=== PATIENT | female | born 1950 | race Caucasian/White ===

== ENCOUNTER → 2018-07-14 16:14 | Outpatient (CLI) | payer MEDICARE, MEDICAID, SELFPAY ==
[2018-07-14 18:12] LABS: Alanine Aminotransferase 19 IU/L (9-52); Albumin 4.1 g/dL (3.5-5.0); Albumin Globulin Ratio 1.5 (1.0-2.8); Alkaline Phosphatase 98 U/L (38-126); Aspartate Aminotransferase 21 IU/L (14-36); BUN Creatinine Ratio 21.3 (6-22); Bilirubin Total 0.9 mg/dL (0.2-1.3); Blood Urea Nitrogen 17 mg/dL (7-17); Calcium 10.1 mg/dL (8.4-10.2); Carbon Dioxide 30 mmol/L (22-32); Chloride 103 mmol/L (98-107); Cholesterol 168 mg/dL (140-199); Estimated Glomerular Filt Rate > 60.0 mL/min (>60); Globulin 2.8 g/dL (1.7-4.1); Glucose 102 mg/dL (80-110); HDL Cholesterol 81 mg/dL (40-60); HEMOLYSIS < 15 (0-50); LDL Cholesterol Calculated 67 mg/dL (<100); Potassium 4.7 mmol/L (3.4-5.1); Sodium 144 mmol/L (137-145); Total Protein 6.9 g/dL (6.3-8.2); Triglycerides 100 mg/dL (35-150)
[2018-07-14 18:39] LABS: Creatinine Urine Random 92.3 mg/dL
[2018-07-14 18:42] LABS: Thyroid Stimulating Hormone 1.35 uIU/mL (0.47-4.68)
[2018-07-14 18:43] LABS: Microalbumi Creatinin Ratio Ur 41.1 ug/mg CR (<30); Microalbumin Urine Random 3.8 mg/dL (0-1.6)
== END ==
PROVIDERS: PCP Physician Assistant; Visit Provider Physician Assistant
DX: E03.9 Hypothyroidism, unspecified (principal); E66.01 Morbid (severe) obesity due to excess calories; E78.5 Hyperlipidemia, unspecified; I10 Essential (primary) hypertension; Z68.42 Body mass index [BMI] 45.0-49.9, adult
CPT/HCPCS: 36415; 80053; 80061; 82043; 82570; 84443

== ENCOUNTER → 2018-12-22 10:54 | Outpatient (CLI) | payer MEDICARE, MEDICAID, SELFPAY ==
--- NOTE | 2018-12-22 10:56 | DI.MG.S_ITS ---
BILATERAL DIGITAL SCREENING MAMMOGRAM 3D/2D WITH CAD: 12/22/2018 CLINICAL: Routine screening. Comparison is made to exams dated: 06/13/2017 mammogram, 03/26/2016 mammogram, and 12/30/2014 mammogram - [facility]. The tissue of both breasts is predominantly fatty. Current study was also evaluated with a Computer Aided Detection (CAD) system. No significant masses, calcifications, or other findings are seen in either breast. There has been no significant interval change. IMPRESSION: NEGATIVE There is no mammographic evidence of malignancy. A 1 year screening mammogram is recommended. This exam was interpreted at Station ID: [id number]. NOTE: For mammograms, a report in lay terms will be sent to the patient. Approximately 15% of breast malignancies will not be visualized mammographically. In the management of a palpable breast mass, a negative mammogram must not discourage biopsy of a clinically suspicious lesion. Electronically Signed By: Sabra stern/milind:12/22/2018 14:17:56 copy to: Ba Rankin letter sent: Normal Exam ACR BI-RADS Category 1: Negative [id number]
== END ==
PROVIDERS: PCP Physician Assistant; Visit Provider Physician Assistant
DX: Z12.31 Encounter for screening mammogram for malignant neoplasm of breast (principal)
CPT/HCPCS: 77063; 77067

== ENCOUNTER → 2019-01-06 15:33 | Outpatient (CLI) | payer MEDICARE, MEDICAID, SELFPAY ==
[2019-01-06 18:03] LABS: Creatinine Urine Random 107.6 mg/dL
[2019-01-06 18:07] LABS: Microalbumi Creatinin Ratio Ur 5.5 ug/mg CR (<30); Microalbumin Urine Random < 0.6 mg/dL (0-1.6)
== END ==
PROVIDERS: PCP Physician Assistant; Visit Provider Physician Assistant
DX: I10 Essential (primary) hypertension (principal); R80.9 Proteinuria, unspecified
CPT/HCPCS: 82043; 82570

== ENCOUNTER → 2019-01-06 16:28 | Outpatient (CLI) | payer MEDICARE, MEDICAID, SELFPAY ==
[2019-01-06 17:40] LABS: Add Manual Diff / Slide Review NO; Basophils Absolute Auto 0 /uL (0-100); Basophils Percent Auto 0.3 % (0-2); Eosinophils Absolute Auto 100 /uL (0-450); Hematocrit 42.6 % (36-46); Hemoglobin 13.9 g/dL (12.0-16.0); Lymphocytes Absolute Auto 1400 /uL (1100-4500); Lymphocytes Percent Auto 24.6 % (25-40); Mean Corpuscular HGB Conc 32.6 % (30-36); Mean Corpuscular Hemoglobin 28.3 PG (26-34); Monocytes Absolute Auto 500 /uL (0-900); Monocytes Percent Auto 8.6 % (3-14); Neutrophils Absolute Auto 3800 /uL (1500-7000); Neutrophils Percent Auto 64.5 % (50-75); Platelet Count 206 X10^3/uL (150-400); Red Cell Distribution Width 15.1 % (11.6-14.8); White Blood Cell Count 5.9 X10^3/uL (4.5-11.0)
[2019-01-06 18:00] LABS: Alanine Aminotransferase 32 IU/L (9-52); Albumin 3.9 g/dL (3.5-5.0); Albumin Globulin Ratio 1.4 (1.0-2.8); Alkaline Phosphatase 94 U/L (38-126); Aspartate Aminotransferase 21 IU/L (14-36); BUN Creatinine Ratio 16.3 (6-22); Bilirubin Total 0.7 mg/dL (0.2-1.3); Blood Urea Nitrogen 13 mg/dL (7-17); Calcium 9.3 mg/dL (8.4-10.2); Carbon Dioxide 28 mmol/L (22-32); Chloride 106 mmol/L (98-107); Estimated Glomerular Filt Rate > 60.0 mL/min (>60); Globulin 2.7 g/dL (1.7-4.1); Glucose 82 mg/dL (80-110); HEMOLYSIS < 15 (0-50); Potassium 4.5 mmol/L (3.4-5.1); Sodium 141 mmol/L (137-145); Total Protein 6.6 g/dL (6.3-8.2)
[2019-01-06 18:32] LABS: Thyroid Stimulating Hormone 1.24 uIU/mL (0.47-4.68)
== END ==
PROVIDERS: PCP Physician Assistant; Visit Provider Physician Assistant
DX: E03.9 Hypothyroidism, unspecified (principal); I10 Essential (primary) hypertension; R19.7 Diarrhea, unspecified; R80.9 Proteinuria, unspecified
CPT/HCPCS: 36415; 80053; 82043; 82570; 84443; 85025

== ENCOUNTER → 2019-01-07 13:21 | Outpatient (CLI) | payer MEDICARE, MEDICAID, SELFPAY ==
[2019-01-07 17:06] LABS: Clostridium Difficile Tox PCR Negative for C. diff
== END ==
PROVIDERS: PCP Physician Assistant; Visit Provider Physician Assistant
DX: E03.9 Hypothyroidism, unspecified (principal); I10 Essential (primary) hypertension; R19.7 Diarrhea, unspecified; R80.9 Proteinuria, unspecified
CPT/HCPCS: 87045; 87493; 87899

== ENCOUNTER → 2019-06-21 15:32 | Outpatient (CLI) | payer MEDICARE, MEDICAID, SELFPAY ==
--- NOTE | 2019-06-21 15:34 | DI.RAD.S_ITS ---
PROCEDURE: XR FOOT RT MIN 3V INDICATIONS: Pain distal 5th metatarsal;caught 5th on blanket and fell TECHNIQUE: 3 views of the foot were acquired. COMPARISON: [facility], , FOOT 3V LEFT, 04/23/2016, 15:08. [facility], , FOOT 3V LEFT, 04/15/2007, 11:50. FINDINGS: Bones: No fractures or dislocations. No suspicious bony lesions. Soft tissues: No tibiotalar joint effusion. Achilles tendon appears normal. IMPRESSION: Normal for age, source of current pain after trauma symptoms is not seen. Dictated by: Marcos Varner M.D. on 06/21/2019 at 16:34 Approved by: Marcos Varner M.D. on 06/21/2019 at 16:34
== END ==
PROVIDERS: PCP Physician Assistant; Visit Provider Physician Assistant
DX: M79.671 Pain in right foot (principal); W01.0XXA Fall on same level from slipping, tripping and stumbling without subsequent striking against object, initial encounter
CPT/HCPCS: 73630

== ENCOUNTER → 2019-06-29 13:10 | Outpatient (CLI) | payer MEDICARE, MEDICAID, SELFPAY ==
[2019-06-29 14:43] LABS: Alanine Aminotransferase 13 IU/L (9-52); Albumin 4.1 g/dL (3.5-5.0); Albumin Globulin Ratio 1.3 (1.0-2.8); Alkaline Phosphatase 121 U/L (38-126); Aspartate Aminotransferase 22 IU/L (14-36); BUN Creatinine Ratio 18.6 (6-22); Bilirubin Total 0.6 mg/dL (0.2-1.3); Blood Urea Nitrogen 13 mg/dL (7-17); Calcium 9.2 mg/dL (8.4-10.2); Carbon Dioxide 27 mmol/L (22-32); Chloride 105 mmol/L (98-107); Cholesterol 158 mg/dL (140-199); Estimated Glomerular Filt Rate > 60.0 mL/min (>60); Globulin 3.2 g/dL (1.7-4.1); Glucose 96 mg/dL (80-110); HDL Cholesterol 65 mg/dL (40-60); HEMOLYSIS < 15 (0-50); LDL Cholesterol Calculated 75 mg/dL (<100); Sodium 141 mmol/L (137-145); Total Protein 7.3 g/dL (6.3-8.2); Triglycerides 90 mg/dL (35-150)
[2019-06-29 14:52] LABS: Microalbumi Creatinin Ratio Ur 5.8 ug/mg CR (<30); Microalbumin Urine Random 0.7 mg/dL (0-1.6)
[2019-06-29 15:43] LABS: Thyroid Stimulating Hormone 0.75 uIU/mL (0.47-4.68)
== END ==
PROVIDERS: PCP Physician Assistant; Visit Provider Physician Assistant
DX: E78.5 Hyperlipidemia, unspecified (principal); E03.9 Hypothyroidism, unspecified; I10 Essential (primary) hypertension
CPT/HCPCS: 36415; 80053; 80061; 82043; 82570; 84443

== ENCOUNTER 2019-08-26 10:32 | Emergency (ER) | payer MEDICARE, MEDICAID, SELFPAY ==
[2019-08-26 11:00] VITALS: BP 110/51; PULSE 73; RESP 18; TEMP 36.4; O2SAT 96; BMI 46.0
[2019-08-26 11:16] LABS: Add Manual Diff / Slide Review NO; Basophils Absolute Auto 0 /uL (0-100); Basophils Percent Auto 0.7 % (0-2); Eosinophils Absolute Auto 100 /uL (0-450); Eosinophils Percent Auto 2.5 % (2-4); Lymphocytes Absolute Auto 900 /uL (1100-4500); Lymphocytes Percent Auto 19.8 % (25-40); Mean Corpuscular HGB Conc 33.5 % (30-36); Mean Corpuscular Hemoglobin 29.1 PG (26-34); Mean Corpuscular Volume 86.8 fL (80-100); Monocytes Absolute Auto 500 /uL (0-900); Monocytes Percent Auto 10.5 % (3-14); Neutrophils Absolute Auto 3200 /uL (1500-7000); Neutrophils Percent Auto 66.5 % (50-75); Platelet Count 164 X10^3/uL (150-400); Red Blood Cell Count 4.49 X10^6/uL (4.0-5.2); Red Cell Distribution Width 14.8 % (11.6-14.8); White Blood Cell Count 4.7 X10^3/uL (4.5-11.0)
[2019-08-26 11:22] LABS: Prothrombin Time 11.7 SECONDS (10.1-12.7)
[2019-08-26 11:25] LABS: PTT Partial Thromboplastin Tim 33 SECONDS (26.4-36.2)
[2019-08-26 11:28] LABS: Alanine Aminotransferase 18 IU/L (9-52); Albumin 3.8 g/dL (3.5-5.0); Albumin Globulin Ratio 1.5 (1.0-2.8); Alkaline Phosphatase 99 U/L (38-126); Aspartate Aminotransferase 24 IU/L (14-36); BUN Creatinine Ratio 21.4 (6-22); Bilirubin Total 0.8 mg/dL (0.2-1.3); Blood Urea Nitrogen 15 mg/dL (7-17); Calcium 8.9 mg/dL (8.4-10.2); Carbon Dioxide 27 mmol/L (22-32); Chloride 105 mmol/L (98-107); Estimated Glomerular Filt Rate > 60.0 mL/min (>60); Globulin 2.6 g/dL (1.7-4.1); Glucose 86 mg/dL (80-110); HEMOLYSIS < 15 (0-50); Lipase 34 U/L (23-300); Sodium 141 mmol/L (137-145); Total Protein 6.4 g/dL (6.3-8.2)
[2019-08-26 11:33] VITALS: BP 123/88; PULSE 77; RESP 17; O2SAT 99
--- NOTE | 2019-08-26 11:43 | ED.ABDPAIN ---
HPI - Abdominal Pain <CHLOÉ Wallis - Last Filed: 08/26/19 18:17> General Chief Complaint: Abdominal Pain Stated Complaint: left flank pain bloating discomfort around belly Time Seen by Provider: 08/26/19 11:02 Source: patient Mode of arrival: Family Vehicle Limitations: no limitations History of Present Illness HPI narrative: The patient is a 69-year-old female nonsmoker with history of obesity who presents with a chief complaint of left-sided flank pain. She states that it radiates to her left back. She denies any chest pain or shortness of breath. She denies any fevers, but complains of chills. She complains of nausea, but denies any vomiting or diarrhea. She states that she feels bloated. She does have a history of a failed lap band surgery. She denies any dysuria urgency or frequency. She states that Tylenol dulled the pain. She denies any trauma or impetus to the pain. In addition to her lap band surgery, she states that she has had an appendectomy and her left ovary removed. The pain is worse with movement. Related Data Home Medications Medication Instructions Recorded Confirmed bupropion HCl 300 mg PO QPM 08/26/19 08/26/19 duloxetine 30 mg PO QPM 08/26/19 08/26/19 levothyroxine [Synthroid] 50 mcg PO DAILY 08/26/19 08/26/19 lisinopril 20 mg PO QPM 08/26/19 08/26/19 pantoprazole 40 mg PO QPM 08/26/19 08/26/19 simvastatin 20 mg PO BEDTIME 08/26/19 08/26/19 Previous Rx's Medication Instructions Recorded varicella-zoster [id number] (PF) 50 50 mcg IM ONCE #1 each 10/07/18 mcg/0.5 mL IM susp, kit albuterol sulfate 90 mcg/actuation 2 puff INHALATION Q4-6H PRN #18 06/21/19 aerosol inhaler gram Allergies Allergy/AdvReac Type Severity Reaction Status Date / Time No Known Drug Allergies Allergy Verified 06/21/19 15:03 Review of Systems <CHLOÉ Wallis - Last Filed: 08/26/19 18:17> Review of Systems Narrative: GENERAL: Denies chills, fatigue, malaise, fever, sweats. HEENT: Denies sinus pain, ear pain, sore throat, difficulty swallowing, dizziness. RESPIRATORY: Denies dyspnea, cough, wheezing, hemoptysis, sputum. CARDIOVASCULAR: Denies chest pain, palpitations, orthopnea, edema, GASTROINTESTINAL: See HPI : See HPI MUSCULOSKELETAL: denies weakness, joint pain, or bony pain SKIN: Denies rash, skin lesions, or other NEUROLOGIC: Denies weakness, headache, numbness, change in speech, confusion, seizures, incoordination. PSYCHIATRIC: No concerning psychosocial issues. 12 point review of systems is negative except for those stated above Patient History <CHLOÉ Wallis - Last Filed: 08/26/19 18:17> Surgical History (Updated 08/26/19 @ 11:46 by CHLOÉ Wallis) History of appendectomy (Acute) History of bilateral salpingo-oophorectomy (BSO) Social History Smoking Status: Never smoker second hand exposure: No alcohol intake: current substance use type: does not use alcohol intake frequency: 0-2 drinks per day Substance Use Type: does not use Exam <CHLOÉ Wallis - Last Filed: 08/26/19 18:17> Narrative Exam Narrative: GENERAL: Morbidly obese female in no acute distress HEAD: Atraumatic. Normocephalic. No temporal or scalp tenderness. EYES: Pupils equal round and reactive. Extraocular motions intact. No scleral icterus. No injection or drainage. ENT: Nose without bleeding, purulent drainage or septal hematoma. Throat without erythema, tonsillar hypertrophy or exudate. Uvula midline. Airway patent. NECK: Trachea midline. No JVD or lymphadenopathy. Supple, nontender, no meningeal signs. CARDIOVASCULAR: Regular rate and rhythm RESPIRATORY: Clear to auscultation. Breath sounds equal bilaterally. No wheezes, rales, or rhonchi. No cough. No increased respiratory effort. No accessory muscle use. GASTROINTESTINAL: Abdomen soft, obese. Positive Jones sign. Slight pain to palpation left upper quadrant. No pain to palpation right lower quadrant, left lower quadrant suprapubic area. EXTREMITIES: No clubbing, cyanosis, or edema. No joint tenderness, effusion, or edema noted. BACK: Nontender without deformity or crepitance. Flank tenderness noted on left side. No CVA tenderness right side. NEURO: AOx3. SKIN: No rash or erythema on visible skin. Initial Vital Signs Initial Vital Signs: Vital Signs Temperature 97.5 F L 08/26/19 11:00 Pulse Rate 73 08/26/19 11:00 Respiratory Rate 18 08/26/19 11:00 Blood Pressure 110/51 L 08/26/19 11:00 Pulse Oximetry 96 08/26/19 11:00 <Raymon Rasmussen MD - Last Filed: 08/26/19 18:27> Initial Vital Signs Initial Vital Signs: Vital Signs Temperature 97.5 F L 08/26/19 11:00 Pulse Rate 73 08/26/19 11:00 Respiratory Rate 18 08/26/19 11:00 Blood Pressure 110/51 L 08/26/19 11:00 Pulse Oximetry 96 08/26/19 11:00 Course <ROMAINE Wallis-BC - Last Filed: 08/26/19 18:17> Orders Ordered: ED Orders 08/26/19 10:50 EKG-12 Lead Stat 08/26/19 11:08 Complete Blood Count AUTO DIFF Stat Comprehensive Metabolic Panel Stat Lipase Stat Partial Thromboplastin Time Stat Prothrombin Time INR Stat Troponin & CK Cardiac Panel Stat 08/26/19 12:00 XR acute abdomen series Stat 08/26/19 12:25 US abdomen complete Stat 08/26/19 13:17 CT abdomen pelvis w con Stat Discontinued Medications Sodium Chloride (Normal Saline 0.9%) 1,000 mls @ 150 mls/hr IV CONT SHASHA Last Infusion: 08/26/19 14:59 Dose: 0 mls/hr Documented by: Admin: 08/26/19 11:54 Dose: 150 mls/hr Documented by: HEATH Ketorolac Tromethamine (Toradol) 30 mg IV NOW ONE Stop: 08/26/19 14:09 Last Admin: 08/26/19 14:16 Dose: 30 mg Documented by: DAVID Magnesium Citrate (Magnesium Citrate) 300 ml PO NOW ONE Stop: 08/26/19 14:09 Last Admin: 08/26/19 14:16 Dose: 300 ml Documented by: DAVID Morphine Sulfate (Morphine) 4 mg IV NOW ONE Stop: 08/26/19 11:38 Last Admin: 08/26/19 11:54 Dose: 4 mg Documented by: HEATH Ondansetron HCl (Zofran) 4 mg IV NOW ONE Stop: 08/26/19 11:38 Last Admin: 08/26/19 11:55 Dose: 4 mg Documented by: HEATH Simethicone (Mylicon) 80 mg PO NOW ONE Stop: 08/26/19 14:14 Last Admin: 08/26/19 14:17 Dose: 80 mg Documented by: DAVID Vital Signs Vital signs: Vital Signs - 8 hr 08/26/19 11:00 08/26/19 11:33 08/26/19 12:30 Temperature 97.5 F L Pulse Rate 73 77 76 Respiratory Rate 18 17 19 Blood Pressure 110/51 L Blood Pressure [Right Arm] 123/88 123/63 Pulse Oximetry 96 99 98 08/26/19 13:36 08/26/19 14:30 Temperature Pulse Rate 73 67 Respiratory Rate 15 14 Blood Pressure Blood Pressure [Right Arm] 122/74 102/89 Pulse Oximetry 99 97 <Raymon Rasmussen MD - Last Filed: 08/26/19 18:27> Orders Ordered: ED Orders 08/26/19 10:50 EKG-12 Lead Stat 08/26/19 11:08 Complete Blood Count AUTO DIFF Stat Comprehensive Metabolic Panel Stat Lipase Stat Partial Thromboplastin Time Stat Prothrombin Time INR Stat Troponin & CK Cardiac Panel Stat 08/26/19 12:00 XR acute abdomen series Stat 08/26/19 12:25 US abdomen complete Stat 08/26/19 13:17 CT abdomen pelvis w con Stat Discontinued Medications Sodium Chloride (Normal Saline 0.9%) 1,000 mls @ 150 mls/hr IV CONT SHASHA Last Infusion: 08/26/19 14:59 Dose: 0 mls/hr Documented by: Admin: 08/26/19 11:54 Dose: 150 mls/hr Documented by: HEATH Ketorolac Tromethamine (Toradol) 30 mg IV NOW ONE Stop: 08/26/19 14:09 Last Admin: 08/26/19 14:16 Dose: 30 mg Documented by: DAVID Magnesium Citrate (Magnesium Citrate) 300 ml PO NOW ONE Stop: 08/26/19 14:09 Last Admin: 08/26/19 14:16 Dose: 300 ml Documented by: DAVID Morphine Sulfate (Morphine) 4 mg IV NOW ONE Stop: 08/26/19 11:38 Last Admin: 08/26/19 11:54 Dose: 4 mg Documented by: HEATH Ondansetron HCl (Zofran) 4 mg IV NOW ONE Stop: 08/26/19 11:38 Last Admin: 08/26/19 11:55 Dose: 4 mg Documented by: HEATH Simethicone (Mylicon) 80 mg PO NOW ONE Stop: 08/26/19 14:14 Last Admin: 08/26/19 14:17 Dose: 80 mg Documented by: DAVID Vital Signs Vital signs: Vital Signs - 8 hr 08/26/19 11:00 08/26/19 11:33 08/26/19 12:30 Temperature 97.5 F L Pulse Rate 73 77 76 Respiratory Rate 18 17 19 Blood Pressure 110/51 L Blood Pressure [Right Arm] 123/88 123/63 Pulse Oximetry 96 99 98 08/26/19 13:36 08/26/19 14:30 Temperature Pulse Rate 73 67 Respiratory Rate 15 14 Blood Pressure Blood Pressure [Right Arm] 122/74 102/89 Pulse Oximetry 99 97 MDM - Abdominal Pain <ROMAINE Wallis- - Last Filed: 08/26/19 18:17> Lab Data Result diagrams: 08/26/19 11:08 08/26/19 11:08 Labs: Lab Results 08/26/19 08/26/19 08/26/19 Range/Units 11:08 11:08 11:08 WBC 4.7 (4.5-11.0) X10^3/uL RBC 4.49 (4.0-5.2) X10^6/uL Hgb 13.0 (12.0-16.0) g/dL Hct 39.0 (36-46) % MCV 86.8 (80-100) fL MCH 29.1 (26-34) PG MCHC 33.5 (30-36) % RDW 14.8 (11.6-14.8) % Plt Count 164 (150-400) X10^3/uL Neut % (Auto) 66.5 (50-75) % Lymph % (Auto) 19.8 L (25-40) % [place] % (Auto) 10.5 (3-14) % Eos % (Auto) 2.5 (2-4) % Baso % (Auto) 0.7 (0-2) % Neut # (Auto) 3200 (2620-0615) /uL Lymph # (Auto) 900 L (6876-6196) /uL [place] # (Auto) 500 (0-900) /uL Eos # (Auto) 100 (0-450) /uL Baso # (Auto) 0 (0-100) /uL PT 11.7 (10.1-12.7) SECONDS INR 1.0 (0.9-1.3) APTT 33 (26.4-36.2) SECONDS Sodium 141 (137-145) mmol/L Potassium 4.0 (3.4-5.1) mmol/L Chloride 105 (98-107) mmol/L Carbon Dioxide 27 (22-32) mmol/L BUN 15 (7-17) mg/dL Creatinine 0.70 (0.52-1.04) mg/dL Estimated GFR > 60.0 (>60) mL/min BUN/Creatinine Ratio 21.4 (6-22) Glucose 86 (80-110) mg/dL Calcium 8.9 (8.4-10.2) mg/dL Total Bilirubin 0.8 (0.2-1.3) mg/dL AST 24 (14-36) IU/L ALT 18 (9-52) IU/L Alkaline Phosphatase 99 (38-126) U/L Total Creatine Kinase (30-135) U/L CK-MB (CK-2) (<2.37) ng/mL CK-MB (CK-2) Rel Index (1.5-5.0) % Troponin I (0.01-0.034) ng/mL Total Protein 6.4 (6.3-8.2) g/dL Albumin 3.8 (3.5-5.0) g/dL Globulin 2.6 (1.7-4.1) g/dL Albumin/Globulin Ratio 1.5 (1.0-2.8) Lipase 34 (23-300) U/L 08/26/19 Range/Units 11:08 WBC (4.5-11.0) X10^3/uL RBC (4.0-5.2) X10^6/uL Hgb (12.0-16.0) g/dL Hct (36-46) % MCV (80-100) fL MCH (26-34) PG MCHC (30-36) % RDW (11.6-14.8) % Plt Count (150-400) X10^3/uL Neut % (Auto) (50-75) % Lymph % (Auto) (25-40) % [place] % (Auto) (3-14) % Eos % (Auto) (2-4) % Baso % (Auto) (0-2) % Neut # (Auto) (1974-5067) /uL Lymph # (Auto) (4777-1892) /uL [place] # (Auto) (0-900) /uL Eos # (Auto) (0-450) /uL Baso # (Auto) (0-100) /uL PT (10.1-12.7) SECONDS INR (0.9-1.3) APTT (26.4-36.2) SECONDS Sodium (137-145) mmol/L Potassium (3.4-5.1) mmol/L Chloride (98-107) mmol/L Carbon Dioxide (22-32) mmol/L BUN (7-17) mg/dL Creatinine (0.52-1.04) mg/dL Estimated GFR (>60) mL/min BUN/Creatinine Ratio (6-22) Glucose (80-110) mg/dL Calcium (8.4-10.2) mg/dL Total Bilirubin (0.2-1.3) mg/dL AST (14-36) IU/L ALT (9-52) IU/L Alkaline Phosphatase (38-126) U/L Total Creatine Kinase 150 H (30-135) U/L CK-MB (CK-2) 1.31 (<2.37) ng/mL CK-MB (CK-2) Rel Index 0.9 L (1.5-5.0) % Troponin I < 0.012 (0.01-0.034) ng/mL Total Protein (6.3-8.2) g/dL Albumin (3.5-5.0) g/dL Globulin (1.7-4.1) g/dL Albumin/Globulin Ratio (1.0-2.8) Lipase (23-300) U/L Point of care testing: Urine Dip Bedside Urine Glucose Negative Bedside Urine Bilirubin - Negative Bedside Urine Ketone - Negative Urine Specific [place] 1.015 Bedside Urine Occult Blood - Negative Bedside Urine pH 6.0 Bedside Urine Protein - Negative Bedside Urine Urobilinogen +/- 1mg Bedside Urine Nitrite - Negative Bedside Urine Leukocytes - Negative Esterase Imaging Data abd xray : Radiologist's impression: [address] [address] XRay Report Signed Patient: Terese Trejo [facility]#: [id number] : [id number]:[id number] Age/Sex: 69 / FDate of Service: 08/26/19 Loc: ED Accession Number: [id number] Procedure: XR acute abdomen series Ordering Provider: Mary Peace PROCEDURE: XR ACUTE ABDOMEN SERIES INDICATIONS: bloating TECHNIQUE: One view chest and two views of the abdomen were acquired. COMPARISON: [facility], CR, XR SWALLOWING EVAL WITH SPEECH, 08/09/2019, 8:25. [facility], US, US ABDOMEN COMPLETE, 08/26/2019, 12:36. FINDINGS: Surgical changes and devices: None. Chest: Lungs are clear. Heart size is normal. No pleural effusions. No pneumoperitoneum. Abdomen: There is a moderate to large amount of stool in colon. Mild small bowel dilation. No suspicious calcifications. Visualized solid organ contours appear normal. Bones: No suspicious bony lesions. Mild scoliosis. Moderate to severe degenerative changes in lumbar spine. IMPRESSION: 1. Mild small bowel dilation most likely secondary to ileus but early small bowel obstruction cannot be excluded. 2. Moderate to large amount of stool in colon. Dictated by: Joan Lora M.D. on 08/26/2019 at 13:06 Approved by: Joan Lora M.D. on 08/26/2019 at 13:09 US - abdomen: Radiologist's impression: [address] [address] Ultrasound Report Signed Patient: Terese Trejo [facility]#: [id number] : [id number]:[id number] Age/Sex: 69 / FDate of Service: 08/26/19 Loc: ED Accession Number: [id number] Procedure: US abdomen complete Ordering Provider: [place],Mary NURSE ADMINISTRATOR-BC PROCEDURE: US ABDOMEN COMPLETE INDICATIONS: PAIN TECHNIQUE: Real-time scanning was performed of the abdominal and retroperitoneal organs, with image documentation. COMPARISON: [facility], US, ABDOMEN COMPLETE, 12/14/2014, 14:29. FINDINGS: Liver: Liver is normal in size and homogeneous in echotexture. Gallbladder: Gallbladder wall polyp measuring 2-3 mm. No gallbladder wall thickening pericholecystic fluid or sonographic Jones sign. Biliary ducts: Intrahepatic bile ducts are non-dilated. Extrahepatic bile duct caliber measures 5 mm. Normal is 6-7 mm or less in diameter, or 10 mm or less post-cholecystectomy. Pancreas: Not well sonographically visualized Spleen: Spleen is normal in size and homogeneous in echotexture. Kidneys: Kidneys are normal in size and echotexture. Right kidney measures 9.2 cm long; left kidney measures 9.4 cm long. No hydronephrosis or nephrolithiasis. No solid masses. Aorta: Visualized aorta is normal in caliber at less than 3 cm. Iliacs: Proximal common iliac arteries are normal in caliber at less than 2.5 cm. IVC: Not well visualized sonographically Miscellaneous: No free abdominal fluid. IMPRESSION: Incidentally noted gallbladder polyp. Elsewhere, no acute process. However, pancreas not sonographically visualized. Dictated by: Marvin Wilkinson M.D. on 08/26/2019 at 13:07 Approved by: Marvin Wilkinson M.D. on 08/26/2019 at 13:12 CT scan - abdomen: Radiologist's impression: [place] [address] CT Scan Report Signed Patient: Terese Trejo [facility]#: [id number] : 2Acct:[id number] Age/Sex: 69 / FDate of Service: 08/26/19 Loc: ED Accession Number: [id number] Procedure: CT abdomen pelvis w con Ordering Provider: Mary Peace-BC PROCEDURE: CT ABDOMEN PELVIS W CON INDICATIONS: abd pain, ?sbo TECHNIQUE: After the administration of oral and intravenous contrast, 5 mm thick sections acquired from the diaphragms to the symphysis. 5 mm thick coronal and sagittal reformats were performed. For radiation dose reduction, the following was used: automated exposure control, adjustment of mA and/or kV according to patient size. COMPARISON: [facility], CT, ABDOMEN/PELVIS WITH CONTRAST, 11/28/2012, 13:12. FINDINGS: Image quality: Diagnostic. ABDOMEN: Lung bases: Mild scar versus atelectasis is identified within the bilateral lung bases. Heart size is normal. Solid organs: The liver, spleen, adrenals, and pancreas appear to be within normal limits. The kidneys are normal in size. There is a small 3 mm nonobstructing mid right renal calculus. Parapelvic cysts are present bilaterally. There is no hydronephrosis. Peritoneum and bowel: There is a small moderate-sized hiatal hernia. The stomach is decompressed. Small bowel loops are nondilated. A moderate amount of residual stool is seen within the proximal colon. The appendix is not definitely seen. There is a moderate-sized periumbilical hernia present that contains multiple bowel loops. The proximal and distal bowel loops that extend into this hernia are not distended. An additional small supraumbilical fat containing ventral hernia is also evident. No free fluid or loculated fluid collection is appreciated. Nodes and vessels: No retroperitoneal or mesenteric adenopathy. Aorta and inferior vena cava are normal in caliber. Bones: No acute fracture or suspicious osseous lesion is evident. [id number] degenerative changes of the spine are present. PELVIS: Bladder: Bladder wall thickness is normal. Miscellaneous: There appears to be a very small fat containing left inguinal hernia. The uterus and ovaries are not significantly enlarged, but are not well characterized on CT. No free fluid or loculated fluid collection is evident. No pelvic adenopathy is identified. Bones: No suspicious bony lesions. No acute pelvic fractures are evident. Mild to moderate degenerative changes of the pelvic joints are noted. IMPRESSION: 1. No evidence of a small bowel obstruction. 2. Large periumbilical hernia containing multiple bowel loops. 3. Probable constipation. 4. There is an additional small superior midline ventral hernia and a fat containing left abdominal hernia. 5. Hiatal hernia. 6. Nonobstructing right renal calculus. No hydronephrosis. Dictated by: Raymond Jacobsen M.D. on 08/26/2019 at 12:45 Approved by: Raymond Jacobsen M.D. on 08/26/2019 at 12:52 ECG Data Attestation: I personally reviewed and interpreted this ECG as follows: Interpretation: Sinus rhythm. Ventricular rate 73. No ectopy noted. No ST elevation or depression noted. P.r. interval 140. QRS duration 93. viewed by Dr Rasmussen [facility] Narrative Medical decision making narrative: The patient is a morbidly obese 69-year-old female who presents with multiple complaints including flank pain, abdominal pain, bloating. She does not have an acute abdomen, but complains of diffuse right upper quadrant pain on exam, so I obtained an ultrasound of her right upper quadrant to evaluate for cholecystitis. She she is hemodynamically stable, afebrile, no leukocytosis noted on labs. She does have a history of kidney stone, but she has no hematuria on urinalysis. Ultrasound was concerning for slight hydronephrosis per mechatronics technician. X-ray was concerning for possible small bowel obstruction, so I obtained a CT with contrast. This came back with no small-bowel obstruction, severe constipation and multiple hernias. She has no evidence of UTI on urinalysis. She had a normal x-ray, and negative troponin. She has no evidence of strangulated hernias, no vomiting, no fever. I discussed at length the importance of follow-up with PCP, improving the constipation. She was given Gas-X in the emergency department I did discharge her with magnesium citrate. I discussed at length coming back to the emergency department for any acute concerns such as chest pain, shortness of breath, concern of heart attack or stroke abdominal pain with fever and or inability keep down fluids <Raymon Rasmussen MD - Last Filed: 08/26/19 18:27> Lab Data Labs: Lab Results 08/26/19 08/26/19 08/26/19 Range/Units 11:08 11:08 11:08 WBC 4.7 (4.5-11.0) X10^3/uL RBC 4.49 (4.0-5.2) X10^6/uL Hgb 13.0 (12.0-16.0) g/dL Hct 39.0 (36-46) % MCV 86.8 (80-100) fL MCH 29.1 (26-34) PG MCHC 33.5 (30-36) % RDW 14.8 (11.6-14.8) % Plt Count 164 (150-400) X10^3/uL Neut % (Auto) 66.5 (50-75) % Lymph % (Auto) 19.8 L (25-40) % [place] % (Auto) 10.5 (3-14) % Eos % (Auto) 2.5 (2-4) % Baso % (Auto) 0.7 (0-2) % Neut # (Auto) 3200 (4236-2384) /uL Lymph # (Auto) 900 L (1667-0534) /uL [place] # (Auto) 500 (0-900) /uL Eos # (Auto) 100 (0-450) /uL Baso # (Auto) 0 (0-100) /uL PT 11.7 (10.1-12.7) SECONDS INR 1.0 (0.9-1.3) APTT 33 (26.4-36.2) SECONDS Sodium 141 (137-145) mmol/L Potassium 4.0 (3.4-5.1) mmol/L Chloride 105 (98-107) mmol/L Carbon Dioxide 27 (22-32) mmol/L BUN 15 (7-17) mg/dL Creatinine 0.70 (0.52-1.04) mg/dL Estimated GFR > 60.0 (>60) mL/min BUN/Creatinine Ratio 21.4 (6-22) Glucose 86 (80-110) mg/dL Calcium 8.9 (8.4-10.2) mg/dL Total Bilirubin 0.8 (0.2-1.3) mg/dL AST 24 (14-36) IU/L ALT 18 (9-52) IU/L Alkaline Phosphatase 99 (38-126) U/L Total Creatine Kinase (30-135) U/L CK-MB (CK-2) (<2.37) ng/mL CK-MB (CK-2) Rel Index (1.5-5.0) % Troponin I (0.01-0.034) ng/mL Total Protein 6.4 (6.3-8.2) g/dL Albumin 3.8 (3.5-5.0) g/dL Globulin 2.6 (1.7-4.1) g/dL Albumin/Globulin Ratio 1.5 (1.0-2.8) Lipase 34 (23-300) U/L 08/26/19 Range/Units 11:08 WBC (4.5-11.0) X10^3/uL RBC (4.0-5.2) X10^6/uL Hgb (12.0-16.0) g/dL Hct (36-46) % MCV (80-100) fL MCH (26-34) PG MCHC (30-36) % RDW (11.6-14.8) % Plt Count (150-400) X10^3/uL Neut % (Auto) (50-75) % Lymph % (Auto) (25-40) % [place] % (Auto) (3-14) % Eos % (Auto) (2-4) % Baso % (Auto) (0-2) % Neut # (Auto) (0855-7970) /uL Lymph # (Auto) (9948-1706) /uL [place] # (Auto) (0-900) /uL Eos # (Auto) (0-450) /uL Baso # (Auto) (0-100) /uL PT (10.1-12.7) SECONDS INR (0.9-1.3) APTT (26.4-36.2) SECONDS Sodium (137-145) mmol/L Potassium (3.4-5.1) mmol/L Chloride (98-107) mmol/L Carbon Dioxide (22-32) mmol/L BUN (7-17) mg/dL Creatinine (0.52-1.04) mg/dL Estimated GFR (>60) mL/min BUN/Creatinine Ratio (6-22) Glucose (80-110) mg/dL Calcium (8.4-10.2) mg/dL Total Bilirubin (0.2-1.3) mg/dL AST (14-36) IU/L ALT (9-52) IU/L Alkaline Phosphatase (38-126) U/L Total Creatine Kinase 150 H (30-135) U/L CK-MB (CK-2) 1.31 (<2.37) ng/mL CK-MB (CK-2) Rel Index 0.9 L (1.5-5.0) % Troponin I < 0.012 (0.01-0.034) ng/mL Total Protein (6.3-8.2) g/dL Albumin (3.5-5.0) g/dL Globulin (1.7-4.1) g/dL Albumin/Globulin Ratio (1.0-2.8) Lipase (23-300) U/L Point of care testing: Urine Dip Bedside Urine Glucose Negative Bedside Urine Bilirubin - Negative Bedside Urine Ketone - Negative Urine Specific [place] 1.015 Bedside Urine Occult Blood - Negative Bedside Urine pH 6.0 Bedside Urine Protein - Negative Bedside Urine Urobilinogen +/- 1mg Bedside Urine Nitrite - Negative Bedside Urine Leukocytes - Negative Esterase Discharge Plan Departure Patient Disposition: Home Clinical Impression: Hernia, Acute flank pain Abdominal pain Qualifiers: Abdominal location: generalized Qualified Code(s): R10.84 - Generalized abdominal pain Constipation Qualifiers: Constipation type: unspecified constipation type Qualified Code(s): K59.00 - Constipation, unspecified Discharge Date/Time: 08/26/19 15:00 Instructions: Constipation (Alternative Therapy), DI for Abdominal Pain-Adult, DI for Constipation, DI for Hiatal Hernia, DI for Flank Pain, DI for Ventral Hernia Activity Restrictions/Additional Instructions: Today we did lab work, urinalysis, and imaging to evaluate the causes of your pain. We found that you have multiple hernias and severe constipation. You have no evidence of urinary tract infection, ureteral stone, infected gallbladder or small-bowel obstruction. We have given you a medication to take home that should help move her bowels. Please increase your water intake, consider MiraLax, and other medications to help prevent constipation. Please follow up with primary care provider in the next few days. Please come back to the emergency department for any acute concerns such as chest pain, shortness of breath, concern of heart attack or stroke, inability keep down fluids abdominal pain with fever etc Prescriptions: No Action varicella-zoster [id number] (PF) [Shingrix (PF)] 50 mcg/0.5 mL suspension for reconstitution 50 mcg IM ONCE Qty: 1 RF: 1 albuterol sulfate 90 mcg/actuation HFA aerosol inhaler 2 puff INHALATION Q4-6H PRN (Reason: shortness of breath or wheezing) Qty: 18 RF: 0 lisinopril 20 mg tablet 20 mg PO QPM RF: 0 pantoprazole 40 mg tablet,delayed release (DR/EC) 40 mg PO QPM RF: 0 bupropion HCl 300 mg tablet extended release 24 hr 300 mg PO QPM RF: 0 levothyroxine [Synthroid] 50 mcg tablet 50 mcg PO DAILY RF: 0 simvastatin 20 mg tablet 20 mg PO BEDTIME RF: 0 duloxetine 30 mg capsule,delayed release(DR/EC) 30 mg PO QPM RF: 0 Referrals: Lizeth Cruz PA-C [Primary Care Provider] -
[2019-08-26] MEDS: SODIUM CHLORIDE 0.9% 1,000 ML 150 ML IV (11:54)
[2019-08-26] MEDS: MORPHINE 4 MG/ML INJ IV (11:54)
[2019-08-26] MEDS: ONDANSETRON 4 MG/2 ML INJ IV (11:55)
[2019-08-26 11:56] LABS: Creatine Kinase 150 U/L (30-135)
--- NOTE | 2019-08-26 12:00 | DI.RAD.S_ITS ---
PROCEDURE: XR ACUTE ABDOMEN SERIES INDICATIONS: bloating TECHNIQUE: One view chest and two views of the abdomen were acquired. COMPARISON: [facility], CR, XR SWALLOWING EVAL WITH SPEECH, 08/09/2019, 8:25. [facility], , US ABDOMEN COMPLETE, 08/26/2019, 12:36. FINDINGS: Surgical changes and devices: None. Chest: Lungs are clear. Heart size is normal. No pleural effusions. No pneumoperitoneum. Abdomen: There is a moderate to large amount of stool in colon. Mild small bowel dilation. No suspicious calcifications. Visualized solid organ contours appear normal. Bones: No suspicious bony lesions. Mild scoliosis. Moderate to severe degenerative changes in lumbar spine. IMPRESSION: 1. Mild small bowel dilation most likely secondary to ileus but early small bowel obstruction cannot be excluded. 2. Moderate to large amount of stool in colon. Dictated by: Joan Lora M.D. on 08/26/2019 at 13:06 Approved by: Joan Lora M.D. on 08/26/2019 at 13:09
[2019-08-26 12:08] LABS: Troponin I < 0.012 ng/mL (0.01-0.034)
[2019-08-26 12:11] LABS: CKMB % Relative Index 0.9 % (1.5-5.0); Creatine Kinase MB 1.31 ng/mL (<2.37)
--- NOTE | 2019-08-26 12:25 | DI.US.S_ITS ---
PROCEDURE: US ABDOMEN COMPLETE INDICATIONS: PAIN TECHNIQUE: Real-time scanning was performed of the abdominal and retroperitoneal organs, with image documentation. COMPARISON: [facility], US, ABDOMEN COMPLETE, 12/14/2014, 14:29. FINDINGS: Liver: Liver is normal in size and homogeneous in echotexture. Gallbladder: Gallbladder wall polyp measuring 2-3 mm. No gallbladder wall thickening pericholecystic fluid or sonographic Jones sign. Biliary ducts: Intrahepatic bile ducts are non-dilated. Extrahepatic bile duct caliber measures 5 mm. Normal is 6-7 mm or less in diameter, or 10 mm or less post-cholecystectomy. Pancreas: Not well sonographically visualized Spleen: Spleen is normal in size and homogeneous in echotexture. Kidneys: Kidneys are normal in size and echotexture. Right kidney measures 9.2 cm long; left kidney measures 9.4 cm long. No hydronephrosis or nephrolithiasis. No solid masses. Aorta: Visualized aorta is normal in caliber at less than 3 cm. Iliacs: Proximal common iliac arteries are normal in caliber at less than 2.5 cm. IVC: Not well visualized sonographically Miscellaneous: No free abdominal fluid. IMPRESSION: Incidentally noted gallbladder polyp. Elsewhere, no acute process. However, pancreas not sonographically visualized. Dictated by: Marvin Wilkinson M.D. on 08/26/2019 at 13:07 Approved by: Marvin Wilkinson M.D. on 08/26/2019 at 13:12
[2019-08-26 12:30] VITALS: BP 123/63; PULSE 76; RESP 19; O2SAT 98
--- NOTE | 2019-08-26 13:17 | DI.CT.S_ITS ---
PROCEDURE: CT ABDOMEN PELVIS W CON INDICATIONS: abd pain, ?sbo TECHNIQUE: After the administration of oral and intravenous contrast, 5 mm thick sections acquired from the diaphragms to the symphysis. 5 mm thick coronal and sagittal reformats were performed. For radiation dose reduction, the following was used: automated exposure control, adjustment of mA and/or kV according to patient size. COMPARISON: [facility], CT, ABDOMEN/PELVIS WITH CONTRAST, 11/28/2012, 13:12. FINDINGS: Image quality: Diagnostic. ABDOMEN: Lung bases: Mild scar versus atelectasis is identified within the bilateral lung bases. Heart size is normal. Solid organs: The liver, spleen, adrenals, and pancreas appear to be within normal limits. The kidneys are normal in size. There is a small 3 mm nonobstructing mid right renal calculus. Parapelvic cysts are present bilaterally. There is no hydronephrosis. Peritoneum and bowel: There is a small moderate-sized hiatal hernia. The stomach is decompressed. Small bowel loops are nondilated. A moderate amount of residual stool is seen within the proximal colon. The appendix is not definitely seen. There is a moderate-sized periumbilical hernia present that contains multiple bowel loops. The proximal and distal bowel loops that extend into this hernia are not distended. An additional small supraumbilical fat containing ventral hernia is also evident. No free fluid or loculated fluid collection is appreciated. Nodes and vessels: No retroperitoneal or mesenteric adenopathy. Aorta and inferior vena cava are normal in caliber. Bones: No acute fracture or suspicious osseous lesion is evident. [id number] degenerative changes of the spine are present. PELVIS: Bladder: Bladder wall thickness is normal. Miscellaneous: There appears to be a very small fat containing left inguinal hernia. The uterus and ovaries are not significantly enlarged, but are not well characterized on CT. No free fluid or loculated fluid collection is evident. No pelvic adenopathy is identified. Bones: No suspicious bony lesions. No acute pelvic fractures are evident. Mild to moderate degenerative changes of the pelvic joints are noted. IMPRESSION: 1. No evidence of a small bowel obstruction. 2. Large periumbilical hernia containing multiple bowel loops. 3. Probable constipation. 4. There is an additional small superior midline ventral hernia and a fat containing left abdominal hernia. 5. Hiatal hernia. 6. Nonobstructing right renal calculus. No hydronephrosis. Dictated by: Raymond Jacobsen M.D. on 08/26/2019 at 12:45 Approved by: Raymond Jacobsen M.D. on 08/26/2019 at 12:52
[2019-08-26 13:36] VITALS: BP 122/74; PULSE 73; RESP 15; O2SAT 99
[2019-08-26] MEDS: MAGNESIUM CITRATE 300 ML SOLUTION PO (14:16)
[2019-08-26] MEDS: KETOROLAC 60 MG/2 ML VIAL 30 MG IV (14:16)
[2019-08-26] MEDS: SIMETHICONE 80 MG TABLET PO (14:17)
[2019-08-26 14:30] VITALS: BP 102/89; PULSE 67; RESP 14; O2SAT 97
== END 2019-08-26 15:00 | disposition home or self-care (01) ==
PROVIDERS: Emergency Medicine; Emergency Provider Nurse Practitioner Family; PCP Physician Assistant
DX: K46.9 Unspecified abdominal hernia without obstruction or gangrene (principal); R10.9 Unspecified abdominal pain; R10.84 Generalized abdominal pain; K59.00 Constipation, unspecified; K44.9 Diaphragmatic hernia without obstruction or gangrene; K43.9 Ventral hernia without obstruction or gangrene; E66.01 Morbid (severe) obesity due to excess calories
CPT/HCPCS: 36415; 74022; 74177; 76700; 80053; 81003; 82550; 82553; 83690; 84484; 85025; 85610; 85730; 93005; 96361; 96374; 96375; 99283; 99285; J1885; J2270; J2405; Q9967

== ENCOUNTER 2019-09-13 19:56 | Inpatient (IN) | payer MEDICARE, MEDICAID, SELFPAY ==
[2019-09-13 19:58] VITALS: BP 130/86; PULSE 94; RESP 24; TEMP 36.4; O2SAT 98
--- NOTE | 2019-09-13 20:29 | ED_ITS ---
HPI - Abdominal Pain General Chief Complaint: Abdominal Pain Stated Complaint: STOMACH PAINS Time Seen by Provider: 09/13/19 20:00 Source: patient Mode of arrival: Ambulatory Limitations: no limitations History of Present Illness HPI narrative: 69-year-old female nonsmoker with history of lap band and subsequent reversal presents to the emergency department with a chief complaint of episodes of severe epigastric pain with nausea but no vomiting over the course of the day. She has been passing gas and having bowel movements without difficulty. She was seen here relatively recently and had a thorough evaluation including CT scan and was determined to have severe constipation. She has been doing well until today. She denies fever or chills. She denies any provocation or palliation of her pain MD complaint: abdominal pain Onset (ago): hour(s) Pain Consistency: intermittent Location: epigastric Severity: moderate Quality: cramping Radiation: none Migration to: no migration Relieving factors: nothing Exacerbating factors: nothing Associated symptoms: nausea Related Data Home Medications Medication Instructions Recorded Confirmed bupropion HCl 300 mg PO QPM 08/26/19 08/26/19 duloxetine 30 mg PO QPM 08/26/19 08/26/19 levothyroxine [Synthroid] 50 mcg PO DAILY 08/26/19 08/26/19 lisinopril 20 mg PO QPM 08/26/19 08/26/19 pantoprazole 40 mg PO QPM 08/26/19 08/26/19 simvastatin 20 mg PO BEDTIME 08/26/19 08/26/19 Previous Rx's Medication Instructions Recorded varicella-zoster gE-AS01B (PF) 50 50 mcg IM ONCE #1 each 10/07/18 mcg/0.5 mL IM susp, kit albuterol sulfate 90 mcg/actuation 2 puff INHALATION Q4-6H PRN #18 06/21/19 aerosol inhaler gram Allergies Allergy/AdvReac Type Severity Reaction Status Date / Time No Known Drug Allergies Allergy Verified 06/21/19 15:03 Review of Systems Constitutional Constitutional: Denies chills, Denies fatigue, Denies fever(s), Denies frequent falls, Denies lethargy and Denies weakness Eyes Eyes: Denies change in vision, Denies eye discharge, Denies irritation and Denies loss of vision ENT Ears, Nose, Mouth, and Throat: Denies change in voice, Denies dizziness, Denies neck pain, Denies sore throat and Denies throat swelling Cardiovascular Cardiovascular: Denies chest pain, Denies irregular heart rhythm, Denies lightheadedness, Denies palpitations, Denies dyspnea, Denies dyspnea on exertion and Denies orthopnea Respiratory Respiratory: Denies cough, Denies dyspnea, Denies dyspnea on exertion and Denies wheezing Gastrointestinal Gastrointestinal: Reports abdominal pain, Denies change in bowel habits, Denies diarrhea, Reports nausea and Denies vomiting Genitourinary Genitourinary: Denies hematuria, Denies flank pain, Denies urinary incontinence and Denies urinary urgency Musculoskeletal Musculoskeletal: Denies back pain, Denies muscle weakness, Denies neck pain, Denies numbness and Denies tingling Integumentary/Breasts Skin/Breast: Denies pruritus, Denies erythema, Denies rash and Denies wounds Neurologic Neurologic: Denies behavioral changes, Denies confusion, Denies dizziness, Denies frequent falls, Denies loss of vision, Denies numbness, Denies tingling and Denies weakness Psychiatric Psychiatric: Denies anxiety, Denies behavioral changes, Denies confusion, Denies depression, Denies homicidal ideation and Denies suicidal ideation Endocrine Endocrine: Denies fatigue, Denies flushing and Denies palpitations Hematologic/Lymphatic Hematologic/Lymphatic: Denies easy bruising Allergic/Immunologic Allergic/Immunologic: Denies urticaria, Denies throat swelling and Denies wheezing Patient History Surgical History History of appendectomy (Acute) History of bilateral salpingo-oophorectomy (BSO) Social History Smoking Status: Never smoker second hand exposure: No alcohol intake: current substance use type: does not use alcohol intake frequency: 0-2 drinks per day Substance Use Type: does not use Exam Narrative Exam Narrative: GENERAL: [69] year old patient appears stated age. Well- nourished, well-developed patient, in mild distress. HEAD: Atraumatic. Normocephalic. EYES: Pupils equal round and reactive. Extraocular motions intact. No scleral icterus. No injection or drainage. ENT: Nose without bleeding, purulent drainage. Throat without erythema, tonsillar hypertrophy or exudate. Airway patent. NECK: Trachea midline. Non tender CARDIOVASCULAR: Regular rate and rhythm without murmurs, gallops, or rubs. RESPIRATORY: Clear to auscultation. Breath sounds equal bilaterally. No wheezes, rales, or rhonchi. GASTROINTESTINAL: Abdomen soft, non-tender, nondistended. Increased bowel sounds in the epigastric EXTREMITIES: No edema or joint tenderness. BACK: Nontender without deformity or crepitance. No flank tenderness. NEURO: AOx3. SKIN: No rash or erythema of visible areas Initial Vital Signs Initial Vital Signs: Vital Signs Temperature 97.5 F L 09/13/19 19:58 Pulse Rate 94 H 09/13/19 19:58 Respiratory Rate 24 09/13/19 19:58 Blood Pressure 130/86 09/13/19 19:58 Pulse Oximetry 98 09/13/19 19:58 Course Orders Ordered: ED Orders 09/13/19 20:01 EKG-12 Lead Stat 09/13/19 20:25 Complete Blood Count AUTO DIFF Stat Comprehensive Metabolic Panel Stat Lipase Stat 09/13/19 21:13 US abdomen limited Stat XR acute abdomen series Stat Discontinued Medications Hydromorphone HCl (Dilaudid) 0.5 mg IV NOW ONE Stop: 09/13/19 22:34 Last Admin: 09/13/19 22:39 Dose: 0.5 mg Documented by: CAROLYN Lidocaine HCl (Urojet) 5 ml TOP NOW ONE Stop: 09/14/19 00:43 Consultations Consultation #1: Called to Dr. Rankin whom will see and evaluate the patient at bedside Vital Signs Vital signs: Vital Signs - 8 hr 09/13/19 19:58 09/13/19 23:27 Temperature 97.5 F L Pulse Rate 94 H 89 Respiratory Rate 24 17 Blood Pressure 130/86 Blood Pressure [Right Wrist] 108/76 Pulse Oximetry 98 98 MDM - Abdominal Pain Lab Data Result diagrams: 09/13/19 20:25 09/13/19 20:25 Labs: Lab Results 09/13/19 09/13/19 Range/Units 20:25 20:25 WBC 5.9 (4.5-11.0) X10^3/uL RBC 4.89 (4.0-5.2) X10^6/uL Hgb 14.0 (12.0-16.0) g/dL Hct 42.3 (36-46) % MCV 86.5 (80-100) fL MCH 28.6 (26-34) PG MCHC 33.1 (30-36) % RDW 14.3 (11.6-14.8) % Plt Count 226 (150-400) X10^3/uL Neut % (Auto) 68.4 (50-75) % Lymph % (Auto) 21.8 L (25-40) % Perkins % (Auto) 8.2 (3-14) % Eos % (Auto) 1.4 L (2-4) % Baso % (Auto) 0.2 (0-2) % Neut # (Auto) 4000 (5879-4457) /uL Lymph # (Auto) 1300 (2104-4972) /uL Perkins # (Auto) 500 (0-900) /uL Eos # (Auto) 100 (0-450) /uL Baso # (Auto) 0 (0-100) /uL Sodium 139 (137-145) mmol/L Potassium 4.2 (3.4-5.1) mmol/L Chloride 104 (98-107) mmol/L Carbon Dioxide 27 (22-32) mmol/L BUN 20 H (7-17) mg/dL Creatinine 0.80 (0.52-1.04) mg/dL Estimated GFR > 60.0 (>60) mL/min BUN/Creatinine Ratio 25.0 H (6-22) Glucose 99 (80-110) mg/dL Calcium 9.2 (8.4-10.2) mg/dL Total Bilirubin 0.7 (0.2-1.3) mg/dL AST 23 (14-36) IU/L ALT 15 (<35) IU/L Alkaline Phosphatase 110 (38-126) U/L Total Protein 7.0 (6.3-8.2) g/dL Albumin 4.1 (3.5-5.0) g/dL Globulin 2.9 (1.7-4.1) g/dL Albumin/Globulin Ratio 1.4 (1.0-2.8) Lipase 41 (23-300) U/L Imaging Data Abdominal x-ray: Radiologist's impression: Terese Trejo S 69 F [address] [address] XRay Report Signed Patient: Terese Trejo [facility]#: [id number] : 2Acct:[id number] Age/Sex: 69 / FDate of Service: 09/13/19 Loc: ED Accession Number: [id number] Procedure: XR acute abdomen series Ordering Provider: Yordan Linares D.O. PROCEDURE: XR ACUTE ABDOMEN SERIES INDICATIONS: Abdominal pain, N/V, recent constipation TECHNIQUE: One view chest and two views of the abdomen were acquired. COMPARISON: [facility], , XR ACUTE ABDOMEN SERIES, 08/26/2019, 12:00. FINDINGS: Surgical changes and devices: None. Chest: Lungs are clear. Heart size is normal. No pleural effusions. No pneumoperitoneum. Abdomen: There are multiple distended loops of small bowel measuring up to approximately 8.7 cm. Scattered small bowel air-fluid levels are demonstrated. There is a small amount of gas demonstrated within the colon. No suspicious calcifications. Bones: No suspicious bony lesions. IMPRESSION: 1. Distended small bowel loops with multiple scattered air-fluid levels. Although there is a small amount of gas in the colon, the findings are suggestive of a small bowel obstruction although the differential includes an ileus. Recommend correlation clinically and further evaluation with CT if indicated. Dictated by: Sea Brooks M.D. on 09/13/2019 at 22:20 Approved by: Sea Brooks M.D. on 09/13/2019 at 22:23 Discharge Plan Departure Patient Disposition: Admitted As Inpatient Clinical Impression: Partial obstruction of small intestine Admit Date/Time: 09/14/19 00:31 Admit Provider: Ba Rankin
[2019-09-13 20:33] LABS: Add Manual Diff / Slide Review NO; Basophils Absolute Auto 0 /uL (0-100); Basophils Percent Auto 0.2 % (0-2); Eosinophils Absolute Auto 100 /uL (0-450); Eosinophils Percent Auto 1.4 % (2-4); Hematocrit 42.3 % (36-46); Lymphocytes Absolute Auto 1300 /uL (1100-4500); Lymphocytes Percent Auto 21.8 % (25-40); Mean Corpuscular HGB Conc 33.1 % (30-36); Mean Corpuscular Hemoglobin 28.6 PG (26-34); Mean Corpuscular Volume 86.5 fL (80-100); Monocytes Absolute Auto 500 /uL (0-900); Monocytes Percent Auto 8.2 % (3-14); Neutrophils Absolute Auto 4000 /uL (1500-7000); Neutrophils Percent Auto 68.4 % (50-75); Platelet Count 226 X10^3/uL (150-400); Red Blood Cell Count 4.89 X10^6/uL (4.0-5.2); Red Cell Distribution Width 14.3 % (11.6-14.8); White Blood Cell Count 5.9 X10^3/uL (4.5-11.0)
[2019-09-13 20:44] LABS: Alanine Aminotransferase 15 IU/L (<35); Albumin 4.1 g/dL (3.5-5.0); Albumin Globulin Ratio 1.4 (1.0-2.8); Alkaline Phosphatase 110 U/L (38-126); Aspartate Aminotransferase 23 IU/L (14-36); Bilirubin Total 0.7 mg/dL (0.2-1.3); Blood Urea Nitrogen 20 mg/dL (7-17); Calcium 9.2 mg/dL (8.4-10.2); Carbon Dioxide 27 mmol/L (22-32); Chloride 104 mmol/L (98-107); Estimated Glomerular Filt Rate > 60.0 mL/min (>60); Globulin 2.9 g/dL (1.7-4.1); Glucose 99 mg/dL (80-110); HEMOLYSIS < 15 (0-50); Lipase 41 U/L (23-300); Potassium 4.2 mmol/L (3.4-5.1); Sodium 139 mmol/L (137-145)
--- NOTE | 2019-09-13 21:13 | DI.RAD.S_ITS ---
PROCEDURE: XR ACUTE ABDOMEN SERIES INDICATIONS: Abdominal pain, N/V, recent constipation TECHNIQUE: One view chest and two views of the abdomen were acquired. COMPARISON: [facility], , XR ACUTE ABDOMEN SERIES, 08/26/2019, 12:00. FINDINGS: Surgical changes and devices: None. Chest: Lungs are clear. Heart size is normal. No pleural effusions. No pneumoperitoneum. Abdomen: There are multiple distended loops of small bowel measuring up to approximately 8.7 cm. Scattered small bowel air-fluid levels are demonstrated. There is a small amount of gas demonstrated within the colon. No suspicious calcifications. Bones: No suspicious bony lesions. IMPRESSION: 1. Distended small bowel loops with multiple scattered air-fluid levels. Although there is a small amount of gas in the colon, the findings are suggestive of a small bowel obstruction although the differential includes an ileus. Recommend correlation clinically and further evaluation with CT if indicated. Dictated by: Sea Brooks M.D. on 09/13/2019 at 22:20 Approved by: Sea Brooks M.D. on 09/13/2019 at 22:23
--- NOTE | 2019-09-13 21:13 | DI.US.S_ITS ---
PROCEDURE: US ABDOMEN LIMITED INDICATIONS: POST-PRANDIAL EPIGASTRIC PAIN TECHNIQUE: Real-time focused scanning was performed of the right upper quadrant, with image documentation. COMPARISON: [facility], US, US ABDOMEN COMPLETE, 08/26/2019, 12:36. [facility], CT, CT ABDOMEN PELVIS W CON, 08/26/2019, 13:24. FINDINGS: Evaluation limited by body habitus. No definite focal hepatic lesion identified. No gallstones, gallbladder wall thickening, or pericholecystic fluid. There is a small polyp redemonstrated in the gallbladder measuring approximately 5 mm. The visualized common bile duct appears normal in caliber measuring 5-6 mm. The pancreas is not well-seen. IMPRESSION: 1. No evidence of cholelithiasis or cholecystitis. 2. Small gallbladder polyp measuring approximately 5 mm. Dictated by: Sea Brooks M.D. on 09/13/2019 at 22:23 Approved by: Sea Brooks M.D. on 09/13/2019 at 22:26
[2019-09-13] MEDS: HYDROMORPHONE 0.5 MG INJ IV (22:39)
[2019-09-13 23:27] VITALS: BP 108/76; PULSE 89; RESP 17; O2SAT 98
[2019-09-14] VITALS (10 sets, daily range): BP systolic 103–137; BP diastolic 42–81; PULSE 68–100; RESP 16–18; TEMP 35.7–37.1; O2SAT 95–100; BMI 44.6
--- NOTE | 2019-09-14 00:07 | PC.NURSE ---
Attempt to start NG tube. Pt explains she has difficulty swallowing due to removal of left sided vocal chords. States it is easier with thickened liquids. Notified Dr. Linares and given orders to hold NG until surgeon can talk to pt.
--- NOTE | 2019-09-14 00:09 | PC.NURSE ---
Pt placed in hospital gown and informed of wait for surgeon. lights dimmed for comfort.
[2019-09-14] MEDS: LIDOCAINE 2% (UROJET) 5 ML GEL TOP (00:55)
--- NOTE | 2019-09-14 00:55 | PM.HP.1 ---
History of Present Illness History of Present Illness Date Patient Seen: 09/14/19 Time Patient Seen: 00:55 Chief complaint: STOMACH PAINS Narrative: The patient is a woman who for the last several weeks is not been feeling quite right. She was actually in the emergency room at the end last months with abdominal pain but nothing specific was found. This evening she has developed severe upper abdominal mid abdominal burning pain. It was accompanied by nausea. She felt that if she could just vomit she would feel better. She has had a lap band which was subsequently reversed in the past. Her last flatus was just before leaving home before coming to the hospital. Last bowel movement was earlier today. It was leak would but a large amount. She is normally of has very regular normal bowel movements but the last few weeks she has been having intermittent diarrhea. Prior abdominal operations include a laparoscopic ovary removal, and open appendectomy, and the lap band and reversal. Pain she feels is about a 7/10. Patient History Medical History (Updated 09/14/19 @ 01:12 by Ba Rankin MD) Depression (Chronic) Gastroesophageal reflux disease (Chronic 05/12/14) Hypothyroidism (Chronic 11/27/11) Mass of left side of neck (Acute) Surgical History (Updated 09/14/19 @ 00:58 by Ba Rankin MD) History of appendectomy (Acute) History of bilateral salpingo-oophorectomy (BSO) History of laparoscopic adjustable gastric banding (Acute) Family & Social History Tobacco & Substance use: Smoking Status Never smoker alcohol intake current alcohol intake frequency 0-2 drinks per day Substance Use Type does not use Meds Home Medications and Allergies Home Medications Medication Instructions Recorded Confirmed Type varicella-zoster gE-AS01B (PF) 50 50 mcg IM ONCE #1 each 10/07/18 08/26/19 Rx mcg/0.5 mL IM susp, kit albuterol sulfate 90 mcg/actuation 2 puff INHALATION Q4-6H PRN #18 06/21/19 08/26/19 Rx aerosol inhaler gram bupropion HCl 300 mg PO QPM 08/26/19 08/26/19 History duloxetine 30 mg PO QPM 08/26/19 08/26/19 History levothyroxine [Synthroid] 50 mcg PO DAILY 08/26/19 08/26/19 History lisinopril 20 mg PO QPM 08/26/19 08/26/19 History pantoprazole 40 mg PO QPM 08/26/19 08/26/19 History simvastatin 20 mg PO BEDTIME 08/26/19 08/26/19 History Allergies Allergy/AdvReac Type Severity Reaction Status Date / Time No Known Drug Allergies Allergy Verified 06/21/19 15:03 Review of Systems Review of Systems Narrative: Patient denies visual does rinses. No earache sore throats. She has a dry throat right now. No problems with her teeth. She has difficulty swallowing liquids due to the injury to her vocal cords in the subsequent placement of a bar in that area. Patient denies breathing issues cough cold or asthma. No chest pain or heart problems. She does have hypertension on medication for same. No black or bloody bowel movements. Her last colonoscopy was about a year ago. Normal. She has had kidney stones a few years back. No blood in her urine at this time. No seizures or blackouts. She does suffer from depression. No history of problems with her pancreas that she is aware of. She has hypothyroidism on medication. No unusual bleeding or bruising. No new problems with her skin or itching lesions. Exam Vital Signs (past 8 hours): - 09/13/19 19:58 09/13/19 23:27 Temperature 97.5 F L Pulse Rate 94 H 89 Respiratory Rate 24 17 Blood Pressure 130/86 Blood Pressure [Right Wrist] 108/76 Pulse Oximetry 98 98 Oxygen Delivery Method Room Air Narrative Exam Narrative: Cooperative pleasant woman in no apparent distress. She is laying comfortably on the stretcher. Movement of the stretcher does not seem to increase her symptoms. Her eyes are nonicteric. Pupils are equal round reactive to light. Conjunctivae are pink. Ears without lesion. Nasal septum right side is smaller than the left opening in the naris. Her oral mucosa is dry. Teeth are intact. No splits or lesions of the lips. Her neck is thin and there is scar in the left neck. There are no palpable masses or nodes. No nodes in the neck or supraclavicular areas. Her lungs are clear to auscultation without rales or rhonchi in equal percussion. Heart regular rate and rhythm there is no murmur gallop. No heave lift or thrill. No bruit in the neck. Her abdomen is morbidly protuberant soft. She has a reducible but difficult to feel umbilical hernia. There are no palpable mass this is but frankly would be difficult to feel 1 due to her size. There is no obvious tenderness however. Her extremities without cyanosis clubbing or edema. 2+ pulses at the wrist and dorsalis pedis. Patient is in no distress. Her eyes are nonicteric. Extraocular movements are intact. Tongue is midline. Face is symmetric. Patient speech rate and content are appropriate. Affect is appropriate. Objective Imaging Abdominal x-ray: My impression: Fair amount of gas in the small bowel. Not markedly distended. There is colonic gas seen. Labs Result Diagrams: 09/13/19 20:25 09/13/19 20:25 Labs: Laboratory Results - last 24 hr 09/13/19 09/13/19 20:25 20:25 WBC 5.9 RBC 4.89 Hgb 14.0 Hct 42.3 MCV 86.5 MCH 28.6 MCHC 33.1 RDW 14.3 Plt Count 226 Neut % (Auto) 68.4 Lymph % (Auto) 21.8 L Tucker % (Auto) 8.2 Eos % (Auto) 1.4 L Baso % (Auto) 0.2 Neut # (Auto) 4000 Lymph # (Auto) 1300 Tucker # (Auto) 500 Eos # (Auto) 100 Baso # (Auto) 0 Sodium 139 Potassium 4.2 Chloride 104 Carbon Dioxide 27 BUN 20 H Creatinine 0.80 Estimated GFR > 60.0 BUN/Creatinine Ratio 25.0 H Glucose 99 Calcium 9.2 Total Bilirubin 0.7 AST 23 ALT 15 Alkaline Phosphatase 110 Total Protein 7.0 Albumin 4.1 Globulin 2.9 Albumin/Globulin Ratio 1.4 Lipase 41 Assessment & Plan Assessment and plan (1) Essential hypertension: Problem details: Will continue meds when tolerating p.o.. Current visit: No Status: Chronic (2) Hypothyroidism: Problem details: Will continue meds when tolerating p.o.. Qualifiers: Hypothyroidism type: acquired Qualified Code(s): E03.9 - Hypothyroidism, unspecified Current visit: No Status: Chronic (3) Depression: Problem details: Will continue meds when tolerating p.o.. Qualifiers: Depression Type: major depressive disorder Major depression recurrence: recurrent Active/Remission status: currently active Major depression episode severity: moderate Qualified Code(s): F33.1 - Major depressive disorder, recurrent, moderate Current visit: No Status: Chronic (4) Abdominal pain, acute, epigastric: Problem details: Will limit use the pain medication with narcotics. Current visit: Yes Status: Acute (5) Ventral hernia: Problem details: Reducible. Observe at this time. Her size makes repair of this questionable short of an emergency. Current visit: Yes Status: Acute (6) Bowel obstruction: Problem details: Possible obstruction. Is having diarrhea so will check stool. I wanted to place an NG tube but in attempting to do so I could not get it to pass the on the upper turn in the pharynx. Not sure why. Abandoned trying to do so. Will obtain a small-bowel follow-through in the morning using water-soluble contrast. NPO for now. Current visit: Yes Status: Acute
--- NOTE | 2019-09-14 00:57 | PC.NURSE ---
Standby assist for Surgeon NG insertion. unable to advance tube. verbal order to hold NG insertion until further imaging and evaluation.
[2019-09-14] MEDS: LACTATED RINGERS 1,000 ML 125 ML IV ×2 (02:19→12:14)
[2019-09-14] MEDS: PANTOPRAZOLE 40 MG VIAL IV ×2 (02:20→19:55)
[2019-09-14] MEDS: KETOROLAC 15 MG/ML VIAL IV ×2 (02:20→19:56)
[2019-09-14 07:18] LABS: Add Manual Diff / Slide Review NO; Basophils Absolute Auto 0 /uL (0-100); Basophils Percent Auto 0.5 % (0-2); Eosinophils Absolute Auto 100 /uL (0-450); Eosinophils Percent Auto 1.9 % (2-4); Hematocrit 38.2 % (36-46); Hemoglobin 12.6 g/dL (12.0-16.0); Lymphocytes Absolute Auto 1100 /uL (1100-4500); Lymphocytes Percent Auto 22.8 % (25-40); Mean Corpuscular HGB Conc 33.1 % (30-36); Mean Corpuscular Hemoglobin 28.8 PG (26-34); Mean Corpuscular Volume 87.1 fL (80-100); Monocytes Absolute Auto 400 /uL (0-900); Monocytes Percent Auto 8.5 % (3-14); Neutrophils Absolute Auto 3300 /uL (1500-7000); Neutrophils Percent Auto 66.3 % (50-75); Platelet Count 184 X10^3/uL (150-400); Red Blood Cell Count 4.39 X10^6/uL (4.0-5.2); Red Cell Distribution Width 14.2 % (11.6-14.8)
[2019-09-14 07:22] LABS: Alanine Aminotransferase 12 IU/L (<35); Albumin 3.4 g/dL (3.5-5.0); Albumin Globulin Ratio 1.4 (1.0-2.8); Alkaline Phosphatase 100 U/L (38-126); Aspartate Aminotransferase 21 IU/L (14-36); Bilirubin Total 0.9 mg/dL (0.2-1.3); Blood Urea Nitrogen 20 mg/dL (7-17); Calcium 8.7 mg/dL (8.4-10.2); Carbon Dioxide 26 mmol/L (22-32); Chloride 107 mmol/L (98-107); Estimated Glomerular Filt Rate > 60.0 mL/min (>60); Globulin 2.5 g/dL (1.7-4.1); Glucose 104 mg/dL (80-110); HEMOLYSIS < 15 (0-50); Potassium 4.3 mmol/L (3.4-5.1); Sodium 139 mmol/L (137-145); Total Protein 5.9 g/dL (6.3-8.2)
--- NOTE | 2019-09-14 07:40 | PC.NURSE ---
NG: Completed intervention on worklist for placing NG (see MD/nursing notes re: multiple attempts to place NG last night without success)
--- NOTE | 2019-09-14 08:29 | DI.RAD.S_ITS ---
PROCEDURE: XR ABDOMEN MIN 2V INDICATIONS: Follow-up possible small-bowel obstruction TECHNIQUE: 2 views of the abdomen were acquired. COMPARISON: [facility], CR, XR ACUTE ABDOMEN SERIES, 09/13/2019, 21:30. FINDINGS: Surgical changes and devices: None. Bowel: No pneumoperitoneum. The bowel gas pattern is nonspecific with no evidence of bowel obstruction. Soft tissues: No masses; visualized solid organ contours appear normal in size. No suspicious abdominal calcifications. Bones: No suspicious bony abnormalities. IMPRESSION: Nonspecific bowel gas pattern. No evidence bowel obstruction. Dictated by: Suraj Cosme M.D. on 09/14/2019 at 9:13 Approved by: Suraj Cosme M.D. on 09/14/2019 at 9:14
[2019-09-14] MEDS: ENOXAPARIN 40 MG/0.4 ML SYRINGE SUBCUT (09:48)
--- NOTE | 2019-09-14 12:26 | CM.DANOTE ---
DCP: Case received, EMR reviewed and met with patient. Introduced self and role. Was able to meet with patient in her room to obtain baseline history and activity information. Niece, Jojo, was present in room as well. DCP assessment/template completed with information currently available. Patient is a 69 year old female who admitted early this morning to the care of the hospitalist/surgical team. PCP: TAE Abel. Payer: confirmed: Medicare/Medicaid. Patient came to the hospital via family vehicle secondary to epigastric pain and nausea. Patient holds current diagnosis of small bowel obstruction. She also has history of depression as well. NG tube placement had been attempted, but unable to insert. Patient having testing today. Met with patient in her room. She is alert and oriented, sitting up in bed, attempting lunch, niece in room as well. Patient resides alone here in [place]. She has a niece who is here from [place]. Patient is independent at home. She mentioned that they will see how she tolerates her food. Dr. Mckeon had just been in seeing patient. P: DCP to continue to continue to follow and be available if needed. Patient should be able to return home when she is medically stable. Ashley Burks, KOBI/Oil Extractor
--- NOTE | 2019-09-14 13:02 | PC.NURSE ---
Addendum entered by Mar Wood R.N. 09/14/19 15:05: Received call from lab letting us know that there is an order to collect a stool sample. Her BM earlier was mixed with urine. Will pass on to breann shift staff. Addendum entered by Mar Wood R.N. 09/14/19 14:16: Showered independently. Had 1 loose brown bowel movement which was mixed with urine for a total of 750 ml. Back in bed and re-connected to IV fluids and SCD's. Denies other needs at this time and calls appropriately, call light and belongings within reach. Original Note: Shift summary: Alert and oriented X3. Has been tolerating clear liquid diet without N/V or abd pain. She reports she is now passing some flatus which she wasn't earlier this morning. BT+ X4, a bit hypoactive. Lungs CTA. HRR. IVF per orders, site in L FA WNL. Voiding without issue. Able to make needs known and calls appropriately. Light within reach.
--- NOTE | 2019-09-14 19:29 | PC.NURSE ---
Addendum entered by Tatiana Johnson R.N. 09/14/19 21:35: Patient still denies nausea or abdomen pain, BT hyperactive. Tolerating clears, applejuice given per her request. C.diff is negative, H.pylori still pending. IV now saline locked per new order. Toradol given for c/o headache pain 6/10 which she describes as sinus headache, pointing to eyes and temporal lobes. After med she said pain down to a 5/10 but still there, cold washrag given for her to place across eyes. Denies other needs/concerns tonight. Original Note: Evening note: Terese resting in bed, VS stable. She denies increased abdomen discomfort after drinking clear liquids for dinner. She says her stomach sometimes hurts but nothing like it was before. Abdomen soft, passing lots of gas. Ambulated to BR and had brown liquid stool, sample sent to lab. She told me she was hoping the Doctor would be back tonight--I thought I was supposed to have solid food. Otherwise denies needs or concerns at this time. Visiting with friend at bedside.
[2019-09-14] MEDS: buPROPion XL 150 MG TAB 300 MG PO (19:56)
[2019-09-14] MEDS: DULOXETINE 30 MG CAPSULE PO (19:56)
[2019-09-14] MEDS: SODIUM CHLORIDE 0.9% FLUSH 10 ML IV (20:00)
[2019-09-14 20:28] LABS: Clostridium Difficile Tox PCR Negative for C. diff
[2019-09-14] MEDS: LISINOPRIL 20 MG TABLET PO (21:27)
[2019-09-15] MEDS: LEVOTHYROXINE 50 MCG TABLET PO (05:32)
[2019-09-15] MEDS: KETOROLAC 15 MG/ML VIAL IV (06:27)
[2019-09-15 06:39] VITALS: BP 119/72; PULSE 65; RESP 16; TEMP 36.8; O2SAT 96
--- NOTE | 2019-09-15 08:45 | PM.DS.1 ---
History of Present Illness History of Present Illness Chief complaint: STOMACH PAINS Narrative: The patient is a woman who for the last several weeks is not been feeling quite right. She was actually in the emergency room at the end last months with abdominal pain but nothing specific was found. This evening she has developed severe upper abdominal mid abdominal burning pain. It was accompanied by nausea. She felt that if she could just vomit she would feel better. She has had a lap band which was subsequently reversed in the past. Her last flatus was just before leaving home before coming to the hospital. Last bowel movement was earlier today. It was leak would but a large amount. She is normally of has very regular normal bowel movements but the last few weeks she has been having intermittent diarrhea. Prior abdominal operations include a laparoscopic ovary removal, and open appendectomy, and the lap band and reversal. Pain she feels is about a 7/10. Discharge Providers Provider Date of admission: 09/14/19 00:31 Discharge Date: 09/15/19 Primary care physician: Lizeth Cruz PA-C Consults: 09/14/19 01:15 Consult to Discharge Planning Routine Comment: 09/14/19 01:19 Consult to Respiratory Therapy Evaluate & Treat Comment: on albuterol at home Physician Instructions: Evaluate and treat 09/14/19 02:13 Consult to Pastoral Services Routine Comment: Pt would like a vist before surgery Discharge provider: Ba Rankin MD Summary Hospital Course Discharge Diagnosis: One. Mid upper abdominal pain acute in onset and cause unclear Two. Intestinal ileus acute resolved Three. Depression chronic treated with meds For. Asthma chronic treated with an inhaler chronic Five. Hypothyroidism treated with medication chronic Six. Gastroesophageal reflux disease treated with medication chronic Seven. Elevated cholesterol treated with medication chronic Eight. Ventral hernia reducible chronic Nine. Gallbladder polyp based on ultrasonography Hospital Course: The patient was admitted and made NPO except for meds. The morning of her admission she was feeling better and had x-rays performed that had a nonspecific gas pattern but certainly no evidence of obstruction. Therefore I opted not to perform small-bowel follow-through. She had return of bowel function and her stool was tested for C diff which was negative. Her pain went away and she mostly just had rumbling of intestine in her abdomen. Her diet was advanced which she tolerated and was discharged follow-up in her primary doctor's office. Prior workup with CT scan was not repeated during this hospitalization due to the recent see if her last exam on 08/26/19. An ultrasound was performed that demonstrated a 5 mm gallbladder polyp but no gallstones and no other significant findings. Status at Discharge Cognitive/behavioral status at discharge: oriented Functional status at discharge: independent ambulation Overall status at discharge: patient is back to baseline Time Spent with Patient Time spent: Less than 30 minutes Exam Vital Signs (past 8 hours): - 09/15/19 06:39 Temperature 98.2 F Pulse Rate 65 Respiratory Rate 16 Blood Pressure 119/72 Pulse Oximetry 96 Oxygen Delivery Method Room Air Oxygen Flow Rate 0 Narrative Exam Narrative: Pleasant cooperative woman. No distress. Her lungs are clear no rales or rhonchi. Heart regular rate and rhythm without murmur gallop. Abdomen is protuberant soft nontender without mass. Patient is alert and oriented. Objective Labs Result Diagrams: 09/14/19 06:50 09/14/19 06:50 Labs: Laboratory Results - last 24 hr 09/14/19 19:30 C. difficile Tox (PCR) Negative for c. diff Discharge Plan Discharge Plan Patient Disposition: Home Discharge comment: Resume her normal activities as tolerated Discharge orders & Medications Prescriptions: Continued varicella-zoster [id number] (PF) [Shingrix (PF)] 50 mcg/0.5 mL suspension for reconstitution 50 mcg IM ONCE Qty: 1 RF: 1 albuterol sulfate 90 mcg/actuation HFA aerosol inhaler 2 puff INHALATION Q4-6H PRN (Reason: shortness of breath or wheezing) Qty: 18 RF: 0 lisinopril 20 mg tablet 20 mg PO QPM RF: 0 pantoprazole 40 mg tablet,delayed release (DR/EC) 40 mg PO QPM RF: 0 bupropion HCl 300 mg tablet extended release 24 hr 300 mg PO QPM RF: 0 levothyroxine [Synthroid] 50 mcg tablet 50 mcg PO DAILY RF: 0 simvastatin 20 mg tablet 20 mg PO BEDTIME RF: 0 duloxetine 30 mg capsule,delayed release(DR/EC) 30 mg PO QPM RF: 0 Follow up/Referrals: Lizeth Cruz PA-C [Primary Care Provider] - Diet/Activity/Treatments Diet: Diet as Tolerated Activity: No restrictions Discharge Data Primary Care Provider: Lizeth Cruz Quality VTE Deep Vein Thrombosis/Pulmonary Embolism Present on Admission: No
[2019-09-15] MEDS: PANTOPRAZOLE 40 MG VIAL IV (08:53)
[2019-09-15] MEDS: ENOXAPARIN 40 MG/0.4 ML SYRINGE SUBCUT (08:53)
[2019-09-15] MEDS: SODIUM CHLORIDE 0.9% FLUSH 10 ML IV (08:53)
[2019-09-15 10:00] VITALS: BP 132/77; PULSE 66; RESP 16; TEMP 36.8; O2SAT 95
--- NOTE | 2019-09-15 14:50 | PC.NURSE ---
Patient tolerated a general diet for lunch well, denies pain or other complaint. Eager to get home and see her dog. Patient states she has a follow up scheduled with her PCP on Friday. IV removed intact. Patient escorted out via wheelchair by [employer] NETWORK CONSULTANT to be discharged to home with a friend.
--- NOTE | 2019-09-15 15:46 | CM.DPC ---
DCP Discharge Home Per Surgeon, pt was CDiff negative and tolerating clear liquids and if pt can tolerate advanced diet today she can d/c home later today with no identified barriers to discharge. Per RN, pt tolerated advanced diet and no concerns at this time. Plan: Patient to d/c home via family POV today and no SW needs at this time. ARIADNA Bueno
== END 2019-09-15 14:52 | disposition home or self-care (01) | DRG 392 ==
LOC: ED 20:18 → AC 09-14 00:32
PROVIDERS: Admitting Provider Specialist; Emergency Provider Emergency Medicine; Family Provider Specialist; PCP Physician Assistant; Visit Provider Specialist
DX: R10.13 Epigastric pain (principal); K56.7 Ileus, unspecified; F33.9 Major depressive disorder, recurrent, unspecified; Z68.41 Body mass index [BMI] 40.0-44.9, adult; K42.9 Umbilical hernia without obstruction or gangrene; E66.01 Morbid (severe) obesity due to excess calories; K21.9 Gastro-esophageal reflux disease without esophagitis; E03.9 Hypothyroidism, unspecified; I10 Essential (primary) hypertension; J45.909 Unspecified asthma, uncomplicated; E78.5 Hyperlipidemia, unspecified; Z23 Encounter for immunization
CPT/HCPCS: 36415; 74019; 74022; 76705; 80053; 83690; 85025; 86677; 87493; 94760; 96374; 99222; 99238; 99283; 99284; C9113; J1170; J1650; J1885

== ENCOUNTER → 2019-09-24 12:37 | Outpatient (CLI) | payer MEDICARE, MEDICAID, SELFPAY ==
[2019-09-14 01:46] VITALS: BMI 44.6
--- NOTE | 2019-09-24 12:39 | DI.RAD.S_ITS ---
PROCEDURE: FL UPPER GI SMALL BOWEL INDICATIONS: Upper abdominal pain recurrent - hx of ulcer at GE junction COMPARISON: None. FINDINGS: KUB: Preprocedural captain room service film shows a normal bowel gas pattern. No suspicious abdominal calcifications. Visualized solid organ contours appear normal in size. No suspicious bony abnormalities. Esophagus: Air-contrast views demonstrate a normal mucosal pattern. On single-contrast views, there is normal peristalsis. There appears to be a fusiform fixed strictures at the far distal esophagus without associated extrinsic mass effects, or diverticula. There is a small sliding hiatal hernia but without elicited gastroesophageal reflux. There is abnormal delay of transit of a calibrated 13 mm barium tablet through the esophagus, remaining fixed within the distal esophagus at the area of esophagogastric junction narrowing for well over 5 minutes, seen during the delayed plain films during the early phase of the small bowel follow-through.. Stomach: The gastric lumen is normally distensible, and has normal rugal fold thickness. No mucosal masses or ulcers. The pylorus and duodenal bulb have a normal morphology. Small bowel: Duodenal folds appear normal in thickness. There is normal transit time of barium through the small intestine. Small bowel loops appear normal in caliber throughout. Jejunal and ileal folds are smooth and normal in thickness. No strictures, intraluminal masses, or extrinsic mass effects. The terminal ileum is identified and appears normal. IMPRESSION: Small sliding hiatal hernia but without visualized elicited or spontaneously gastroesophageal reflux. A fusiform fixed stricture appears present without identifiable mucosal irregularity at the far distal esophagus, where the calibrated 13 mm barium tablet impacted for over 5 minutes during the transition from upper GI examination into the small bowel follow-through imaging. Despite lack of visualized mass endoscopy likely is warranted. Dictated by: Marcos Varner M.D. on 09/24/2019 at 14:59 Approved by: Marcos Varner M.D. on 09/24/2019 at 15:03
== END ==
PROVIDERS: Family Provider Specialist; PCP Physician Assistant; Visit Provider Physician Assistant
DX: R10.10 Upper abdominal pain, unspecified (principal); K22.2 Esophageal obstruction; K21.9 Gastro-esophageal reflux disease without esophagitis; K44.9 Diaphragmatic hernia without obstruction or gangrene
CPT/HCPCS: 74245

== ENCOUNTER → 2019-12-23 16:43 | Outpatient (CLI) | payer MEDICARE, MEDICAID, SELFPAY ==
[2019-09-14 01:46] VITALS: BMI 44.6
--- NOTE | 2019-12-23 | DI.MG.S_ITS ---
BILATERAL DIGITAL SCREENING MAMMOGRAM 3D/2D WITH CAD: 12/23/2019 CLINICAL: Routine screening. Comparison is made to exams dated: 12/22/2018 mammogram, 06/13/2017 mammogram, and 03/26/2016 mammogram - [facility]. There are scattered fibroglandular elements in both breasts. Current study was also evaluated with a Computer Aided Detection (CAD) system. No significant masses, calcifications, or other findings are seen in either breast. There has been no significant interval change. IMPRESSION: NEGATIVE There is no mammographic evidence of malignancy. A 1 year screening mammogram is recommended. This exam was interpreted at Station ID: [id number]. NOTE: For mammograms, a report in lay terms will be sent to the patient. Approximately 15% of breast malignancies will not be visualized mammographically. In the management of a palpable breast mass, a negative mammogram must not discourage biopsy of a clinically suspicious lesion. Electronically Signed By: Manpreet onofre/milind:12/24/2019 07:35:54 copy to: Ba Rankin letter sent: Normal Exam ACR BI-RADS Category 1: Negative [id number]
== END ==
PROVIDERS: Family Provider Specialist; PCP Physician Assistant; Referring Provider Physician Assistant; Visit Provider Physician Assistant
DX: Z12.31 Encounter for screening mammogram for malignant neoplasm of breast (principal)
CPT/HCPCS: 77063; 77067

== ENCOUNTER → 2020-05-22 10:22 | Outpatient (CLI) | payer MEDICARE, MEDICAID, SELFPAY ==
[2019-09-14 01:46] VITALS: BMI 44.6
--- NOTE | 2020-05-22 10:26 | DI.RAD.S_ITS ---
PROCEDURE: XR FOOT RT MIN 3V INDICATIONS: Atraumatic bilateral foot pain TECHNIQUE: 3 views of the right foot were acquired. COMPARISON: [facility], CR, XR FOOT RT MIN 3V, 06/21/2019, 15:33. [facility], CR, FOOT 3V LEFT, 04/23/2016, 15:08. FINDINGS: Bones: No fractures or dislocations. No suspicious bony lesions. Soft tissues: No tibiotalar joint effusion. Achilles tendon appears normal. IMPRESSION: Minimal joint space narrowing at the 1st MTP joint indicating presence of mild osteoarthritis, no trauma found. Dictated by: Marcos Varner M.D. on 05/22/2020 at 11:54 Approved by: Marcos Vraner M.D. on 05/22/2020 at 11:56
--- NOTE | 2020-05-22 10:26 | DI.RAD.S_ITS ---
PROCEDURE: XR FOOT LT MIN 3V INDICATIONS: Atraumatic bilateral foot pain TECHNIQUE: 3 views of the foot were acquired. COMPARISON: [facility], CR, XR FOOT RT MIN 3V, 06/21/2019, 15:33. [facility], CR, FOOT 3V LEFT, 04/23/2016, 15:08. FINDINGS: Bones: No fractures or dislocations. No suspicious bony lesions. Note is made of mild narrowing of the interspace at the 1st MTP joint, indicating mild osteoarthritis. Soft tissues: No tibiotalar joint effusion. Achilles tendon appears normal. IMPRESSION: No trauma found. Mild osteoarthritis at the 1st MTP joint. Dictated by: Marcos Varner M.D. on 05/22/2020 at 11:56 Approved by: Marcos Varner M.D. on 05/22/2020 at 11:57
== END ==
PROVIDERS: Family Provider Specialist; PCP Registered Nurse Diabetes Educator; Referring Provider Registered Nurse Diabetes Educator; Visit Provider Registered Nurse Diabetes Educator
DX: M79.671 Pain in right foot (principal); M79.672 Pain in left foot; M19.072 Primary osteoarthritis, left ankle and foot; M19.071 Primary osteoarthritis, right ankle and foot
CPT/HCPCS: 73630

== ENCOUNTER → 2020-06-20 12:08 | Outpatient (CLI) | payer MEDICARE, MEDICAID, SELFPAY ==
[2019-09-14 01:46] VITALS: BMI 44.6
--- NOTE | 2020-06-20 12:11 | DI.RAD.S_ITS ---
PROCEDURE: XR CERVICAL SPINE 2V OR 3V INDICATIONS: neck pain and popping x 3-4 weeks TECHNIQUE: 3 view(s) of the cervical spine were acquired. COMPARISON: None. FINDINGS: Bones: No fractures or dislocations to the C7-T1 level. The lateral masses of C1 appear intact on the odontoid view. No suspicious bony lesions. Moderate degenerative changes including intervertebral disc space narrowing and osteophytosis are present throughout the cervical spine. Soft tissues: No prevertebral soft tissue swelling. IMPRESSION: Moderate degenerative change. Dictated by: Shivani Rios M.D. on 06/20/2020 at 16:04 Approved by: Shivani Rios M.D. on 06/20/2020 at 16:04
== END ==
PROVIDERS: Family Provider Specialist; PCP Registered Nurse Diabetes Educator; Referring Provider Registered Nurse Diabetes Educator; Visit Provider Registered Nurse Diabetes Educator
DX: M54.2 Cervicalgia (principal); M47.812 Spondylosis without myelopathy or radiculopathy, cervical region
CPT/HCPCS: 72040

== ENCOUNTER → 2020-08-03 10:35 | Outpatient (CLI) | payer MEDICARE, MEDICAID, SELFPAY ==
[2019-09-14 01:46] VITALS: BMI 44.6
[2020-08-03 11:41] LABS: Hematocrit 41.6 % (36-46); Hemoglobin 13.5 g/dL (12.0-16.0); Mean Corpuscular HGB Conc 32.5 % (30-36); Mean Corpuscular Hemoglobin 28.2 PG (26-34); Mean Corpuscular Volume 86.8 fL (80-100); Platelet Count 194 X10^3/uL (150-400); Red Blood Cell Count 4.79 X10^6/uL (4.0-5.2); White Blood Cell Count 4.5 X10^3/uL (4.5-11.0)
[2020-08-03 12:07] LABS: Alanine Aminotransferase 15 IU/L (<35); Albumin 3.8 g/dL (3.5-5.0); Albumin Globulin Ratio 1.3 (1.0-2.8); Alkaline Phosphatase 105 U/L (38-126); Aspartate Aminotransferase 24 IU/L (14-36); BUN Creatinine Ratio 22.5 (6-22); Bilirubin Total 0.7 mg/dL (0.2-1.3); Blood Urea Nitrogen 18 mg/dL (7-17); Calcium 8.9 mg/dL (8.4-10.2); Carbon Dioxide 32 mmol/L (22-32); Chloride 103 mmol/L (98-107); Cholesterol 152 mg/dL (140-199); Estimated Glomerular Filt Rate > 60.0 mL/min (>60); Globulin 2.9 g/dL (1.7-4.1); Glucose 82 mg/dL (80-110); HDL Cholesterol 67 mg/dL (40-60); HEMOLYSIS < 15 (0-50); LDL Cholesterol Calculated 70 mg/dL (<100); Potassium 4.5 mmol/L (3.4-5.1); Sodium 141 mmol/L (137-145); Total Protein 6.7 g/dL (6.3-8.2); Triglycerides 76 mg/dL (35-150)
[2020-08-03 12:38] LABS: TSH w/ Reflex to FT4 1.63 uIU/mL (0.47-4.68)
== END ==
PROVIDERS: Family Provider Specialist; PCP Registered Nurse Diabetes Educator; Referring Provider Registered Nurse Diabetes Educator; Visit Provider Registered Nurse Diabetes Educator
DX: E03.9 Hypothyroidism, unspecified (principal); E66.01 Morbid (severe) obesity due to excess calories; E78.5 Hyperlipidemia, unspecified; I10 Essential (primary) hypertension; Z68.42 Body mass index [BMI] 45.0-49.9, adult
CPT/HCPCS: 36415; 80053; 80061; 84443; 85027

== ENCOUNTER → 2020-09-26 14:02 | Outpatient (CLI) | payer MEDICARE, MEDICAID, SELFPAY ==
[2019-09-14 01:46] VITALS: BMI 44.6
--- NOTE | 2020-09-26 14:04 | DI.RAD.S_ITS ---
PROCEDURE: XR LUMBAR SPINE MIN 4V INDICATIONS: R hip pain, BLE sciatica type presentation TECHNIQUE: 5 views of the lumbar spine were acquired. COMPARISON: [facility], CT, CT ABDOMEN PELVIS W CON, 08/26/2019, 13:24. FINDINGS: Bones: There are 5 [id number] lumbar vertebral bodies. There is mild leftward curvature of the lumbar spine. Moderate degenerative changes including intervertebral disc space narrowing, osteophytosis, and facet sclerosis is present throughout the lumbar spine. There is grade 1 L4 on L5 anterolisthesis. Soft tissues: Overlying bowel gas pattern is normal. No suspicious soft tissue calcifications. Oblique images: Please note, the left oblique images are nondiagnostic. However, when compared with the CT of the abdomen and pelvis dated August 26, 2019, no pars interarticularis defects are noted in the lumbar spine. IMPRESSION: 1. Limited study. Degenerative change. 2. Grade 1 L4-5 anterolisthesis. No spondylolysis. Dictated by: Shivani Rios M.D. on 09/26/2020 at 15:33 Approved by: Shivani Rios M.D. on 09/26/2020 at 15:38
--- NOTE | 2020-09-26 14:04 | DI.RAD.S_ITS ---
PROCEDURE: XR HIP W PEL IF DONE RT 2V INDICATIONS: R hip pain, BLE sciatica type presentation TECHNIQUE: AP pelvis with lateral view(s) of the right hip(s). COMPARISON: None. FINDINGS: Bones: No acute fracture or dislocation. There is moderate right and mild left hip joint space narrowing. Soft tissues: The visualized bowel gas pattern is normal. No suspicious soft tissue calcifications. IMPRESSION: Moderate right hip osteoarthritis. Dictated by: Shivani Rios M.D. on 09/26/2020 at 15:38 Approved by: Shivani Rios M.D. on 09/26/2020 at 15:39
== END ==
PROVIDERS: Family Provider Specialist; PCP Registered Nurse Diabetes Educator; Referring Provider Registered Nurse Diabetes Educator; Visit Provider Registered Nurse Diabetes Educator
DX: M25.551 Pain in right hip (principal); M16.11 Unilateral primary osteoarthritis, right hip; M54.31 Sciatica, right side; M54.32 Sciatica, left side; M47.816 Spondylosis without myelopathy or radiculopathy, lumbar region; M43.16 Spondylolisthesis, lumbar region
CPT/HCPCS: 72110; 73502

== ENCOUNTER 2020-10-31 06:35 | Emergency (ER) | payer MEDICARE, MEDICAID, SELFPAY ==
[2020-09-28 14:43] VITALS: BMI 44.6
[2020-10-31 06:44] VITALS: BP 127/68; PULSE 95; RESP 16; TEMP 36.3; O2SAT 97; BMI 44.2
[2020-10-31 07:07] LABS: COVID19 -Nasal RAPID Negative (Negative)
--- NOTE | 2020-10-31 07:07 | ED_ITS ---
HPI - Nausea/Vomiting/Diarrhea General Chief complaint: Nausea/Vomiting/Diarrhea Stated complaint: left side pain Time Seen by Provider: 10/31/20 06:46 Source: patient Mode of arrival: Ambulatory Limitations: no limitations History of Present Illness HPI Narrative: This is a 70-year-old female comes to the emergency department with complaint of left-sided abdominal pain kind of up underneath the ribs rating or and to the flank. Patient states she had sudden onset about 3:00 a.m., she felt chilled and nauseated. She has not been vomiting. She states initially it was constant from about 3-6 a.m. and is now sort of waxing and waning in intensity and presents. Patient has not had any actual emesis. She states she had 3 bowel movements yesterday which were normal without any hematochezia or melena. She states the number of bowel movements is atypical for her. She denies any current diarrhea or constipation. No frequency, dysuria, urgency or hematuria. No vaginal bleeding or discharge. She denies a ny shortness of breath. She denies any chest pain or pressure. She has not been febrile. She has had mild discomfort on that side in the past with constipation but not similar to this. Patient takes medication for hypertension, GERD, hypothyroid. Patient has a history of appendectomy and bilateral salpingo oophorectomy. Related Data Home Medications Medication Instructions Recorded Confirmed lactulose 10 gram/15 mL oral 10 gram PO DAILY PRN ml 05/22/20 10/05/20 solution Previous Rx's Medication Instructions Recorded bupropion HCl 300 mg 24 hr tablet, 300 mg PO QAM #90 tab MDD 08/08/20 extended release Bupropion XL Tab 300mg 24hr duloxetine 30 mg capsule,delayed 30 mg PO QPM #90 cap 08/08/20 release levothyroxine 50 mcg tablet See Rx Instructions .ROUTE 08/08/20 .COMPLEX #90 tab lisinopril 20 mg tablet See Rx Instructions .ROUTE 08/08/20 .COMPLEX #90 tab pantoprazole 40 mg tablet,delayed 40 mg PO QPM #90 tab 08/08/20 release simvastatin 20 mg tablet 20 mg PO BEDTIME #90 tab 08/08/20 sucralfate 1 gram tablet 1 gram PO .COMPLEX #360 tab 08/08/20 celecoxib 100 mg capsule 100 mg PO BID #60 cap 09/26/20 lidocaine 5 % topical patch 1 patch TOPICAL DAILY #15 ea 10/12/20 cephalexin 500 mg PO QID 10 Days #40 cap 10/31/20 tramadol [Ultram] 50 mg PO Q6H PRN #7 tab 10/31/20 Allergies Allergy/AdvReac Type Severity Reaction Status Date / Time No Known Drug Allergies Allergy Verified 10/05/20 09:50 Review of Systems Review of Systems ROS Unobtainable: All systems reviewed & are unremarkable except as noted in HPI and below Patient History Medical History Anterolisthesis Bilateral foot pain Depression Gastroesophageal reflux disease (05/12/14) Hypothyroidism (11/27/11) Low back pain Mass of left side of neck Neck pain Osteoarthritis of right hip Surgical History History of appendectomy History of bilateral salpingo-oophorectomy (BSO) History of laparoscopic adjustable gastric banding Social History household members: none Smoking Status: Never smoker second hand exposure: No alcohol intake: current substance use type: does not use Smoking Status: Never smoker alcohol intake frequency: holidays/special occasions only Substance Use Type: does not use Exam Narrative Exam Narrative: GENERAL: Alert and oriented x three, obese, well-appearing female in mild distress. HEENT: Head normocephalic, atraumatic, EOMI, pupils reactive, face symmetric, moist mucous membranes NECK: Supple, full range of motion CARDIOVASCULAR: Regular rate and rhythm without murmurs, rubs or gallops. RESPIRATORY: Breath sounds equal bilaterally, no wheezes rales or rhonchi. ABDOMEN: Soft, positive for left upper quadrant tenderness. Normoactive bowel sounds all 4 quadrants. No guarding or rebound, rigidity, no mass, no bruit or pulsatile mass. No skin changes noted. : No CVA tenderness EXTREMITIES: Normal range of motion, no clubbing or edema. Neurovascularly intact NEUROLOGICAL: Cranial nerves II through XII grossly intact. Moving all extremities SKIN: Warm, dry, no petechiae, no rashes or lesions. Initial Vital Signs Initial Vital Signs: Vital Signs Temperature 97.3 F L 10/31/20 06:44 Pulse Rate 95 H 01/05/21 06:44 Respiratory Rate 16 10/31/20 06:44 Blood Pressure 127/68 10/31/20 06:44 Pulse Oximetry 97 10/31/20 06:44 Course Orders Ordered: Discontinued Medications Sodium Chloride (Normal Saline 0.9%) 1,000 mls @ 150 mls/hr IV CONT SHASHA Last Admin: 10/31/20 08:21 Dose: 150 mls/hr Documented by: HELADIO Ceftriaxone Sodium/Dextrose (Rocephin) 2 gm in 50 mls @ 100 mls/hr IV NOW ONE Stop: 10/31/20 09:43 Last Infusion: 10/31/20 10:30 Dose: 0 mls/hr Documented by: Admin: 10/31/20 09:55 Dose: 100 mls/hr Documented by: HELADIO Ketorolac Tromethamine (Ketorolac 60 Mg/2 Ml Vial) 15 mg IV NOW ONE Stop: 10/31/20 07:24 Last Admin: 10/31/20 08:21 Dose: 15 mg Documented by: HELADIO Ondansetron HCl (Ondansetron 4 Mg/2 Ml Inj) 4 mg IV NOW ONE Stop: 10/31/20 07:24 Last Admin: 10/31/20 08:21 Dose: 4 mg Documented by: HELADIO Reevaluation(s) Reevaluation #1: Patient much more comfortable after medications. Reviewed with patient findings today, possible pyelonephritis with her findings on CT and she has some bacteria in her urine but no other clear changes. We also discussed that there is a ventral hernia but this is not the location of her pain currently. No other clear source found. My suspicion for cardiac cause is low. Plan DC home on oral antibiotics. An a short course of pain medication. Time: 10:44 Vital Signs Vital signs: Vital Signs - 8 hr 10/31/20 10:30 Pulse Rate 86 Respiratory Rate 16 Blood Pressure 139/71 Pulse Oximetry 100 MDM - Nausea/Vomiting/Diarrhea Lab Data Attestation: I reviewed the patient's lab results. Result diagrams: 10/31/20 08:30 10/31/20 08:30 Labs: Lab Results 10/31/20 10/31/20 10/31/20 Range/Units 06:44 07:45 08:30 WBC 5.6 (4.5-11.0) X10^3/uL RBC 4.48 (4.0-5.2) X10^6/uL Hgb 12.8 (12.0-16.0) g/dL Hct 38.7 (36-46) % MCV 86.5 (80-100) fL MCH 28.6 (26-34) PG MCHC 33.1 (30-36) % RDW 14.7 (11.6-14.8) % Plt Count 196 (150-400) X10^3/uL Neut % (Auto) 70.6 (50-75) % Lymph % (Auto) 19.7 L (25-40) % Reynolds % (Auto) 7.1 (3-14) % Eos % (Auto) 1.6 L (2-4) % Baso % (Auto) 1.0 (0-2) % Neut # (Auto) 4000 (5429-3029) /uL Lymph # (Auto) 1100 (4343-0060) /uL Reynolds # (Auto) 400 (0-900) /uL Eos # (Auto) 100 (0-450) /uL Baso # (Auto) 100 (0-100) /uL Sodium (137-145) mmol/L Potassium (3.4-5.1) mmol/L Chloride (98-107) mmol/L Carbon Dioxide (22-32) mmol/L BUN (7-17) mg/dL Creatinine (0.52-1.04) mg/dL Estimated GFR (>60) mL/min BUN/Creatinine Ratio (6-22) Glucose (80-110) mg/dL Calcium (8.4-10.2) mg/dL Total Bilirubin (0.2-1.3) mg/dL AST (14-36) IU/L ALT (<35) IU/L Alkaline Phosphatase (38-126) U/L Total Creatine Kinase (30-135) U/L CK-MB (CK-2) CK-MB (CK-2) Rel Index Troponin I (0.01-0.034) ng/mL Total Protein (6.3-8.2) g/dL Albumin (3.5-5.0) g/dL Globulin (1.7-4.1) g/dL Albumin/Globulin Ratio (1.0-2.8) Lipase (23-300) U/L Urine RBC None seen (0-5/HPF) Urine WBC 1-5/hpf (0-5/HPF) Urine Bacteria Few (2-10) H (None) Ur Culture Indicated? Specimen cultured SARS-CoV-2 (PCR) Negative (Negative) 10/31/20 Range/Units 08:30 WBC (4.5-11.0) X10^3/uL RBC (4.0-5.2) X10^6/uL Hgb (12.0-16.0) g/dL Hct (36-46) % MCV (80-100) fL MCH (26-34) PG MCHC (30-36) % RDW (11.6-14.8) % Plt Count (150-400) X10^3/uL Neut % (Auto) (50-75) % Lymph % (Auto) (25-40) % Reynolds % (Auto) (3-14) % Eos % (Auto) (2-4) % Baso % (Auto) (0-2) % Neut # (Auto) (3572-9393) /uL Lymph # (Auto) (2231-1330) /uL Reynolds # (Auto) (0-900) /uL Eos # (Auto) (0-450) /uL Baso # (Auto) (0-100) /uL Sodium 139 (137-145) mmol/L Potassium 3.9 (3.4-5.1) mmol/L Chloride 107 (98-107) mmol/L Carbon Dioxide 30 (22-32) mmol/L BUN 20 H (7-17) mg/dL Creatinine 0.79 (0.52-1.04) mg/dL Estimated GFR > 60.0 (>60) mL/min BUN/Creatinine Ratio 25.3 H (6-22) Glucose 116 H (80-110) mg/dL Calcium 9.0 (8.4-10.2) mg/dL Total Bilirubin 0.3 (0.2-1.3) mg/dL AST 23 (14-36) IU/L ALT 15 (<35) IU/L Alkaline Phosphatase 98 (38-126) U/L Total Creatine Kinase 59 (30-135) U/L CK-MB (CK-2) TNP CK-MB (CK-2) Rel Index TNP Troponin I < 0.012 (0.01-0.034) ng/mL Total Protein 6.3 (6.3-8.2) g/dL Albumin 3.5 (3.5-5.0) g/dL Globulin 2.8 (1.7-4.1) g/dL Albumin/Globulin Ratio 1.3 (1.0-2.8) Lipase 38 (23-300) U/L Urine RBC (0-5/HPF) Urine WBC (0-5/HPF) Urine Bacteria (None) Ur Culture Indicated? SARS-CoV-2 (PCR) (Negative) Urine Dip Bedside Urine Glucose Negative Bedside Urine Bilirubin - Negative Bedside Urine Ketone - Negative Urine Specific [place] 1.020 Bedside Urine Occult Blood - Negative Bedside Urine pH 6.0 Bedside Urine Protein - Negative Bedside Urine Urobilinogen - Negative Bedside Urine Nitrite - Negative Bedside Urine Leukocytes - Negative Esterase Imaging Data CT scan - abdomen/pelvis: Radiologist's Impression: [address] [id number] Scan ReportSigned Patient: Terese Trejo SMR#: [id number]: 2Acct:[id number]/Sex: 70 / FDate of Service: 10/31/20Loc: EDAccession Number: [id number] Procedure: CT abdomen pelvis wo con Ordering Provider: Mary Moore D.O. PROCEDURE: CT ABDOMEN PELVIS WO CON INDICATIONS: left abd pain TECHNIQUE: Noncontrast 5 mm thick sections acquired from the diaphragms to the symphysis. 5 mm coronal and sagittal reformats were then performed. For radiation dose reduction, the following was used: automated exposure control, adjustment of mA and/or kV according to patient size. COMPARISON: [facility], CT, ABDOMEN/PELVIS WITH CONTRAST, 11/28/2012, 13:12. [facility], US, ABDOMEN COMPLETE, 12/14/2014, 14:29. [facility], CT, KIDNEY/ URETER/BLADDER, 02/24/2014, 23:08. [facility], CT, CHEST/ABD/PEL WITH CONTRAST, 11/26/2014, 14:34. [facility], US, US ABDOMEN LIMITED, 09/13/2019, 21:39. [facility], CT, CT ABDOMEN PELVIS W CON, 08/26/2019, 13:24. FINDINGS: Image quality: Excellent. ABDOMEN: Lung bases: Right middle lobe and lingula atelectasis. Heart size is normal. Small hiatal hernia. Solid organs: Liver is normal in size. Gallbladder is normal . Pancreas is normal in contours. Spleen is normal in size. No adrenal nodules. There are small nonobstructive renal calculi bilaterally. No ureteral stones. Mild hydronephrosis bilaterally with normal caliber of the ureters suggesting UPJ obstruction. There is mild perinephric stranding in left kidney. Kidneys are normal in size, without hydronephrosis. Peritoneum and bowel: Unenhanced bowel loops demonstrate normal wall thickness and caliber. There are a few colonic diverticula. No CT findings to suggest acute diverticulitis. A large amount of stool in colon. No free fluid or air. Nodes and vessels: No retroperitoneal or mesenteric adenopathy by size criteria. Aorta and inferior vena cava are normal in caliber. Miscellaneous: There is a large periumbilical ventral hernia containing loops of small intestine and mesentery. In addition, there is a small fat containing ventral hernia at midline superior to umbilicus. PELVIS: Genitourinary: Bladder wall thickness is normal. Miscellaneous: No inguinal adenopathy. Small fat containing left inguinal hernia is noted. Bones: No suspicious bony lesions. No vertebral body compression fractures. Severe disc and facet disease in lumbar spine causing severe central canal stenosis at L4-L5 and L5-S1. IMPRESSION: 1. There are small nonobstructive renal calculi bilaterally. There is mild left perinephric stranding. Mild hydronephrosis bilaterally with normal caliber of ureters suggesting bilateral UPJ obstruction. A differential diagnosis is parapelvic cysts.. 2. Mild diverticulosis without diverticulitis. 3. A large periumbilical ventral hernia containing small intestine and mesentery. No findings to suggest small bowel obstruction. A small fat containing ventral hernia is also noted in the superior anterior abdominal wall. 4. A large amount of stool in colon. 5. Small hiatal hernia. 6. Severe degenerative disc and facet disease in lumbar spine causing central canal stenosis at L4-L5 and L5-S1. The preliminary result was discussed with Dr. Moore in ER. Dictated by: Joan Lora M.D. on 10/31/2020 at 8:13 Approved by: Joan Lora M.D. on 10/31/2020 at 8:38 ECG Data Attestation: I personally reviewed and interpreted this ECG as follows: Prior ECG tracings: available for review Interpretation: Normal sinus rhythm rate 89, UT 170, QRS [address] elevation depression appreciated. Left axis deviation. Patient has prior EKG from 08/26/2019 which appears similar. MDM Narrative Medical decision making narrative: This is a 70-year-old female who comes into the emergency department with reproducible sudden onset left lower abdominal and flank pain. Patient has not had fevers, she has had some nausea, no diarrhea but increased frequency of stools. Urine shows possible infection but not absolute, there is some stranding and changes consistent with possible pyelo, potential for kidney stone of although there is none noted on imaging and patient did not have hematuria in her urine. Her labs otherwise do not show major abnormalities with no acute EKG or troponin changes and patient is 6 hours from onset making unlikely to be a cardiac cause. PE is also unlikely with r eproducible symptoms, no tachycardia, no hypoxia or other suspicious red flags. Patient was more comfortable after Toradol, started on oral antibiotics while pending urine culture and plan to have patient return for worsening symptoms Discharge Plan Departure Patient Disposition: Home Clinical Impression: Pyelonephritis, Hernia, ventral Instructions: DI for Kidney Infection Activity Restrictions/Additional Instructions: Follow up with your physician in the next several days for recheck. Your imaging and urine are suspicious for kidney infection. Take antibiotics until completely gone. You may take tylenol up to 1000mg every 8 hours as needed for pain. If this is not adequate you may take 1-2 tablets of Ultram every 6-8 hours as needed. Return for fevers, worsening abdominal or flank pain, persistent vomiting, black or bloody stools, inability or difficulty with urination, lightheadedness or passing out, chest pain or shortness of breath. Prescriptions: New cephalexin 500 mg capsule 500 mg PO QID 10 Days Qty: 40 RF: 0 tramadol [Ultram] 50 mg tablet 50 mg PO Q6H PRN (Reason: pain) Qty: 7 RF: 0 No Action lidocaine 5 % adhesive patch,medicated 1 patch topical DAILY Qty: 15 RF: 3 lactulose 10 gram/15 mL solution 10 gram PO DAILY PRNRF: 0 bupropion HCl 300 mg tablet extended release 24 hr 300 mg PO QAM MDD Bupropion XL Tab 300mg 24hr Qty: 90 RF: 3 duloxetine 30 mg capsule,delayed release(DR/EC) 30 mg PO QPM Qty: 90 RF: 3 levothyroxine 50 mcg tablet See Rx Instructions .ROUTE .COMPLEX Qty: 90 RF: 3 lisinopril 20 mg tablet See Rx Instructions .ROUTE .COMPLEX Qty: 90 RF: 3 pantoprazole 40 mg tablet,delayed release (DR/EC) 40 mg PO QPM Qty: 90 RF: 3 simvastatin 20 mg tablet 20 mg PO BEDTIME Qty: 90 RF: 3 sucralfate 1 gram tablet 1 gram PO .COMPLEX Qty: 360 RF: 3 celecoxib [Celebrex] 100 mg capsule 100 mg PO BID Qty: 60 RF: 1 Referrals: John Lopez ARNP [Primary Care Provider] -
--- NOTE | 2020-10-31 07:22 | DI.CT.S_ITS ---
PROCEDURE: CT ABDOMEN PELVIS WO CON INDICATIONS: left abd pain TECHNIQUE: Noncontrast 5 mm thick sections acquired from the diaphragms to the symphysis. 5 mm coronal and sagittal reformats were then performed. For radiation dose reduction, the following was used: automated exposure control, adjustment of mA and/or kV according to patient size. COMPARISON: [facility], CT, ABDOMEN/PELVIS WITH CONTRAST, 11/28/2012, 13:12. [facility], [place], ABDOMEN COMPLETE, 12/14/2014, 14:29. [facility], CT, KIDNEY/ URETER/BLADDER, 02/24/2014, 23:08. [facility], CT, CHEST/ABD/PEL WITH CONTRAST, 11/26/2014, 14:34. [facility], US, US ABDOMEN LIMITED, 09/13/2019, 21:39. [facility], CT, CT ABDOMEN PELVIS W CON, 08/26/2019, 13:24. FINDINGS: Image quality: Excellent. ABDOMEN: Lung bases: Right middle lobe and lingula atelectasis. Heart size is normal. Small hiatal hernia. Solid organs: Liver is normal in size. Gallbladder is normal . Pancreas is normal in contours. Spleen is normal in size. No adrenal nodules. There are small nonobstructive renal calculi bilaterally. No ureteral stones. Mild hydronephrosis bilaterally with normal caliber of the ureters suggesting UPJ obstruction. There is mild perinephric stranding in left kidney. Kidneys are normal in size, without hydronephrosis. Peritoneum and bowel: Unenhanced bowel loops demonstrate normal wall thickness and caliber. There are a few colonic diverticula. No CT findings to suggest acute diverticulitis. A large amount of stool in colon. No free fluid or air. Nodes and vessels: No retroperitoneal or mesenteric adenopathy by size criteria. Aorta and inferior vena cava are normal in caliber. Miscellaneous: There is a large periumbilical ventral hernia containing loops of small intestine and mesentery. In addition, there is a small fat containing ventral hernia at midline superior to umbilicus. PELVIS: Genitourinary: Bladder wall thickness is normal. Miscellaneous: No inguinal adenopathy. Small fat containing left inguinal hernia is noted. Bones: No suspicious bony lesions. No vertebral body compression fractures. Severe disc and facet disease in lumbar spine causing severe central canal stenosis at L4-L5 and L5-S1. IMPRESSION: 1. There are small nonobstructive renal calculi bilaterally. There is mild left perinephric stranding. Mild hydronephrosis bilaterally with normal caliber of ureters suggesting bilateral UPJ obstruction. A differential diagnosis is parapelvic cysts.. 2. Mild diverticulosis without diverticulitis. 3. A large periumbilical ventral hernia containing small intestine and mesentery. No findings to suggest small bowel obstruction. A small fat containing ventral hernia is also noted in the superior anterior abdominal wall. 4. A large amount of stool in colon. 5. Small hiatal hernia. 6. Severe degenerative disc and facet disease in lumbar spine causing central canal stenosis at L4-L5 and L5-S1. The preliminary result was discussed with Dr. Moore in ER. Dictated by: Joan Lora M.D. on 10/31/2020 at 8:13 Approved by: Joan Lora M.D. on 10/31/2020 at 8:38
[2020-10-31] MEDS: SODIUM CHLORIDE 0.9% 1,000 ML 150 ML IV (08:21)
[2020-10-31] MEDS: ONDANSETRON 4 MG/2 ML INJ IV (08:21)
[2020-10-31] MEDS: KETOROLAC 60 MG/2 ML VIAL 15 MG IV (08:21)
[2020-10-31 08:37] LABS: RBC Urine None Seen (0-5/HPF)
[2020-10-31 08:39] LABS: Add Manual Diff / Slide Review NO; Basophils Absolute Auto 100 /uL (0-100); Eosinophils Absolute Auto 100 /uL (0-450); Eosinophils Percent Auto 1.6 % (2-4); Hematocrit 38.7 % (36-46); Hemoglobin 12.8 g/dL (12.0-16.0); Lymphocytes Absolute Auto 1100 /uL (1100-4500); Lymphocytes Percent Auto 19.7 % (25-40); Mean Corpuscular HGB Conc 33.1 % (30-36); Mean Corpuscular Hemoglobin 28.6 PG (26-34); Mean Corpuscular Volume 86.5 fL (80-100); Monocytes Absolute Auto 400 /uL (0-900); Monocytes Percent Auto 7.1 % (3-14); Neutrophils Absolute Auto 4000 /uL (1500-7000); Neutrophils Percent Auto 70.6 % (50-75); Platelet Count 196 X10^3/uL (150-400); Red Blood Cell Count 4.48 X10^6/uL (4.0-5.2); Red Cell Distribution Width 14.7 % (11.6-14.8); White Blood Cell Count 5.6 X10^3/uL (4.5-11.0)
[2020-10-31 08:46] LABS: Alanine Aminotransferase 15 IU/L (<35); Albumin 3.5 g/dL (3.5-5.0); Albumin Globulin Ratio 1.3 (1.0-2.8); Alkaline Phosphatase 98 U/L (38-126); Aspartate Aminotransferase 23 IU/L (14-36); BUN Creatinine Ratio 25.3 (6-22); Bilirubin Total 0.3 mg/dL (0.2-1.3); Blood Urea Nitrogen 20 mg/dL (7-17); Carbon Dioxide 30 mmol/L (22-32); Chloride 107 mmol/L (98-107); Creatine Kinase 59 U/L (30-135); Estimated Glomerular Filt Rate > 60.0 mL/min (>60); Globulin 2.8 g/dL (1.7-4.1); Glucose 116 mg/dL (80-110); HEMOLYSIS < 15 (0-50); Lipase 38 U/L (23-300); Potassium 3.9 mmol/L (3.4-5.1); Sodium 139 mmol/L (137-145); Total Protein 6.3 g/dL (6.3-8.2)
[2020-10-31 08:48] LABS: Bacteria Urine Few (2-10); Culture Indicated Urine Specimen Cultured; WBC Urine 1-5/HPF (0-5/HPF)
[2020-10-31 08:58] LABS: Troponin I < 0.012 ng/mL (0.01-0.034)
[2020-10-31 09:00] VITALS: BP 126/69; PULSE 85; RESP 16; O2SAT 99
[2020-10-31] MEDS: CEFTRIAXONE 2 GM/50 ML FROZ.PIGGY IV (09:55)
[2020-10-31 10:30] VITALS: BP 139/71; PULSE 86; RESP 16; O2SAT 100
--- NOTE | 2020-11-11 16:35 | PC.NURSE ---
Late entry: IV NS 150 mL/hr discontinued 1045 hours.
== END 2020-10-31 11:03 | disposition home or self-care (01) ==
PROVIDERS: Emergency Medicine; Emergency Provider Emergency Medicine; Family Provider Specialist; PCP Registered Nurse Diabetes Educator
DX: N12 Tubulo-interstitial nephritis, not specified as acute or chronic (principal); K43.9 Ventral hernia without obstruction or gangrene; R11.0 Nausea; E66.9 Obesity, unspecified; Z68.41 Body mass index [BMI] 40.0-44.9, adult; Z20.822 Contact with and (suspected) exposure to COVID-19
CPT/HCPCS: 36415; 74176; 80053; 81003; 81015; 82550; 83690; 84484; 85025; 87086; 87635; 93005; 96361; 96365; 96375; 99283; 99284; C9803; J0696; J1885; J2405

== ENCOUNTER 2020-11-04 14:24 | Emergency (ER) | payer OTHER, MEDICAID, SELFPAY ==
[2020-09-28 14:43] VITALS: BMI 44.6
[2020-11-04] VITALS (10 sets, daily range): BP systolic 92–124; BP diastolic 50–61; PULSE 81–93; RESP 16; TEMP 36.9; O2SAT 95–100; BMI 44.2
--- NOTE | 2020-11-04 15:05 | DI.RAD.S_ITS ---
PROCEDURE: XR CHEST 1V INDICATIONS: suspected sepsis TECHNIQUE: One view of the chest was acquired. COMPARISON: [facility], CT, CHEST/ABD/PEL WITH CONTRAST, 11/26/2014, 14:34. [facility], CR, CHEST 2 VIEW, 11/26/2014, 12:33. FINDINGS: Surgical changes and devices: None. Lungs and pleura: Lungs are clear. No pleural effusions or pneumothorax. Mediastinum: Mediastinal contours appear normal. Heart size is normal. Bones and chest wall: No suspicious bony lesions. Overlying soft tissues appear unremarkable. IMPRESSION: No acute cardiopulmonary abnormality. Dictated by: Tristen Davila M.D. on 11/04/2020 at 14:41 Approved by: Tristen Davila M.D. on 11/04/2020 at 14:42
[2020-11-04] MEDS: SODIUM CHLORIDE 0.9% 1,000 ML 1000 ML IV (15:48)
[2020-11-04 15:58] LABS: Add Manual Diff / Slide Review NO; Basophils Absolute Auto 0 /uL (0-100); Basophils Percent Auto 0.4 % (0-2); Eosinophils Absolute Auto 0 /uL (0-450); Eosinophils Percent Auto 0.2 % (2-4); Hematocrit 41.5 % (36-46); Hemoglobin 13.6 g/dL (12.0-16.0); Lymphocytes Absolute Auto 500 /uL (1100-4500); Mean Corpuscular HGB Conc 32.9 % (30-36); Mean Corpuscular Hemoglobin 28.4 PG (26-34); Mean Corpuscular Volume 86.3 fL (80-100); Monocytes Absolute Auto 500 /uL (0-900); Monocytes Percent Auto 5.8 % (3-14); Neutrophils Absolute Auto 7900 /uL (1500-7000); Neutrophils Percent Auto 87.6 % (50-75); Platelet Count 188 X10^3/uL (150-400); Red Cell Distribution Width 14.5 % (11.6-14.8)
[2020-11-04 16:01] LABS: INR 1.2 (0.9-1.3); Prothrombin Time 13.4 SECONDS (10.1-12.7)
[2020-11-04 16:04] LABS: Lactate (Lactic Acid) 1.9 mmol/L (0.7-2.1); PTT Partial Thromboplastin Tim 31 SECONDS (26.4-36.2)
[2020-11-04 16:05] LABS: Alanine Aminotransferase 16 IU/L (<35); Albumin 3.9 g/dL (3.5-5.0); Albumin Globulin Ratio 1.3 (1.0-2.8); Alkaline Phosphatase 118 U/L (38-126); Aspartate Aminotransferase 23 IU/L (14-36); BUN Creatinine Ratio 18.8 (6-22); Bilirubin Total 0.5 mg/dL (0.2-1.3); Blood Urea Nitrogen 15 mg/dL (7-17); Calcium 8.9 mg/dL (8.4-10.2); Carbon Dioxide 25 mmol/L (22-32); Chloride 106 mmol/L (98-107); Estimated Glomerular Filt Rate > 60.0 mL/min (>60); Globulin 2.9 g/dL (1.7-4.1); Glucose 100 mg/dL (80-110); HEMOLYSIS < 15 (0-50); Lipase 25 U/L (23-300); Potassium 3.3 mmol/L (3.4-5.1); Sodium 137 mmol/L (137-145); Total Protein 6.8 g/dL (6.3-8.2)
--- NOTE | 2020-11-04 16:14 | ED_ITS ---
HPI - Abdominal Pain General Chief Complaint: Urogenital-Female Stated Complaint: kidney infection Time Seen by Provider: 11/04/20 16:06 Source: patient and old records reviewed Mode of arrival: Wheelchair Limitations: no limitations History of Present Illness HPI narrative: This is a 70-year-old female comes to the emergency department with complaint of left-sided abdominal pain. She has had chills but no fevers. No cold cough or congestion. She denies chest pain or shortness of breath. She has had nausea and she developed vomiting after leaving the ER on the . She has had increasing frequency of diarrhea with no black or bloody stools. Frequency, dysuria or sense of urgency. She states she now has all over body aches. Patient had suspected kidney function. She has not felt like she is improving. She has been taking the oral antibiotics as prescribed. Related Data Home Medications Medication Instructions Recorded Confirmed lactulose 10 gram/15 mL oral 10 gram PO DAILY PRN ml 05/22/20 11/03/20 solution Previous Rx's Medication Instructions Recorded bupropion HCl 300 mg 24 hr tablet, 300 mg PO QAM #90 tab MDD 08/08/20 extended release Bupropion XL Tab 300mg 24hr duloxetine 30 mg capsule,delayed 30 mg PO QPM #90 cap 08/08/20 release levothyroxine 50 mcg tablet See Rx Instructions .ROUTE 08/08/20 .COMPLEX #90 tab lisinopril 20 mg tablet See Rx Instructions .ROUTE 08/08/20 .COMPLEX #90 tab pantoprazole 40 mg tablet,delayed 40 mg PO QPM #90 tab 08/08/20 release simvastatin 20 mg tablet 20 mg PO BEDTIME #90 tab 08/08/20 sucralfate 1 gram tablet 1 gram PO .COMPLEX #360 tab 08/08/20 celecoxib 100 mg capsule 100 mg PO BID #60 cap 09/26/20 lidocaine 5 % topical patch 1 patch TOPICAL DAILY #15 ea 10/12/20 cephalexin 500 mg PO QID 10 Days #40 cap 10/31/20 tramadol [Ultram] 50 mg PO Q6H PRN #7 tab 10/31/20 hydrocodone-acetaminophen [[place]] 1 tab PO Q6H PRN #7 tab 11/04/20 Allergies Allergy/AdvReac Type Severity Reaction Status Date / Time No Known Drug Allergies Allergy Verified 11/04/20 14:37 Review of Systems Review of Systems ROS Unobtainable: All systems reviewed & are unremarkable except as noted in HPI and below Patient History Medical History Anterolisthesis Bilateral foot pain Depression Gastroesophageal reflux disease (05/12/14) Hypothyroidism (11/27/11) Low back pain Mass of left side of neck Neck pain Osteoarthritis of right hip Surgical History History of appendectomy History of bilateral salpingo-oophorectomy (BSO) History of laparoscopic adjustable gastric banding Social History household members: none Smoking Status: Never smoker second hand exposure: No alcohol intake: current substance use type: does not use Smoking Status: Never smoker alcohol intake frequency: holidays/special occasions only Substance Use Type: does not use Exam Narrative Exam Narrative: GENERAL: Alert and oriented x three, obese, well-appearing female in mild distress. HEENT: Head normocephalic, atraumatic, EOMI, pupils reactive, face symmetric, moist mucous membranes NECK: Supple, full range of motion CARDIOVASCULAR: Regular rate and rhythm without murmurs, rubs or gallops. RESPIRATORY: Breath sounds equal bilaterally, no wheezes rales or rhonchi. ABDOMEN: Soft, nontender. Normoactive bowel sounds all 4 quadrants. No guarding or rebound, rigidity, no mass : No CVA tenderness BACK: No cervical, thoracic or lumbar vertebral point tenderness. Patient has normal range of motion. EXTREMITIES: Normal range of motion, no clubbing or edema. Neurovascularly intact NEUROLOGICAL: Cranial nerves II through XII grossly intact. Moving all extremities SKIN: Warm, dry, no petechiae, no rashes or lesions. Initial Vital Signs Initial Vital Signs: Vital Signs Temperature 98.4 F 11/04/20 14:37 Pulse Rate 87 11/04/20 14:37 Respiratory Rate 16 11/04/20 14:37 Blood Pressure 124/60 11/04/20 14:37 Pulse Oximetry 97 11/04/20 14:37 Course Orders Ordered: Discontinued Medications Hydrocodone Bitart/Acetaminophen (Hydrocodone/Acet 5/325 Prepack) 1 bottle MISC SEEINSTR ONE Stop: 11/04/20 19:45 Last Admin: 11/04/20 20:13 Dose: 1 bottle Documented by: AIDE Sodium Chloride (Normal Saline 0.9%) 1,000 mls @ 1,000 mls/hr IV BOLUS ONE Stop: 11/04/20 16:04 Last Infusion: 11/04/20 16:57 Dose: 0 mls/hr Documented by: Admin: 11/04/20 15:48 Dose: 1,000 mls/hr Documented by: LUKE Ketorolac Tromethamine (Ketorolac 60 Mg/2 Ml Vial) 15 mg IV NOW ONE Stop: 11/04/20 16:14 Last Admin: 11/04/20 16:43 Dose: 15 mg Documented by: LUKE Potassium Chloride (Potassium Chloride 20 Meq/15 Ml Udc) 40 meq PO NOW ONE Stop: 11/04/20 18:52 Last Admin: 11/04/20 19:09 Dose: 40 meq Documented by: LUKE Consultations Consultation #1: Dr. Stringer, discussed patient imaging and labs from this evening. Patient is only mildly tender at that site and her main area of pain was not over the area of hernia. Time: 19:25 Vital Signs Vital signs: Vital Signs - 8 hr 11/04/20 14:37 11/04/20 15:06 11/04/20 15:08 Temperature 98.4 F Pulse Rate 87 81 Respiratory Rate 16 Blood Pressure 124/60 92/50 L Pulse Oximetry 97 99 95 11/04/20 15:30 11/04/20 15:33 11/04/20 16:00 Temperature Pulse Rate 83 84 93 H Respiratory Rate Blood Pressure 111/56 L Pulse Oximetry 97 96 11/04/20 16:36 11/04/20 17:00 11/04/20 17:30 Temperature Pulse Rate 85 83 81 Respiratory Rate Blood Pressure Pulse Oximetry 97 100 98 MDM - Abdominal Pain Lab Data Attestation: I reviewed the patient's lab results. Result diagrams: 11/04/20 15:33 11/04/20 15:33 Labs: Lab Results 11/04/20 11/04/20 11/04/20 Range/Units 15:33 15:33 15:33 WBC 9.0 (4.5-11.0) X10^3/uL RBC 4.80 (4.0-5.2) X10^6/uL Hgb 13.6 (12.0-16.0) g/dL Hct 41.5 (36-46) % MCV 86.3 (80-100) fL MCH 28.4 (26-34) PG MCHC 32.9 (30-36) % RDW 14.5 (11.6-14.8) % Plt Count 188 (150-400) X10^3/uL Neut % (Auto) 87.6 H (50-75) % Lymph % (Auto) 6.0 L (25-40) % [place] % (Auto) 5.8 (3-14) % Eos % (Auto) 0.2 L (2-4) % Baso % (Auto) 0.4 (0-2) % Neut # (Auto) 7900 H (9869-4947) /uL Lymph # (Auto) 500 L (7292-7505) /uL [place] # (Auto) 500 (0-900) /uL Eos # (Auto) 0 (0-450) /uL Baso # (Auto) 0 (0-100) /uL PT 13.4 H (10.1-12.7) SECONDS INR 1.2 (0.9-1.3) APTT 31 (26.4-36.2) SECONDS Sodium (137-145) mmol/L Potassium (3.4-5.1) mmol/L Chloride (98-107) mmol/L Carbon Dioxide (22-32) mmol/L BUN (7-17) mg/dL Creatinine (0.52-1.04) mg/dL Estimated GFR (>60) mL/min BUN/Creatinine Ratio (6-22) Glucose (80-110) mg/dL Lactate (0.7-2.1) mmol/L Calcium (8.4-10.2) mg/dL Total Bilirubin (0.2-1.3) mg/dL AST (14-36) IU/L ALT (<35) IU/L Alkaline Phosphatase (38-126) U/L Total Protein (6.3-8.2) g/dL Albumin (3.5-5.0) g/dL Globulin (1.7-4.1) g/dL Albumin/Globulin Ratio (1.0-2.8) Lipase (23-300) U/L Procalcitonin 0.10 (<0.5) ng/mL Urine RBC (0-5/HPF) Urine WBC (0-5/HPF) Urine Bacteria (None) Ur Culture Indicated? SARS-CoV-2 (PCR) (Negative) Influenza A (RT-PCR) (NEGATIVE) Influenza B (RT-PCR) (NEGATIVE) 11/04/20 11/04/20 11/04/20 Range/Units 15:33 15:33 16:34 WBC (4.5-11.0) X10^3/uL RBC (4.0-5.2) X10^6/uL Hgb (12.0-16.0) g/dL Hct (36-46) % MCV (80-100) fL MCH (26-34) PG MCHC (30-36) % RDW (11.6-14.8) % Plt Count (150-400) X10^3/uL Neut % (Auto) (50-75) % Lymph % (Auto) (25-40) % [place] % (Auto) (3-14) % Eos % (Auto) (2-4) % Baso % (Auto) (0-2) % Neut # (Auto) (6960-3077) /uL Lymph # (Auto) (1720-3257) /uL [place] # (Auto) (0-900) /uL Eos # (Auto) (0-450) /uL Baso # (Auto) (0-100) /uL PT (10.1-12.7) SECONDS INR (0.9-1.3) APTT (26.4-36.2) SECONDS Sodium 137 (137-145) mmol/L Potassium 3.3 L (3.4-5.1) mmol/L Chloride 106 (98-107) mmol/L Carbon Dioxide 25 (22-32) mmol/L BUN 15 (7-17) mg/dL Creatinine 0.80 (0.52-1.04) mg/dL Estimated GFR > 60.0 (>60) mL/min BUN/Creatinine Ratio 18.8 (6-22) Glucose 100 (80-110) mg/dL Lactate 1.9 (0.7-2.1) mmol/L Calcium 8.9 (8.4-10.2) mg/dL Total Bilirubin 0.5 (0.2-1.3) mg/dL AST 23 (14-36) IU/L ALT 16 (<35) IU/L Alkaline Phosphatase 118 (38-126) U/L Total Protein 6.8 (6.3-8.2) g/dL Albumin 3.9 (3.5-5.0) g/dL Globulin 2.9 (1.7-4.1) g/dL Albumin/Globulin Ratio 1.3 (1.0-2.8) Lipase 25 (23-300) U/L Procalcitonin (<0.5) ng/mL Urine RBC (0-5/HPF) Urine WBC (0-5/HPF) Urine Bacteria (None) Ur Culture Indicated? SARS-CoV-2 (PCR) (Negative) Influenza A (RT-PCR) Flu a negative (NEGATIVE) Influenza B (RT-PCR) Flu b negative (NEGATIVE) 11/04/20 11/04/20 Range/Units 17:54 19:40 WBC (4.5-11.0) X10^3/uL RBC (4.0-5.2) X10^6/uL Hgb (12.0-16.0) g/dL Hct (36-46) % MCV (80-100) fL MCH (26-34) PG MCHC (30-36) % RDW (11.6-14.8) % Plt Count (150-400) X10^3/uL Neut % (Auto) (50-75) % Lymph % (Auto) (25-40) % [place] % (Auto) (3-14) % Eos % (Auto) (2-4) % Baso % (Auto) (0-2) % Neut # (Auto) (3153-6855) /uL Lymph # (Auto) (1070-0237) /uL [place] # (Auto) (0-900) /uL Eos # (Auto) (0-450) /uL Baso # (Auto) (0-100) /uL PT (10.1-12.7) SECONDS INR (0.9-1.3) APTT (26.4-36.2) SECONDS Sodium (137-145) mmol/L Potassium (3.4-5.1) mmol/L Chloride (98-107) mmol/L Carbon Dioxide (22-32) mmol/L BUN (7-17) mg/dL Creatinine (0.52-1.04) mg/dL Estimated GFR (>60) mL/min BUN/Creatinine Ratio (6-22) Glucose (80-110) mg/dL Lactate (0.7-2.1) mmol/L Calcium (8.4-10.2) mg/dL Total Bilirubin (0.2-1.3) mg/dL AST (14-36) IU/L ALT (<35) IU/L Alkaline Phosphatase (38-126) U/L Total Protein (6.3-8.2) g/dL Albumin (3.5-5.0) g/dL Globulin (1.7-4.1) g/dL Albumin/Globulin Ratio (1.0-2.8) Lipase (23-300) U/L Procalcitonin (<0.5) ng/mL Urine RBC 0-1/hpf (0-5/HPF) Urine WBC None seen (0-5/HPF) Urine Bacteria None seen (None) Ur Culture Indicated? Cult not indicated SARS-CoV-2 (PCR) Negative (Negative) Influenza A (RT-PCR) (NEGATIVE) Influenza B (RT-PCR) (NEGATIVE) Point of care testing: Urine Dip Bedside Urine Glucose Negative Bedside Urine Bilirubin - Negative Bedside Urine Ketone - Negative Urine Specific [place] 1.005 Bedside Urine Occult Blood - Negative Bedside Urine pH 6.5 Bedside Urine Protein + 30 Bedside Urine Urobilinogen - Negative Bedside Urine Nitrite - Negative Bedside Urine Leukocytes - Negative Esterase Imaging Data CT scan - abdomen/pelvis: Radiologist's Impression: [address] [address] Scan ReportSigned Patient: Terese Trejo [facility]#: [id number]: 1950cct:[id number]/Sex: 70 / FDate of Service: 11/04/20Loc: EDAccession Number: [id number] Procedure: CT abdomen pelvis w con Ordering Provider: Mary Moore D.O. PROCEDURE: CT ABDOMEN PELVIS W CON INDICATIONS: left sided abdominal pain, chills, no improving on abx. TECHNIQUE: After the administration of intravenous contrast, 5 mm thick sections acquired from the diaphragm to the symphysis. 5 mm coronal and sagittal reformats were acquired. For radiation dose reduction, the following was used: automated exposure control, adjustment of mA and/or kV according to patient size. COMPARISON: [facility], CT, CT ABDOMEN PELVIS WO CON, 10/31/2020, 7:37. [facility], CT, CT ABDOMEN PELVIS W CON, 08/26/2019, 13:24. FINDINGS: Image quality: Excellent. ABDOMEN: Lung bases: Lung bases are clear. Heart size is normal. Small hiatal hernia. Solid organs: Liver is normal in size and enhancement. Clip at the left vicky hepatis. Gallbladder is mildly distended. No calcified gallstones. Biliary system is non dilated. Pancreas enhances normally. Spleen is normal in size and enhancement. No adrenal nodules. Kidneys demonstrate normal size and enhancement. Punctate nonobstructing kidney stones. Suspect bilateral extrarenal pelvis or peripelvic cysts which appear similar to the CT from 2019 rather than hydronephrosis. Peritoneum and bowel: Bowel loops demonstrate normal wall thickness and caliber. Liquid contents in the distal colon. No small bowel obstruction. The appendix is not definitely seen. No free fluid or air. Nodes and vessels: No retroperitoneal or mesenteric adenopathy by size criteria. Aorta and inferior vena cava are normal in size. Superior to the umbilicus right paramedian fat containing ventral abdominal wall hernia. Miscellaneous: Ventral abdominal wall hernia containing bowel, (2/44). Overall not significantly changed. PELVIS: Genitourinary: Bladder wall thickness is normal. Postmenopausal uterus. Suspect small calcified fibroids. Miscellaneous: Suspect tiny left fat containing hernia. No inguinal hernias or adenopathy. Bones: No suspicious bony lesions. Extensive DDD. No vertebral body compression fractures. IMPRESSION: 1. Liquid contents in the distal colon could be due to diarrhea. 2. No bowel obstruction. 3. Large ventral abdominal wall hernia containing bowel. Small hiatal hernia. 4. No free fluid. No pneumoperitoneum. 5. Small nonobstructing kidney stones. Dictated by: Tristen Davila M.D. on 11/04/2020 at 16:09 Approved by: Tristen Davila M.D. on 11/04/2020 at 16:19 MDM Narrative Medical decision making narrative: 70-year-old female comes in with complaint of left-sided flank abdominal pain she was seen here by myself recently. Her urine culture showed mixed Gram-negative holden. She has been taking her antibiotics. She states the pain was significantly worse recently she did have some episodes of vomiting but has not had any here in the department and has not required any additional pain medications and has tolerated oral potassium. But no l eukocytosis, her lactate is normal her procalcitonin is negative. She has a mild hypokalemia and tolerated oral potassium. Renal function electrolytes and abdominal labs are negative. Was swabbed for COVID and influenza which were both negative. She has had 1 L of fluids, she has not given a urine sample it shows only protein but was sent for microscopy. Imagings were reviewed for General surgery as she does have a ventral hernia although she is not particularly tender in that area. They reviewed multiple sets of CTs without any acute findings and feel it is highly unlikely this is secondary hernia. That patient's stranding noted on her CT on her prior visit has improved her urine does not show any bacteria today so she could continue her antibiotics although these are potentially the cause of her diarrhea. Plan for watchful waiting, patient does not have any other skin changes that appear consistent with shingles. I am not able to reproduce her pain on repeat evaluation. Str ict return precautions were given. Discharge Plan Departure Patient Disposition: Home Clinical Impression: Hernia, ventral Instructions: DI for Ventral Hernia Activity Restrictions/Additional Instructions: Follow-up with general surgery regarding your hernia. Take pain medication as prescribed this medication can make you sleepy do not drive, perform hazardous activities or make any major decisions while taking it. Continue your other home medications as prescribed. Return to the ER for persistent vomiting, rapid or worsening abdominal pain, if you are not having bowel movements, black or bloody bowel movements, lightheadedness, passing out, chest pain or shortness of breath. Prescriptions: New hydrocodone-acetaminophen [[place]] 5-325 mg tablet 1 tab PO Q6H PRN (Reason: pain) Qty: 7 RF: 0 No Action lidocaine 5 % adhesive patch,medicated 1 patch topical DAILY Qty: 15 RF: 3 lactulose 10 gram/15 mL solution 10 gram PO DAILY PRNRF: 0 bupropion HCl 300 mg tablet extended release 24 hr 300 mg PO QAM MDD Bupropion XL Tab 300mg 24hr Qty: 90 RF: 3 duloxetine 30 mg capsule,delayed release(DR/EC) 30 mg PO QPM Qty: 90 RF: 3 levothyroxine 50 mcg tablet See Rx Instructions .ROUTE .COMPLEX Qty: 90 RF: 3 lisinopril 20 mg tablet See Rx Instructions .ROUTE .COMPLEX Qty: 90 RF: 3 pantoprazole 40 mg tablet,delayed release (DR/EC) 40 mg PO QPM Qty: 90 RF: 3 simvastatin 20 mg tablet 20 mg PO BEDTIME Qty: 90 RF: 3 sucralfate 1 gram tablet 1 gram PO .COMPLEX Qty: 360 RF: 3 celecoxib [Celebrex] 100 mg capsule 100 mg PO BID Qty: 60 RF: 1 cephalexin 500 mg capsule 500 mg PO QID 10 Days Qty: 40 RF: 0 tramadol [Ultram] 50 mg tablet 50 mg PO Q6H PRN (Reason: pain) Qty: 7 RF: 0 Referrals: John Lopez ARNP [Primary Care Provider] - Gabbie Stringer MD [Physician] -
[2020-11-04] MEDS: KETOROLAC 60 MG/2 ML VIAL 15 MG IV (16:43)
[2020-11-04 17:34] LABS: Influenza A - CEPHEID Flu A NEGATIVE (NEGATIVE); Influenza B - CEPHEID Flu B NEGATIVE (NEGATIVE)
[2020-11-04 18:18] LABS: COVID19 -Nasal RAPID Negative (Negative)
[2020-11-04] MEDS: POTASSIUM CHLORIDE 20 MEQ/15 ML UDC 40 MEQ PO (19:09)
[2020-11-04] MEDS: HYDROCODONE/ACET 5/325 PREPACK 1 BOTTLE MISC (20:13)
[2020-11-04 20:19] LABS: Bacteria Urine None Seen; WBC Urine None Seen (0-5/HPF)
[2020-11-04 20:37] LABS: Culture Indicated Urine Cult Not Indicated; RBC Urine 0-1/HPF (0-5/HPF)
== END 2020-11-04 20:22 | disposition home or self-care (01) ==
PROVIDERS: Emergency Provider Emergency Medicine; Family Provider Specialist; PCP Registered Nurse Diabetes Educator
DX: K43.9 Ventral hernia without obstruction or gangrene (principal); R11.2 Nausea with vomiting, unspecified; R19.7 Diarrhea, unspecified; E87.6 Hypokalemia; E03.9 Hypothyroidism, unspecified; Z20.822 Contact with and (suspected) exposure to COVID-19; E66.9 Obesity, unspecified; Z68.41 Body mass index [BMI] 40.0-44.9, adult
CPT/HCPCS: 36415; 71045; 74177; 80053; 81003; 81015; 83605; 83690; 84145; 85025; 85610; 85730; 87040; 87502; 87635; 96361; 96374; 99281; 99284; C9803; J1885; Q9967

== ENCOUNTER 2020-11-07 18:24 | Emergency (ER) | payer MEDICARE, MEDICAID, SELFPAY ==
[2020-11-07 13:14] VITALS: BMI 44.6
[2020-11-07 18:38] VITALS: BP 131/81; PULSE 80; RESP 18; TEMP 36.3; O2SAT 98; BMI 44.2
--- NOTE | 2020-11-07 19:47 | ED.GENADULT ---
HPI - General Adult General Chief complaint: Urogenital-Female Stated complaint: Pt returning for possible kidney stones Time Seen by Provider: 11/07/20 18:30 Source: patient Mode of arrival: Ambulatory Limitations: no limitations History of Present Illness HPI narrative: Patient is a 70-year-old female who is here for evaluation of left-sided flank pain and left lower quadrant abdominal pain. This is her 3rd visit in the past week for the same symptoms. During her 1st visit she had a workup to include a CT scan and labs which was concerning for potential pyelonephritis. She was started on antibiotics. She returned a couple days later because of continued pain. She had a 2nd CT scan performed was evaluated by general surgery and decision was to discharge the patient home. She was told at that time that she could stop taking the antibiotics because the culture resulted showing less concern for pyelonephritis. She returns today because she states that the symptoms that she has been having have continued. She does admit that it is the same pain that she has been having only worse. She did take 2 tramadol which she reports helped her symptoms. She also states that she has had diarrhea since the onset of her symptoms. After bowel movements her symptoms seemed to improve. She also has had some vomiting. States that after vomiting her symptoms improved. She did state that just today her symptoms worsened after eating. Related Data Home Medications Medication Instructions Recorded Confirmed lactulose 10 gram/15 mL oral 10 gram PO DAILY PRN ml 05/22/20 11/03/20 solution Previous Rx's Medication Instructions Recorded bupropion HCl 300 mg 24 hr tablet, 300 mg PO QAM #90 tab MDD 08/08/20 extended release Bupropion XL Tab 300mg 24hr duloxetine 30 mg capsule,delayed 30 mg PO QPM #90 cap 08/08/20 release levothyroxine 50 mcg tablet See Rx Instructions .ROUTE 08/08/20 .COMPLEX #90 tab lisinopril 20 mg tablet See Rx Instructions .ROUTE 08/08/20 .COMPLEX #90 tab pantoprazole 40 mg tablet,delayed 40 mg PO QPM #90 tab 08/08/20 release simvastatin 20 mg tablet 20 mg PO BEDTIME #90 tab 08/08/20 sucralfate 1 gram tablet 1 gram PO .COMPLEX #360 tab 08/08/20 celecoxib 100 mg capsule 100 mg PO BID #60 cap 09/26/20 lidocaine 5 % topical patch 1 patch TOPICAL DAILY #15 ea 12/17/20 cephalexin 500 mg PO QID 10 Days #40 cap 10/31/20 tramadol [Ultram] 50 mg PO Q6H PRN #7 tab 10/31/20 hydrocodone-acetaminophen [Force] 1 tab PO Q6H PRN #7 tab 11/04/20 tramadol [Ultram] 50 mg PO Q6H PRN #20 tab 11/07/20 Allergies Allergy/AdvReac Type Severity Reaction Status Date / Time No Known Drug Allergies Allergy Verified 11/04/20 14:37 Review of Systems Constitutional Constitutional: Denies fatigue, Denies fever(s) and Denies headache(s) ENT Ears, Nose, Mouth, and Throat: Denies headache(s) and Denies sore throat Cardiovascular Cardiovascular: Denies chest pain and Denies dyspnea Respiratory Respiratory: Denies cough and Denies dyspnea Gastrointestinal Gastrointestinal: Reports abdominal pain, Denies melena, Denies hematochezia, Reports diarrhea and Reports vomiting Genitourinary Genitourinary: Denies dysuria Genitourinary: Denies dysuria and Denies vaginal discharge Musculoskeletal Musculoskeletal: Denies arthralgias and Denies myalgias Comments: Left flank pain Integumentary/Breasts Skin/Breast: Denies rash Neurologic Neurologic: Denies behavioral changes and Denies headache(s) Psychiatric Psychiatric: Denies behavioral changes Endocrine Endocrine: Denies fatigue Hematologic/Lymphatic On Anticoagulants: No Allergic/Immunologic Allergic/Immunologic: Denies urticaria Patient History Medical History Anterolisthesis Bilateral foot pain Depression Gastroesophageal reflux disease (05/12/14) Hypothyroidism (11/27/11) Low back pain Mass of left side of neck Neck pain Osteoarthritis of right hip Surgical History History of appendectomy History of bilateral salpingo-oophorectomy (BSO) History of laparoscopic adjustable gastric banding Social History household members: none Smoking Status: Never smoker second hand exposure: No alcohol intake: current substance use type: does not use Smoking Status: Never smoker alcohol intake frequency: holidays/special occasions only Substance Use Type: does not use Exam Initial Vital Signs Initial Vital Signs: Vital Signs Temperature 97.3 F L 11/07/20 18:38 Pulse Rate 80 11/07/20 18:38 Respiratory Rate 18 11/07/20 18:38 Blood Pressure 131/81 11/07/20 18:38 Pulse Oximetry 98 11/07/20 18:38 Const General: cooperative, comfortable and well developed Limitations: mental status not altered HENMT Head: normal to inspection and normocephalic Resp Effort & Inspection: normal respiratory effort Auscultation: clear to auscultation bilaterally Cardio Rate: regular rate Rhythm: regular rhythm GI Inspection: non-distended Palpation: soft, No firm and tender (Left flank and left lower quadrant) Back/Spine/Pelvis Back: CVA tenderness left Skin Lesions: no lesions Rashes: no rashes Neuro General: patient alert, patient awake and patient oriented x3 Cognition: normal cognition Speech: speech normal Extrem General: normal to inspection and capillary refill normal Psych Appearance: grossly normal and well kempt Course Orders Ordered: ED Orders 11/07/20 19:48 US abdomen complete Stat Discontinued Medications Tramadol HCl (Tramadol 50 Mg Prepack) 1 bottle MISC SEEINSTR ONE Stop: 11/07/20 21:56 Last Admin: 11/07/20 22:13 Dose: 1 bottle Documented by: GUERA Vital Signs Vital signs: Vital Signs - 8 hr 11/07/20 18:38 11/07/20 22:02 Temperature 97.3 F L Pulse Rate 80 80 Respiratory Rate 18 20 Blood Pressure 131/81 135/92 H Pulse Oximetry 98 97 Medical Decision Making Imaging Data Extremity x-ray #1: Radiologist's Impression: [address] [id number] ReportSigned Patient: Terese Trejo SMR#: [id number]: [id number]:[id number]/Sex: 70 / FDate of Service: 11/07/20Loc: EDAccession Number: [id number] Procedure: US abdomen complete Ordering Provider: Renny Guadarrama D.O. PROCEDURE: US ABDOMEN COMPLETE INDICATIONS: LEFT FLANK PAIN; NAUSEA TECHNIQUE: Real-time scanning was performed of the abdominal and retroperitoneal organs, with image documentation. COMPARISON: [facility], CT, CT ABDOMEN PELVIS W CON, 11/04/2020, 16:16. [facility], US, US ABDOMEN LIMITED, 09/13/2019, 21:39. [facility], , US ABDOMEN COMPLETE, 08/26/2019, 12:36. FINDINGS: Liver: Liver is normal in size and homogeneous in echotexture. Gallbladder: Gallbladder appears normal. Biliary ducts: Intrahepatic bile ducts are non-dilated. Extrahepatic bile duct caliber measures 3.0 mm. Normal is 6-7 mm or less in diameter, or 10 mm or less post-cholecystectomy. Pancreas: The pancreas is poorly seen due to bowel gas.. Spleen: Spleen is normal in size and homogeneous in echotexture. Kidneys: Kidneys are normal in size and echotexture. Right kidney measures 9.6 cm long; left kidney measures 9 7 cm long. There is [id number] hydronephrosis bilaterally, but a urinary tract stone is not seen. No solid masses. Aorta: Visualized aorta is normal in caliber at less than 3 cm. Iliacs: Proximal common iliac arteries are not seen due to bowel gas. IVC: Intrahepatic inferior vena cava is not seen due to bowel gas. Miscellaneous: No free abdominal fluid. Brief evaluation of the bladder showed no discrete abnormality. IMPRESSION: Significant portions of the peritoneal space and retroperitoneum are poorly seen due to bowel gas. There is [id number] hydronephrosis but no nephrolithiasis is identified. CT scanning 11/04/20 also showed prominence of the collecting system, but without ureteral dilatation inferiorly. A definite source of new left-sided flank pain is not found. Follow-up assessment by CT IVP without and with contrast may become necessary to most accurately assess for etiology of the prominence of the collecting system. 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 Dictated by: Marcos Varner M.D. on 11/07/2020 at 21:28 Approved by: Marcos Varner M.D. on 11/07/2020 at 21:34 MDM Narrative Medical decision making narrative: She has had a fairly extensive workup over the past week to include 2 CT scans and labs and also evaluation by General surgery. She admits that the pain that brings her in today is the same pain that she has been having over the past couple weeks only worse. She has no skin changes that would making concern for zoster although a ?internal shingles ?diagnosis could potentially be considered. She is having no urinary symptoms. Her last urine culture showed mixed holden. Low suspicion given her symptoms today of pyelonephritis. Also low concern for ureteral stones or renal colic as the cause of her symptoms. Her prior CT scans were negative for gallbladder, pancreas, splenic pathology. Her labs been unremarkable. Ultrasound today shows no acute pathology. I am unsure the exact etiology of the patient's symptoms. She does have a history of reflux disease. She is on pantoprazole and occasionally takes Carafate. Plan will be is to have her start the care feet on a regular basis since her symptoms do seem to be somewhat GI related. I discussed this with her and she expressed understanding. During the past week she has had a CT scan which showed quite a bit of stool in her colon. Since that time she has developed some diarrhea. We did discuss the possibility of an cord paresis. She does state that having bowel movement improved her symptoms somewhat but then she felt like she became ?constipated? afterwards. Will send extended discussion about being on a good bowel regimen to include combination of fiber, stool softeners, laxatives as needed. I feel given her presentation today and the workup that she has had thus far that there is low likelihood for an emergent surgical pathology. I do not feel the patient needs admitted to the hospital. Informed her that she needed to contact her primary doctor to discuss follow-up with potentially GI or Urology. I did refill her Ultram. We had the discussion that potentially these medications can cause her constipation to become worse so she is going to try our best not to take the medications. She was given return precautions. She expressed understanding and agreement. Discharge Plan Departure Patient Disposition: Home Clinical Impression: Abdominal pain, Pyelonephritis Instructions: DI for Abdominal Pain-Adult Activity Restrictions/Additional Instructions: Recommend that you contact your primary doctor tomorrow to discuss further workup and to discuss the indications for specialist referrals to include Gastroenterology. I recommend that you start on a good bowel regimen like we discussed. I also recommend he start taking the Carafate/sucralfate that you have at home like we discussed. Return to the emergency department for any new symptoms. Prescriptions: New tramadol [Ultram] 50 mg tablet 50 mg PO Q6H PRN (Reason: pain) Qty: 20 RF: 0 No Action lidocaine 5 % adhesive patch,medicated 1 patch topical DAILY Qty: 15 RF: 3 lactulose 10 gram/15 mL solution 10 gram PO DAILY PRNRF: 0 bupropion HCl 300 mg tablet extended release 24 hr 300 mg PO QAM MDD Bupropion XL Tab 300mg 24hr Qty: 90 RF: 3 duloxetine 30 mg capsule,delayed release(DR/EC) 30 mg PO QPM Qty: 90 RF: 3 levothyroxine 50 mcg tablet See Rx Instructions .ROUTE .COMPLEX Qty: 90 RF: 3 lisinopril 20 mg tablet See Rx Instructions .ROUTE .COMPLEX Qty: 90 RF: 3 pantoprazole 40 mg tablet,delayed release (DR/EC) 40 mg PO QPM Qty: 90 RF: 3 simvastatin 20 mg tablet 20 mg PO BEDTIME Qty: 90 RF: 3 sucralfate 1 gram tablet 1 gram PO .COMPLEX Qty: 360 RF: 3 celecoxib [Celebrex] 100 mg capsule 100 mg PO BID Qty: 60 RF: 1 cephalexin 500 mg capsule 500 mg PO QID 10 Days Qty: 40 RF: 0 tramadol [Ultram] 50 mg tablet 50 mg PO Q6H PRN (Reason: pain) Qty: 7 RF: 0 hydrocodone-acetaminophen [Force] 5-325 mg tablet 1 tab PO Q6H PRN (Reason: pain) Qty: 7 RF: 0 Referrals: John Lopez ARNP [Primary Care Provider] -
[2020-11-07 22:02] VITALS: BP 135/92; PULSE 80; RESP 20; O2SAT 97
[2020-11-07] MEDS: TRAMADOL 50 MG PREPACK 1 BOTTLE MISC (22:13)
== END 2020-11-07 22:16 | disposition home or self-care (01) ==
PROVIDERS: Emergency Provider Emergency Medicine; Family Provider Specialist; PCP Registered Nurse Diabetes Educator
DX: R10.32 Left lower quadrant pain (principal); N12 Tubulo-interstitial nephritis, not specified as acute or chronic; R11.2 Nausea with vomiting, unspecified
CPT/HCPCS: 76700; 99283

== ENCOUNTER → 2020-12-12 13:46 | Outpatient (CLI) | payer MEDICARE, MEDICAID, SELFPAY ==
[2020-12-12 14:51] LABS: Alanine Aminotransferase 13 IU/L (<35); Albumin Globulin Ratio 1.3 (1.0-2.8); Alkaline Phosphatase 118 U/L (38-126); Aspartate Aminotransferase 22 IU/L (14-36); Bilirubin Total 0.8 mg/dL (0.2-1.3); Blood Urea Nitrogen 15 mg/dL (7-17); Calcium 8.9 mg/dL (8.4-10.2); Carbon Dioxide 29 mmol/L (22-32); Chloride 103 mmol/L (98-107); Cholesterol 193 mg/dL (140-199); Estimated Glomerular Filt Rate > 60.0 mL/min (>60); Glucose 96 mg/dL (80-110); HDL Cholesterol 67 mg/dL (40-60); HEMOLYSIS < 15 (0-50); LDL Cholesterol Calculated 108 mg/dL (<100); Potassium 3.8 mmol/L (3.4-5.1); Sodium 138 mmol/L (137-145); Triglycerides 92 mg/dL (35-150)
[2020-12-12 15:34] LABS: TSH w/ Reflex to FT4 1.32 uIU/mL (0.47-4.68)
== END ==
PROVIDERS: Family Provider Specialist; PCP Registered Nurse Diabetes Educator; Referring Provider Internal Medicine; Visit Provider Internal Medicine
DX: E03.9 Hypothyroidism, unspecified (principal); I10 Essential (primary) hypertension; E78.5 Hyperlipidemia, unspecified
CPT/HCPCS: 36415; 80053; 80061; 84443

== ENCOUNTER → 2020-12-25 11:38 | Outpatient (CLI) | payer MEDICARE, MEDICAID, SELFPAY ==
--- NOTE | 2020-12-25 11:40 | DI.MG.S_ITS ---
BILATERAL DIGITAL SCREENING MAMMOGRAM 3D/2D WITH CAD: 12/25/2020 CLINICAL: Routine screening. Comparison is made to exams dated: 12/23/2019 mammogram, 12/22/2018 mammogram, 06/13/2017 mammogram, 12/18/2012 mammogram, and 12/30/2014 mammogram - [facility]. There are scattered fibroglandular elements in both breasts. Current study was also evaluated with a Computer Aided Detection (CAD) system. No significant masses, calcifications, or other findings are seen in either breast. There has been no significant interval change. IMPRESSION: NEGATIVE There is no mammographic evidence of malignancy. A 1 year screening mammogram is recommended. This exam was interpreted at Station ID: [id number]. NOTE: For mammograms, a report in lay terms will be sent to the patient. Approximately 15% of breast malignancies will not be visualized mammographically. In the management of a palpable breast mass, a negative mammogram must not discourage biopsy of a clinically suspicious lesion. Electronically Signed By: Manpreet lundberg/milind:12/25/2020 17:45:51 letter sent: Normal Exam ACR BI-RADS Category 1: Negative [id number]
== END ==
PROVIDERS: Family Provider Specialist; PCP Internal Medicine; Referring Provider Internal Medicine; Visit Provider Internal Medicine
DX: Z12.31 Encounter for screening mammogram for malignant neoplasm of breast (principal)
CPT/HCPCS: 77063; 77067

== ENCOUNTER → 2021-03-01 17:35 | Outpatient (CLI) | payer MEDICARE, MEDICAID, SELFPAY ==
--- NOTE | 2021-03-01 | DI.MRI.S_ITS ---
PROCEDURE: MR LUMBAR SPINE WO CON INDICATIONS: low back pain TECHNIQUE: Noncontrast sagittal T1 spin echo and T2 fast echo, coronal T2, sagittal STIR, axial T1 and T2 fast spin echo through the lumbar spine. COMPARISON: [facility], CR, XR LUMBAR SPINE MIN 4V, 09/26/2020, 14:09. FINDINGS: Image quality: Excellent. Alignment and Curvature: 5 lumbar type vertebral bodies are present by plain film. There is moderate leftward curvature of the upper lumbar spine. There is mild grade 1 retrolisthesis of L1 on L2. Mild grade 1 anterolisthesis of L4 on L5. Bone Marrow: Marrow is of normal overall signal. No acute vertebral body compression fractures. There is mild reactive signal within the endplates adjacent to the L1-L2, L3-L4, L4-L5, and L5-S1 intervertebral discs. Moderate reactive signal within the endplates adjacent to the L2-L3 intervertebral disc. Spinal Cord: Conus medullaris terminates at the mid L1 level. Visualized cord demonstrates normal signal and size. Paraspinous Soft Tissues: No paravertebral masses. T12-L1: Moderate disc height loss and desiccation. Mild diffuse disc bulge. Mild facet and ligamentum flavum hypertrophy. Mild canal stenosis. No foraminal stenosis. L1-L2: Moderate disc height loss and desiccation. Mild diffuse disc bulge. Mild facet and ligamentum flavum hypertrophy. Mild epidural lipomatosis. Mild canal stenosis. Mild bilateral foraminal stenosis. L2-L3: Moderate disc height loss and desiccation. Mild diffuse disc bulge. Mild facet and ligamentum flavum hypertrophy. Mild epidural lipomatosis. Mild canal stenosis. Moderate right and mild left subarticular foraminal stenosis. L3-L4: Moderate disc height loss and desiccation. Mild diffuse disc bulge. Mild facet and ligamentum flavum hypertrophy. Mild epidural lipomatosis. Mild canal stenosis. Moderate subarticular foraminal stenosis bilaterally. L4-L5: Severe disc height loss and desiccation. Mild diffuse disc bulge. Mild facet and ligamentum flavum hypertrophy. Mild epidural lipomatosis. Severe canal stenosis. Moderate subarticular foraminal stenosis bilaterally. L5-S1: Moderate disc height loss and desiccation. Mild diffuse disc bulge with superimposed left far lateral broad-based protrusion. Mild facet and ligamentum flavum hypertrophy. Moderate epidural lipomatosis. Mild canal stenosis. Moderate left and mild right foraminal stenosis. IMPRESSION: 1. Multilevel degenerative disc and facet disease, as well as ligamentum flavum hypertrophy and epidural lipomatosis. 2. Multilevel canal stenoses, worst at L4-L5, where there is severe canal stenosis. 3. Multilevel foraminal stenoses, worst at L2-L3, L3-L4, L4-L5, and L5-S1, where there are moderate foraminal stenosis present. Dictated by: Harrison Sheffield M.D. on 03/02/2021 at 9:03 Approved by: Harrison Sheffield M.D. on 03/02/2021 at 9:20
== END ==
PROVIDERS: Family Provider Specialist; PCP Internal Medicine; Referring Provider Physical Medicine & Rehabilitation; Visit Provider Physical Medicine & Rehabilitation
DX: M54.5 Low back pain (principal); M51.36 Other intervertebral disc degeneration, lumbar region; M51.37 Other intervertebral disc degeneration, lumbosacral region; M48.061 Spinal stenosis, lumbar region without neurogenic claudication; M48.07 Spinal stenosis, lumbosacral region; E88.2 Lipomatosis, not elsewhere classified
CPT/HCPCS: 72148

== ENCOUNTER 2021-05-12 20:07 | Emergency (ER) | payer MEDICARE, MEDICAID, SELFPAY ==
[2021-05-12 20:17] VITALS: BP 134/89; PULSE 90; RESP 12; TEMP 36.4; O2SAT 100; BMI 46.9
[2021-05-12 20:45] LABS: COVID19 -Nasal RAPID Negative (Negative)
[2021-05-12] MEDS: ONDANSETRON 4 MG ODT SL (23:02)
[2021-05-13] MEDS: MAG HYDROX/ALUMINUM/SIMETH SUS 20 ML, LIDOCAINE VISCOUS 2% 15 ML PO (01:13)
[2021-05-13] MEDS: SODIUM CHLORIDE 0.9% 1,000 ML 1000 ML IV (01:13)
[2021-05-13] MEDS: ONDANSETRON 4 MG/2 ML INJ IV (01:13)
[2021-05-13 01:46] LABS: Add Manual Diff / Slide Review NO; Basophils Absolute Auto 0 /uL (0-100); Basophils Percent Auto 0.7 % (0-2); Eosinophils Absolute Auto 100 /uL (0-450); Hematocrit 42.3 % (36-46); Hemoglobin 13.8 g/dL (12.0-16.0); Lymphocytes Absolute Auto 1100 /uL (1100-4500); Lymphocytes Percent Auto 19.4 % (25-40); Mean Corpuscular HGB Conc 32.5 % (30-36); Mean Corpuscular Hemoglobin 28.4 PG (26-34); Mean Corpuscular Volume 87.3 fL (80-100); Monocytes Absolute Auto 600 /uL (0-900); Monocytes Percent Auto 10.7 % (3-14); Neutrophils Absolute Auto 3800 /uL (1500-7000); Neutrophils Percent Auto 68.2 % (50-75); Platelet Count 202 X10^3/uL (150-400); Red Blood Cell Count 4.84 X10^6/uL (4.0-5.2); Red Cell Distribution Width 14.9 % (11.6-14.8); White Blood Cell Count 5.6 X10^3/uL (4.5-11.0)
[2021-05-13 01:56] LABS: Alanine Aminotransferase 16 IU/L (<35); Albumin Globulin Ratio 1.4 (1.0-2.8); Alkaline Phosphatase 104 U/L (38-126); Aspartate Aminotransferase 25 IU/L (14-36); BUN Creatinine Ratio 20.5 (6-22); Bilirubin Total 0.7 mg/dL (0.2-1.3); Blood Urea Nitrogen 18 mg/dL (7-17); Calcium 9.6 mg/dL (8.4-10.2); Carbon Dioxide 29 mmol/L (22-32); Chloride 107 mmol/L (98-107); Estimated Glomerular Filt Rate > 60.0 mL/min (>60); Globulin 2.8 g/dL (1.7-4.1); Glucose 116 mg/dL (80-110); HEMOLYSIS < 15 (0-50); Potassium 4.3 mmol/L (3.4-5.1); Sodium 142 mmol/L (137-145); Total Protein 6.8 g/dL (6.3-8.2)
[2021-05-13] MEDS: ONDANSETRON 4 MG ODT PREPACK 1 BOTTLE MISC (03:30)
[2021-05-13 03:39] VITALS: BP 113/66; PULSE 88; RESP 16; TEMP 36.8; O2SAT 99
--- NOTE | 2021-05-13 05:44 | ED_ITS ---
HPI - General Adult General Chief complaint: Upper Respiratory Symptoms Stated complaint: constipation, vomiting, fatigue, thinks covid Time Seen by Provider: 05/12/21 23:45 Source: patient Mode of arrival: Wheelchair History of Present Illness HPI narrative: 71-year-old woman with a history of a depression, radicular pain into her right hip, hypothyroidism, reflux with duodenal ulcer, hyperlipidemia, presents with 3 days of feeling unwell, complaining that food is not tasting right, intermittent constipation(which is her baseline). She notes that she has had a decreased appetite and significant nausea yesterday she ate some high-fi jj cereal and a couple of apples and was still having abdominal pain. She notes that she is dizzy when she stands up, unable to keep any food down complains of chills with emesis but no other abdominal pain chest pain palpitations or headache. Related Data Home Medications Medication Instructions Recorded Confirmed lactulose 10 gram/15 mL oral 10 gram PO DAILY PRN ml 05/22/20 11/03/20 solution Previous Rx's Medication Instructions Recorded bupropion HCl 300 mg 24 hr tablet, 300 mg PO QAM #90 tab MDD 08/08/20 extended release Bupropion XL Tab 300mg 24hr duloxetine 30 mg capsule,delayed 30 mg PO QPM #90 cap 08/08/20 release levothyroxine 50 mcg tablet See Rx Instructions .ROUTE 08/08/20 .COMPLEX #90 tab lisinopril 20 mg tablet See Rx Instructions .ROUTE 08/08/20 .COMPLEX #90 tab pantoprazole 40 mg tablet,delayed 40 mg PO QPM #90 tab 08/08/20 release simvastatin 20 mg tablet 20 mg PO BEDTIME #90 tab 08/08/20 sucralfate 1 gram tablet 1 gram PO .COMPLEX #360 tab 08/08/20 celecoxib 100 mg capsule (Celebrex) 100 mg PO BID #60 cap 09/26/20 lidocaine 5 % topical patch 1 patch TOPICAL DAILY #15 ea 10/12/20 tramadol 50 mg tablet (Ultram) 50 mg PO Q6H PRN #7 tab 10/31/20 hydrocodone 5 mg-acetaminophen 325 1 tab PO Q6H PRN #7 tab 11/04/20 mg tablet ([place]) tramadol 50 mg tablet (Ultram) 50 mg PO Q6H PRN #20 tab 11/07/20 Allergies Allergy/AdvReac Type Severity Reaction Status Date / Time No Known Drug Allergies Allergy Verified 05/12/21 20:22 Review of Systems Review of Systems Narrative: Remainder of complete review of systems is otherwise unremarkable except for that included in the HPI. Patient History Medical History Anterolisthesis Bilateral foot pain Depression Gastroesophageal reflux disease (05/12/14) Hypothyroidism (11/27/11) Low back pain Mass of left side of neck Neck pain Osteoarthritis of right hip Surgical History History of appendectomy History of bilateral salpingo-oophorectomy (BSO) History of laparoscopic adjustable gastric banding Social History household members: none Smoking Status: Never smoker second hand exposure: No alcohol intake: current substance use type: does not use Smoking Status: Never smoker alcohol intake frequency: holidays/special occasions only Substance Use Type: does not use Exam Narrative Exam Narrative: General: no acute distress. Able to give a complete and coherent history. Well-nourished well-developed HEENT: Moist mucous membranes, normal sclera with reactive pupils, Neck: No JVD, supple Respiratory: Lungs are clear to auscultation, no wheezing no rales no rhonchi. Full and symmetrical air movement Cardiac: Regular rate and rhythm no murmurs no bruits Abdomen: Soft, mild epigastric tenderness without rebound or guarding,, good bowel tones, no flank pain Skin: Warm and dry, no rashes Neurologic: Grossly neurologically intact with no obvious asymmetries or abnormalities Extremities: No trauma, well perfused, significant pain with trying to lift or move her right leg secondary to radiculopathy into the hip Psych: Cooperative, appropriate insight and affect Initial Vital Signs Initial Vital Signs: Vital Signs Temperature 97.6 F 05/12/21 20:17 Pulse Rate 90 05/12/21 20:17 Respiratory Rate 12 05/12/21 20:17 Blood Pressure 134/89 05/12/21 20:17 Pulse Oximetry 100 05/12/21 20:17 Course Orders Ordered: ED Orders 05/13/21 01:30 Complete Blood Count AUTO DIFF Stat Comprehensive Metabolic Panel Stat Discontinued Medications Al Hydrox/Mg Hydrox/Simethicone 20 ml/ Lidocaine HCl 15 ml 0 ml PO NOW ONE Stop: 05/13/21 01:10 Last Admin: 05/13/21 01:13 Dose: 35 ml Documented by: KELVIN Sodium Chloride (Normal Saline 0.9%) 1,000 mls @ 1,000 mls/hr IV BOLUS ONE Stop: 05/13/21 01:26 Last Infusion: 05/13/21 02:32 Dose: 0 mls/hr Documented by: Admin: 05/13/21 01:13 Dose: 1,000 mls/hr Documented by: MIKE Ondansetron HCl (Ondansetron 4 Mg Odt) 4 mg SL NOW ONE Stop: 05/12/21 22:59 Last Admin: 05/12/21 23:02 Dose: 4 mg Documented by: REZA Ondansetron HCl (Ondansetron 4 Mg/2 Ml Inj) 4 mg IV NOW ONE Stop: 05/13/21 00:28 Last Admin: 05/13/21 01:13 Dose: 4 mg Documented by: MIKE Ondansetron HCl (Ondansetron 4 Mg Odt Prepack) 1 bottle MISC SEEINSTR ONE Stop: 05/13/21 03:25 Last Admin: 05/13/21 03:30 Dose: 1 bottle Documented by: SANIYA Vital Signs Vital signs: Vital Signs - 8 hr 05/13/21 03:39 Temperature 98.2 F Pulse Rate 88 Respiratory Rate 16 Blood Pressure 113/66 Pulse Oximetry 99 Medical Decision Making Lab Data Result diagrams: 05/13/21 01:30 05/13/21 01:30 Labs: Lab Results 05/12/21 05/13/21 05/13/21 Range/Units 20:29 01:30 01:30 WBC 5.6 (4.5-11.0) X10^3/uL RBC 4.84 (4.0-5.2) X10^6/uL Hgb 13.8 (12.0-16.0) g/dL Hct 42.3 (36-46) % MCV 87.3 (80-100) fL MCH 28.4 (26-34) PG MCHC 32.5 (30-36) % RDW 14.9 H (11.6-14.8) % Plt Count 202 (150-400) X10^3/uL Neut % (Auto) 68.2 (50-75) % Lymph % (Auto) 19.4 L (25-40) % [place] % (Auto) 10.7 (3-14) % Eos % (Auto) 1.0 L (2-4) % Baso % (Auto) 0.7 (0-2) % Neut # (Auto) 3800 (0364-9092) /uL Lymph # (Auto) 1100 (7643-8111) /uL [place] # (Auto) 600 (0-900) /uL Eos # (Auto) 100 (0-450) /uL Baso # (Auto) 0 (0-100) /uL Sodium 142 (137-145) mmol/L Potassium 4.3 (3.4-5.1) mmol/L Chloride 107 (98-107) mmol/L Carbon Dioxide 29 (22-32) mmol/L BUN 18 H (7-17) mg/dL Creatinine 0.88 (0.52-1.04) mg/dL Estimated GFR > 60.0 (>60) mL/min BUN/Creatinine Ratio 20.5 (6-22) Glucose 116 H (80-110) mg/dL Calcium 9.6 (8.4-10.2) mg/dL Total Bilirubin 0.7 (0.2-1.3) mg/dL AST 25 (14-36) IU/L ALT 16 (<35) IU/L Alkaline Phosphatase 104 (38-126) U/L Total Protein 6.8 (6.3-8.2) g/dL Albumin 4.0 (3.5-5.0) g/dL Globulin 2.8 (1.7-4.1) g/dL Albumin/Globulin Ratio 1.4 (1.0-2.8) SARS-CoV-2 (PCR) Negative (Negative) MDM Narrative Medical decision making narrative: 71-year-old woman presents with 3 days of upper respiratory type symptoms with concern for COVID. Rapid test is negative in remainder of labs are equally reassuring. She is feeling significantly better after IV Zofran and a L of fluid. She is able to eat and drink prior to discharge. At this point there is no evidence of acute coronary syndrome, significant viral etiology including COVID and no surgical abdomen issues are identified today. She is safe for home discharge Discharge Plan Departure Patient Disposition: Home Clinical Impression: Vomiting Qualifiers: Vomiting type: unspecified Vomiting Intractability: non-intractable Nausea presence: with nausea Qualified Code(s): R11.2 - Nausea with vomiting, unspecified Instructions: DI for Vomiting -- Adult Activity Restrictions/Additional Instructions: Thank you for coming in today Your blood work was reassuring. You seem to improve with a bit of fluid and nausea medicine. Review of worsening symptoms or new findings, please feel free to return to the ER I hope you feel better Prescriptions: No Action lidocaine 5 % adhesive patch,medicated 1 patch topical DAILY Qty: 15 RF: 3 lactulose 10 gram/15 mL solution 10 gram PO DAILY PRNRF: 0 bupropion HCl 300 mg tablet extended release 24 hr 300 mg PO QAM MDD Bupropion XL Tab 300mg 24hr Qty: 90 RF: 3 duloxetine 30 mg capsule,delayed release(DR/EC) 30 mg PO QPM Qty: 90 RF: 3 levothyroxine 50 mcg tablet See Rx Instructions .ROUTE .COMPLEX Qty: 90 RF: 3 lisinopril 20 mg tablet See Rx Instructions .ROUTE .COMPLEX Qty: 90 RF: 3 pantoprazole 40 mg tablet,delayed release (DR/EC) 40 mg PO QPM Qty: 90 RF: 3 simvastatin 20 mg tablet 20 mg PO BEDTIME Qty: 90 RF: 3 sucralfate 1 gram tablet 1 gram PO .COMPLEX Qty: 360 RF: 3 celecoxib [Celebrex] 100 mg capsule 100 mg PO BID Qty: 60 RF: 1 tramadol [Ultram] 50 mg tablet 50 mg PO Q6H PRN (Reason: pain) Qty: 7 RF: 0 hydrocodone-acetaminophen [[place]] 5-325 mg tablet 1 tab PO Q6H PRN (Reason: pain) Qty: 7 RF: 0 tramadol [Ultram] 50 mg tablet 50 mg PO Q6H PRN (Reason: pain) Qty: 20 RF: 0 Referrals: Martha Weston MD [Primary Care Provider] -
== END 2021-05-13 03:40 | disposition home or self-care (01) ==
PROVIDERS: Emergency Provider Emergency Medicine; Family Provider Specialist; PCP Internal Medicine
DX: R11.2 Nausea with vomiting, unspecified (principal); R42 Dizziness and giddiness; Z20.822 Contact with and (suspected) exposure to COVID-19
CPT/HCPCS: 80053; 85025; 87635; 96361; 96374; 99284; C9803; J2405

== ENCOUNTER 2021-05-13 16:02 | Emergency (ER) | payer MEDICARE, MEDICAID, SELFPAY ==
[2021-05-13 15:38] VITALS: BP 132/63; PULSE 72; RESP 17; TEMP 36.7; O2SAT 98
--- NOTE | 2021-05-13 16:30 | ED.NAVMDI ---
HPI - Nausea/Vomiting/Diarrhea General Chief complaint: Nausea/Vomiting/Diarrhea Stated complaint: n/v/d Time Seen by Provider: 05/13/21 16:25 Source: EMS Mode of arrival: EMS History of Present Illness HPI Narrative: Patient is a 71-year-old female who is seen in the emergency department this morning for abdominal discomfort. She received medications was discharged home. She states that after she went home the symptoms returned have continued throughout the day. She states she has had symptoms like this multiple times in the past and has been diagnosed with reflux disease. The symptoms are not new and have not changed the just continued since this morning. Related Data Home Medications Medication Instructions Recorded Confirmed lactulose 10 gram/15 mL oral 10 gram PO DAILY PRN ml 05/22/20 11/03/20 solution Previous Rx's Medication Instructions Recorded bupropion HCl 300 mg 24 hr tablet, 300 mg PO QAM #90 tab MDD 08/08/20 extended release Bupropion XL Tab 300mg 24hr duloxetine 30 mg capsule,delayed 30 mg PO QPM #90 cap 08/08/20 release levothyroxine 50 mcg tablet See Rx Instructions .ROUTE 08/08/20 .COMPLEX #90 tab lisinopril 20 mg tablet See Rx Instructions .ROUTE 08/08/20 .COMPLEX #90 tab pantoprazole 40 mg tablet,delayed 40 mg PO QPM #90 tab 08/08/20 release simvastatin 20 mg tablet 20 mg PO BEDTIME #90 tab 08/08/20 sucralfate 1 gram tablet 1 gram PO .COMPLEX #360 tab 08/08/20 celecoxib 100 mg capsule (Celebrex) 100 mg PO BID #60 cap 09/26/20 lidocaine 5 % topical patch 1 patch TOPICAL DAILY #15 ea 10/12/20 tramadol 50 mg tablet (Ultram) 50 mg PO Q6H PRN #7 tab 10/31/20 hydrocodone 5 mg-acetaminophen 325 1 tab PO Q6H PRN #7 tab 11/04/20 mg tablet ([place]) tramadol 50 mg tablet (Ultram) 50 mg PO Q6H PRN #20 tab 11/07/20 omeprazole 20 mg capsule,delayed 20 mg PO DAILY #30 cap 05/13/21 release Allergies Allergy/AdvReac Type Severity Reaction Status Date / Time No Known Drug Allergies Allergy Verified 05/13/21 15:40 Review of Systems Constitutional Constitutional: Denies fever(s) Cardiovascular Cardiovascular: Denies chest pain and Denies dyspnea Respiratory Respiratory: Denies dyspnea Gastrointestinal Gastrointestinal: Reports abdominal pain, Reports nausea and Reports vomiting Genitourinary Comments: No urinary symptoms Musculoskeletal Comments: No back pain Integumentary/Breasts Comments: No rashes Neurologic Neurologic: Reports system reviewed and no additional complaints, except as documented Psychiatric Psychiatric: Reports system reviewed and no additional complaints, except as documented Hematologic/Lymphatic On Anticoagulants: No Allergic/Immunologic Allergic/Immunologic: Reports system reviewed and no additional complaints, except as documented Patient History Medical History Anterolisthesis Bilateral foot pain Depression Gastroesophageal reflux disease (05/12/14) Hypothyroidism (11/27/11) Low back pain Mass of left side of neck Neck pain Osteoarthritis of right hip Surgical History History of appendectomy History of bilateral salpingo-oophorectomy (BSO) History of laparoscopic adjustable gastric banding Social History household members: none Smoking Status: Never smoker second hand exposure: No alcohol intake: current substance use type: does not use Smoking Status: Never smoker alcohol intake frequency: holidays/special occasions only Substance Use Type: does not use Exam Initial Vital Signs Initial Vital Signs: Vital Signs Temperature 98.1 F 05/13/21 15:38 Pulse Rate 72 05/13/21 15:38 Respiratory Rate 17 05/13/21 15:38 Blood Pressure 132/63 05/13/21 15:38 Pulse Oximetry 98 05/13/21 15:38 Const General: cooperative and comfortable HENMT Head: normal to inspection and normocephalic Resp Effort & Inspection: normal respiratory effort Auscultation: clear to auscultation bilaterally Cardio Rate: regular rate Rhythm: regular rhythm GI Inspection: normal to inspection Skin General: no rashes or lesions noted Neuro General: patient alert, patient awake, patient oriented x3 and moves all extremities Extrem General: normal to inspection and capillary refill normal Psych Appearance: grossly normal and well kempt Course Orders Ordered: ED Orders 05/13/21 16:31 EKG-12 Lead Stat 05/13/21 17:00 Complete Blood Count AUTO DIFF Stat Comprehensive Metabolic Panel Stat Lipase Stat Discontinued Medications Al Hydrox/Mg Hydrox/Simethicone 20 ml/ Lidocaine HCl 15 ml 0 ml PO NOW ONE Stop: 05/13/21 16:35 Last Admin: 05/13/21 16:53 Dose: 35 ml Documented by: KARI Pantoprazole Sodium (Pantoprazole 40 Mg Vial) 40 mg IV NOW ONE Stop: 05/13/21 16:31 Last Admin: 05/13/21 16:53 Dose: 40 mg Documented by: CTRRUTHY Vital Signs Vital signs: Vital Signs - 8 hr 05/13/21 15:38 05/13/21 17:33 Temperature 98.1 F Pulse Rate 72 80 Respiratory Rate 17 18 Blood Pressure 132/63 114/66 Pulse Oximetry 98 100 MDM - Nausea/Vomiting/Diarrhea Lab Data Attestation: I reviewed the patient's lab results. Result diagrams: 05/13/21 17:00 05/13/21 17:00 Labs: Lab Results 05/13/21 05/13/21 Range/Units 17:00 17:00 WBC 5.6 (4.5-11.0) X10^3/uL RBC 4.40 (4.0-5.2) X10^6/uL Hgb 12.7 (12.0-16.0) g/dL Hct 38.2 (36-46) % MCV 86.8 (80-100) fL MCH 28.9 (26-34) PG MCHC 33.3 (30-36) % RDW 15.0 H (11.6-14.8) % Plt Count 193 (150-400) X10^3/uL Neut % (Auto) 77.5 H (50-75) % Lymph % (Auto) 14.2 L (25-40) % [place] % (Auto) 6.8 (3-14) % Eos % (Auto) 0.6 L (2-4) % Baso % (Auto) 0.9 (0-2) % Neut # (Auto) 4300 (9292-8874) /uL Lymph # (Auto) 800 L (9500-4059) /uL [place] # (Auto) 400 (0-900) /uL Eos # (Auto) 0 (0-450) /uL Baso # (Auto) 100 (0-100) /uL Sodium 140 (137-145) mmol/L Potassium 4.1 (3.4-5.1) mmol/L Chloride 107 (98-107) mmol/L Carbon Dioxide 29 (22-32) mmol/L BUN 12 (7-17) mg/dL Creatinine 0.71 (0.52-1.04) mg/dL Estimated GFR > 60.0 (>60) mL/min BUN/Creatinine Ratio 16.9 (6-22) Glucose 111 H (80-110) mg/dL Calcium 9.3 (8.4-10.2) mg/dL Total Bilirubin 0.7 (0.2-1.3) mg/dL AST 22 (14-36) IU/L ALT 15 (<35) IU/L Alkaline Phosphatase 98 (38-126) U/L Total Protein 6.1 L (6.3-8.2) g/dL Albumin 3.5 (3.5-5.0) g/dL Globulin 2.6 (1.7-4.1) g/dL Albumin/Globulin Ratio 1.3 (1.0-2.8) Lipase 32 (23-300) U/L ECG Data Attestation: I personally reviewed and interpreted this ECG as follows: Interpretation: Sinus rhythm Ventricular rate is 77 Normal axis Normal QRS Normal QTC No ST T wave changes MDM Narrative Medical decision making narrative: Patient reports almost complete resolution after the GI medications here in the ER. I do suspect that this is GI related. She states that she is on omeprazole however after reviewing the medications that she brought with her she is actually not on this medication. States this medication has helped her in the past. Will restart her on this. Informed her she should talk with her primary doctor about a referral to see Gastroenterology. Patient expressed understanding and agreement plan. Discharge Plan Departure Patient Disposition: Home Clinical Impression: Abdominal pain, Gastroesophageal reflux disease Instructions: DI for Gastroesophageal Reflux Disease (GERD) Activity Restrictions/Additional Instructions: I do recommend that we start you back on your omeprazole. A prescription was sent to [facility]. Please start taking as directed. Also contact your primary doctor for follow-up as you may need a referral to see Gastroenterology. Return to the emergency department for any new symptoms Prescriptions: New omeprazole 20 mg capsule,delayed release(DR/EC) 20 mg PO DAILY Qty: 30 RF: 0 No Action lidocaine 5 % adhesive patch,medicated 1 patch topical DAILY Qty: 15 RF: 3 lactulose 10 gram/15 mL solution 10 gram PO DAILY PRNRF: 0 bupropion HCl 300 mg tablet extended release 24 hr 300 mg PO QAM MDD Bupropion XL Tab 300mg 24hr Qty: 90 RF: 3 duloxetine 30 mg capsule,delayed release(DR/EC) 30 mg PO QPM Qty: 90 RF: 3 levothyroxine 50 mcg tablet See Rx Instructions .ROUTE .COMPLEX Qty: 90 RF: 3 lisinopril 20 mg tablet See Rx Instructions .ROUTE .COMPLEX Qty: 90 RF: 3 pantoprazole 40 mg tablet,delayed release (DR/EC) 40 mg PO QPM Qty: 90 RF: 3 simvastatin 20 mg tablet 20 mg PO BEDTIME Qty: 90 RF: 3 sucralfate 1 gram tablet 1 gram PO .COMPLEX Qty: 360 RF: 3 celecoxib [Celebrex] 100 mg capsule 100 mg PO BID Qty: 60 RF: 1 tramadol [Ultram] 50 mg tablet 50 mg PO Q6H PRN (Reason: pain) Qty: 7 RF: 0 hydrocodone-acetaminophen [[place]] 5-325 mg tablet 1 tab PO Q6H PRN (Reason: pain) Qty: 7 RF: 0 tramadol [Ultram] 50 mg tablet 50 mg PO Q6H PRN (Reason: pain) Qty: 20 RF: 0 Referrals: Martha Weston MD [Primary Care Provider] -
[2021-05-13] MEDS: PANTOPRAZOLE 40 MG VIAL IV (16:53)
[2021-05-13] MEDS: MAG HYDROX/ALUMINUM/SIMETH SUS 20 ML, LIDOCAINE VISCOUS 2% 15 ML PO (16:53)
[2021-05-13 17:16] LABS: Add Manual Diff / Slide Review NO; Basophils Absolute Auto 100 /uL (0-100); Basophils Percent Auto 0.9 % (0-2); Eosinophils Absolute Auto 0 /uL (0-450); Eosinophils Percent Auto 0.6 % (2-4); Hematocrit 38.2 % (36-46); Hemoglobin 12.7 g/dL (12.0-16.0); Lymphocytes Absolute Auto 800 /uL (1100-4500); Lymphocytes Percent Auto 14.2 % (25-40); Mean Corpuscular HGB Conc 33.3 % (30-36); Mean Corpuscular Hemoglobin 28.9 PG (26-34); Mean Corpuscular Volume 86.8 fL (80-100); Monocytes Absolute Auto 400 /uL (0-900); Monocytes Percent Auto 6.8 % (3-14); Neutrophils Absolute Auto 4300 /uL (1500-7000); Neutrophils Percent Auto 77.5 % (50-75); Platelet Count 193 X10^3/uL (150-400); White Blood Cell Count 5.6 X10^3/uL (4.5-11.0)
[2021-05-13 17:25] LABS: Alanine Aminotransferase 15 IU/L (<35); Albumin 3.5 g/dL (3.5-5.0); Albumin Globulin Ratio 1.3 (1.0-2.8); Alkaline Phosphatase 98 U/L (38-126); Aspartate Aminotransferase 22 IU/L (14-36); BUN Creatinine Ratio 16.9 (6-22); Bilirubin Total 0.7 mg/dL (0.2-1.3); Blood Urea Nitrogen 12 mg/dL (7-17); Calcium 9.3 mg/dL (8.4-10.2); Carbon Dioxide 29 mmol/L (22-32); Chloride 107 mmol/L (98-107); Estimated Glomerular Filt Rate > 60.0 mL/min (>60); Globulin 2.6 g/dL (1.7-4.1); Glucose 111 mg/dL (80-110); HEMOLYSIS < 15 (0-50); Lipase 32 U/L (23-300); Potassium 4.1 mmol/L (3.4-5.1); Sodium 140 mmol/L (137-145); Total Protein 6.1 g/dL (6.3-8.2)
[2021-05-13 17:33] VITALS: BP 114/66; PULSE 80; RESP 18; O2SAT 100
[2021-05-13 18:32] VITALS: BP 123/57; PULSE 79; RESP 18; O2SAT 98
== END 2021-05-13 18:50 | disposition home or self-care (01) ==
PROVIDERS: Emergency Provider Emergency Medicine; Family Provider Specialist; PCP Internal Medicine
DX: R10.9 Unspecified abdominal pain (principal); K21.9 Gastro-esophageal reflux disease without esophagitis
CPT/HCPCS: 36415; 80053; 83690; 85025; 93005; 93010; 96374; 99284; C9113

== ENCOUNTER 2021-05-14 11:39 | Emergency (ER) | payer MEDICARE, MEDICAID, SELFPAY ==
[2021-05-14 11:44] VITALS: BP 172/81; PULSE 87; RESP 16; TEMP 36.9; O2SAT 99
--- NOTE | 2021-05-14 12:02 | DI.RAD.S_ITS ---
PROCEDURE: XR ACUTE ABDOMEN SERIES INDICATIONS: c/o constipation TECHNIQUE: One view chest and two views of the abdomen were acquired. COMPARISON: [facility], CR, XR ACUTE ABDOMEN SERIES, 09/13/2019, 21:30. FINDINGS: Surgical changes and devices: None. Chest: Lungs are clear. Heart size is mildly enlarged. No pleural effusions. No pneumoperitoneum. Abdomen: Mildly air distended bowel loops are noted in abdomen with a few air-fluid levels. Air is seen in the hepatic and splenic flexure of the colon. No gross peritoneal free air. No suspicious calcifications. Visualized solid organ contours appear normal. Bones: No suspicious bony lesions. IMPRESSION: 1. No significant fecal burden is seen. No peritoneal free air. 2. Mildly distended bowel loops with a few air-fluid levels which may represent mild ileus versus low-grade distal small bowel obstruction. 3. No acute cardiopulmonary pathology. Dictated by: Ronan Jarquin M.D. on 05/14/2021 at 13:07 Approved by: Ronan Jarquin M.D. on 05/14/2021 at 13:12
[2021-05-14] MEDS: ONDANSETRON 4 MG/2 ML INJ IV (12:16)
[2021-05-14] MEDS: MAG HYDROX/ALUMINUM/SIMETH SUS 20 ML, LIDOCAINE VISCOUS 2% 15 ML PO (12:16)
[2021-05-14] MEDS: PANTOPRAZOLE 40 MG VIAL IV (12:16)
[2021-05-14 12:22] LABS: Add Manual Diff / Slide Review NO; Basophils Absolute Auto 100 /uL (0-100); Basophils Percent Auto 0.6 % (0-2); Eosinophils Absolute Auto 0 /uL (0-450); Hematocrit 41.4 % (36-46); Hemoglobin 13.7 g/dL (12.0-16.0); Lymphocytes Absolute Auto 700 /uL (1100-4500); Lymphocytes Percent Auto 7.7 % (25-40); Mean Corpuscular HGB Conc 33.2 % (30-36); Mean Corpuscular Hemoglobin 28.7 PG (26-34); Mean Corpuscular Volume 86.4 fL (80-100); Monocytes Absolute Auto 500 /uL (0-900); Monocytes Percent Auto 5.7 % (3-14); Neutrophils Absolute Auto 7500 /uL (1500-7000); Platelet Count 194 X10^3/uL (150-400); Red Blood Cell Count 4.79 X10^6/uL (4.0-5.2); Red Cell Distribution Width 14.7 % (11.6-14.8); White Blood Cell Count 8.8 X10^3/uL (4.5-11.0)
[2021-05-14 12:32] LABS: Bacteria Urine None Seen; RBC Urine None Seen (0-5/HPF)
[2021-05-14 12:33] LABS: Alanine Aminotransferase 20 IU/L (<35); Albumin 3.9 g/dL (3.5-5.0); Albumin Globulin Ratio 1.4 (1.0-2.8); Alkaline Phosphatase 106 U/L (38-126); Aspartate Aminotransferase 31 IU/L (14-36); BUN Creatinine Ratio 15.8 (6-22); Bilirubin Total 0.9 mg/dL (0.2-1.3); Blood Urea Nitrogen 16 mg/dL (7-17); Calcium 9.6 mg/dL (8.4-10.2); Carbon Dioxide 22 mmol/L (22-32); Chloride 106 mmol/L (98-107); Creatine Kinase 153 U/L (30-135); Estimated Glomerular Filt Rate 54.3 mL/min (>60); Globulin 2.8 g/dL (1.7-4.1); Glucose 126 mg/dL (80-110); HEMOLYSIS < 15 (0-50); Lipase 51 U/L (23-300); Magnesium 1.8 mg/dL (1.6-2.3); Potassium 3.7 mmol/L (3.4-5.1); Sodium 137 mmol/L (137-145); Total Protein 6.7 g/dL (6.3-8.2)
[2021-05-14 12:39] LABS: Culture Indicated Urine Cult Not Indicated; Squamous Epithelial Cell Urine 0-1 /HPF (0-5/HPF); WBC Urine 0-1/HPF (0-5/HPF)
[2021-05-14 12:44] LABS: Troponin I < 0.012 ng/mL (0.01-0.034)
[2021-05-14 12:48] LABS: CKMB % Relative Index 1.6 % (1.5-5.0); Creatine Kinase MB 2.39 ng/mL (<2.37)
--- NOTE | 2021-05-14 13:35 | ED_ITS ---
HPI - Abdominal Pain General Chief Complaint: Abdominal Pain Stated Complaint: nausea Time Seen by Provider: 05/14/21 13:05 Source: EMS Mode of arrival: EMS History of Present Illness HPI narrative: The patient is a 71-year-old female who presents with left lower quadrant pain which started today. She was previously seen twice yesterday for nausea and vomiting. No fever or chills. Today she says she feels like she is constipated and is having left lower quadrant pain. She denies any pressure in her rectum. She is no longer nauseated or vomiting. Related Data Home Medications Medication Instructions Recorded Confirmed lactulose 10 gram/15 mL oral 10 gram PO DAILY PRN ml 05/22/20 11/03/20 solution Previous Rx's Medication Instructions Recorded bupropion HCl 300 mg 24 hr tablet, 300 mg PO QAM #90 tab MDD 08/08/20 extended release Bupropion XL Tab 300mg 24hr duloxetine 30 mg capsule,delayed 30 mg PO QPM #90 cap 08/08/20 release levothyroxine 50 mcg tablet See Rx Instructions .ROUTE 08/08/20 .COMPLEX #90 tab lisinopril 20 mg tablet See Rx Instructions .ROUTE 08/08/20 .COMPLEX #90 tab pantoprazole 40 mg tablet,delayed 40 mg PO QPM #90 tab 08/08/20 release simvastatin 20 mg tablet 20 mg PO BEDTIME #90 tab 08/08/20 sucralfate 1 gram tablet 1 gram PO .COMPLEX #360 tab 08/08/20 celecoxib 100 mg capsule (Celebrex) 100 mg PO BID #60 cap 09/26/20 lidocaine 5 % topical patch 1 patch TOPICAL DAILY #15 ea 10/12/20 tramadol 50 mg tablet (Ultram) 50 mg PO Q6H PRN #7 tab 10/31/20 hydrocodone 5 mg-acetaminophen 325 1 tab PO Q6H PRN #7 tab 11/04/20 mg tablet ([place]) tramadol 50 mg tablet (Ultram) 50 mg PO Q6H PRN #20 tab 11/07/20 omeprazole 20 mg capsule,delayed 20 mg PO DAILY #30 cap 05/13/21 release hydrocodone 5 mg-acetaminophen 325 1 tab PO Q6H PRN #10 tab 05/14/21 mg tablet ondansetron 4 mg disintegrating 4 mg PO Q6HR PRN #10 tab 05/14/21 tablet Allergies Allergy/AdvReac Type Severity Reaction Status Date / Time No Known Drug Allergies Allergy Verified 05/13/21 15:40 Review of Systems Review of Systems Narrative: GENERAL: Denies chills, fatigue, malaise, fever, sweats, travel HEENT: Denies sinus pain, ear pain, sore throat, difficulty swallowing, neck pain RESPIRATORY: Denies dyspnea, cough, wheezing, hemoptysis, sputum. CARDIOVASCULAR: Denies chest pain, palpitations, orthopnea, edema GASTROINTESTINAL: See HPI : Denies dysuria, frequency, incontinence, hematuria, urinary retention, flank pain. MUSCULOSKELETAL: Denies weakness, joint pain, or bony pain SKIN: No rash, no erythema, no pruritus NEUROLOGIC: Denies weakness, dizziness, headache, numbness, change in speech, confusion PSYCHIATRIC: No concerning psychosocial issues. 12 point review of systems is negative except for those stated above and HPI Patient History Medical History Anterolisthesis Bilateral foot pain Depression Gastroesophageal reflux disease (05/12/14) Hypothyroidism (11/27/11) Low back pain Mass of left side of neck Neck pain Osteoarthritis of right hip Surgical History History of appendectomy History of bilateral salpingo-oophorectomy (BSO) History of laparoscopic adjustable gastric banding Social History household members: none Smoking Status: Never smoker second hand exposure: No alcohol intake: current substance use type: does not use Smoking Status: Never smoker alcohol intake frequency: holidays/special occasions only Substance Use Type: does not use Exam Initial Vital Signs Initial Vital Signs: Vital Signs Temperature 98.5 F 05/14/21 11:44 Pulse Rate 87 05/14/21 11:44 Respiratory Rate 16 05/14/21 11:44 Blood Pressure 172/81 H 05/14/21 11:44 Pulse Oximetry 99 05/14/21 11:44 GENERAL: Alert 71-year-old female HEENT: Head atraumatic,EOMI, pupils reactive, face symmetric, moist mucous membranes CARDIOVASCULAR: Regular rate and rhythm without murmurs, rubs or gallops. RESPIRATORY: Breath sounds equal bilaterally, no wheezes rales or rhonchi. ABDOMEN: Soft, tender left lower quadrant no guarding or rebound no right upper quadrant pain EXTREMITIES: Normal range of motion, no clubbing or edema. Neurovascularly intact NEUROLOGICAL: Alert and oriented x4.Normal gait and speech. SKIN: Warm, dry, no laceration, no petechiae, no rashes or lesions. Course Orders Ordered: ED Orders 05/14/21 11:42 Consult to [employer] - [employer] Stat 05/14/21 11:57 EKG-12 Lead Stat 05/14/21 12:02 XR acute abdomen series Stat 05/14/21 12:17 Complete Blood Count AUTO DIFF Stat Comprehensive Metabolic Panel Stat Lipase Stat Magnesium Stat Troponin & CK Cardiac Panel Stat 05/14/21 12:22 Urine Microscopic Stat 05/14/21 13:43 CT abdomen pelvis w con Stat Discontinued Medications Al Hydrox/Mg Hydrox/Simethicone 20 ml/ Lidocaine HCl 15 ml 0 ml PO NOW ONE Stop: 05/14/21 11:58 Last Admin: 05/14/21 12:16 Dose: 35 ml Documented by: REZA Ketorolac Tromethamine (Ketorolac 30 Mg/Ml Vial) 15 mg IV NOW ONE Stop: 05/14/21 13:40 Last Admin: 05/14/21 13:51 Dose: 15 mg Documented by: REZA Ondansetron HCl (Ondansetron 4 Mg/2 Ml Inj) 4 mg IV NOW ONE Stop: 05/14/21 11:58 Last Admin: 05/14/21 12:16 Dose: 4 mg Documented by: REZA Pantoprazole Sodium (Pantoprazole 40 Mg Vial) 40 mg IV NOW ONE Stop: 05/14/21 11:58 Last Admin: 05/14/21 12:16 Dose: 40 mg Documented by: REZA Vital Signs Vital signs: Vital Signs - 8 hr 05/14/21 15:26 Pulse Rate 81 Respiratory Rate 16 Blood Pressure 137/76 Pulse Oximetry 98 MDM - Abdominal Pain Lab Data Result diagrams: 05/14/21 12:17 05/14/21 12:17 Labs: Lab Results 05/14/21 05/14/21 05/14/21 Range/Units 12:17 12:17 12:22 WBC 8.8 D (4.5-11.0) X10^3/uL RBC 4.79 (4.0-5.2) X10^6/uL Hgb 13.7 (12.0-16.0) g/dL Hct 41.4 (36-46) % MCV 86.4 (80-100) fL MCH 28.7 (26-34) PG MCHC 33.2 (30-36) % RDW 14.7 (11.6-14.8) % Plt Count 194 (150-400) X10^3/uL Neut % (Auto) 86.0 H (50-75) % Lymph % (Auto) 7.7 L (25-40) % [place] % (Auto) 5.7 (3-14) % Eos % (Auto) 0.0 L (2-4) % Baso % (Auto) 0.6 (0-2) % Neut # (Auto) 7500 H (0320-9385) /uL Lymph # (Auto) 700 L (6181-8849) /uL [place] # (Auto) 500 (0-900) /uL Eos # (Auto) 0 (0-450) /uL Baso # (Auto) 100 (0-100) /uL Sodium 137 (137-145) mmol/L Potassium 3.7 (3.4-5.1) mmol/L Chloride 106 (98-107) mmol/L Carbon Dioxide 22 (22-32) mmol/L BUN 16 (7-17) mg/dL Creatinine 1.01 (0.52-1.04) mg/dL Estimated GFR 54.3 L (>60) mL/min BUN/Creatinine Ratio 15.8 (6-22) Glucose 126 H (80-110) mg/dL Calcium 9.6 (8.4-10.2) mg/dL Magnesium 1.8 (1.6-2.3) mg/dL Total Bilirubin 0.9 (0.2-1.3) mg/dL AST 31 (14-36) IU/L ALT 20 (<35) IU/L Alkaline Phosphatase 106 (38-126) U/L Total Creatine Kinase 153 H (30-135) U/L CK-MB (CK-2) 2.39 H (<2.37) ng/mL CK-MB (CK-2) Rel Index 1.6 (1.5-5.0) % Troponin I < 0.012 (0.01-0.034) ng/mL Total Protein 6.7 (6.3-8.2) g/dL Albumin 3.9 (3.5-5.0) g/dL Globulin 2.8 (1.7-4.1) g/dL Albumin/Globulin Ratio 1.4 (1.0-2.8) Lipase 51 D (23-300) U/L Urine RBC None seen (0-5/HPF) Urine WBC 0-1/hpf (0-5/HPF) Ur Squamous Epith Cells 0-1 /hpf (0-5/HPF) Urine Bacteria None seen (None) Ur Culture Indicated? Cult not indicated Point of care testing: Urine Dip Bedside Urine Glucose Negative Bedside Urine Bilirubin - Negative Bedside Urine Ketone + 15 Urine Specific [place] 1.015 Bedside Urine Occult Blood - Negative Bedside Urine pH 7.0 Bedside Urine Protein - Negative Bedside Urine Urobilinogen - Negative Bedside Urine Nitrite - Negative Bedside Urine Leukocytes - Negative Esterase Imaging Data Abdominal x-ray: Radiologist's Impression: PROCEDURE: XR ACUTE ABDOMEN SERIES INDICATIONS: c/o constipation TECHNIQUE: One view chest and two views of the abdomen were acquired. COMPARISON: [facility], , XR ACUTE ABDOMEN SERIES, 09/13/2019, 21:30. FINDINGS: Surgical changes and devices: None. Chest: Lungs are clear. Heart size is mildly enlarged. No pleural effusions. No pneumoperitoneum. Abdomen: Mildly air distended bowel loops are noted in abdomen with a few air- fluid levels. Air is seen in the hepatic and splenic flexure of the colon. No gross peritoneal free air. No suspicious calcifications. Visualized solid organ contours appear normal. Bones: No suspicious bony lesions. IMPRESSION: 1. No significant fecal burden is seen. No peritoneal free air. 2. Mildly distended bowel loops with a few air-fluid levels which may represent mild ileus versus low-grade distal small bowel obstruction. 3. No acute cardiopulmonary pathology. Dictated by: Ronan Jarquin M.D. on 05/14/2021 at 13:07 Approved by: Ronan Jarquin M.D. on 05/14/2021 at 13:12 CT scan - abdomen/pelvis: Radiologist's Impression: PROCEDURE: CT ABDOMEN PELVIS W CON INDICATIONS: LLQ pain TECHNIQUE: After the administration of intravenous contrast, axial sections acquired from the lung bases to the pubic symphysis. Coronal and sagittal reformats were performed. For radiation dose reduction, the following was used: automated exposure control, adjustment of mA and/or kV according to patient size. COMPARISON: [facility], RF, LUMBAR TRANSFORAMINAL KEENAN, 04/18/2021, 14:35. [facility], MR, MR LUMBAR SPINE WO CON, 03/01/2021, 17:52. [facility], CT, CT ABDOMEN PELVIS WO CON, 10/31/2020, 7:37. [facility], CT, CT ABDOMEN PELVIS W CON, 11/04/2020, 16:16. FINDINGS: Image quality: Excellent. Lung bases: Right middle lobe and lingula scars and atelectasis.. Small hiatal hernia. Heart: No significant findings. ABDOMEN: Liver: Hepatic steatosis. Liver is normal in size. Gallbladder: Unremarkable. Biliary ducts: Unremarkable. Pancreas: Unremarkable. Spleen: Unremarkable. Adrenal Glands: Unremarkable. Kidneys and Ureters: There is a 3 mm stone at the left UVJ. There is moderate left hydronephrosis and mild left hydroureter with perinephric stranding. A 2 mm nonobstructive stone is seen in right kidney, unchanged. There is mild right hydronephrosis or parapelvic cysts. No right hydroureter. Stomach and Bowel: Stomach, small bowel loops, and colon are normal in size. Scattered colonic diverticula without acute diverticulitis. Peritoneum: No abnormal intraperitoneal fluid. No free air. Ventral Wall: There is a large periumbilical ventral hernia containing loop of small intestine. No findings to suggest small bowel obstruction. Abdominal Nodes: No retroperitoneal or mesenteric adenopathy by size criteria. Vessels: Aorta and inferior vena cava are normal in size. PELVIS: Pelvic Organs: Unremarkable. Bladder: Unremarkable. Pelvic Nodes: No enlarged lymph nodes. Miscellaneous: Small fat containing left inguinal hernia is present. Bones: Severe degenerative facet and disc disease in lumbar spine causing severe central canal stenosis at L4-L5. IMPRESSION: 1. A 3 mm obstructive stone at the left UVJ. There is moderate left hydronephrosis and mild left hydroureter with perinephric stranding 2. A 2 mm nonobstructive stone in right kidney. Mild right hydronephrosis versus parapelvic cysts. 3. A large periumbilical ventral hernia containing small bowel loops. No small bowel obstruction. 4. Diverticulosis without diverticulitis. 5. Severe degenerative disc and facet disease The result was discussed with Dr. Grayson. Dictated by: Joan Lora M.D. on 05/14/2021 at 14:22 MDM Narrative Medical decision making narrative: Patient's blood work is overall reassuring. Now complaining of left lower quadrant pain which she did not seem to be complaining of previously. Being that she is constipated but no feeling of pressure in her rectum. X-ray shows ileus versus SBO will get CT. Patient is found to have 3 mm left UVJ. This likely explains the last 2 visits of nausea and vomiting. She has no sign of infection no hematuria. But she is happy with an answer and the diagnosis. She now is overall feeling significantly better. Discussed with her warning signs when to return to the emergency department. Discharge Plan Departure Patient Disposition: Home Clinical Impression: Kidney stone on left side Instructions: DI for Kidney Stones Activity Restrictions/Additional Instructions: * You've been diagnosed with kidney stone 3mm * What to do: Increase fluid intake, Strain urine, try to catch stone * Please follow-up with your primary care provider in the next 2-3 days, you may require urology consultation please discuss this with -If you should have fever, or pain is uncontrolled with medication at home or any other concerning symptoms return to ER for further evaluation MEDICATIONS-->[facility] Take Motrin 600 mg every 8 hours as needed for pain Take [place] every 6 hours if needed for severe pain Take Zofran every 4-6 hours if needed for nausea CONTROLLED SUBSTANCE DISCHARGE (Narcotoic/benzodiazepine) 1. You have been prescribed narcotic medications, it does have acetaminophen/T ylenol/paracetamol in it so do not take extra Tylenol or Tylenol containing products 2. Please understand that we cannot provide further refills of narcotics, benzodiazepines or controlled substances through the ED and her pain management will need to be through your provider. 3. While on these medications you cannot drive or operate heavy machinery. 4. You cannot sign legal documents or perform any duties such as this. 5. As long as you're taking opiate pain medications he should also be taking a stool softener such as Colace, Dulcolax, MiraLAX or prune juice, to help avoid constipation. Prescriptions: New hydrocodone-acetaminophen 5-325 mg tablet 1 tab PO Q6H PRN (Reason: pain) Qty: 10 RF: 0 ondansetron 4 mg tablet,disintegrating 4 mg PO Q6HR PRN (Reason: nausea and vomiting) Qty: 10 RF: 0 No Action lidocaine 5 % adhesive patch,medicated 1 patch topical DAILY Qty: 15 RF: 3 lactulose 10 gram/15 mL solution 10 gram PO DAILY PRNRF: 0 bupropion HCl 300 mg tablet extended release 24 hr 300 mg PO QAM MDD Bupropion XL Tab 300mg 24hr Qty: 90 RF: 3 duloxetine 30 mg capsule,delayed release(DR/EC) 30 mg PO QPM Qty: 90 RF: 3 levothyroxine 50 mcg tablet See Rx Instructions .ROUTE .COMPLEX Qty: 90 RF: 3 lisinopril 20 mg tablet See Rx Instructions .ROUTE .COMPLEX Qty: 90 RF: 3 pantoprazole 40 mg tablet,delayed release (DR/EC) 40 mg PO QPM Qty: 90 RF: 3 simvastatin 20 mg tablet 20 mg PO BEDTIME Qty: 90 RF: 3 sucralfate 1 gram tablet 1 gram PO .COMPLEX Qty: 360 RF: 3 celecoxib [Celebrex] 100 mg capsule 100 mg PO BID Qty: 60 RF: 1 tramadol [Ultram] 50 mg tablet 50 mg PO Q6H PRN (Reason: pain) Qty: 7 RF: 0 hydrocodone-acetaminophen [Hick[place]] 5-325 mg tablet 1 tab PO Q6H PRN (Reason: pain) Qty: 7 RF: 0 omeprazole 20 mg capsule,delayed release(DR/EC) 20 mg PO DAILY Qty: 30 RF: 0 tramadol [Ultram] 50 mg tablet 50 mg PO Q6H PRN (Reason: pain) Qty: 20 RF: 0 Referrals: Martha Weston MD [Primary Care Provider] -
--- NOTE | 2021-05-14 13:43 | DI.CT.S_ITS ---
PROCEDURE: CT ABDOMEN PELVIS W CON INDICATIONS: LLQ pain TECHNIQUE: After the administration of intravenous contrast, axial sections acquired from the lung bases to the pubic symphysis. Coronal and sagittal reformats were performed. For radiation dose reduction, the following was used: automated exposure control, adjustment of mA and/or kV according to patient size. COMPARISON: [facility] [place], RF, LUMBAR TRANSFORAMINAL KEENAN, 04/18/2021, 14:35. [facility], MR, MR LUMBAR SPINE WO CON, 03/01/2021, 17:52. [facility], CT, CT ABDOMEN PELVIS WO CON, 10/31/2020, 7:37. [facility], CT, CT ABDOMEN PELVIS W CON, 11/04/2020, 16:16. FINDINGS: Image quality: Excellent. Lung bases: Right middle lobe and lingula scars and atelectasis.. Small hiatal hernia. Heart: No significant findings. ABDOMEN: Liver: Hepatic steatosis. Liver is normal in size. Gallbladder: Unremarkable. Biliary ducts: Unremarkable. Pancreas: Unremarkable. Spleen: Unremarkable. Adrenal Glands: Unremarkable. Kidneys and Ureters: There is a 3 mm stone at the left UVJ. There is moderate left hydronephrosis and mild left hydroureter with perinephric stranding. A 2 mm nonobstructive stone is seen in right kidney, unchanged. There is mild right hydronephrosis or parapelvic cysts. No right hydroureter. Stomach and Bowel: Stomach, small bowel loops, and colon are normal in size. Scattered colonic diverticula without acute diverticulitis. Peritoneum: No abnormal intraperitoneal fluid. No free air. Ventral Wall: There is a large periumbilical ventral hernia containing loop of small intestine. No findings to suggest small bowel obstruction. Abdominal Nodes: No retroperitoneal or mesenteric adenopathy by size criteria. Vessels: Aorta and inferior vena cava are normal in size. PELVIS: Pelvic Organs: Unremarkable. Bladder: Unremarkable. Pelvic Nodes: No enlarged lymph nodes. Miscellaneous: Small fat containing left inguinal hernia is present. Bones: Severe degenerative facet and disc disease in lumbar spine causing severe central canal stenosis at L4-L5. IMPRESSION: 1. A 3 mm obstructive stone at the left UVJ. There is moderate left hydronephrosis and mild left hydroureter with perinephric stranding 2. A 2 mm nonobstructive stone in right kidney. Mild right hydronephrosis versus parapelvic cysts. 3. A large periumbilical ventral hernia containing small bowel loops. No small bowel obstruction. 4. Diverticulosis without diverticulitis. 5. Severe degenerative disc and facet disease The result was discussed with Dr. Grayson. Dictated by: Joan Lora M.D. on 05/14/2021 at 14:22 Approved by: Joan Lora M.D. on 05/14/2021 at 14:34
[2021-05-14] MEDS: KETOROLAC 30 MG/ML VIAL 15 MG IV (13:51)
[2021-05-14 15:26] VITALS: BP 137/76; PULSE 81; RESP 16; O2SAT 98
== END 2021-05-14 15:27 | disposition home or self-care (01) ==
PROVIDERS: Emergency Provider Emergency Medicine; Family Provider Specialist; PCP Internal Medicine
DX: N20.0 Calculus of kidney (principal); R11.2 Nausea with vomiting, unspecified
CPT/HCPCS: 36415; 74022; 74177; 80053; 81003; 81015; 82550; 82553; 83690; 83735; 84484; 85025; 93005; 93010; 96374; 96375; 99284; 99285; C9113; J1885; J2405; Q9967

== ENCOUNTER → 2021-07-06 12:45 | Outpatient (CLI) | payer MEDICARE, MEDICAID, SELFPAY ==
--- NOTE | 2021-07-06 | DI.RAD.S_ITS ---
PROCEDURE: XR DEXA AXIAL SKELETON INDICATIONS: Asymptomatic menopausal state COMPARISON: [facility], CR, DEXA AXIAL SKELETON, 03/26/2016, 15:23. FINDINGS: This blank DEXA report has been sent in error by the PACS system. The correct and complete report will be forthcoming in 1-2 days. Thank you for your patience and understanding. Dictated by: Harrison Sheffield M.D. on 07/06/2021 at 16:38 Approved by: Harrison Sheffield M.D. on 07/16/2021 at 10:38
== END ==
PROVIDERS: Family Provider Specialist; PCP Internal Medicine; Referring Provider Internal Medicine; Visit Provider Internal Medicine
DX: M85.852 Other specified disorders of bone density and structure, left thigh (principal); Z78.0 Asymptomatic menopausal state
CPT/HCPCS: 77080

== ENCOUNTER → 2021-11-09 09:22 | Outpatient (CLI) | payer MEDICARE, MEDICAID, SELFPAY ==
--- NOTE | 2021-11-09 09:23 | DI.US.S_ITS ---
LIMITED ULTRASOUND OF LEFT BREAST: 11/09/2021 CLINICAL: Palpable left breast lump. Comparison is made to exams dated: 11/09/2021 mammogram, 12/25/2020 mammogram, 12/23/2019 mammogram, and 12/22/2018 mammogram - [facility]. Real-time ultrasound of the left breast 1 o'clock region was performed. Forte scale images of the real-time examination were reviewed. No significant abnormalities were seen sonographically in the left breast in the region of the palpable abnormality. IMPRESSION: NEGATIVE There is no sonographic evidence of malignancy. A 1 year screening mammogram is recommended. Exam findings were conveyed to the patient. Patient is advised to monitor for significant change. Clinical follow-up as needed. This exam was interpreted at Station ID: [id number]. Electronically Signed By: Tristen Davila M.D. slc/:11/09/2021 11:05:01 letter sent: Normal Exam Ultrasound BI-RADS: 1 Negative
--- NOTE | 2021-11-09 09:23 | DI.MG.S_ITS ---
BILATERAL DIGITAL DIAGNOSTIC MAMMOGRAM 3D/2D: 11/09/2021 CLINICAL: Palpable left breast lump. Comparison is made to exams dated: 12/23/2019 mammogram, 12/25/2020 mammogram, 12/22/2018 mammogram, and 06/13/2017 mammogram - [facility]. There are scattered fibroglandular elements in both breasts. No significant masses, calcifications, or other findings are seen in either breast. There is a small partially calcified oil cyst near the left breast palpable abnormality which is stable. IMPRESSION: INCOMPLETE: NEEDS ADDITIONAL IMAGING EVALUATION No mammographic evidence of malignancy. A targeted ultrasound is recommended for palpable abnormality and will immediately follow. This exam was interpreted at Station ID: [id number]. NOTE: For mammograms, a report in lay terms will be sent to the patient. Approximately 15% of breast malignancies will not be visualized mammographically. In the management of a palpable breast mass, a negative mammogram must not discourage biopsy of a clinically suspicious lesion. Electronically Signed By: Tristen Davila M.D. slc/:11/09/2021 09:53:40 ACR BI-RADS Category 0: Incomplete [id number]
== END ==
PROVIDERS: Family Provider Specialist; PCP Internal Medicine; Referring Provider Nurse Practitioner Family; Visit Provider Nurse Practitioner Family
DX: N63.20 Unspecified lump in the left breast, unspecified quadrant (principal); R92.8 Other abnormal and inconclusive findings on diagnostic imaging of breast
CPT/HCPCS: 76642; 77066; G0279

== ENCOUNTER → 2021-12-13 13:37 | Outpatient (CLI) | payer MEDICARE, MEDICAID, SELFPAY ==
[2021-12-13 14:39] LABS: Hematocrit 43.2 % (36-46); Hemoglobin 14.5 g/dL (12.0-16.0); Mean Corpuscular HGB Conc 33.5 % (30-36); Mean Corpuscular Hemoglobin 29.5 PG (26-34); Mean Corpuscular Volume 88.2 fL (80-100); Platelet Count 173 X10^3/uL (150-400); Red Cell Distribution Width 14.3 % (11.6-14.8); White Blood Cell Count 4.8 X10^3/uL (4.5-11.0)
[2021-12-13 15:06] LABS: BUN Creatinine Ratio 21.1 (6-22); Blood Urea Nitrogen 16 mg/dL (7-17); Calcium 9.5 mg/dL (8.4-10.2); Carbon Dioxide 30 mmol/L (22-32); Chloride 105 mmol/L (98-107); Cholesterol 205 mg/dL (140-199); Estimated Glomerular Filt Rate > 60.0 mL/min (>60); Glucose 90 mg/dL (80-110); HDL Cholesterol 78 mg/dL (40-60); HEMOLYSIS < 15 (0-50); LDL Cholesterol Calculated 110 mg/dL (<100); Potassium 4.3 mmol/L (3.4-5.1); Sodium 142 mmol/L (137-145); Triglycerides 83 mg/dL (35-150)
[2021-12-13 15:27] LABS: Vitamin D 25 Hydroxy (D3) 40.9 ng/mL (30.0-100.0)
[2021-12-13 15:41] LABS: TSH w/ Reflex to FT4 1.06 uIU/mL (0.47-4.68)
[2021-12-13 15:55] LABS: Vitamin B12 345 pg/mL (239-931)
== END ==
PROVIDERS: Family Provider Specialist; PCP Student in an Organized Health Care Education/Training Program; Referring Provider Student in an Organized Health Care Education/Training Program; Visit Provider Student in an Organized Health Care Education/Training Program
DX: I10 Essential (primary) hypertension (principal); E55.9 Vitamin D deficiency, unspecified; E03.9 Hypothyroidism, unspecified; F32.9 Major depressive disorder, single episode, unspecified; E78.5 Hyperlipidemia, unspecified
CPT/HCPCS: 36415; 80048; 80061; 82306; 82607; 84443; 85027

== ENCOUNTER 2021-12-20 11:38 | Observation (INO) | payer MEDICARE, MEDICAID, SELFPAY ==
[2021-12-20] VITALS (21 sets, daily range): BP systolic 112–147; BP diastolic 59–79; PULSE 78–94; RESP 13–23; TEMP 36.5–36.6; O2SAT 93–100; BMI 394.9; BMI 40.0
--- NOTE | 2021-12-20 13:33 | DI.CT.S_ITS ---
PROCEDURE: CT ABDOMEN PELVIS WO CON INDICATIONS: Abdominal wall mass/hernia/pain TECHNIQUE: Axial sections were acquired from the lung bases to the pubic symphysis. Coronal and sagittal reformats were performed. For radiation dose reduction, the following was used: automated exposure control, adjustment of mA and/or kV according to patient size. COMPARISON: [facility], CT, CT ABDOMEN PELVIS WO CON, 10/31/2020, 7:37. FINDINGS: Image quality: Excellent. Lung bases: Linear lingular opacities likely related to atelectasis versus scarring. Heart: No significant findings. URINARY: Right Kidney: Punctate non-obstructing calcification is present within the mid renal pole. Parapelvic cysts are present. Right Ureter: No hydroureter. Left Kidney: No stones or hydronephrosis. Parapelvic cysts are present. Left Ureter: No hydroureter. Bladder: Normal wall thickness. No stones. ABDOMEN: Liver: Unremarkable. Gallbladder: No stones or wall thickening. Biliary ducts: Unremarkable. Pancreas: Unremarkable. Spleen: Unremarkable. Adrenal Glands: Unremarkable. Stomach and Bowel: There are dilated fluid-filled loops of small bowel identified within the abdomen and pelvis. The largest AP dimension measures 3.5 cm. It is noted there is a ventral hernia with several loops of small bowel extending into the hernia. Proximal struck randall is present. Peritoneum: No abnormal intraperitoneal fluid. No free air. Abdominal Nodes: No enlarged retroperitoneal or mesenteric lymph nodes. Vessels: Aorta and inferior vena cava are normal in size. PELVIS: Pelvic Organs: Unremarkable. Pelvic Nodes: Unremarkable. Miscellaneous: No inguinal hernias are seen. Bones: Unremarkable. IMPRESSION: Dilated fluid-filled loops of small bowel consistent with partial small bowel obstruction. Source of obstruction is felt to be likely the ventral hernia. Dictated by: Margareth Napoles M.D. on 12/20/2021 at 14:12 Approved by: Margareth Napoles M.D. on 12/20/2021 at 14:16
--- NOTE | 2021-12-20 13:34 | ED_ITS ---
HPI - Abdominal Pain General Chief Complaint: Abdominal Pain Stated Complaint: abd pain Time Seen by Provider: 12/20/21 12:56 Source: patient Mode of arrival: EMS History of Present Illness HPI narrative: Patient here for abdominal wall mass/hernia. Onset yesterday. No prior history of hernia. Patient does have history of constipation problems daily. is on fiber diet. Is not on stool softener. Patient is not a smoker. Related Data Home Medications Medication Instructions Recorded Confirmed meloxicam 15 mg tablet 15 mg PO DAILY 11/15/21 12/20/21 Previous Rx's Medication Instructions Recorded bupropion HCl 300 mg 24 hr tablet, 300 mg PO QAM #90 tab MDD 08/08/20 extended release Bupropion XL Tab 300mg 24hr levothyroxine 50 mcg tablet See Rx Instructions .ROUTE 08/08/20 .COMPLEX #90 tab sucralfate 1 gram tablet 1 gram PO .COMPLEX #360 tab 08/08/20 omeprazole 20 mg capsule,delayed 20 mg PO DAILY #30 cap 05/13/21 release lisinopril 20 mg tablet 20 mg PO DAILY #90 tab 11/15/21 atorvastatin 20 mg tablet 20 mg PO DAILY #90 tab 12/17/21 sertraline 50 mg tablet 50 mg PO DAILY #90 tab 12/17/21 Allergies Allergy/AdvReac Type Severity Reaction Status Date / Time No Known Drug Allergies Allergy Verified 12/20/21 11:47 Review of Systems Review of Systems Narrative: GENERAL: Denies chills, fatigue, malaise, fever, sweats. 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) Surgical History Anesthesia History of appendectomy (~1954) History of bilateral salpingo-oophorectomy (BSO) (~1992) History of conization of cervix (~1973) History of laparoscopic adjustable gastric banding History of surgical removal of lesion (~2015) History of throat surgery (~2015) Family History Father History of heart disease Hyperlipidemia Mental health problem Mother History of heart surgery Brother Alcoholism Grandfather Mental health problem Dementia Grandfather Stroke Social History household members: none Smoking Status: Never smoker second hand exposure: No alcohol intake: current substance use type: does not use Smoking Status: Never smoker alcohol intake frequency: holidays/special occasions only Substance Use Type: does not use Exam Narrative Exam Narrative: GENERAL: in no distress, not toxic not dyspneic HEAD: Normocephalic. EYES: Pupils equal round No scleral icterus. ENT: Mucous membranes moist. NECK: Trachea midline. CARDIOVASCULAR: Regular rate and rhythm without murmurs RESPIRATORY: Clear to auscultation. Breath sounds equal bilaterally. No wheezes, rales, or rhonchi. GASTROINTESTINAL: Abdomen soft, patient has midline reducible large hernia. No discoloration. Nontender. Bowel sounds present. No peritoneal signs. Mass measures 15 cm x 8 cm EXTREMITIES: No gross deformities. BACK: No flank tenderness. NEURO: AOx4. SKIN: Warm and dry PSYCH: Not anxious, is cooperative Initial Vital Signs Initial Vital Signs: Vital Signs Pulse Rate 94 H 12/20/21 11:42 Blood Pressure 134/71 12/20/21 11:42 Pulse Oximetry 96 12/20/21 11:42 Course Course Course Narrative: No new issues during course of stay Decision to Admit Date: 12/20/21 Decision to Admit time: 17:09 Orders Ordered: Acetaminophen (Acetaminophen 325 Mg Tablet) 650 mg PO Q6HR PRN PRN Reason: Fever/Mild Pain (1-3) Hydrocodone Bitart/Acetaminophen (Hydrocodone/Acet 5/325 Tablet) 1 tab PO Q4HR PRN PRN Reason: Pain, Moderate (4-6) Lactated Ringer's (Lactated Ringers) 1,000 mls @ 100 mls/hr IV CONT SHASHA Last Admin: 12/21/21 04:27 Dose: 100 mls/hr Documented by: Infusion: 12/21/21 04:12 Dose: 100 mls/hr Documented by: Admin: 12/20/21 18:12 Dose: 100 mls/hr Documented by: ALEJANDRO Morphine Sulfate (Morphine 2 Mg/Ml Inj) 2 mg IV Q4HR PRN PRN Reason: Pain, Moderate (4-6) Naloxone HCl (Naloxone 0.4 Mg/Ml Vial) 0.2 mg IV Q2MIN PRN PRN Reason: Opiate Reversal Ondansetron HCl (Ondansetron 4 Mg/2 Ml Inj) 4 mg IV Q8HR PRN PRN Reason: Nausea And Vomiting Discontinued Medications Sodium Chloride (Normal Saline 0.9%) 500 mls @ 1,000 mls/hr IV BOLUS ONE Stop: 12/20/21 15:06 Last Infusion: 12/20/21 15:41 Dose: 0 mls/hr Documented by: Admin: 12/20/21 15:04 Dose: 1,000 mls/hr Documented by: ANGY Reevaluation(s) Reevaluation #1: Updated patient results. Understands need for admit. No nausea or vomiting. NPO since yesterday. Time: 14:41 Consultations Consultation #1: Spoke with Dr. Tomas, general surgery, he is in the OR right now. He will see patient once he has completed his case. Time: 15:44 Consultation #2: Patient seen by Dr. Tomas. He will admit patient for observation Time: 17:09 Vital Signs Vital signs: Vital Signs - 8 hr 12/20/21 11:42 12/20/21 11:43 12/20/21 11:47 Temperature 97.7 F Pulse Rate 94 H 90 90 Respiratory Rate 21 17 Blood Pressure 134/71 135/78 134/71 Pulse Oximetry 96 98 96 12/20/21 12:00 12/20/21 12:01 12/20/21 12:19 Temperature Pulse Rate 86 87 85 Respiratory Rate 18 21 Blood Pressure 127/60 143/75 H Pulse Oximetry 97 97 97 12/20/21 12:30 12/20/21 13:00 12/20/21 13:30 Temperature Pulse Rate 84 83 85 Respiratory Rate 21 23 20 Blood Pressure 139/70 127/72 127/72 Pulse Oximetry 93 95 97 12/20/21 13:49 12/20/21 14:00 12/20/21 14:30 Temperature Pulse Rate 82 83 82 Respiratory Rate 18 17 18 Blood Pressure 116/68 122/70 130/74 Pulse Oximetry 97 96 96 12/20/21 15:00 12/20/21 15:01 12/20/21 15:30 Temperature Pulse Rate 80 85 84 Respiratory Rate 14 15 19 Blood Pressure 113/62 118/75 Pulse Oximetry 96 96 98 12/20/21 15:42 12/20/21 16:00 12/20/21 16:30 Temperature Pulse Rate 83 83 84 Respiratory Rate 13 Blood Pressure 112/59 L 121/68 126/71 Pulse Oximetry 97 98 98 MDM - Abdominal Pain Differential Diagnosis Differential diagnosis: Likely other (Abdominal wall hernia) Lab Data Result diagrams: 12/21/21 04:30 12/21/21 04:30 Labs: Lab Results 12/20/21 12/20/21 12/20/21 Range/Units 12:58 12:58 15:00 WBC 8.6 (4.5-11.0) X10^3/uL RBC 5.08 (4.0-5.2) X10^6/uL Hgb 14.9 (12.0-16.0) g/dL Hct 45.2 (36-46) % MCV 89.0 (80-100) fL MCH 29.3 (26-34) PG MCHC 32.9 (30-36) % RDW 14.5 (11.6-14.8) % Plt Count 219 (150-400) X10^3/uL Neut % (Auto) 91.1 H (50-75) % Lymph % (Auto) 4.8 L (25-40) % [place] % (Auto) 3.7 (3-14) % Eos % (Auto) 0.2 L (2-4) % Baso % (Auto) 0.2 (0-2) % Neut # (Auto) 7900 H (2607-9113) /uL Lymph # (Auto) 400 L (9035-3771) /uL [place] # (Auto) 300 (0-900) /uL Eos # (Auto) 0 (0-450) /uL Baso # (Auto) 0 (0-100) /uL Sodium 137 (137-145) mmol/L Potassium 4.3 (3.4-5.1) mmol/L Chloride 102 (98-107) mmol/L Carbon Dioxide 31 (22-32) mmol/L BUN 16 (7-17) mg/dL Creatinine 0.74 (0.52-1.04) mg/dL Estimated GFR > 60.0 (>60) mL/min BUN/Creatinine Ratio 21.6 (6-22) Glucose 122 H (80-110) mg/dL Calcium 9.6 (8.4-10.2) mg/dL Total Bilirubin 1.1 (0.2-1.3) mg/dL AST 39 H (14-36) IU/L ALT 20 (<35) IU/L Alkaline Phosphatase 114 (38-126) U/L Total Protein 7.4 (6.3-8.2) g/dL Albumin 4.3 (3.5-5.0) g/dL Globulin 3.1 (1.7-4.1) g/dL Albumin/Globulin Ratio 1.4 (1.0-2.8) SARS-CoV-2 (PCR) Negative (Negative) Imaging Data CT scan - abdomen/pelvis: Radiologist's Impression: [address] [address] [address] Scan Report Signed Patient: Terese Trejo MR#: [id number] : 1950 Acct:[id number] Age/Sex: 71 / F Date of Service: 12/20/21 Loc: ED Accession Number: [id number] ?? Procedure: CT abdomen pelvis wo con Ordering Provider: Zachary Toscano MD PROCEDURE:? CT ABDOMEN PELVIS WO CON ? INDICATIONS:? Abdominal wall mass/hernia/pain ? TECHNIQUE:? Axial sections were acquired from the lung bases to the pubic symphysis.? Sandi nal and sagittal reformats were performed.? For radiation dose reduction, the following was used: ?automated exposure control, adjustment of mA and/or kV according to patient size.? ? COMPARISON:? [facility], CT, CT ABDOMEN PELVIS WO CON, 10/31/2020, 7:37. ? FINDINGS:? Image quality:? Excellent.? ? Lung bases:? Linear lingular opacities likely related to atelectasis versus scarring. Heart:? No significant findings. ? URINARY: Right Kidney:? Punctate non-obstructing calcification is present within the mid renal pole.? Parapelvic cysts are present. Right Ureter:? No hydroureter.? ? Left Kidney: ? No stones or hydronephrosis.? Parapelvic cysts are present. Left Ureter:? No hydroureter.? ? Bladder:? Normal wall thickness. No stones. ? ? ? ABDOMEN: Liver:? Unremarkable.? ? Gallbladder:? No stones or wall thickening. Biliary ducts:? Unremarkable.? ? Pancreas:? Unremarkable.? ? Spleen:? Unremarkable.? ? Adrenal Glands:? Unremarkable.? ? ? Stomach and Bowel:? There are dilated fluid-filled loops of small bowel identified within the abdomen and pelvis.? The largest AP dimension measures 3.5 cm.? It is noted there is a ventral hernia with several loops of small bowel extending into the hernia.? Proximal struck randall is present.? Peritoneum:? No abnormal intraperitoneal fluid.? No free air.? ? Abdominal Nodes:? No enlarged retroperitoneal or mesenteric lymph nodes.? Vessels:? Aorta and inferior vena cava are normal in size.? ? PELVIS: Pelvic Organs:? Unremarkable.? ? Pelvic Nodes: Unremarkable. Miscellaneous: No inguinal hernias are seen. ? ? ? Bones:? Unremarkable. ? IMPRESSION:? ? Dilated fluid-filled loops of small bowel consistent with partial small bowel obstruction.? Source of obstruction is felt to be likely the ventral hernia. ? ? Dictated by: Margareth Napoles M.D. on 12/20/2021 at 14:12 ? ? Approved by: Margareth Napoles M.D. on 12/20/2021 at 14:16 ? ECG Data Interpretation: Sinus rhythm no ST elevation or depression. MDM Narrative Medical decision making narrative: Appropriate for admission for observation. Patient seen by Dr. Tomas, general surgeon. No NG tube indicated. No vomiting. Discharge Plan Departure Patient Disposition: Admitted as Observation Clinical Impression: Ventral hernia, Partial bowel obstruction Admit Date/Time: 12/20/21 17:10 Admit Provider: Edgar Tomas
[2021-12-20 14:50] LABS: Add Manual Diff / Slide Review NO; Basophils Absolute Auto 0 /uL (0-100); Basophils Percent Auto 0.2 % (0-2); Eosinophils Absolute Auto 0 /uL (0-450); Eosinophils Percent Auto 0.2 % (2-4); Hematocrit 45.2 % (36-46); Hemoglobin 14.9 g/dL (12.0-16.0); Lymphocytes Absolute Auto 400 /uL (1100-4500); Lymphocytes Percent Auto 4.8 % (25-40); Mean Corpuscular HGB Conc 32.9 % (30-36); Mean Corpuscular Hemoglobin 29.3 PG (26-34); Monocytes Absolute Auto 300 /uL (0-900); Monocytes Percent Auto 3.7 % (3-14); Neutrophils Absolute Auto 7900 /uL (1500-7000); Neutrophils Percent Auto 91.1 % (50-75); Platelet Count 219 X10^3/uL (150-400); Red Blood Cell Count 5.08 X10^6/uL (4.0-5.2); Red Cell Distribution Width 14.5 % (11.6-14.8); White Blood Cell Count 8.6 X10^3/uL (4.5-11.0)
[2021-12-20 14:57] LABS: Alanine Aminotransferase 20 IU/L (<35); Albumin 4.3 g/dL (3.5-5.0); Albumin Globulin Ratio 1.4 (1.0-2.8); Alkaline Phosphatase 114 U/L (38-126); Aspartate Aminotransferase 39 IU/L (14-36); BUN Creatinine Ratio 21.6 (6-22); Bilirubin Total 1.1 mg/dL (0.2-1.3); Blood Urea Nitrogen 16 mg/dL (7-17); Calcium 9.6 mg/dL (8.4-10.2); Carbon Dioxide 31 mmol/L (22-32); Chloride 102 mmol/L (98-107); Estimated Glomerular Filt Rate > 60.0 mL/min (>60); Globulin 3.1 g/dL (1.7-4.1); Glucose 122 mg/dL (80-110); HEMOLYSIS 50 (0-50); Potassium 4.3 mmol/L (3.4-5.1); Sodium 137 mmol/L (137-145); Total Protein 7.4 g/dL (6.3-8.2)
[2021-12-20] MEDS: SODIUM CHLORIDE 0.9% 500 ML 1000 ML IV (15:04)
--- NOTE | 2021-12-20 17:31 | PC.NURSE ---
Patient transfer report given to srikanth PEACE at extension [phone]. Patient transferring to room 205.
[2021-12-20 17:37] LABS: COVID19 -Nasal RAPID Negative (Negative)
--- NOTE | 2021-12-20 17:44 | PM.HP.1 ---
History of Present Illness History of Present Illness Date Patient Seen: 12/20/21 Time Patient Seen: 17:44 Chief complaint: abd pain Narrative: Terese Trejo is a 71-year-old woman who presented with 1 day of abdominal pain, nausea and vomiting. She also noticed a new bulge of her upper abdominal wall. She reports having a bowel movement yesterday and this morning. She is unsure how much flatus she has had today. Her pain improved after getting to the ER today. A CT scan was performed and showed a questionable small bowel obstruction along with a ventral hernia containing loops of bowel. She had a laparoscopic band in the past which was removed. She has managed to lose about 30 lb in the past few months which she attributes to starting on a high-fiber diet to the help prevent constipation. 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) Surgical History Anesthesia History of appendectomy (~1954) History of bilateral salpingo-oophorectomy (BSO) (~1992) History of conization of cervix (~1973) History of laparoscopic adjustable gastric banding History of surgical removal of lesion (~2015) History of throat surgery (~2015) Family & Social History Family History Father History of heart disease Hyperlipidemia Mental health problem Mother History of heart surgery Brother Alcoholism Grandfather Mental health problem Dementia Grandfather Stroke Social History: household members none Safety & Behavioral: Feels Safe in Current Yes Environment Been Physically Hurt or No Threatened By a Person Tobacco & Substance use: Smoking Status Never smoker alcohol intake current alcohol intake frequency holiday/special occasion Substance Use Type does not use Meds Home Medications and Allergies Home Medications Medication Instructions Recorded Confirmed Type bupropion HCl 300 mg 24 hr tablet, 300 mg PO QAM #90 tab MDD 08/08/20 12/17/21 Rx extended release Bupropion XL Tab 300mg 24hr levothyroxine 50 mcg tablet See Rx Instructions .ROUTE 08/08/20 12/17/21 Rx .COMPLEX #90 tab sucralfate 1 gram tablet 1 gram PO .COMPLEX #360 tab 08/08/20 12/17/21 Rx omeprazole 20 mg capsule,delayed 20 mg PO DAILY #30 cap 05/13/21 12/17/21 Rx release lisinopril 20 mg tablet 20 mg PO DAILY #90 tab 11/15/21 12/17/21 Rx meloxicam 15 mg tablet 15 mg PO DAILY 11/15/21 12/17/21 History atorvastatin 20 mg tablet 20 mg PO DAILY #90 tab 12/17/21 12/17/21 Rx sertraline 50 mg tablet 50 mg PO DAILY #90 tab 12/17/21 12/17/21 Rx docusate sodium 100 mg capsule 100 mg PO BID #20 cap 12/20/21 Rx (Colace) Allergies Allergy/AdvReac Type Severity Reaction Status Date / Time No Known Drug Allergies Allergy Verified 12/20/21 11:47 Exam Vital Signs (past 8 hours): - 12/20/21 11:42 12/20/21 11:43 12/20/21 11:47 Temperature 97.7 F Pulse Rate 94 H 90 90 Respiratory Rate 21 17 Blood Pressure 134/71 135/78 134/71 Pulse Oximetry 96 98 96 12/20/21 12:00 12/20/21 12:01 12/20/21 12:19 Temperature Pulse Rate 86 87 85 Respiratory Rate 18 21 Blood Pressure 127/60 143/75 H Pulse Oximetry 97 97 97 12/20/21 12:30 12/20/21 13:00 12/20/21 13:30 Temperature Pulse Rate 84 83 85 Respiratory Rate 21 23 20 Blood Pressure 139/70 127/72 127/72 Pulse Oximetry 93 95 97 12/20/21 13:49 12/20/21 14:00 12/20/21 14:30 Temperature Pulse Rate 82 83 82 Respiratory Rate 18 17 18 Blood Pressure 116/68 122/70 130/74 Pulse Oximetry 97 96 96 12/20/21 15:00 12/20/21 15:01 12/20/21 15:30 Temperature Pulse Rate 80 85 84 Respiratory Rate 14 15 19 Blood Pressure 113/62 118/75 Pulse Oximetry 96 96 98 12/20/21 15:42 12/20/21 16:00 12/20/21 16:30 Temperature Pulse Rate 83 83 84 Respiratory Rate 13 Blood Pressure 112/59 L 121/68 126/71 Pulse Oximetry 97 98 98 12/20/21 17:00 Temperature Pulse Rate 83 Respiratory Rate 22 Blood Pressure 128/68 Pulse Oximetry 99 Oxygen Delivery Method Room Air Narrative Exam Narrative: No acute distress Abdomen is soft. There is a reducible ventral hernia just above the umbilicus. There is another smaller non reducible hernia that can be palpated to the right and just superior to the larger hernia Objective Labs Result Diagrams: 12/20/21 12:58 12/20/21 12:58 Labs: Laboratory Results - last 24 hr 12/20/21 12/20/21 12/20/21 12:58 12:58 15:00 WBC 8.6 RBC 5.08 Hgb 14.9 Hct 45.2 MCV 89.0 MCH 29.3 MCHC 32.9 RDW 14.5 Plt Count 219 Neut % (Auto) 91.1 H Lymph % (Auto) 4.8 L [place] % (Auto) 3.7 Eos % (Auto) 0.2 L Baso % (Auto) 0.2 Neut # (Auto) 7900 H Lymph # (Auto) 400 L [place] # (Auto) 300 Eos # (Auto) 0 Baso # (Auto) 0 Sodium 137 Potassium 4.3 Chloride 102 Carbon Dioxide 31 BUN 16 Creatinine 0.74 Estimated GFR > 60.0 BUN/Creatinine Ratio 21.6 Glucose 122 H Calcium 9.6 Total Bilirubin 1.1 AST 39 H ALT 20 Alkaline Phosphatase 114 Total Protein 7.4 Albumin 4.3 Globulin 3.1 Albumin/Globulin Ratio 1.4 SARS-CoV-2 (PCR) Negative Assessment & Plan Assessment and plan (1) Partial bowel obstruction: Status: Acute Plan With her hernia reduced expect her obstructive type symptoms to resolve. We will admit her overnight for observation. Explained that I would rather plan to fix her ventral hernia electively down the road. I explained that further weight loss would improve her chances of a successful repair. Will admit for overnight observation and if she is doing well tomorrow I will advance her diet and plan to discharge tomorrow. Time Spent With Patient Critical Care time: I spent a total of [] minutes of critical care time on this patient's care today; this time is exclusive of procedural time.
[2021-12-20] MEDS: LACTATED RINGERS 1,000 ML 100 ML IV (18:12)
[2021-12-21] VITALS: BP 134/80; PULSE 83; RESP 17; TEMP 37; O2SAT 95
[2021-12-21 04:00] VITALS: BP 118/53; PULSE 72; RESP 17; TEMP 37.2; O2SAT 98
[2021-12-21] MEDS: LACTATED RINGERS 1,000 ML 100 ML IV (04:27)
[2021-12-21 05:16] LABS: Add Manual Diff / Slide Review NO; Basophils Absolute Auto 0 /uL (0-100); Basophils Percent Auto 0.3 % (0-2); Eosinophils Absolute Auto 200 /uL (0-450); Eosinophils Percent Auto 3.5 % (2-4); Hemoglobin 12.7 g/dL (12.0-16.0); Lymphocytes Absolute Auto 1300 /uL (1100-4500); Mean Corpuscular HGB Conc 32.6 % (30-36); Mean Corpuscular Hemoglobin 28.8 PG (26-34); Mean Corpuscular Volume 88.2 fL (80-100); Monocytes Absolute Auto 500 /uL (0-900); Monocytes Percent Auto 9.5 % (3-14); Neutrophils Absolute Auto 3100 /uL (1500-7000); Neutrophils Percent Auto 60.7 % (50-75); Platelet Count 196 X10^3/uL (150-400); Red Blood Cell Count 4.42 X10^6/uL (4.0-5.2); Red Cell Distribution Width 14.3 % (11.6-14.8); White Blood Cell Count 5.1 X10^3/uL (4.5-11.0)
[2021-12-21 05:34] LABS: BUN Creatinine Ratio 20.3 (6-22); Blood Urea Nitrogen 13 mg/dL (7-17); Calcium 8.2 mg/dL (8.4-10.2); Carbon Dioxide 29 mmol/L (22-32); Chloride 108 mmol/L (98-107); Estimated Glomerular Filt Rate > 60.0 mL/min (>60); Glucose 93 mg/dL (80-110); HEMOLYSIS < 15 (0-50); Potassium 3.5 mmol/L (3.4-5.1); Sodium 138 mmol/L (137-145)
[2021-12-21 08:00] VITALS: BP 121/64; PULSE 63; RESP 14; TEMP 36.4; O2SAT 99
[2021-12-21 11:56] VITALS: BP 129/66; PULSE 74; RESP 16; TEMP 36.4; O2SAT 98
[2021-12-21 16:43] VITALS: BP 117/61; PULSE 69; RESP 18; TEMP 36.7; O2SAT 99
--- NOTE | 2021-12-21 17:11 | P.PN_ITS ---
Subjective Subjective Date Patient Seen: 12/21/21 Time Patient Seen: 17:11 Interval history: Feeling somewhat better today and has passed some gas but still does not have much of an appetite. She had a few bites of the sandwich. She would like to try dinner tonight decide if she is comfortable going home then. Exam Vital Signs (past 8 hours): - 12/21/21 11:56 12/21/21 16:43 Temperature 97.6 F 98.1 F Pulse Rate 74 69 Respiratory Rate 16 18 Blood Pressure 129/66 117/61 Pulse Oximetry 98 99 Oxygen Delivery Method Room Air Oxygen Flow Rate 0 Narrative Exam Narrative: Soft, no peritoneal signs Reducible ventral hernia remains unchanged Objective Labs Result Diagrams: 12/21/21 04:30 12/21/21 04:30 Labs: Laboratory Results - last 24 hr 12/20/21 12/21/21 12/21/21 15:00 04:30 04:30 WBC 5.1 RBC 4.42 Hgb 12.7 Hct 39.0 MCV 88.2 MCH 28.8 MCHC 32.6 RDW 14.3 Plt Count 196 Neut % (Auto) 60.7 D Lymph % (Auto) 26.0 D [place] % (Auto) 9.5 Eos % (Auto) 3.5 Baso % (Auto) 0.3 Neut # (Auto) 3100 Lymph # (Auto) 1300 [place] # (Auto) 500 Eos # (Auto) 200 Baso # (Auto) 0 Sodium 138 Potassium 3.5 Chloride 108 H Carbon Dioxide 29 BUN 13 Creatinine 0.64 Estimated GFR > 60.0 BUN/Creatinine Ratio 20.3 Glucose 93 Calcium 8.2 L SARS-CoV-2 (PCR) Negative [facility] Medical History Anterolisthesis Cervical cancer (~1974) Depression 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) Gastroesophageal reflux disease (05/12/14) Gastroparesis (12/28/15) Hypothyroidism (11/27/11) Kidney stones (~2011) Mass of left side of neck Osteoarthritis of right hip Tinnitus (~2018) 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) Surgical History Anesthesia History of appendectomy (~195) History of bilateral salpingo-oophorectomy (BSO) (~1992) History of conization of cervix (~1973) History of laparoscopic adjustable gastric banding History of surgical removal of lesion (~2015) History of throat surgery (~2015) Family History Father History of heart disease Hyperlipidemia Mental health problem Mother History of heart surgery Brother Alcoholism Grandfather Mental health problem Dementia Grandfather Stroke Social History household members: none Smoking Status: Never smoker second hand exposure: No alcohol intake: current substance use type: does not use Assessment & Plan Assessment and plan (1) Ventral hernia: Problem details: Reducible. Observe at this time. Her size makes repair of this questionable short of an emergency. Status: Acute Plan Home tonight if she tolerates dinner If he is not able to take in much she states tonight and reassess tomorrow Plan will remain to pursue elective hernia repair as an outpatient after additional weight loss Time Spent With Patient Critical Care time: I spent a total of [] minutes of critical care time on this patient's care today; this time is exclusive of procedural time. Quality VTE Deep Vein Thrombosis/Pulmonary Embolism Present on Admission: No
--- NOTE | 2021-12-21 18:23 | PM.OP.1 ---
Operative Date/Time/Diagnoses Date of procedure: 12/21/21 Time of procedure: 18:23 Pre-op diagnosis: Left arm lipoma Post-op diagnosis: same Procedure & Clinicians Procedure: Excisional biopsy of left forearm lipoma Same procedure as scheduled: Yes Surgeon: Edgar Tomas Anesthesia Type: General Operative Notes Procedure in detail: The patient was brought to the operating room and placed on the table in the supine position. No antibiotics were indicated. General anesthesia was induced with LMA. The left arm was placed on an arm board and prepped and draped in the usual fashion. A 7 cm incision was made over the mass in a longitudinal direction. We divided down through a thin layer of subcutaneous adipose tissue to expose the mass. There were 2 thin peripheral nerves running along the lipoma which were carefully dissected free and left intact. There were 2 veins that were rather invested in the lipoma which were tied off and divided. There was a well defined plane along the deep aspect of the lipoma which extended down to the fascia. The edge of the radius was visible a few layers below the mass. The deeper compartment was not entered. Few bleeders were cauterized. The wound was then closed in layers using interrupted 3-0 Vicryl dermal sutures followed by running 4-0 Monocryl subcuticular stitch. Steri-Strips were applied followed by 4x4s and an Shreyas wrap. The patient was awakened. She had full motor function at the conclusion of the case. EBL 10 mL Post-operative Condition: stable Disposition: PACU
--- NOTE | 2021-12-21 18:41 | P.DS_ITS ---
History of Present Illness History of Present Illness Chief complaint: abd pain Narrative: Terese Trejo is a 71-year-old woman who presented with 1 day of abdominal pain, nausea and vomiting. She also noticed a new bulge of her upper abdominal wall. She reports having a bowel movement yesterday and this morning. She is unsure how much flatus she has had today. Her pain improved after getting to the ER today. A CT scan was performed and showed a questionable small bowel obstruction along with a ventral hernia containing loops of bowel. She had a laparoscopic band in the past which was removed. She has managed to lose about 30 lb in the past few months which she attributes to starting on a high-fiber diet to the help prevent constipation. Discharge Providers Provider Date of admission: 12/20/21 17:10 Discharge Date: 12/21/21 Primary care physician: Tucker Greco MD Discharge provider: Edgar Tomas MD Summary Hospital Course Discharge Diagnosis: Ventral hernia Hospital Course: The patient was admitted with concerns for small bowel obstruction secondary to a ventral hernia. Any was reduced and the patient improved and her obstructive symptoms resolved. She was able to tolerate a diet the next day and was discharged home. Exam Vital Signs (past 8 hours): - 12/21/21 11:56 12/21/21 16:43 Temperature 97.6 F 98.1 F Pulse Rate 74 69 Respiratory Rate 16 18 Blood Pressure 129/66 117/61 Pulse Oximetry 98 99 Oxygen Delivery Method Room Air Oxygen Flow Rate 0 Objective Labs Result Diagrams: 12/21/21 04:30 12/21/21 04:30 Labs: Laboratory Results - last 24 hr 12/21/21 12/21/21 04:30 04:30 WBC 5.1 RBC 4.42 Hgb 12.7 Hct 39.0 MCV 88.2 MCH 28.8 MCHC 32.6 RDW 14.3 Plt Count 196 Neut % (Auto) 60.7 D Lymph % (Auto) 26.0 D [place] % (Auto) 9.5 Eos % (Auto) 3.5 Baso % (Auto) 0.3 Neut # (Auto) 3100 Lymph # (Auto) 1300 [place] # (Auto) 500 Eos # (Auto) 200 Baso # (Auto) 0 Sodium 138 Potassium 3.5 Chloride 108 H Carbon Dioxide 29 BUN 13 Creatinine 0.64 Estimated GFR > 60.0 BUN/Creatinine Ratio 20.3 Glucose 93 Calcium 8.2 L PFSH Medical History Anterolisthesis Cervical cancer (~1974) Depression 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) Gastroesophageal reflux disease (05/12/14) Gastroparesis (12/28/15) Hypothyroidism (11/27/11) Kidney stones (~2011) Mass of left side of neck Osteoarthritis of right hip Tinnitus (~2018) 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) Surgical History Anesthesia History of appendectomy (~1954) History of bilateral salpingo-oophorectomy (BSO) (~1992) History of conization of cervix (~1973) History of laparoscopic adjustable gastric banding History of surgical removal of lesion (~2015) History of throat surgery (~2015) Family History Father History of heart disease Hyperlipidemia Mental health problem Mother History of heart surgery Brother Alcoholism Grandfather Mental health problem Dementia Grandfather Stroke Social History household members: none Smoking Status: Never smoker second hand exposure: No alcohol intake: current substance use type: does not use Discharge Plan Discharge Plan Patient Disposition: Home Provider Discharge Comment: Return to the hospital if symptoms return. Discharge orders & Medications Prescriptions: Continued meloxicam 15 mg tablet 15 mg PO DAILY 0RF lisinopril 20 mg tablet 20 mg PO DAILY Qty: 90 0RF bupropion HCl 300 mg tablet extended release 24 hr 300 mg PO QAM MDD Bupropion XL Tab 300mg 24hr Qty: 90 3RF levothyroxine 50 mcg tablet See Rx Instructions .ROUTE .COMPLEX Qty: 90 3RF Dose Instruction: TAKE 1 TABLET BY MOUTH DAILY Rx Instructions: TAKE 1 TABLET BY MOUTH DAILY sucralfate 1 gram tablet 1 gram PO .COMPLEX Qty: 360 3RF Rx Instructions: 1 g PO BID-QID; Dissolve one tablet in glass of water about 20-30 minutes prior to meal sertraline 50 mg tablet 50 mg PO DAILY Qty: 90 3RF atorvastatin 20 mg tablet 20 mg PO DAILY Qty: 90 3RF Hold Instructions: Trial of cessation omeprazole 20 mg capsule,delayed release(DR/EC) 20 mg PO DAILY Qty: 30 0RF Hold Instructions: trial of cessation Follow up/Referrals: Tucker Greco MD [Primary Care Provider] - Edgar Tomas MD [Physician] - Visit Report/Discharge Packet Instructions: Ventral Hernia Discharge Data Primary Care Provider: Tucker Greco Attending Provider: Edgar Tomas Quality VTE Deep Vein Thrombosis/Pulmonary Embolism Present on Admission: No
--- NOTE | 2021-12-21 19:16 | PC.NURSE ---
Pt A&OX3, VSS, afebrile on RA. She denies pain n/v. She tolerates clear liquid diet well. She is advanced to regular diet this afternoon and tolerates dinner well. MD at bedside clearing her for discharge. She verbalizes understanding of all discharge instructions. She is escorted out of hospital by wheel chair to private vehicle for discharge home with all of her belongings at 1900
== END 2021-12-21 19:00 | disposition home or self-care (01) ==
LOC: ED 15:55 → AC 17:10
PROVIDERS: Admitting Provider Surgery; Emergency Provider Emergency Medicine; Family Provider Specialist; PCP Student in an Organized Health Care Education/Training Program; Referring Provider Emergency Medicine; Visit Provider Surgery
DX: K43.9 Ventral hernia without obstruction or gangrene (principal); Z20.822 Contact with and (suspected) exposure to COVID-19
CPT/HCPCS: 36415; 74176; 80048; 80053; 85025; 87635; 93005; 96360; 96361; 99217; 99220; 99284; C9803; G0378

== ENCOUNTER 2021-12-28 23:56 | Inpatient (IN) | payer MEDICARE, MEDICAID, SELFPAY ==
[2021-12-20 18:07] VITALS: BMI 40.0
[2021-12-29] VITALS (21 sets, daily range): BP systolic 83–170; BP diastolic 37–90; PULSE 73–86; RESP 16–18; TEMP 36.2–36.7; O2SAT 94–100; BMI 40.5; BMI 40.4
[2021-12-29] MEDS: ONDANSETRON 4 MG/2 ML INJ (00:26)
--- NOTE | 2021-12-29 00:36 | ED.GENADULT ---
HPI - General Adult General Chief complaint: Abdominal Pain Stated complaint: ABD Pain Time Seen by Provider: 12/29/21 00:28 Source: patient Mode of arrival: EMS Limitations: no limitations History of Present Illness HPI narrative: 71-year-old female who has a known ventral hernia. Has been admitted to this hospital recently for bowel obstruction related to this hernia. She subsequently was discharged home without surgical intervention due to the resolution of her symptoms. She was supposed to follow-up with general surgery next week to talk about having this surgically repaired. She was at her normal state health until this afternoon when she started getting abdominal discomfort and vomiting. She felt like the hernia was sticking out once again. Is having quite a bit of discomfort. Contacted EMS who brought her in for further evaluation. Related Data Home Medications Medication Instructions Recorded Confirmed meloxicam 15 mg tablet 15 mg PO DAILY 11/15/21 12/29/21 bupropion HCl 150 mg 24 hr tablet, mg PO 12/29/21 extended release Previous Rx's Medication Instructions Recorded bupropion HCl 300 mg 24 hr tablet, 300 mg PO QAM #90 tab MDD 08/08/20 extended release Bupropion XL Tab 300mg 24hr levothyroxine 50 mcg tablet See Rx Instructions .ROUTE 08/08/20 .COMPLEX #90 tab sucralfate 1 gram tablet 1 gram PO .COMPLEX #360 tab 08/08/20 omeprazole 20 mg capsule,delayed 20 mg PO DAILY #30 cap 05/13/21 release lisinopril 20 mg tablet 20 mg PO DAILY #90 tab 11/15/21 atorvastatin 20 mg tablet 20 mg PO DAILY #90 tab 12/17/21 sertraline 50 mg tablet 50 mg PO DAILY #90 tab 12/17/21 Allergies Allergy/AdvReac Type Severity Reaction Status Date / Time No Known Drug Allergies Allergy Verified 12/20/21 11:47 Review of Systems Constitutional Constitutional: Denies fever(s) Cardiovascular Cardiovascular: Reports system reviewed and no additional complaints, except as documented Respiratory Respiratory: Reports system reviewed and no additional complaints, except as documented Gastrointestinal Gastrointestinal: Reports as per HPI and Reports system reviewed and no additional complaints, except as documented Genitourinary Genitourinary: Reports system reviewed and no additional complaints, except as documented Integumentary/Breasts Skin/Breast: Reports system reviewed and no additional complaints, except as documented Hematologic/Lymphatic On Anticoagulants: No 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) Surgical History Anesthesia History of appendectomy (~1954) History of bilateral salpingo-oophorectomy (BSO) (~1992) History of conization of cervix (~1973) History of laparoscopic adjustable gastric banding History of surgical removal of lesion (~2015) History of throat surgery (~2015) Family History Father History of heart disease Hyperlipidemia Mental health problem Mother History of heart surgery Brother Alcoholism Grandfather Mental health problem Dementia Grandfather Stroke Social History household members: none Smoking Status: Never smoker second hand exposure: No alcohol intake: current substance use type: does not use Smoking Status: Never smoker alcohol intake frequency: holidays/special occasions only Substance Use Type: does not use Exam Initial Vital Signs Initial Vital Signs: Vital Signs Temperature 97.6 F 12/29/21 00:00 Pulse Rate 77 12/29/21 00:00 Respiratory Rate 16 12/29/21 00:00 Blood Pressure 142/90 H 12/29/21 00:00 Pulse Oximetry 98 12/29/21 00:00 HENMT Head: normal to inspection Resp Effort & Inspection: normal respiratory effort Auscultation: clear to auscultation bilaterally Cardio Rate: regular rate Rhythm: regular rhythm GI Other: She does have a palpable ventral hernia that is tender to touch. Attempted to reduce here in the emergency department was able to make a much smaller however I was not convinced that it was completely reduced. Skin General: no rashes or lesions noted Neuro General: patient alert, patient awake, patient oriented x3 and moves all extremities Extrem General: normal to inspection and capillary refill normal Psych Appearance: grossly normal and well kempt Course Orders Ordered: ED Orders 12/29/21 00:18 Complete Blood Count AUTO DIFF Stat Comprehensive Metabolic Panel Stat Lactate (Lactic Acid) Stat Lipase Stat 12/29/21 00:37 XR abdomen 1V Stat 12/29/21 01:08 Consult to General Surgery Stat 12/29/21 01:40 COVID19 -Nasal swab/Pre-Proc Stat Hydromorphone HCl (Hydromorphone 0.5 Mg Inj) 0.5 mg IV Q4H PRN PRN Reason: Pain, Moderate (4-6) Sodium Chloride (Normal Saline 0.9%) 1,000 mls @ 125 mls/hr IV CONT SHASHA Last Infusion: 12/29/21 01:46 Dose: 0 mls/hr Documented by: Admin: 12/29/21 00:45 Dose: 999 mls/hr Documented by: [email or web address] Sodium Chloride (Normal Saline 0.9%) 1,000 mls @ 80 mls/hr IV CONT SHASHA Last Admin: 12/29/21 02:20 Dose: 80 mls/hr Documented by: [email or web address] Labetalol HCl (Labetalol 20 Mg/4 Ml Syringe) 10 mg IV Q4HR PRN PRN Reason: Hypertension Metoclopramide HCl (Metoclopramide 10 Mg/2 Ml Inj) 10 mg IV Q6HR PRN PRN Reason: Nausea And Vomiting Morphine Sulfate (Morphine 2 Mg/Ml Inj) 2 mg IV Q4H PRN PRN Reason: Abd pain Last Admin: 12/29/21 02:16 Dose: 2 mg Documented by: [email or web address] Naloxone HCl (Naloxone 0.4 Mg/Ml Vial) 0.2 mg IV Q2MIN PRN PRN Reason: Opiate Reversal Ondansetron HCl (Ondansetron 4 Mg/2 Ml Inj) 4 mg IV Q4HR [facility] Sennosides (Sennosides 8.6 Mg Tablet) 17.2 mg PO BEDTIME SHASHA Discontinued Medications Hydromorphone HCl (Hydromorphone 1 Mg Inj) 1 mg IV NOW ONE Stop: 12/29/21 01:17 Last Admin: 12/29/21 01:35 Dose: 1 mg Documented by: DUY Metoclopramide HCl (Metoclopramide 10 Mg/2 Ml Inj) 10 mg IV NOW ONE Stop: 12/29/21 01:17 Last Admin: 12/29/21 01:34 Dose: 10 mg Documented by: DUY Morphine Sulfate (Morphine 4 Mg/Ml Inj) 4 mg IV NOW ONE Stop: 12/29/21 00:38 Last Admin: 12/29/21 00:43 Dose: 4 mg Documented by: LUKE Ondansetron HCl (Ondansetron 4 Mg/2 Ml Inj) 4 mg IV NOW ONE Stop: 12/29/21 00:38 Last Admin: 12/29/21 02:35 Dose: 4 mg Documented by: Vital Signs Vital signs: Vital Signs - 8 hr 12/29/21 00:00 12/29/21 01:02 Temperature 97.6 F Pulse Rate 77 78 Respiratory Rate 16 Blood Pressure 142/90 H Pulse Oximetry 98 100 Medical Decision Making Medical Records Medical records reviewed: Yes I reviewed the patient's medical records. Lab Data Lab results reviewed: Yes I reviewed the patient's lab results. Result diagrams: 12/29/21 00:18 12/29/21 00:18 Labs: Lab Results 12/29/21 12/29/21 12/29/21 Range/Units 00:18 00:18 00:18 WBC 7.9 (4.5-11.0) X10^3/uL RBC 4.63 (4.0-5.2) X10^6/uL Hgb 13.4 (12.0-16.0) g/dL Hct 40.9 (36-46) % MCV 88.2 (80-100) fL MCH 28.8 (26-34) PG MCHC 32.7 (30-36) % RDW 14.0 (11.6-14.8) % Plt Count 198 (150-400) X10^3/uL Neut % (Auto) 76.4 H (50-75) % Lymph % (Auto) 13.5 L (25-40) % [place] % (Auto) 8.1 (3-14) % Eos % (Auto) 1.5 L (2-4) % Baso % (Auto) 0.5 (0-2) % Neut # (Auto) 6100 (4490-3174) /uL Lymph # (Auto) 1100 (9179-8155) /uL [place] # (Auto) 600 (0-900) /uL Eos # (Auto) 100 (0-450) /uL Baso # (Auto) 0 (0-100) /uL Sodium 138 (137-145) mmol/L Potassium 3.7 (3.4-5.1) mmol/L Chloride 107 (98-107) mmol/L Carbon Dioxide 24 (22-32) mmol/L BUN 18 H (7-17) mg/dL Creatinine 0.82 (0.52-1.04) mg/dL Estimated GFR > 60.0 (>60) mL/min BUN/Creatinine Ratio 22.0 (6-22) Glucose 115 H (80-110) mg/dL Lactate 1.3 (0.7-2.1) mmol/L Calcium 9.1 (8.4-10.2) mg/dL Total Bilirubin 0.9 (0.2-1.3) mg/dL AST 24 (14-36) IU/L ALT 16 (<35) IU/L Alkaline Phosphatase 106 (38-126) U/L Total Protein 6.7 (6.3-8.2) g/dL Albumin 4.0 (3.5-5.0) g/dL Globulin 2.7 (1.7-4.1) g/dL Albumin/Globulin Ratio 1.5 (1.0-2.8) Lipase 40 (23-300) U/L Imaging Data Abdominal x-ray: Radiologist's Impression: [address] [address] XRay Report Signed Patient: Terese Trejo MR#: [id number] : 1950 Acct:[id number] Age/Sex: 71 / F Date of Service: 12/29/21 Loc: ED Accession Number: [id number] ?? Procedure: XR abdomen 1V Ordering Provider: Renny Guadarrama D.O. PROCEDURE:? XR ABDOMEN 1V ? INDICATIONS:? Abdominal pain ? TECHNIQUE:? One view of the abdomen acquired.? ? COMPARISON:? [facility], CT, CT ABDOMEN PELVIS WO CON, 12/20/2021, 13:44.? [facility], CR, XR ABDOMEN MIN 2V, 09/14/2019, 8:40. ? FINDINGS:? ? Surgical changes and devices:? None.? ? Bowel:? Multiple moderately distended loops of small bowel are present within the central and right hemiabdomen. ? Soft tissues:? No suspicious abdominal calcifications.? Visualized solid organ contours appear normal in size.? ? Bones:? No suspicious bony lesions.? ? IMPRESSION:? Small-bowel obstruction. ? ? Dictated by: Harrison Sheffield M.D. on 12/29/2021 at 1:12 ? ? Approved by: Harrison Sheffield M.D. on 12/29/2021 at 1:13?? MDM Narrative Medical decision making narrative: Patient has an obvious ventral hernia on exam today that is tender to palpation. Was able to partially reduce it here in the ER but not convinced that it was completely reduced. Abdominal x-ray shows dilated loops of bowel consistent with bowel obstruction. Patient requires multiple doses of nausea and pain medication. Discussed the case with Dr. Tomas who asked the patient be admitted to the medicine service. He will fall long most likely off for operative repair. He also recommended NG tube which the patient declined. States that there has been at multiple times in the past to pass an NG tube and they have all been unsuccessful. Discussed the case with NIKI [facility] provider who will admit for further evaluation and treatment. I did discuss the need for admission with the patient she expressed understanding and agreement as well. Discharge Plan Departure Patient Disposition: Admitted As Inpatient Clinical Impression: Ventral hernia, Bowel obstruction Admit Date/Time: 12/29/21 01:26 Admit Provider: Gloria Canada
--- NOTE | 2021-12-29 00:37 | DI.RAD.S_ITS ---
PROCEDURE: XR ABDOMEN 1V INDICATIONS: Abdominal pain TECHNIQUE: One view of the abdomen acquired. COMPARISON: [facility], CT, CT ABDOMEN PELVIS WO CON, 12/20/2021, 13:44. [facility], CR, XR ABDOMEN MIN 2V, 09/14/2019, 8:40. FINDINGS: Surgical changes and devices: None. Bowel: Multiple moderately distended loops of small bowel are present within the central and right hemiabdomen. Soft tissues: No suspicious abdominal calcifications. Visualized solid organ contours appear normal in size. Bones: No suspicious bony lesions. IMPRESSION: Small-bowel obstruction. Dictated by: Harrison Sheffield M.D. on 12/29/2021 at 1:12 Approved by: Harrison Sheffield M.D. on 12/29/2021 at 1:13
[2021-12-29] MEDS: MORPHINE 4 MG/ML INJ IV (00:43)
[2021-12-29] MEDS: SODIUM CHLORIDE 0.9% 1,000 ML 999 ML IV (00:45)
[2021-12-29 00:49] LABS: Add Manual Diff / Slide Review NO; Basophils Absolute Auto 0 /uL (0-100); Basophils Percent Auto 0.5 % (0-2); Eosinophils Absolute Auto 100 /uL (0-450); Eosinophils Percent Auto 1.5 % (2-4); Hematocrit 40.9 % (36-46); Hemoglobin 13.4 g/dL (12.0-16.0); Lymphocytes Absolute Auto 1100 /uL (1100-4500); Lymphocytes Percent Auto 13.5 % (25-40); Mean Corpuscular HGB Conc 32.7 % (30-36); Mean Corpuscular Hemoglobin 28.8 PG (26-34); Mean Corpuscular Volume 88.2 fL (80-100); Monocytes Absolute Auto 600 /uL (0-900); Monocytes Percent Auto 8.1 % (3-14); Neutrophils Absolute Auto 6100 /uL (1500-7000); Neutrophils Percent Auto 76.4 % (50-75); Platelet Count 198 X10^3/uL (150-400); Red Blood Cell Count 4.63 X10^6/uL (4.0-5.2); White Blood Cell Count 7.9 X10^3/uL (4.5-11.0)
[2021-12-29 00:52] LABS: Alanine Aminotransferase 16 IU/L (<35); Albumin Globulin Ratio 1.5 (1.0-2.8); Alkaline Phosphatase 106 U/L (38-126); Aspartate Aminotransferase 24 IU/L (14-36); Bilirubin Total 0.9 mg/dL (0.2-1.3); Blood Urea Nitrogen 18 mg/dL (7-17); Calcium 9.1 mg/dL (8.4-10.2); Carbon Dioxide 24 mmol/L (22-32); Chloride 107 mmol/L (98-107); Estimated Glomerular Filt Rate > 60.0 mL/min (>60); Globulin 2.7 g/dL (1.7-4.1); Glucose 115 mg/dL (80-110); HEMOLYSIS < 15 (0-50); Lactate (Lactic Acid) 1.3 mmol/L (0.7-2.1); Lipase 40 U/L (23-300); Potassium 3.7 mmol/L (3.4-5.1); Sodium 138 mmol/L (137-145); Total Protein 6.7 g/dL (6.3-8.2)
[2021-12-29] MEDS: METOCLOPRAMIDE 10 MG/2 ML INJ IV (01:34)
[2021-12-29] MEDS: HYDROMORPHONE 1 MG INJ IV (01:35)
[2021-12-29 01:55] LABS: COVID19 -Nasal RAPID Negative (Negative)
[2021-12-29] MEDS: MORPHINE 2 MG/ML INJ IV (02:16)
[2021-12-29] MEDS: SODIUM CHLORIDE 0.9% 1,000 ML 80 ML IV (02:20)
[2021-12-29] MEDS: ONDANSETRON 4 MG/2 ML INJ IV ×3 (02:35→08:38)
[2021-12-29] MEDS: HYDROMORPHONE 0.5 MG INJ IV (05:00)
[2021-12-29 05:36] LABS: INR 1.2 (0.9-1.3); Prothrombin Time 13.2 SECONDS (10.1-12.7)
--- NOTE | 2021-12-29 06:31 | PC.NURSE ---
Shift Note: Received patient from ER with worsening abdominal pain, patient was alert and orientedx4, afebrile, vital signs within acceptable limits. Due pain meds given, verbalized moderate relief. Patient still nauseated, no vomiting, due Zofran given and stated minimal relief. On IV hydration, NS at 80mls/hr. Maintained patient on NPO. Will continue to monitor.
--- NOTE | 2021-12-29 08:22 | PC.NURSE ---
Addendum entered by Deepti Gutierrez R.N. 12/29/21 19:26: Patient did not need her noon dose of zofran or her 1700 dose as she has denied nausea or pain for the shift. She is now on a general diet and is tolerating food well. Blood pressure taken with machine in room and 86/37, and r. 83/45. Just rechecked with manual blood pressure and 100/62. Patient is on NS at 125cc/hr, she has voided 750cc for the shift and is going to use the bathroom soon. Patient is asymptomatic with pressure and denies dizziness. Encouraged to drink. Original Note: Assess- Patient is alert and oriented x3, she denies pain at this time, will give her zofran for nausea. Abdomen is slightly distended, patient has bowel tones in lower quadrants and hypoactive in upper quadrants. She is NPO, blood sugar is 150s
--- NOTE | 2021-12-29 08:35 | PM.HP.1 ---
History of Present Illness History of Present Illness Date Patient Seen: 12/29/21 Time Patient Seen: 07:30 Chief complaint: ABD Pain Narrative: 71-year-old female with history of ventral hernia, hypothyroidism, hypertension, GERD presents with acute abdominal pain, nausea and vomiting over the past 24 hours. She was recently admitted due to obstruction from incarcerated ventral hernia. She was managed non operatively and discharged on 12/21/2021. Now she is abdominal pain similar to previous presentation. She feels the same bulge in her mid abdomen. It was not reducible in the ED. abdominal x-rays showed multiple distended loops of small bowel within the central and right hemiabdomen. 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) Surgical History Anesthesia History of appendectomy (~1954) History of bilateral salpingo-oophorectomy (BSO) (~1992) History of conization of cervix (~1973) History of laparoscopic adjustable gastric banding History of surgical removal of lesion (~2015) History of throat surgery (~2015) Family & Social History Family History Father History of heart disease Hyperlipidemia Mental health problem Mother History of heart surgery Brother Alcoholism Grandfather Mental health problem Dementia Grandfather Stroke Social History: household members none Prior Living Arrangements Apartment/Condo Safety & Behavioral: Feels Safe in Current Yes Environment Been Physically Hurt or No Threatened By a Person Suicidal Ideation Description None Suicide Plan Description No Plan Tobacco & Substance use: Smoking Status Never smoker alcohol intake current alcohol intake frequency holiday/special occasion Substance Use Type does not use Meds Home Medications and Allergies Home Medications Medication Instructions Recorded Confirmed Type bupropion HCl 300 mg 24 hr tablet, 300 mg PO QAM #90 tab MDD 08/08/20 12/29/21 Rx extended release Bupropion XL Tab 300mg 24hr levothyroxine 50 mcg tablet See Rx Instructions .ROUTE 08/08/20 12/29/21 Rx .COMPLEX #90 tab sucralfate 1 gram tablet 1 gram PO .COMPLEX #360 tab 08/08/20 12/29/21 Rx omeprazole 20 mg capsule,delayed 20 mg PO DAILY #30 cap 05/13/21 12/29/21 Rx release lisinopril 20 mg tablet 20 mg PO DAILY #90 tab 11/15/21 12/29/21 Rx meloxicam 15 mg tablet 15 mg PO DAILY 11/15/21 12/29/21 History atorvastatin 20 mg tablet 20 mg PO DAILY #90 tab 12/17/21 12/29/21 Rx sertraline 50 mg tablet 50 mg PO DAILY #90 tab 12/17/21 12/29/21 Rx bupropion HCl 150 mg 24 hr tablet, mg PO 12/29/21 History extended release Allergies Allergy/AdvReac Type Severity Reaction Status Date / Time No Known Drug Allergies Allergy Verified 12/20/21 11:47 Review of Systems Review of Systems Narrative: Positive for chills, no fever, no chest pain, shortness of breath, cough, dysuria, rash, confusion Exam Vital Signs (past 8 hours): - 12/29/21 01:02 12/29/21 01:30 12/29/21 01:32 Temperature Pulse Rate 78 78 77 Respiratory Rate Blood Pressure Pulse Oximetry 100 98 97 12/29/21 01:41 12/29/21 01:42 12/29/21 01:50 Temperature 97.5 F L Pulse Rate 81 77 Respiratory Rate 18 Blood Pressure 170/79 H 164/89 H Pulse Oximetry 97 97 12/29/21 01:51 12/29/21 05:39 12/29/21 05:51 Temperature 97.1 F L Pulse Rate 86 Respiratory Rate 18 Blood Pressure 109/68 Pulse Oximetry 97 97 97 Oxygen Delivery Method Room Air Oxygen Flow Rate 0 Narrative Exam Narrative: General: Alert and pleasant female in no acute distress HEENT: Nontraumatic, pupils equal, anicteric Neck: No lymphadenopathy Lungs: Clear to auscultation Heart: Regular rhythm without murmur Abdomen: Mildly distended few bowel sounds present, there is a bulge in the right central abdomen Extremities: No edema Neurological: Fully oriented, speech normal, affect normal, no focal weakness Objective Labs Result Diagrams: 12/29/21 00:18 12/29/21 00:18 Labs: Laboratory Results - last 24 hr 12/29/21 12/29/21 12/29/21 00:18 00:18 00:18 WBC 7.9 RBC 4.63 Hgb 13.4 Hct 40.9 MCV 88.2 MCH 28.8 MCHC 32.7 RDW 14.0 Plt Count 198 Neut % (Auto) 76.4 H Lymph % (Auto) 13.5 L [place] % (Auto) 8.1 Eos % (Auto) 1.5 L Baso % (Auto) 0.5 Neut # (Auto) 6100 Lymph # (Auto) 1100 [place] # (Auto) 600 Eos # (Auto) 100 Baso # (Auto) 0 PT INR Sodium 138 Potassium 3.7 Chloride 107 Carbon Dioxide 24 BUN 18 H Creatinine 0.82 Estimated GFR > 60.0 BUN/Creatinine Ratio 22.0 Glucose 115 H Lactate 1.3 Calcium 9.1 Total Bilirubin 0.9 AST 24 ALT 16 Alkaline Phosphatase 106 Total Protein 6.7 Albumin 4.0 Globulin 2.7 Albumin/Globulin Ratio 1.5 Lipase 40 SARS-CoV-2 (PCR) 12/29/21 12/29/21 01:40 04:53 WBC RBC Hgb Hct MCV MCH MCHC RDW Plt Count Neut % (Auto) Lymph % (Auto) [place] % (Auto) Eos % (Auto) Baso % (Auto) Neut # (Auto) Lymph # (Auto) [place] # (Auto) Eos # (Auto) Baso # (Auto) PT 13.2 H INR 1.2 Sodium Potassium Chloride Carbon Dioxide BUN Creatinine Estimated GFR BUN/Creatinine Ratio Glucose Lactate Calcium Total Bilirubin AST ALT Alkaline Phosphatase Total Protein Albumin Globulin Albumin/Globulin Ratio Lipase SARS-CoV-2 (PCR) Negative Assessment & Plan Assessment & Plan narrative: 1. Recurrent SBO due to incarcerated ventral hernia -Dr. Tomas to see patient for surgery consult -NPO, bowel rest, IV fluids, analgesics, antiemetic -patient declined NG tube and not currently actively vomiting 2. Hypertension, hyperlipidemia -hold lisinopril and atorvastatin -labetalol IV as needed BP greater than 180/100 3. History of erosive gastritis -Protonix 20 mg IV q.day -change to oral PPI and her sucralfate when able to take p.o. 4. Hypothyroidism -restart levothyroxine when able to take p.o. 5. Depression -restart antidepressants when able to take p.o. Time Spent With Patient Critical Care time: I spent a total of [] minutes of critical care time on this patient's care today; this time is exclusive of procedural time. Quality VTE Deep Vein Thrombosis/Pulmonary Embolism Present on Admission: No
--- NOTE | 2021-12-29 11:40 | PM.CN ---
History of Present Illness Consult details Date Patient Seen: 12/29/21 Time Patient Seen: 11:40 Chief complaint: ABD Pain Narrative: Terese returned to the ER last night because of severe pain at the site of her hernia again. She felt that she could not reduce the hernia and came to the ER. Since then, her pain is resolved and the hernia is now softer. Meds Home Medications and Allergies Home Medications Medication Instructions Recorded Confirmed Type bupropion HCl 300 mg 24 hr tablet, 300 mg PO QAM #90 tab MDD 08/08/20 12/29/21 Rx extended release Bupropion XL Tab 300mg 24hr levothyroxine 50 mcg tablet See Rx Instructions .ROUTE 08/08/20 12/29/21 Rx .COMPLEX #90 tab sucralfate 1 gram tablet 1 gram PO .COMPLEX #360 tab 08/08/20 12/29/21 Rx omeprazole 20 mg capsule,delayed 20 mg PO DAILY #30 cap 05/13/21 12/29/21 Rx release lisinopril 20 mg tablet 20 mg PO DAILY #90 tab 11/15/21 12/29/21 Rx meloxicam 15 mg tablet 15 mg PO DAILY 11/15/21 12/29/21 History atorvastatin 20 mg tablet 20 mg PO DAILY #90 tab 12/17/21 12/29/21 Rx sertraline 50 mg tablet 50 mg PO DAILY #90 tab 12/17/21 12/29/21 Rx bupropion HCl 150 mg 24 hr tablet, mg PO 12/29/21 History extended release Allergies Allergy/AdvReac Type Severity Reaction Status Date / Time No Known Drug Allergies Allergy Verified 12/20/21 11:47 Exam Vital Signs (past 8 hours): - 12/29/21 05:39 12/29/21 05:51 12/29/21 07:45 Temperature 97.1 F L 98.0 F Pulse Rate 86 82 Respiratory Rate 18 18 Blood Pressure 109/68 105/61 Pulse Oximetry 97 97 94 12/29/21 09:16 Temperature Pulse Rate Respiratory Rate Blood Pressure Pulse Oximetry 95 Oxygen Delivery Method Room Air Oxygen Flow Rate 0 Narrative Exam Narrative: Abdomen is obese, soft, nontender Hernia is reducible and soft similar to her exam from last week Objective Labs Result Diagrams: 12/29/21 00:18 12/29/21 00:18 Labs: Laboratory Results - last 24 hr 12/29/21 12/29/21 12/29/21 00:18 00:18 00:18 WBC 7.9 RBC 4.63 Hgb 13.4 Hct 40.9 MCV 88.2 MCH 28.8 MCHC 32.7 RDW 14.0 Plt Count 198 Neut % (Auto) 76.4 H Lymph % (Auto) 13.5 L [place] % (Auto) 8.1 Eos % (Auto) 1.5 L Baso % (Auto) 0.5 Neut # (Auto) 6100 Lymph # (Auto) 1100 [place] # (Auto) 600 Eos # (Auto) 100 Baso # (Auto) 0 PT INR Sodium 138 Potassium 3.7 Chloride 107 Carbon Dioxide 24 BUN 18 H Creatinine 0.82 Estimated GFR > 60.0 BUN/Creatinine Ratio 22.0 Glucose 115 H Lactate 1.3 Calcium 9.1 Total Bilirubin 0.9 AST 24 ALT 16 Alkaline Phosphatase 106 Total Protein 6.7 Albumin 4.0 Globulin 2.7 Albumin/Globulin Ratio 1.5 Lipase 40 SARS-CoV-2 (PCR) 12/29/21 12/29/21 01:40 04:53 WBC RBC Hgb Hct MCV MCH MCHC RDW Plt Count Neut % (Auto) Lymph % (Auto) [place] % (Auto) Eos % (Auto) Baso % (Auto) Neut # (Auto) Lymph # (Auto) Rogers # (Auto) Eos # (Auto) Baso # (Auto) PT 13.2 H INR 1.2 Sodium Potassium Chloride Carbon Dioxide BUN Creatinine Estimated GFR BUN/Creatinine Ratio Glucose Lactate Calcium Total Bilirubin AST ALT Alkaline Phosphatase Total Protein Albumin Globulin Albumin/Globulin Ratio Lipase SARS-CoV-2 (PCR) Negative [facility] Medical History Anterolisthesis Cervical cancer (~1974) Depression 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) Gastroesophageal reflux disease (05/12/14) Gastroparesis (12/28/15) Hypothyroidism (11/27/11) Kidney stones (~2011) Mass of left side of neck Osteoarthritis of right hip Tinnitus (~2018) 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) Surgical History Anesthesia History of appendectomy (~1954) History of bilateral salpingo-oophorectomy (BSO) (~1992) History of conization of cervix (~1973) History of laparoscopic adjustable gastric banding History of surgical removal of lesion (~2015) History of throat surgery (~2016) Family History Father History of heart disease Hyperlipidemia Mental health problem Mother History of heart surgery Brother Alcoholism Grandfather Mental health problem Dementia Grandfather Stroke Social History household members: none Tobacco & Substance Use Smoking Status: Never smoker second hand exposure: No alcohol intake: current substance use type: does not use Assessment & Plan Assessment and plan (1) Ventral hernia: Problem details: Reducible. Observe at this time. Her size makes repair of this questionable short of an emergency. Qualifiers: Obstruction and gangrene presence: without obstruction or gangrene Qualified Code(s): K43.9 - Ventral hernia without obstruction or gangrene Status: Acute Plan Her ventral hernia is reducible at this time and there is no reason suspect incarceration or strangulation at this time. Okay to advance diet and if she tolerates that she can be discharged. Operative repair would be best done electively and after additional weight loss. Time Spent With Patient Critical Care time: I spent a total of [] minutes of critical care time on this patient's care today; this time is exclusive of procedural time.
[2021-12-29] MEDS: SODIUM CHLORIDE 0.9% 1,000 ML 125 ML IV ×2 (13:35→21:52)
[2021-12-30] VITALS (8 sets, daily range): BP systolic 98–108; BP diastolic 52–60; PULSE 71–77; RESP 18; TEMP 36.4–36.7; O2SAT 96–100
[2021-12-30 05:28] LABS: Add Manual Diff / Slide Review NO; Basophils Absolute Auto 0 /uL (0-100); Basophils Percent Auto 0.5 % (0-2); Eosinophils Absolute Auto 200 /uL (0-450); Eosinophils Percent Auto 3.4 % (2-4); Hematocrit 36.3 % (36-46); Hemoglobin 11.9 g/dL (12.0-16.0); Lymphocytes Absolute Auto 1500 /uL (1100-4500); Lymphocytes Percent Auto 33.9 % (25-40); Mean Corpuscular HGB Conc 32.7 % (30-36); Mean Corpuscular Hemoglobin 29.1 PG (26-34); Mean Corpuscular Volume 88.9 fL (80-100); Monocytes Absolute Auto 500 /uL (0-900); Monocytes Percent Auto 10.6 % (3-14); Neutrophils Absolute Auto 2300 /uL (1500-7000); Neutrophils Percent Auto 51.6 % (50-75); Platelet Count 153 X10^3/uL (150-400); Red Blood Cell Count 4.09 X10^6/uL (4.0-5.2); Red Cell Distribution Width 14.2 % (11.6-14.8); White Blood Cell Count 4.5 X10^3/uL (4.5-11.0)
[2021-12-30 05:43] LABS: Alanine Aminotransferase 11 IU/L (<35); Albumin 2.7 g/dL (3.5-5.0); Albumin Globulin Ratio 1.1 (1.0-2.8); Alkaline Phosphatase 73 U/L (38-126); Aspartate Aminotransferase 19 IU/L (14-36); BUN Creatinine Ratio 18.4 (6-22); Bilirubin Total 0.5 mg/dL (0.2-1.3); Blood Urea Nitrogen 16 mg/dL (7-17); Calcium 7.6 mg/dL (8.4-10.2); Carbon Dioxide 26 mmol/L (22-32); Chloride 111 mmol/L (98-107); Estimated Glomerular Filt Rate > 60.0 mL/min (>60); Globulin 2.5 g/dL (1.7-4.1); Glucose 84 mg/dL (80-110); HEMOLYSIS < 15 (0-50); Potassium 3.7 mmol/L (3.4-5.1); Sodium 140 mmol/L (137-145); Total Protein 5.2 g/dL (6.3-8.2)
[2021-12-30] MEDS: SODIUM CHLORIDE 0.9% 1,000 ML 125 ML IV (05:59)
--- NOTE | 2021-12-30 10:20 | PM.PN.1 ---
Subjective Subjective Date Patient Seen: 12/30/21 Time Patient Seen: 10:20 Interval history: Tolerating diet and passing gas. She has consult. Pain is much improved Exam Vital Signs (past 8 hours): - 12/30/21 03:00 12/30/21 04:00 12/30/21 07:53 Temperature 97.8 F 97.6 F Pulse Rate 77 71 Respiratory Rate 18 18 Blood Pressure 100/58 L 98/52 L Pulse Oximetry 96 99 100 Oxygen Delivery Method Room Air Oxygen Flow Rate 0 Const General: No acute distress Objective Labs Result Diagrams: 12/30/21 05:09 12/30/21 05:09 Labs: Laboratory Results - last 24 hr 12/30/21 12/30/21 05:09 05:09 WBC 4.5 RBC 4.09 Hgb 11.9 L Hct 36.3 MCV 88.9 MCH 29.1 MCHC 32.7 RDW 14.2 Plt Count 153 Neut % (Auto) 51.6 D Lymph % (Auto) 33.9 D [place] % (Auto) 10.6 Eos % (Auto) 3.4 Baso % (Auto) 0.5 Neut # (Auto) 2300 Lymph # (Auto) 1500 [place] # (Auto) 500 Eos # (Auto) 200 Baso # (Auto) 0 Sodium 140 Potassium 3.7 Chloride 111 H Carbon Dioxide 26 BUN 16 Creatinine 0.87 Estimated GFR > 60.0 BUN/Creatinine Ratio 18.4 Glucose 84 Calcium 7.6 L Total Bilirubin 0.5 AST 19 ALT 11 Alkaline Phosphatase 73 Total Protein 5.2 L Albumin 2.7 L Globulin 2.5 Albumin/Globulin Ratio 1.1 [facility] Medical History Anterolisthesis Cervical cancer (~1974) Depression 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) Gastroesophageal reflux disease (05/12/14) Gastroparesis (12/28/15) Hypothyroidism (11/27/11) Kidney stones (~2011) Mass of left side of neck Osteoarthritis of right hip Tinnitus (~2018) 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) Surgical History Anesthesia History of appendectomy (~1954) History of bilateral salpingo-oophorectomy (BSO) (~1992) History of conization of cervix (~1973) History of laparoscopic adjustable gastric banding History of surgical removal of lesion (~2015) History of throat surgery (~2015) Family History Father History of heart disease Hyperlipidemia Mental health problem Mother History of heart surgery Brother Alcoholism Grandfather Mental health problem Dementia Grandfather Stroke Social History household members: none Smoking Status: Never smoker second hand exposure: No alcohol intake: current substance use type: does not use Assessment & Plan Assessment and plan (1) Ventral hernia: Problem details: Reducible. Observe at this time. Her size makes repair of this questionable short of an emergency. Qualifiers: Obstruction and gangrene presence: without obstruction or gangrene Qualified Code(s): K43.9 - Ventral hernia without obstruction or gangrene Status: Acute Plan Okay to discharge home. She will keep her follow-up appointment with me on Friday of this coming week to arrange for scheduled ventral incisional hernia repair down the road. Time Spent With Patient Critical Care time: I spent a total of [] minutes of critical care time on this patient's care today; this time is exclusive of procedural time. Quality VTE Deep Vein Thrombosis/Pulmonary Embolism Present on Admission: No
--- NOTE | 2021-12-30 11:04 | P.DS_ITS ---
History of Present Illness History of Present Illness Chief complaint: ABD Pain Narrative: 71-year-old female with history of ventral hernia, hypothyroidism, hypertension, GERD presents with acute abdominal pain, nausea and vomiting over the past 24 hours. She was recently admitted due to obstruction from incarcerated ventral hernia. She was managed non operatively and discharged on 12/21/2021. Now she is abdominal pain similar to previous presentation. She feels the same bulge in her mid abdomen. It was not reducible in the ED. abdominal x-rays showed multiple distended loops of small bowel within the central and right hemiabdomen. Discharge Providers Provider Date of admission: 12/29/21 01:26 Discharge Date: 12/30/21 Primary care physician: Tucker Greco MD Consults: 12/29/21 01:08 Consult to General Surgery Stat Comment: Consulting Provider: Edgar Tomas Reason for consultation: SBO Has provider been notified: Yes 12/29/21 01:59 Consult to Physician Routine Comment: Consulting Provider: Edgar Tomas Reason for consultation: SBO, ventral hernia Has provider been notified: Yes Discharge provider: Ari Pacheco MD Summary Hospital Course Discharge Diagnosis: 1. Incarcerated ventral hernia with obstruction 2. Hypertension 3. History of erosive gastritis 4. 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 Edgar Tomas Hospital Course: Patient was managed conservatively with bowel rest, IV fluids and analgesics. By the time Dr. Tomas saw her a few hours later her hernia was completely reducible. Patient is tolerating regular diet prior to discharge. Due to abdominal obesity this would be a difficult mesh repair. She will continue ef forts towards weight loss. Take MiraLax as needed for occasional constipation. Status at Discharge Cognitive/behavioral status at discharge: oriented Functional status at discharge: independent ambulation Overall status at discharge: patient is back to baseline Time Spent with Patient Time spent: Less than 30 minutes Exam Vital Signs (past 8 hours): - 12/30/21 04:00 12/30/21 07:53 12/30/21 10:37 Temperature 97.8 F 97.6 F Pulse Rate 77 71 Respiratory Rate 18 18 Blood Pressure 100/58 L 98/52 L Pulse Oximetry 99 100 99 Oxygen Delivery Method Room Air Oxygen Flow Rate 0 Narrative Exam Narrative: General: NAD Lungs: Clear Abdomen: Ventral hernia reducible, nondistended Objective Labs Result Diagrams: 12/30/21 05:09 12/30/21 05:09 Labs: Laboratory Results - last 24 hr 12/30/21 12/30/21 05:09 05:09 WBC 4.5 RBC 4.09 Hgb 11.9 L Hct 36.3 MCV 88.9 MCH 29.1 MCHC 32.7 RDW 14.2 Plt Count 153 Neut % (Auto) 51.6 D Lymph % (Auto) 33.9 D [place] % (Auto) 10.6 Eos % (Auto) 3.4 Baso % (Auto) 0.5 Neut # (Auto) 2300 Lymph # (Auto) 1500 [place] # (Auto) 500 Eos # (Auto) 200 Baso # (Auto) 0 Sodium 140 Potassium 3.7 Chloride 111 H Carbon Dioxide 26 BUN 16 Creatinine 0.87 Estimated GFR > 60.0 BUN/Creatinine Ratio 18.4 Glucose 84 Calcium 7.6 L Total Bilirubin 0.5 AST 19 ALT 11 Alkaline Phosphatase 73 Total Protein 5.2 L Albumin 2.7 L Globulin 2.5 Albumin/Globulin Ratio 1.1 [facility] Medical History Anterolisthesis Cervical cancer (~1974) Depression 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) Gastroesophageal reflux disease (05/12/14) Gastroparesis (12/28/15) Hypothyroidism (11/27/11) Kidney stones (~2011) Mass of left side of neck Osteoarthritis of right hip Tinnitus (~2018) 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) Surgical History Anesthesia History of appendectomy (~1954) History of bilateral salpingo-oophorectomy (BSO) (~1992) History of conization of cervix (~1973) History of laparoscopic adjustable gastric banding History of surgical removal of lesion (~2015) History of throat surgery (~2015) Family History Father History of heart disease Hyperlipidemia Mental health problem Mother History of heart surgery Brother Alcoholism Grandfather Mental health problem Dementia Grandfather Stroke Social History household members: none Smoking Status: Never smoker second hand exposure: No alcohol intake: current substance use type: does not use Discharge Plan Discharge Plan Patient Disposition: Home Discharge orders & Medications Prescriptions: New polyethylene glycol 3350 [Miralax] 17 gram/dose powder 17 g PO DAILY PRN (Reason: prevent constipation) Qty: 1 0RF Continued meloxicam 15 mg tablet 15 mg PO DAILY 0RF lisinopril 20 mg tablet 20 mg PO DAILY Qty: 90 0RF bupropion HCl 300 mg tablet extended release 24 hr 300 mg PO QAM MDD Bupropion XL Tab 300mg 24hr Qty: 90 3RF levothyroxine 50 mcg tablet See Rx Instructions .ROUTE .COMPLEX Qty: 90 3RF Dose Instruction: TAKE 1 TABLET BY MOUTH DAILY Rx Instructions: TAKE 1 TABLET BY MOUTH DAILY sucralfate 1 gram tablet 1 gram PO .COMPLEX Qty: 360 3RF Rx Instructions: 1 g PO BID-QID; Dissolve one tablet in glass of water about 20-30 minutes prior to meal sertraline 50 mg tablet 50 mg PO DAILY Qty: 90 3RF atorvastatin 20 mg tablet 20 mg PO DAILY Qty: 90 3RF Hold Instructions: Trial of cessation omeprazole 20 mg capsule,delayed release(DR/EC) 20 mg PO DAILY Qty: 30 0RF Hold Instructions: trial of cessation bupropion HCl 150 mg tablet extended release 24 hr PO 0RF Follow up/Referrals: Tucker Greco MD [Primary Care Provider] - Diet/Activity/Treatments Diet: Regular Discharge Data Primary Care Provider: Tucker Greco Quality VTE Deep Vein Thrombosis/Pulmonary Embolism Present on Admission: No
--- NOTE | 2021-12-30 11:04 | CM.IDA ---
Initial DCP Assessment Note Pt is a 71 yo female, resident at [facility] in [place], [facility] w/severe and persistent pain at the site of her known hernia admitted for observation; Dr Tomas consulted per consult note states: Her ventral hernia is reducible at this time and there is no reason suspect incarceration or strangulation at this time. Okay to advance diet and if she tolerates that she can be discharged. Operative repair would be best done electively and after additional weight loss. PCP: Tucker Greco Payer: [facility] Reviewed chart; patient is medically stable for DC today. Patient is indp at baseline and does not require any needs from this PERSONNEL PLACEMENT SPECIALIST. Patient is eager to return home. Plan: DC home w/family/friend pov with close outpatient f/u w/ Dr Tomas to schedule elective hernia repair ARIADNA Milian Discharge Planning/Care Management CM Discharge Assessment Start: 12/30/21 10:53 Freq: Status: Active Protocol: Document 12/30/21 10:54 DAYRON (Rec: 12/30/21 11:04 DAYRON [id number]) Discharge Planning Assessment Assigned Merchandising Stock Associate ARIADNA Isbell DPOA/Assigned Designee Name Jojo Mendenhall Zay Contact Information [phone] Advance Directives? No History Provided By Patient,Medical Record Has Patient been admitted in last 30 Yes days? Comment Here 2.24-2.25 Prior Living Arrangements Apartment/Condo Household Members none Comment [facility] Type of transporation used prior to Drives own vehicle admit Independent with ADL's Yes Is patient alert and oriented? Yes Barriers to Discharge No Comment Home today. Close outpatient f /u w/surgical team for ventral incisional hernia repair Discharge Plan Home Transportation Arrangement Family Referrals Initiated None needed
== END 2021-12-30 12:55 | disposition home or self-care (01) | DRG 394 ==
LOC: ED 12-29 01:16 → AC 12-29 01:27
PROVIDERS: Admitting Provider Nurse Practitioner Family; Emergency Provider Emergency Medicine; Family Provider Specialist; PCP Student in an Organized Health Care Education/Training Program; Referring Provider Emergency Medicine; Visit Provider Nurse Practitioner Family
DX: K43.6 Other and unspecified ventral hernia with obstruction, without gangrene (principal); Z68.41 Body mass index [BMI] 40.0-44.9, adult; E66.9 Obesity, unspecified; M16.11 Unilateral primary osteoarthritis, right hip; I10 Essential (primary) hypertension; F32.A Depression, unspecified; E03.9 Hypothyroidism, unspecified; K21.9 Gastro-esophageal reflux disease without esophagitis; Z20.822 Contact with and (suspected) exposure to COVID-19
CPT/HCPCS: 36415; 74018; 80053; 82962; 83605; 83690; 85025; 85610; 87086; 87635; 94760; 96361; 96374; 96375; 99231; 99232; 99284; C9803; J1170; J2270; J2405; J2765

== ENCOUNTER → 2022-01-28 10:28 | Outpatient (CLI) | payer MEDICARE, MEDICAID, SELFPAY ==
[2021-12-29 01:30] VITALS: BMI 40.4
[2022-01-28 14:09] LABS: COVID19 -Nasal RAPID Negative (Negative)
== END ==
PROVIDERS: Family Provider Specialist; PCP Student in an Organized Health Care Education/Training Program; Visit Provider Surgery
DX: Z01.812 Encounter for preprocedural laboratory examination (principal); Z20.822 Contact with and (suspected) exposure to COVID-19
CPT/HCPCS: 87635; C9803

== ENCOUNTER 2022-01-29 11:51 | Day surgery (SDC) | payer MEDICARE, MEDICAID, SELFPAY ==
[2021-12-29 01:30] VITALS: BMI 40.4
[2022-01-23 08:29] VITALS: BMI 42.1
[2022-01-29] VITALS (9 sets, daily range): BP systolic 108–123; BP diastolic 51–79; PULSE 77–85; RESP 12–20; TEMP 36.9–37.2; O2SAT 91–99; BMI 42.1
--- NOTE | 2022-01-29 | PATH_ITS ---
[facility] Accession Number: [id number] . 01 Material submitted: . hernia - HERNIA SAC . 02 Diagnosis: Hernia Sac, Biopsy: Benign fibroadipose tissue with focal reactive changes, consistent with hernia sac. MRV 02/06/2022 1158 Local . 02 Electronically signed: . Donna Nunez MD, Pathologist NPI- [id number] . 01 Gross description: . The specimen is received in formalin and labeled hernia sac is an excision of gandara to pink-valle fibroadipose tissue (15.8 x 9.1 x 2.0 cm). Sectioning the specimen reveals unremarkable cut surfaces. The specimen is representatively submitted in cassettes A1-A2. ([id number]) /MRV 02/05/2022 1327 Local . 02 Pathologist provided ICD-10: K43.9 . 02 CPT . 037281 Specimen Comment: A courtesy copy of this report has been sent to [phone] Performed at: 01 [facility] [address] [id number] MD Sea Bran MD Phone: [phone] Performed at: 02 [facility] [address] [place], [place] [id number] MD Donna Nunez MD Phone: [phone]
[2022-01-29] MEDS: LACTATED RINGERS 1,000 ML 42 ML IV ×2 (12:26→16:46)
--- NOTE | 2022-01-29 14:06 | PM.PREOP ---
Pre-operative Note COVID-19 COVID-19 status: Negative Result date/Date tested (Pos, Neg/Pending): 01/28/22 Interval Note History & Physical reviewed/Exam performed by Physician: Yes Changes to H&P: No ASA Class (for procedural sedation): II
[2022-01-29] MEDS: CEFAZOLIN 2 GM/20 ML SYRINGE IV (14:35)
--- NOTE | 2022-01-29 14:51 | SUR.OPER ---
Supine on padded OR bed, head on pillow, arms secured on padded arm boards at <90 degrees abduction, legs uncrossed, safety belt at thigh, tape over blanket over lower legs. directed and approved by
[2022-01-29] MEDS: BUPIVACAINE 0.5% (PF) VIAL 30 ML INJ (14:55)
[2022-01-29] MEDS: LIDOCAINE 1% W/EPI 20 ML INJ (14:56)
--- NOTE | 2022-01-29 16:29 | PM.OP.1 ---
Operative Date/Time/Diagnoses Date of procedure: 01/29/22 Time of procedure: 16:29 Pre-op diagnosis: Ventral hernia Post-op diagnosis: same Procedure & Clinicians Procedure: Open ventral hernia repair with mesh Same procedure as scheduled: Yes Surgeon: Edgar Tomas Anesthesia Type: General Operative Notes Procedure in detail: Ancef was administered. The patient was brought to the operating room, placed on the table in the supine position and general endotracheal anesthesia was induced. The abdomen was prepped and draped in the usual fashion. A time-out was performed. An 8 cm incision was made over the hernia which was located just superior into the right of the umbilicus. Dissection was carried down to the hernia sac. The hernia sac was freed from the fascial ring and the peritoneal cavity was entered. There was no bowel adherent to the sac. The sac was partially resected using LigaSure. The fascia was then closed with multiple interrupted 0 Ethibond sutures. The subcutaneous adipose tissue was cleared off of the anterior sheath circumferentially about 2 cm in each direction. A piece of polypropylene mesh was trimmed to fit over the fascial closure and secured with Tisseel. Once the Tisseel was dried a 15 round Abhishek drain was placed into the space and brought out through a right lower quadrant stab incision. Next the skin was closed with multiple interrupted 3-0 Vicryl dermal sutures followed by a running 4 Monocryl subcuticular closure. Steri-Strips were applied and an abdominal binder was applied. The drain was connected to a bulb suction device. Post-operative Condition: stable Disposition: PACU
[2022-01-29] MEDS: ACETAMINOPHEN 325 MG TABLET 975 MG PO (16:54)
[2022-01-29] MEDS: OXYCODONE IR 5 MG TABLET PO (16:57)
--- NOTE | 2022-01-29 18:05 | SUR.PHASEII ---
Discharge instructions reviewed with pt and friend Alicia. Both given time for questions and then verbalized understanding prior to discharging home.
== END 2022-01-29 18:06 | disposition home or self-care (01) ==
PROVIDERS: Family Provider Specialist; PCP Student in an Organized Health Care Education/Training Program; Referring Provider Surgery; Visit Provider Surgery
PROC: (CPT 49560; principal; 2022-01-29 12:45)
DX: K43.9 Ventral hernia without obstruction or gangrene (principal); Z68.41 Body mass index [BMI] 40.0-44.9, adult; E66.01 Morbid (severe) obesity due to excess calories; E03.9 Hypothyroidism, unspecified; I10 Essential (primary) hypertension; K21.9 Gastro-esophageal reflux disease without esophagitis; F41.9 Anxiety disorder, unspecified; F32.9 Major depressive disorder, single episode, unspecified
CPT/HCPCS: 49560; 49568; J0330; J0690; J1170; J2250; J2704; J3010

== ENCOUNTER → 2022-05-29 15:20 | Outpatient (CLI) | payer MEDICARE, MEDICAID, SELFPAY ==
[2021-12-29 01:30] VITALS: BMI 40.4
[2022-05-29 16:49] LABS: Add Manual Diff / Slide Review NO; Basophils Absolute Auto 0 /uL (0-100); Basophils Percent Auto 0.7 % (0-2); Eosinophils Absolute Auto 100 /uL (0-450); Eosinophils Percent Auto 2.4 % (2-4); Hematocrit 39.4 % (36-46); Hemoglobin 13.1 g/dL (12.0-16.0); Lymphocytes Absolute Auto 1200 /uL (1100-4500); Lymphocytes Percent Auto 28.5 % (25-40); Mean Corpuscular HGB Conc 33.2 % (30-36); Mean Corpuscular Hemoglobin 29.6 PG (26-34); Mean Corpuscular Volume 89.1 fL (80-100); Monocytes Absolute Auto 400 /uL (0-900); Monocytes Percent Auto 9.6 % (3-14); Neutrophils Absolute Auto 2400 /uL (1500-7000); Neutrophils Percent Auto 58.8 % (50-75); Platelet Count 148 X10^3/uL (150-400); Red Blood Cell Count 4.42 X10^6/uL (4.0-5.2); Red Cell Distribution Width 14.6 % (11.6-14.8); White Blood Cell Count 4.2 X10^3/uL (4.5-11.0)
[2022-05-29 17:09] LABS: Alanine Aminotransferase 15 IU/L (<35); Albumin Globulin Ratio 1.6 (1.0-2.8); Alkaline Phosphatase 83 U/L (38-126); Aspartate Aminotransferase 23 IU/L (14-36); BUN Creatinine Ratio 25.4 (6-22); Bilirubin Total 0.8 mg/dL (0.2-1.3); Blood Urea Nitrogen 18 mg/dL (7-17); Carbon Dioxide 26 mmol/L (22-32); Chloride 105 mmol/L (98-107); Estimated Glomerular Filt Rate > 60 mL/min (>60); Globulin 2.5 g/dL (1.7-4.1); Glucose 80 mg/dL (80-110); HEMOLYSIS < 15 (0-50); Potassium 3.9 mmol/L (3.4-5.1); Sodium 139 mmol/L (137-145); Total Protein 6.5 g/dL (6.3-8.2)
[2022-05-29 17:28] LABS: Bilirubin Urine UA NEGATIVE (NEGATIVE); Color Urine UA YELLOW; Glucose Urine UA NEGATIVE (Negative); Ketones Urine UA TRACE (NEGATIVE); Leukocyte Esterase Urine UA 1+ (NEGATIVE); Nitrite Urine UA NEGATIVE (Negative); Occult Blood Urine UA NEGATIVE (Negative); Protein Urine UA NEGATIVE (Negative); Specific Gravity Urine UA 1.015 (1.000-1.035); Urobilinogen Urine UA 0.2 E.U./dL (0.2)
[2022-05-29 17:32] LABS: Appearance Urine UA Slightly Cloudy; pH Urine UA 5.5 (4.5-8.0)
[2022-05-29 17:45] LABS: Bacteria Urine Occasional (0-1); Culture Indicated Urine Specimen Cultured; RBC Urine None Seen (0-5/HPF); Squamous Epithelial Cell Urine 1-5 /HPF (0-5/HPF); WBC Urine 5-10/HPF (0-5/HPF)
[2022-05-29 17:59] LABS: TSH w/ Reflex to FT4 0.67 uIU/mL (0.47-4.68)
== END ==
PROVIDERS: Family Provider Specialist; PCP Student in an Organized Health Care Education/Training Program; Referring Provider Student in an Organized Health Care Education/Training Program; Visit Provider Student in an Organized Health Care Education/Training Program
DX: E03.9 Hypothyroidism, unspecified (principal); Z01.810 Encounter for preprocedural cardiovascular examination
CPT/HCPCS: 36415; 80053; 80323; 81003; 81015; 84443; 85025; 87086

== ENCOUNTER → 2022-08-17 10:53 | Outpatient (CLI) | payer MEDICARE, MEDICAID, SELFPAY ==
[2021-12-29 01:30] VITALS: BMI 40.4
[2022-08-17 12:27] LABS: Appearance Urine UA CLEAR; Bilirubin Urine UA NEGATIVE (NEGATIVE); Color Urine UA YELLOW; Glucose Urine UA NEGATIVE (Negative); Ketones Urine UA NEGATIVE (NEGATIVE); Leukocyte Esterase Urine UA 1+ (NEGATIVE); Nitrite Urine UA NEGATIVE (Negative); Occult Blood Urine UA NEGATIVE (Negative); Protein Urine UA NEGATIVE (Negative); Urobilinogen Urine UA 0.2 E.U./dL (0.2)
[2022-08-17 12:36] LABS: pH Urine UA 6.5 (4.5-8.0)
[2022-08-17 12:43] LABS: Amorphous Sediment Urine 1+; RBC Urine None Seen (0-5/HPF); Squamous Epithelial Cell Urine 0-1 /HPF (0-5/HPF); WBC Urine 0-1/HPF (0-5/HPF)
[2022-08-17 12:44] LABS: Bacteria Urine None Seen; Culture Indicated Urine Specimen Cultured
== END ==
PROVIDERS: Internal Medicine; Family Provider Specialist; PCP Student in an Organized Health Care Education/Training Program; Referring Provider Student in an Organized Health Care Education/Training Program; Visit Provider Student in an Organized Health Care Education/Training Program
DX: R39.89 Other symptoms and signs involving the genitourinary system (principal); R82.90 Unspecified abnormal findings in urine
CPT/HCPCS: 81001; 87086

== ENCOUNTER → 2022-12-23 14:25 | Outpatient (CLI) | payer MEDICARE, MEDICAID, SELFPAY ==
[2021-12-29 01:30] VITALS: BMI 40.4
--- NOTE | 2022-12-23 14:26 | DI.MG.S_ITS ---
BILATERAL DIGITAL SCREENING MAMMOGRAM 3D/2D WITH CAD: 12/23/2022 CLINICAL: Routine screening. Comparison is made to exams dated: 12/25/2020 mammogram, 12/23/2019 mammogram, 12/22/2018 mammogram, and 11/09/2021 mammogram - [facility]. There are scattered areas of fibroglandular density in both breasts (category b / 25%-50% glandular tissue). Current study was also evaluated with a Computer Aided Detection (CAD) system. No significant masses, calcifications, or other findings are seen in either breast. There has been no significant interval change. IMPRESSION: NEGATIVE There is no mammographic evidence of malignancy. A 1 year screening mammogram is recommended. Based on the Tyrer Cuzick model (a risk assessment model) the patient's lifetime risk is 5.2% and her 10 year risk is 3.3%. According to the ACR, ACS, and NCCN guidelines, an annual breast MRI exam along with mammogram is recommended if the patient's lifetime risk is 20% or greater. This exam was interpreted at Station ID: [id number]. NOTE: For mammograms, a report in lay terms will be sent to the patient. Approximately 15% of breast malignancies will not be visualized mammographically. In the management of a palpable breast mass, a negative mammogram must not discourage biopsy of a clinically suspicious lesion. Electronically Signed By: Cedrick miller/milind:12/23/2022 14:50:04 letter sent: Normal Exam ACR BI-RADS Category 1: Negative 3341F
== END ==
PROVIDERS: Family Provider Specialist; PCP Student in an Organized Health Care Education/Training Program; Referring Provider Student in an Organized Health Care Education/Training Program; Visit Provider Student in an Organized Health Care Education/Training Program
DX: Z12.31 Encounter for screening mammogram for malignant neoplasm of breast (principal)
CPT/HCPCS: 77063; 77067

== ENCOUNTER → 2023-05-02 16:00 | Outpatient (CLI) | payer MEDICARE, MEDICAID, SELFPAY ==
[2021-12-29 01:30] VITALS: BMI 40.4
--- NOTE | 2023-05-02 16:02 | DI.RAD.S_ITS ---
PROCEDURE: XR SHOULDER LT MIN 2V INDICATIONS: spurs? OA? TECHNIQUE: 3 views of the shoulder were acquired. COMPARISON: None. FINDINGS: Bones: No acute fractures or dislocations. No suspicious bony lesions. Visualized ribs appear intact. Moderate degenerative changes are seen at the acromioclavicular joint. There is mild downsloping of the lateral acromion. Mild degenerative changes are seen at the glenohumeral joint. Soft tissues: No suspicious soft tissue calcifications. IMPRESSION: Moderate acromioclavicular joint osteoarthrosis and mild glenohumeral osteoarthrosis. Approved by: Cedrick Moody M.D. on 05/02/2023 at 21:21
--- NOTE | 2023-05-02 16:02 | DI.RAD.S_ITS ---
PROCEDURE: XR CERVICAL SPINE 2V OR 3V INDICATIONS: spurs? OA? TECHNIQUE: Three views of the cervical spine were acquired. COMPARISON: [facility], CR, XR CERVICAL SPINE 2V OR 3V, 06/20/2020, 12:01. FINDINGS: Bones: No acute fractures or dislocations to the C7 level. The lateral masses of C1 appear intact on the odontoid view. No suspicious bony lesions. There is 2 mm grade 1 anterolisthesis at C4-5 and 2 mm grade 1 retrolisthesis at C5-6. Multilevel disc space narrowing and degenerative endplate changes are seen. There is multilevel uncovertebral joint and facet hypertrophy. Soft tissues: No prevertebral soft tissue swelling. IMPRESSION: Moderate to severe multilevel spondylosis, which appears to have progressed when compared to the radiographs from 06/20/2020. Approved by: Cedrick Moody M.D. on 05/02/2023 at 21:19
== END ==
PROVIDERS: Family Provider Specialist; PCP Student in an Organized Health Care Education/Training Program; Referring Provider Pediatrics; Visit Provider Pediatrics
DX: M19.012 Primary osteoarthritis, left shoulder (principal); M50.30 Other cervical disc degeneration, unspecified cervical region; M47.812 Spondylosis without myelopathy or radiculopathy, cervical region
CPT/HCPCS: 72040; 73030

== ENCOUNTER 2023-05-07 20:01 | Emergency (ER) | payer MEDICARE, MEDICAID, SELFPAY ==
[2021-12-29 01:30] VITALS: BMI 40.4
[2023-05-07] VITALS (18 sets, daily range): BP systolic 91–122; BP diastolic 50–59; PULSE 62–71; RESP 14–28; TEMP 36.1; O2SAT 95–100; BMI 31.8
--- NOTE | 2023-05-07 20:11 | DI.RAD.S_ITS ---
PROCEDURE: XR CHEST 1V INDICATIONS: chest pain TECHNIQUE: One view of the chest was acquired. COMPARISON: [facility], , XR CHEST 1V, 11/04/2020, 15:09. [facility], , CHEST 2 VIEW, 11/26/2014, 12:33. FINDINGS: Surgical changes and devices: None. Lungs and pleura: Lungs are clear. No pleural effusions or pneumothorax. Mediastinum: Mediastinal contours appear normal. Heart size is normal. Bones and chest wall: No suspicious bony lesions. Overlying soft tissues appear unremarkable. Chronic mild convex rightward scoliosis centered at the middle 3rd of the thoracic spine. IMPRESSION: No acute disease, mild convex rightward scoliosis, source of chest pain is not identified. Dictated by: Marcos Varner M.D. on 05/07/2023 at 20:44 Approved by: Marcos Varner M.D. on 05/07/2023 at 20:44
[2023-05-07 20:18] LABS: Add Manual Diff / Slide Review NO; Basophils Absolute Auto 0 /uL (0-100); Basophils Percent Auto 0.2 % (0-2); Eosinophils Absolute Auto 200 /uL (0-450); Eosinophils Percent Auto 1.9 % (2-4); Hematocrit 36.4 % (36-46); Hemoglobin 12.1 g/dL (12.0-16.0); Lymphocytes Absolute Auto 3100 /uL (1100-4500); Lymphocytes Percent Auto 36.1 % (25-40); Mean Corpuscular HGB Conc 33.2 % (30-36); Mean Corpuscular Hemoglobin 29.3 PG (26-34); Mean Corpuscular Volume 88.2 fL (80-100); Monocytes Absolute Auto 1100 /uL (0-900); Monocytes Percent Auto 13.1 % (3-14); Neutrophils Absolute Auto 4100 /uL (1500-7000); Neutrophils Percent Auto 48.7 % (50-75); Platelet Count 215 X10^3/uL (150-400); Red Blood Cell Count 4.12 X10^6/uL (4.0-5.2); White Blood Cell Count 8.5 X10^3/uL (4.5-11.0)
[2023-05-07 20:22] LABS: INR 1.1 (0.9-1.3); Prothrombin Time 12.5 SECONDS (10.1-12.7)
[2023-05-07 20:24] LABS: Alanine Aminotransferase 24 IU/L (<35); Albumin 3.6 g/dL (3.5-5.0); Albumin Globulin Ratio 1.3 (1.0-2.8); Alkaline Phosphatase 66 U/L (38-126); Aspartate Aminotransferase 28 IU/L (14-36); BUN Creatinine Ratio 37.7 (6-22); Bilirubin Total 0.4 mg/dL (0.2-1.3); Blood Urea Nitrogen 26 mg/dL (7-17); Calcium 8.5 mg/dL (8.4-10.2); Carbon Dioxide 27 mmol/L (22-32); Chloride 107 mmol/L (98-107); Creatine Kinase 81 U/L (30-135); Estimated Glomerular Filt Rate > 60 mL/min (>60); Globulin 2.8 g/dL (1.7-4.1); HEMOLYSIS < 15 (0-50); Lipase 49 U/L (23-300); Magnesium 1.8 mg/dL (1.6-2.3); Potassium 3.5 mmol/L (3.4-5.1); Sodium 138 mmol/L (137-145); Total Protein 6.4 g/dL (6.3-8.2)
[2023-05-07 20:25] LABS: PTT Partial Thromboplastin Tim 30 SECONDS (26-36)
[2023-05-07 20:27] LABS: Glucose 40 mg/dL (80-110)
[2023-05-07 20:36] LABS: Troponin I < 0.012 ng/mL (0.01-0.034)
[2023-05-07] MEDS: SODIUM CHLORIDE 0.9% 1,000 ML 1000 ML IV (23:10)
--- NOTE | 2023-05-07 23:22 | ED.DIZZY ---
HPI - Dizziness General Chief Complaint: Dizziness Stated Complaint: Dizzy Time Seen by Provider: 05/07/23 23:02 Source: patient Mode of arrival: EMS History of Present Illness HPI Narrative: Patient brought in by ambulance from home for dizziness and sweating. Blood sugar at home was 40. Patient given D10 by EMS. It did improve. Serial blood sugars have been done and have been stable since then. Patient states she has been on a diet mostly vegetables for the past 1 year with 1 protein in her diet a day. However she did not have any protein today. She has lost 90 lb in the past 1 year purposely. Denies any chest pain or headache or abdominal pain or chest pain during this event. Patient feeling much better now. No recent fluid loss. No nausea vomiting diarrhea. No black or bloody stools. No prior history of diabetes. Has not started on any new medications. Did see a new family doctor 3 days ago for referral for Orthopedics. Related Data Previous Rx's Medication Instructions Recorded sucralfate 1 gram tablet 1 gram PO .COMPLEX #360 tabs 08/08/20 levothyroxine 50 mcg tablet 50 mcg PO DAILY #90 tabs 09/05/22 omeprazole 20 mg capsule,delayed 20 mg PO Q OTHER DAY #45 caps 12/16/22 release sertraline 100 mg tablet 100 mg PO DAILY #90 tabs 12/16/22 atorvastatin 20 mg tablet 20 mg PO DAILY #90 tabs 12/23/22 lisinopril 20 mg tablet 20 mg PO DAILY #90 tabs 01/15/23 cyclobenzaprine 10 mg tablet 10 mg PO BID PRN muscle spasm #20 05/02/23 tabs tramadol 50 mg tablet 50 mg PO Q12H PRN pain #20 tabs 05/02/23 bupropion HCl 300 mg 24 hr tablet, 300 mg PO QAM #14 tabs 05/05/23 extended release Allergies Allergy/AdvReac Type Severity Reaction Status Date / Time No Known Drug Allergies Allergy Verified 05/07/23 20:14 Review of Systems Review of Systems Narrative: GENERAL: negative chills, fatigue, malaise, fever, positive sweats. HEENT: negative sinus pain, ear pain, sore throat RESPIRATORY: negative dyspnea, cough CARDIOVASCULAR: negative chest pain, palpitations GASTROINTESTINAL: negative nausea, vomiting, abdominal pain : negative dysuria, frequency, hematuria MUSCULOSKELETAL: negative muscle or bony pain SKIN: negative rash, skin lesions NEUROLOGIC: negative weakness, numbness, positive dizziness ROS Unobtainable: All systems reviewed & are unremarkable except as noted in HPI and below Patient History Medical History Anterolisthesis Anxiety Cervical cancer (~1974) DDD (degenerative disc disease), cervical Depression 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) Eczema Gastroesophageal reflux disease (05/12/14) Gastroparesis (12/28/15) Hepatitis B Hypothyroidism (11/27/11) Kidney stones (~2011) Mass of left side of neck 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 Partial bowel obstruction Tinnitus (~2018) 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) Ventral hernia Surgical History Anesthesia History of appendectomy (~1954) History of bilateral salpingo-oophorectomy (BSO) (~1992) History of conization of cervix (~1973) History of laparoscopic adjustable gastric banding (2009) History of surgical removal of lesion (~2015) History of throat surgery (~2015) Family History Father History of heart disease Hyperlipidemia Mental health problem Mother History of heart surgery Brother Alcoholism Grandfather Mental health problem Dementia Grandfather Stroke Social History household members: none Smoking Status: Never smoker second hand exposure: No alcohol intake: current substance use type: does not use Smoking Status: Never smoker alcohol intake frequency: holidays/special occasions only Substance Use Type: does not use Exam Narrative Exam Narrative: GENERAL: in no distress, not toxic not dyspneic HEAD: Normocephalic. EYES: Pupils equal round ENT: Mucous membranes moist. NECK: Trachea midline. CARDIOVASCULAR: Regular rate and rhythm without murmurs RESPIRATORY: Clear to auscultation. Breath sounds equal bilaterally. No wheezes, rales, or rhonchi. GASTROINTESTINAL: Abdomen soft, non-tender EXTREMITIES: No gross deformities. BACK: No flank tenderness. NEURO: AOx4. Fast exam is negative. 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 SKIN: Warm and dry PSYCH: Not anxious, is cooperative Initial Vital Signs Initial Vital Signs: Vital Signs Temperature 96.9 F L 05/07/23 19:57 Pulse Rate 71 05/07/23 19:57 Respiratory Rate 15 05/07/23 19:57 Blood Pressure 91/55 L 05/07/23 19:57 Pulse Oximetry 98 05/07/23 19:57 Oxygen Delivery Method Room Air 05/07/23 19:57 Course Orders Ordered: ED Orders 05/07/23 20:03 Complete Blood Count AUTO DIFF Stat Comprehensive Metabolic Panel Stat Lipase Stat Magnesium Stat PTT Partial Thromboplastin Harrison Stat Prothrombin Time INR Stat Troponin & CK Cardiac Panel Stat 05/07/23 20:11 XR chest 1V Stat 05/07/23 20:14 EKG-12 Lead Stat Discontinued Medications Sodium Chloride (Normal Saline 0.9%) 1,000 mls @ 1,000 mls/hr IV BOLUS ONE Stop: 05/07/23 23:59 Last Infusion: 05/08/23 00:10 Dose: 0 mls/hr Documented By: Admin: 05/07/23 23:10 Dose: 1,000 mls/hr Documented By: MARLEE Vital Signs Vital signs: Vital Signs - 8 hr 05/07/23 20:45 05/07/23 20:45 05/07/23 21:00 Pulse Rate 63 Respiratory Rate 14 Blood Pressure 96/54 L 101/59 L Pulse Oximetry 99 05/07/23 21:00 05/07/23 21:15 05/07/23 21:15 Pulse Rate 63 63 Respiratory Rate 14 14 Blood Pressure 96/54 L Pulse Oximetry 99 99 05/07/23 21:30 05/07/23 21:30 05/07/23 21:45 Pulse Rate 63 Respiratory Rate 14 Blood Pressure 100/57 L 101/57 L Pulse Oximetry 100 05/07/23 21:45 05/07/23 22:00 05/07/23 22:00 Pulse Rate 67 70 Respiratory Rate 20 19 Blood Pressure 100/55 L Pulse Oximetry 99 98 05/07/23 22:15 05/07/23 22:15 05/07/23 22:30 Pulse Rate 66 Respiratory Rate 27 H Blood Pressure 91/53 L 91/50 L Pulse Oximetry 98 05/07/23 22:30 05/07/23 22:45 05/07/23 22:45 Pulse Rate 67 66 Respiratory Rate 24 23 Blood Pressure 99/56 L Pulse Oximetry 96 96 05/07/23 23:00 05/07/23 23:00 05/07/23 23:15 Pulse Rate 67 68 Respiratory Rate 18 20 Blood Pressure 100/58 L Pulse Oximetry 97 96 05/07/23 23:15 05/07/23 23:30 05/07/23 23:30 Pulse Rate 70 Respiratory Rate 19 Blood Pressure 92/54 L 98/56 L Pulse Oximetry 100 05/07/23 23:46 05/07/23 23:46 05/08/23 00:00 Pulse Rate 70 Respiratory Rate 22 Blood Pressure 122/58 L 114/58 L Pulse Oximetry 100 05/08/23 00:00 05/08/23 00:15 05/08/23 00:15 Pulse Rate 70 71 Respiratory Rate 16 15 Blood Pressure 118/55 L Pulse Oximetry 100 99 05/08/23 00:30 05/08/23 00:38 05/08/23 00:38 Pulse Rate 75 80 Respiratory Rate 54 H 22 Blood Pressure 122/69 122/69 Pulse Oximetry 99 MDM - Dizziness Lab Data 05/07/23 20:03 05/07/23 20:03 Labs: Lab Results 05/07/23 05/07/23 05/07/23 Range/Units 20:03 20:03 20:03 WBC 8.5 (4.5-11.0) X10^3/uL RBC 4.12 (4.0-5.2) X10^6/uL Hgb 12.1 (12.0-16.0) g/dL Hct 36.4 (36-46) % MCV 88.2 (80-100) fL MCH 29.3 (26-34) PG MCHC 33.2 (30-36) % RDW 16.0 H (11.6-14.8) % Plt Count 215 (150-400) X10^3/uL Neut % (Auto) 48.7 L (50-75) % Lymph % (Auto) 36.1 (25-40) % [place] % (Auto) 13.1 (3-14) % Eos % (Auto) 1.9 L (2-4) % Baso % (Auto) 0.2 (0-2) % Neut # (Auto) 4100 (9810-0057) /uL Lymph # (Auto) 3100 (2568-3108) /uL [place] # (Auto) 1100 H (0-900) /uL Eos # (Auto) 200 (0-450) /uL Baso # (Auto) 0 (0-100) /uL PT 12.5 (10.1-12.7) SECONDS INR 1.1 (0.9-1.3) APTT 30 (26-36) SECONDS Sodium 138 (137-145) mmol/L Potassium 3.5 (3.4-5.1) mmol/L Chloride 107 (98-107) mmol/L Carbon Dioxide 27 (22-32) mmol/L BUN 26 H (7-17) mg/dL Creatinine 0.69 (0.52-1.04) mg/dL Estimated GFR > 60 (>60) mL/min BUN/Creatinine Ratio 37.7 H (6-22) Glucose 40 L* (80-110) mg/dL Calcium 8.5 (8.4-10.2) mg/dL Magnesium 1.8 (1.6-2.3) mg/dL Total Bilirubin 0.4 (0.2-1.3) mg/dL AST 28 (14-36) IU/L ALT 24 (<35) IU/L Alkaline Phosphatase 66 (38-126) U/L Total Creatine Kinase 81 (30-135) U/L Troponin I < 0.012 (0.01-0.034) ng/mL Total Protein 6.4 (6.3-8.2) g/dL Albumin 3.6 (3.5-5.0) g/dL Globulin 2.8 (1.7-4.1) g/dL Albumin/Globulin Ratio 1.3 (1.0-2.8) Lipase 49 (23-300) U/L Point of Care Testing Glucose POC 109 Imaging Data Chest x-ray: Radiologist's Impression: [address] [address] XRay Report Signed Patient: Terese Trejo MR#: [id number] : 1950 Acct:[id number] Age/Sex: 73 / F Date of Service: 05/07/23 Loc: ED Accession Number: [id number] ?? Procedure: XR chest 1V Ordering Provider: Zachary Toscano MD PROCEDURE:? XR CHEST 1V ? INDICATIONS:? chest pain ? TECHNIQUE:? One view of the chest was acquired.? ? COMPARISON:? [facility], CR, XR CHEST 1V, 11/04/2020, 15:09.? [facility], CR, CHEST 2 VIEW, 11/26/2014, 12:33. ? FINDINGS:? ? Surgical changes and devices:? None.? ? Lungs and pleura:? Lungs are clear.? No pleural effusions or pneumothorax.? ? Mediastinum:? Mediastinal contours appear normal.? Heart size is normal.? ? Bones and chest wall:? No suspicious bony lesions.? Overlying soft tissues appear unremarkable.? Chronic mild convex rightward scoliosis centered at the middle 3rd of the thoracic spine. ? IMPRESSION:? No acute disease, mild convex rightward scoliosis, source of chest pain is not identified. ? ? Dictated by: Marcos Varner M.D. on 05/07/2023 at 20:44 ? ? Approved by: Marcos Varner M.D. on 05/07/2023 at 20:44 ? MDM Narrative Medical decision making narrative: Patient brought in by ambulance from home for dizziness and sweating. Blood sugar at home was 40. Patient given D10 by EMS. It did improve. Serial blood sugars have been done and have been stable since then. Patient states she has been on a diet mostly vegetables for the past 1 year with 1 protein in her diet a day. However she did not have any protein today. She has lost 90 lb in the past 1 year purposely. Denies any chest pain or headache or abdominal pain or chest pain during this event. Patient feeling much better now. No recent fluid loss. No nausea vomiting diarrhea. No black or bloody stools. No prior history of diabetes. Has not started on any new medications. Did see a new family doctor 3 days ago for referral for Orthopedics. After history and exam CBC CMP troponin blood sugar EKG oral challenge [facility] CC: Hypoglycemia Complicating co-morbidities: Patient on low-protein diet Data collected from: Patient and EMS Medical records reviewed: No recent visit for this complaint Differential considered: Includes but not limited to hypoglycemia Exam documented above, pertinent findings include: No acute finding other than blood pressure that is responsive to IV fluids Lab Test results independently reviewed as above. Pertinent findings: Blood sugar from EMS 40, serial blood sugars afterwards in the 90s, troponin less than 0.012 Independently reviewed EKG sinus rhythm rate [address] elevation or depression Imaging studies independently reviewed: Chest x-ray no acute finding Consultations: None indicated at this time Treatments: Oral challenge normal saline Re-evaluations: 12:26 a.m. Patient feeling much better. Reviewed results with patient. They are reassuring. Blood pressure 118/55 at time of discharge. Blood sugar 109. Patient has eaten here. Discussion: Appropriate for discharge home. Exam is reassuring. Patient has hypoglycemia may be due to lack of protein today. She is on minimal protein daily due to her diet of mostly vegetables for the past 1 year which she has lost 90 lb. Return precautions reviewed with her. Blood pressure improved with IV fluids. Denies any pain anywhere in the body. She was able to eat and drink here. Blood sugar has been stable since arrival. Not toxic at discharge. She desires discharge home. Diagnosis: Hypoglycemia Discharge Plan Departure Patient Disposition: Home Clinical Impression: Hypoglycemia Instructions: DI for Hypoglycemia Activity Restrictions/Additional Instructions: Please see family doctor this week for re-evaluation of your blood blood sugar. This is called hypoglycemia. This may have been due to your dietary changes, possibly not having protein today as you are on mostly vegetable diet. Please to carry a candy bar or sugary substance with you at all times in case this happens again. Laboratory studies and imaging are reassuring today. Keep well hydrated. Return if worse if any questions or concerns. Prescriptions: No Action levothyroxine 50 mcg tablet 50 mcg PO DAILY Qty: 90 3RF atorvastatin 20 mg tablet 20 mg PO DAILY Qty: 90 3RF Hold Instructions: Trial of cessation lisinopril 20 mg tablet 20 mg PO DAILY Qty: 90 3RF bupropion HCl 300 mg tablet extended release 24 hr 300 mg PO QAM MDD Bupropion XL Tab 300mg 24hr Qty: 14 0RF Rx Instructions: Short fill waiting mail order tramadol 50 mg tablet 50 mg PO Q12H PRN (Reason: pain) Qty: 20 0RF Rx Instructions: 1-2 to 1 tab 2-3 times a day as needed for severe pain if tylenol max 3 grams daily as discussed not effective. Stagger with muscle relaxer. Watch for sedation. cyclobenzaprine 10 mg tablet 10 mg PO BID PRN (Reason: muscle spasm) Qty: 20 0RF Rx Instructions: 1/2 tab to 1 tab 2-3 times daily as needed for muscle spasm. Stagger with tramadol. Watch for sedation. sucralfate 1 gram tablet 1 gram PO .COMPLEX Qty: 360 3RF Rx Instructions: 1 g PO BID-QID; Dissolve one tablet in glass of water about 20-30 minutes prior to meal omeprazole 20 mg capsule,delayed release(DR/EC) 20 mg PO Q OTHER DAY Qty: 45 3RF Hold Instructions: trial of cessation sertraline 100 mg tablet 100 mg PO DAILY Qty: 90 3RF Referrals: Tucker Greco MD [Primary Care Provider] - Stand Alone Forms: Patient Portal/API
[2023-05-08] VITALS: BP 114/58; PULSE 70; RESP 16; O2SAT 100
[2023-05-08 00:15] VITALS: BP 118/55; PULSE 71; RESP 15; O2SAT 99
[2023-05-08 00:30] VITALS: PULSE 75; RESP 54
[2023-05-08 00:38] VITALS: BP 122/69; PULSE 80; RESP 22; O2SAT 99
== END 2023-05-08 00:50 | disposition home or self-care (01) ==
PROVIDERS: Emergency Provider Emergency Medicine; Family Provider Specialist; PCP Student in an Organized Health Care Education/Training Program
DX: E16.2 Hypoglycemia, unspecified (principal); R42 Dizziness and giddiness; R07.9 Chest pain, unspecified
CPT/HCPCS: 36415; 71045; 80053; 82550; 82962; 83690; 83735; 84484; 85025; 85610; 85730; 93005; 99284

== ENCOUNTER → 2023-09-24 18:36 | Outpatient (CLI) | payer MEDICARE, MEDICAID, SELFPAY ==
[2021-12-29 01:30] VITALS: BMI 40.4
--- NOTE | 2023-09-24 18:37 | DI.MRI.S_ITS ---
PROCEDURE: MR CERVICAL SPINE WO CON INDICATIONS: Spinal stenosis, cervical region TECHNIQUE: Noncontrast sagittal T1 spin echo and T2 fast spin echo, sagittal STIR, foraminal oblique sagittal T2 fast spin echo, and axial gradient echo or T2 fast spin echo through the cervical spine. COMPARISON: [facility], CR, XR CERVICAL SPINE 2V OR 3V, 05/02/2023, 16:00. FINDINGS: Image quality: Partially degraded by motion artifact. Alignment and Curvature: There is loss of normal cervical lordosis. There is 3 mm of anterolisthesis of C3 on C4 and C4 on C5. 2 mm of retrolisthesis of C5 on C6 and C6 on C7. Bone Marrow: Marrow demonstrates normal overall signal. Mild reactive signal throughout the endplates of the cervical and upper thoracic spine. Spinal Cord: Visualized spinal cord has normal size and signal. No cerebellar tonsillar herniation. Paraspinous Soft Tissues: No paravertebral masses. Prevertebral soft tissues are normal in thickness. C2-C3: Mild disc height loss. Moderate disc desiccation. Mild diffuse disc bulge. Mild facet and uncovertebral hypertrophy bilaterally. Mild canal stenosis. Moderate left and mild right foraminal stenosis. C3-C4: Moderate disc desiccation. Mild diffuse disc bulge. Mild facet and uncovertebral hypertrophy bilaterally. Mild canal stenosis. Mild left and moderate right foraminal stenosis. C4-C5: Moderate disc height loss and desiccation. Mild diffuse disc bulge with superimposed left posterolateral protrusion/osteophyte. Mild facet and uncovertebral hypertrophy bilaterally. Moderate canal stenosis. Moderate to severe left and moderate right foraminal stenosis. Mild right C5 nerve root compression. C5-C6: Severe disc height loss and desiccation. Mild diffuse disc bulge/osteophyte. Moderate facet and uncovertebral hypertrophy bilaterally. Moderate to severe canal stenosis. Minimal anterior cord flattening. Severe bilateral foraminal stenosis with bilateral C6 nerve root compression. C6-C7: Moderate disc height loss and desiccation. Mild diffuse disc bulge. Mild facet and uncovertebral hypertrophy bilaterally. Moderate to severe canal stenosis. Minimal anterior cord flattening. Moderate right and severe left foraminal stenosis. Left C7 nerve root compression. C7-T1: Moderate disc desiccation. Mild disc height loss. Mild facet and uncovertebral hypertrophy. Mild canal stenosis. Mild bilateral foraminal stenosis. IMPRESSION: 1. Multilevel degenerative disc and facet disease, as well as uncovertebral hypertrophy. 2. Multilevel canal stenoses, worst at C5-C6 and C6-C7, where there is mild cord flattening. 3. Multilevel foraminal stenoses, worst at C4-C5, C5-C6, and C6-C7 where there is associated intraforaminal nerve root compression. Recommend correlation with clinical symptoms to ascertain relevance of these findings. Dictated by: Harrison Sheffield M.D. on 09/25/2023 at 8:49 Approved by: Harrison Sheffield M.D. on 09/25/2023 at 8:57
== END ==
PROVIDERS: Family Provider Specialist; PCP Family Medicine; Referring Provider Physical Medicine & Rehabilitation; Visit Provider Physical Medicine & Rehabilitation
DX: M48.02 Spinal stenosis, cervical region (principal); M50.30 Other cervical disc degeneration, unspecified cervical region; M47.812 Spondylosis without myelopathy or radiculopathy, cervical region
CPT/HCPCS: 72141

== ENCOUNTER → 2023-09-30 10:17 | Outpatient (CLI) | payer MEDICARE, MEDICAID, SELFPAY ==
[2021-12-29 01:30] VITALS: BMI 40.4
--- NOTE | 2023-09-30 10:18 | DI.RAD.S_ITS ---
Bone Density Report Name: PILO DONG Age: 73 Sex: Female Ethnicity: White Date of : 1950 Indication: postmenopausal; screening for osteoporosis; Referring Provider: SUSANNAH MORROW Study: Bone densitometry was performed. Exam Date: September 30, 2023 Accession number: [id number] Bone Density: Region BMD T-score Z-score Classification AP Spine(L1-L4) 1.161 1.0 3.2 Normal Femoral Neck (Left) 0.762 -0.8 1.1 Normal Total Hip (Left) 0.765 -1.5 0.1 Osteopenia Total Forearm (Left) 0.517 -1.2 1.0 Osteopenia 1/3 Forearm (Left) 0.690 -0.1 2.2 Normal UD Forearm (Left) 0.336 -1.8 -0.3 Osteopenia World Health Organization criteria for BMD impression classify patients as: Normal (T-score at or above -1.0), Osteopenia (T-score between -1.0 and -2.5), or Osteoporosis (T-score at or below -2.5). 10-year Fracture Risk(1): Major Osteoporotic Fracture 7.3% Hip Fracture 0.7% Reported Risk Factors: [place] (), Neck BMD=0.762, BMI=45.2 (1) FRAX(R) Version 3.08. Fracture probability calculated for an untreated patient. Fracture probability may be lower if the patient has received treatment. Previous Exams: -- Region Exam Age BMD T-score BMD Change BMD Change Date g/cm2 vs Baseline vs Previous -- AP Spine (L1-L4) 09/30/2023 73 1.161 1.0 -0.049 (-4.0%)# -0.059 (-4.9%)# 07/06/2021 71 1.221 1.6 0.011 (0.9%) 0.114 (10.3%)* 03/26/2016 65 1.107 0.5 -0.103 (-8.5%)* -0.103 (-8.5%)* 02/11/2006 55 1.210 1.5 Total Hip(Left) 09/30/2023 73 0.765 -1.5 -0.356 (-31.7%)# -0.107 (-12.3%)# 07/06/2021 71 0.872 -0.6 -0.248 (-22.2%)* -0.072 (-7.6%)* 03/26/2016 65 0.944 0.0 -0.176 (-15.7%)* -0.176 (-15.7%)* 02/11/2006 55 1.120 1.5 -- *Denotes significance at 95% confidence level, LSC for AP Spine = 0.022 g/cm2, LSC for Total Hip = 0.027 g/cm2 # Denotes dissimilar scan types or analysis methods Impression: The patient has low bone mass, based on the Left Total Hip T-score. The patient has an estimated ten-year risk of hip fracture of 0.7% and an estimated ten-year risk of major fracture of 7.3%, based on the WHO FRAX algorithm. No significant bone loss was observed. Discussion: BONE DENSITY IS LOW AT ONE OR MORE SKELETAL SITES. This patient's lowest T-score is low at one or more skeletal sites. It meets the World Health Organization's (WHO) criteria for low bone mass (T-score between -1.0 and -2.5). The patient's 10-year risk of fracture as calculated by FRAX is less than the threshold where pharmacological therapy is recommended by the National Osteoporosis Foundation (NOF). However, all treatment decisions require clinical judgment and consideration of individual patient factors, including patient preferences, comorbidities, previous drug use, risk factors not captured in the FRAX model (e.g., frailty, falls, vitamin D deficiency, increased bone turnover, interval significant decline in bone density) and possible under or overestimation of fracture risk by FRAX. The patient should follow a healthful lifestyle (good nutrition with adequate calcium and vitamin D, and appropriate weight-bearing exercise). Follow-Up: Consider repeating this study in 2 to 3 years to reassess this patient's status, or sooner if there is some new clinical indication. Reported by: [facility] JUAN PABLO PARRISH M.D. on 09/30/2023 10:38:00 AM.
== END ==
PROVIDERS: Family Provider Specialist; PCP Family Medicine; Referring Provider Family Medicine; Visit Provider Family Medicine
DX: Z78.0 Asymptomatic menopausal state (principal); M85.88 Other specified disorders of bone density and structure, other site
CPT/HCPCS: 77080; 77081

== ENCOUNTER → 2023-11-08 11:45 | Outpatient (CLI) | payer MEDICARE, MEDICAID, SELFPAY ==
[2021-12-29 01:30] VITALS: BMI 40.4
[2023-11-08 12:25] LABS: Add Manual Diff / Slide Review NO; Basophils Absolute Auto 0 /uL (0-100); Basophils Percent Auto 0.2 % (0-2); Eosinophils Absolute Auto 200 /uL (0-450); Eosinophils Percent Auto 2.2 % (2-4); Hematocrit 42.3 % (36-46); Hemoglobin 13.9 g/dL (12.0-16.0); Lymphocytes Absolute Auto 1500 /uL (1100-4500); Lymphocytes Percent Auto 20.9 % (25-40); Mean Corpuscular HGB Conc 32.8 % (30-36); Mean Corpuscular Hemoglobin 29.2 PG (26-34); Monocytes Absolute Auto 600 /uL (0-900); Monocytes Percent Auto 8.8 % (3-14); Neutrophils Absolute Auto 4800 /uL (1500-7000); Neutrophils Percent Auto 67.9 % (50-75); Platelet Count 212 X10^3/uL (150-400); Red Blood Cell Count 4.75 X10^6/uL (4.0-5.2); Red Cell Distribution Width 14.9 % (11.6-14.8); White Blood Cell Count 7.1 X10^3/uL (4.5-11.0)
[2023-11-08 12:39] LABS: HEMOLYSIS < 15 (0-50); Iron 115 ug/dL (37-170)
[2023-11-08 12:41] LABS: Alanine Aminotransferase 16 IU/L (<35); Albumin 4.2 g/dL (3.5-5.0); Albumin Globulin Ratio 1.4 (1.0-2.8); Alkaline Phosphatase 112 U/L (38-126); Aspartate Aminotransferase 23 IU/L (14-36); BUN Creatinine Ratio 24.3 (6-22); Blood Urea Nitrogen 18 mg/dL (7-17); Calcium 10.3 mg/dL (8.4-10.2); Carbon Dioxide 28 mmol/L (22-32); Chloride 102 mmol/L (98-107); Estimated Glomerular Filt Rate > 60 mL/min (>60); Globulin 2.9 g/dL (1.7-4.1); Glucose 97 mg/dL (80-110); HEMOLYSIS < 15 (0-50); Magnesium 1.5 mg/dL (1.6-2.3); Potassium 4.9 mmol/L (3.4-5.1); Sodium 137 mmol/L (137-145); Total Protein 7.1 g/dL (6.3-8.2)
[2023-11-08 12:49] LABS: Percent Iron Saturation 36 % (15-50); Total Iron Binding Capacity 323 ug/dL (265-497); Transferrin 296 mg/dL (206-381)
[2023-11-08 13:29] LABS: Vitamin B12 Reflex MMA if <400 646 pg/mL (239-931)
== END ==
PROVIDERS: Family Provider Specialist; PCP Family Medicine; Referring Provider Family Medicine; Visit Provider Family Medicine
DX: R20.8 Other disturbances of skin sensation (principal)
CPT/HCPCS: 36415; 80053; 82607; 83540; 83550; 83735; 85025

== ENCOUNTER → 2023-12-31 15:07 | Outpatient (CLI) | payer MEDICARE, MEDICAID, SELFPAY ==
[2021-12-29 01:30] VITALS: BMI 40.4
--- NOTE | 2023-12-31 | DI.MG.S_ITS ---
BILATERAL DIGITAL SCREENING MAMMOGRAM 3D/2D WITH CAD: 12/31/2023 CLINICAL: Routine screening. Comparison is made to exams dated: 12/23/2022 mammogram, 11/09/2021 mammogram, 12/25/2020 mammogram, 12/23/2019 mammogram, and 12/22/2018 mammogram - [facility]. There are scattered areas of fibroglandular density in both breasts (category b / 25%-50% glandular tissue). Current study was also evaluated with a Computer Aided Detection (CAD) system. No significant masses, calcifications, or other findings are seen in either breast. There has been no significant interval change. IMPRESSION: NEGATIVE There is no mammographic evidence of malignancy. A 1 year screening mammogram is recommended. Based on the Tyrer Cuzick model (a risk assessment model) the patient's lifetime risk is 4.9% and her 10 year risk is 3.4%. According to the ACR, ACS, and NCCN guidelines, an annual breast MRI exam along with mammogram is recommended if the patient's lifetime risk is 20% or greater. This exam was interpreted at Station ID: [id number]. NOTE: For mammograms, a report in lay terms will be sent to the patient. Approximately 15% of breast malignancies will not be visualized mammographically. In the management of a palpable breast mass, a negative mammogram must not discourage biopsy of a clinically suspicious lesion. Electronically Signed By: Manpreet lundberg/milind:01/01/2024 07:24:07 letter sent: Normal Exam ACR BI-RADS Category 1: Negative [id number]
== END ==
PROVIDERS: Family Provider Specialist; PCP Family Medicine; Referring Provider Family Medicine; Visit Provider Family Medicine
DX: Z12.31 Encounter for screening mammogram for malignant neoplasm of breast (principal); R92.323 Mammographic fibroglandular density, bilateral breasts
CPT/HCPCS: 77063; 77067

== ENCOUNTER → 2024-02-10 12:23 | Outpatient (CLI) | payer MEDICARE, MEDICAID, SELFPAY ==
[2021-12-29 01:30] VITALS: BMI 40.4
[2024-02-10 14:08] LABS: Cholesterol 203 mg/dL (140-199); HDL Cholesterol 91 mg/dL (40-60); LDL Cholesterol Calculated 101 mg/dL (<100); Triglycerides 57 mg/dL (35-150)
[2024-02-10 14:36] LABS: Thyroid Stimulating Hormone 0.773 uIU/mL (0.47-4.68)
== END ==
PROVIDERS: Family Provider Specialist; PCP Family Medicine; Referring Provider Family Medicine; Visit Provider Family Medicine
DX: E66.01 Morbid (severe) obesity due to excess calories (principal); E78.5 Hyperlipidemia, unspecified; E03.9 Hypothyroidism, unspecified
CPT/HCPCS: 36415; 80061; 84443

== ENCOUNTER → 2024-02-23 10:17 | Outpatient (CLI) | payer MEDICARE, MEDICAID, SELFPAY ==
[2021-12-29 01:30] VITALS: BMI 40.4
--- NOTE | 2024-02-23 10:18 | DI.RAD.S_ITS ---
PROCEDURE: XR KNEE LT 3V INDICATIONS: Chronic left knee pain TECHNIQUE: 3 views of the knee were acquired. COMPARISON: [facility], , KNEE 3V RIGHT, 04/23/2016, 15:08. FINDINGS: Bones: There is moderate femorotibial joint space narrowing and small tricompartmental osteophytes. There also intercondylar osteophytes. No suspicious bony lesions. No fracture or dislocation. Soft tissues: No joint effusion. No suspicious soft tissue calcifications. IMPRESSION: Moderate left knee osteoarthritis. Dictated by: Shivani Rios M.D. on 02/23/2024 at 12:20 Approved by: Shivani Rios M.D. on 02/23/2024 at 12:21
== END ==
LOC: LAB 10:18
PROVIDERS: Family Provider Specialist; PCP Family Medicine; Referring Provider Family Medicine; Visit Provider Family Medicine
DX: M25.562 Pain in left knee (principal); G89.29 Other chronic pain
CPT/HCPCS: 73562

== ENCOUNTER → 2024-04-22 13:53 | Outpatient (CLI) | payer MEDICARE, MEDICAID, SELFPAY ==
[2021-12-29 01:30] VITALS: BMI 40.4
== END ==
LOC: PHYS 13:55
PROVIDERS: Family Provider Specialist; PCP Family Medicine; Referring Provider Family Medicine; Visit Provider Family Medicine
DX: R29.898 Other symptoms and signs involving the musculoskeletal system (principal); R20.0 Anesthesia of skin; R20.2 Paresthesia of skin
CPT/HCPCS: 95885; 95886; 95910

== ENCOUNTER → 2024-05-07 11:51 | Outpatient (CLI) | payer MEDICARE, MEDICAID, SELFPAY ==
[2021-12-29 01:30] VITALS: BMI 40.4
[2024-05-07 15:01] LABS: Vitamin B12 Reflex MMA if <400 727 pg/mL (239-931)
[2024-05-07 15:43] LABS: HEMOLYSIS < 15 (0-50)
[2024-05-07 15:59] LABS: Total Iron Binding Capacity 311 ug/dL (265-497)
== END ==
PROVIDERS: Family Provider Specialist; PCP Family Medicine; Referring Provider Family Medicine; Visit Provider Family Medicine
DX: R20.8 Other disturbances of skin sensation; E83.42 Hypomagnesemia
CPT/HCPCS: 36415; 82607; 83540; 83550; 83735

== ENCOUNTER → 2024-06-23 14:32 | Outpatient (CLI) | payer MEDICARE, MEDICAID, SELFPAY ==
[2021-12-29 01:30] VITALS: BMI 40.4
--- NOTE | 2024-06-23 14:33 | DI.US.S_ITS ---
PROCEDURE: US ARTERIAL DUPLEX LE BI INDICATIONS: PAIN TECHNIQUE: Color and pulse Doppler interrogation was performed of both lower extremity arterial systems, with image documentation. COMPARISON: None. FINDINGS: Right lower extremity: Common femoral artery: 121 cm/sec, with triphasic flow. Deep femoral artery: 95 cm/sec, with triphasic flow. Proximal superficial femoral artery: 106 cm/sec, with triphasic flow. Mid superficial femoral artery: 106 cm/sec, with triphasic flow. Distal superficial femoral artery: 85 cm/sec, with triphasic flow. Popliteal artery: 72 cm/sec, with biphasic flow. Posterior tibial artery: 75 cm/sec, with triphasic flow. Anterior tibial artery/dorsalis pedis: 35 cm/sec, with monophasic flow. Forte-scale imaging description: Patent vessels without stenosis. Right Case cyst measuring 5.3 x 1.9 x 2.3 cm. Left lower extremity: Common femoral artery: 106 cm/sec, with triphasic flow. Deep femoral artery: 75 cm/sec, with triphasic flow. Proximal superficial femoral artery: 112 of cm/sec, with triphasic flow. Mid superficial femoral artery: 94 cm/sec, with triphasic flow. Distal superficial femoral artery: 99 cm/sec, with triphasic flow. Popliteal artery: 66 cm/sec, with triphasic flow. Posterior tibial artery: 75 cm/sec, with monophasic flow. Anterior tibial artery/dorsalis pedis: 55 cm/sec, with monophasic flow. Forte-scale imaging description: Widely patent vessels with no stenosis noted. IMPRESSION: No evidence of significant arterial stenotic disease in the bilateral lower extremities. Incidental right Case cyst measuring 5.3 x 1.9 x 2.3 cm. Dictated by: Suraj Cosme M.D. on 06/24/2024 at 9:00 Approved by: Suraj Cosme M.D. on 06/24/2024 at 9:05
== END ==
PROVIDERS: Family Provider Specialist; PCP Family Medicine; Referring Provider Family Medicine; Visit Provider Family Medicine
DX: M71.21 Synovial cyst of popliteal space [Baker], right knee (principal); M79.604 Pain in right leg; M79.605 Pain in left leg; E66.01 Morbid (severe) obesity due to excess calories; R20.8 Other disturbances of skin sensation
CPT/HCPCS: 93925

== ENCOUNTER → 2024-12-22 09:31 | Outpatient (CLI) | payer MEDICARE, MEDICAID, SELFPAY ==
[2021-12-29 01:30] VITALS: BMI 40.4
[2024-12-22 10:30] LABS: Alanine Aminotransferase 19 IU/L (<35); Albumin 4.2 g/dL (3.5-5.0); Albumin Globulin Ratio 1.7 (1.0-2.8); Alkaline Phosphatase 95 U/L (38-126); Aspartate Aminotransferase 27 IU/L (14-36); BUN Creatinine Ratio 19.5 (6-22); Blood Urea Nitrogen 15 mg/dL (7-17); Calcium 9.4 mg/dL (8.4-10.2); Carbon Dioxide 25 mmol/L (22-32); Chloride 104 mmol/L (98-107); Estimated Glomerular Filt Rate > 60 mL/min (>60); Globulin 2.5 g/dL (1.7-4.1); Glucose 87 mg/dL (80-110); HEMOLYSIS 17 (0-50); Magnesium 1.7 mg/dL (1.6-2.3); Potassium 4.6 mmol/L (3.4-5.1); Sodium 138 mmol/L (137-145); Total Protein 6.7 g/dL (6.3-8.2)
[2024-12-22 11:04] LABS: TSH w/ Reflex to FT4 1.17 uIU/mL (0.47-4.68)
[2024-12-22 11:23] LABS: Vitamin B12 760 pg/mL (239-931)
[2024-12-22 11:43] LABS: Vitamin D 25 Hydroxy (D3) 38.7 ng/mL (30.0-100.0)
== END ==
PROVIDERS: Family Provider Specialist; PCP Family Medicine; Referring Provider Physician Assistant; Visit Provider Physician Assistant
DX: E83.42 Hypomagnesemia (principal); R20.8 Other disturbances of skin sensation; E55.9 Vitamin D deficiency, unspecified; I73.9 Peripheral vascular disease, unspecified
CPT/HCPCS: 36415; 80053; 82306; 82607; 83735; 84443

== ENCOUNTER → 2025-01-05 15:49 | Outpatient (CLI) | payer MEDICARE, MEDICAID, SELFPAY ==
[2021-12-29 01:30] VITALS: BMI 40.4
--- NOTE | 2025-01-05 15:50 | DI.MG.S_ITS ---
MM screening mammo BI: 01/05/2025. BI-RADS: 1 CLINICAL: 74-year old female for bilateral screening mammogram. Tyrer-Cuzick lifetime risk of 3.8%. No personal or first-degree family history of breast cancer. PRIOR EXAMS 12/31/2023, 12/23/2022, 11/09/2021, 12/25/2020, 12/23/2019, 12/22/2018, 06/13/2017, 03/26/2016, 08/15/2015. MAMMOGRAPHY TECHNIQUE: 2D and 3D (tomosynthesis) digital mammographic views obtained, with additional images as needed for full coverage. Current study was also evaluated with a Computer Aided Detection (CAD) system. DENSITY B. There are scattered areas of fibroglandular density. MAMMOGRAPHY FINDINGS Bilateral: No suspicious mass, asymmetry, microcalcification, or other abnormality seen. No significant change from comparison. IMPRESSION: * No evidence of malignancy. RECOMMENDATIONS Bilateral * Annual screening mammography. OVERALL ASSESSMENT CATEGORY BI-RADS-1: Negative. The [employer] recommends annual screening mammography beginning at age 40 for women with average risk of breast cancer. ELECTRONICALLY SIGNED: Alycia Underwood M.D. on 01/06/2025 at 08:45:26 AM PT Interpreting Station ID: [id number]
== END ==
LOC: MAMMO 15:49
PROVIDERS: Family Provider Specialist; PCP Family Medicine; Referring Provider Physician Assistant; Visit Provider Physician Assistant
DX: Z12.31 Encounter for screening mammogram for malignant neoplasm of breast (principal)
CPT/HCPCS: 77063; 77067

== ENCOUNTER → 2025-07-22 09:53 | Outpatient (CLI) | payer MEDICARE, MEDICAID, SELFPAY ==
[2021-12-29 01:30] VITALS: BMI 40.4
[2025-07-22 12:27] LABS: Cholesterol 190 mg/dL (140-199); HDL Cholesterol 91 mg/dL (40-60); Triglycerides 62 mg/dL (35-150)
[2025-07-22 12:35] LABS: Hemoglobin A1C% w Est Avg Glu 5.3 % (4.0-6.0)
== END ==
PROVIDERS: Family Provider Specialist; PCP Family Medicine; Referring Provider Family Medicine; Visit Provider Family Medicine
DX: E78.5 Hyperlipidemia, unspecified (principal); R60.0 Localized edema; I73.9 Peripheral vascular disease, unspecified
CPT/HCPCS: 36415; 80061; 83036

== ENCOUNTER → 2025-07-26 12:06 | Outpatient (CLI) | payer MEDICARE, MEDICAID, SELFPAY ==
[2021-12-29 01:30] VITALS: BMI 40.4
--- NOTE | 2025-07-26 12:06 | DI.RAD.S_ITS ---
PROCEDURE: XR DEXA AXIAL SKELETON INDICATIONS: screening for osteroporosis COMPARISON: [facility], , XR DEXA AXIAL SKELETON, 09/30/2023, 10:26. [facility], CR, XR DEXA AXIAL SKELETON, 07/06/2021, 13:23. FINDINGS: Lumbar Spine: Bone mineral density 1.124 g/cm2, T score 0.7, decreased by 3.2%. Left Femoral Neck: Bone mineral density 0.638 g/cm2, T score -1.9. Left Hip: Bone mineral density 0.755 g/cm2, T score -1.5, no significant change compared to prior. Fracture Risk Calculation (when applicable): 10-year fracture risk of a major osteoporotic fracture 11 percent and of a hip fracture 2.3 percent. (T score greater or equal to -1.0 to: NORMAL) (T score from -1.1 to -2.4: OSTEOPENIA) (T score less than or equal to -2.5: OSTEOPOROSIS) IMPRESSION: Low bone mineral density (osteopenia) by WHO classification. Follow-up guidelines as follows: Osteoporosis: Consider a repeat DEXA and Vertebral Fracture Assessment (VFA) exam in 2 years or sooner if medically necessary, to reassess this patient's status. Osteopenia: Consider a repeat DEXA in 2-3 years to reassess this patient's status, or if there is a new clinical indication. Normal: Consider a repeat DEXA in 5 years or sooner, or if there is a new clinical indication. All treatment decisions require clinical judgment and consideration of individual patient factors, including patient preferences, comorbidities, previous drug use, risk factors not captured in the FRAX model (e.g., frailty, falls, vitamin D deficiency, increased bone turnover, interval significant decline in bone density ) and possible under- or over-estimation of fracture risk by FRAX. In addition, the NOF Guide recommends that FDA-approved medical therapies be considered in postmenopausal women and men age >= 50 years with a: * Hip or vertebral (clinical or morphometric) fracture * T-score of <=-2.5 at the spine or hip * Ten-year fracture probability by FRAX of >= 3% for hip fracture or >=20% for major osteoporotic fracture. Dictated by: David Herrera M.D. on 07/26/2025 at 13:31 Approved by: David Herrera M.D. on 07/26/2025 at 13:38
== END ==
LOC: RAD 12:06
PROVIDERS: Family Provider Specialist; PCP Family Medicine; Referring Provider Family Medicine; Visit Provider Family Medicine
DX: M85.89 Other specified disorders of bone density and structure, multiple sites (principal)
CPT/HCPCS: 77080

== ENCOUNTER → 2025-08-29 19:38 | Outpatient (CLI) | payer MEDICARE, MEDICAID, SELFPAY ==
[2021-12-29 01:30] VITALS: BMI 40.4
--- NOTE | 2025-08-29 19:41 | DI.MRI.S_ITS ---
PROCEDURE: MR LUMBAR SPINE WO CON INDICATIONS: legs giving out, feeling of electrical shock low back down TECHNIQUE: Noncontrast sagittal T1 spin echo and T2 fast echo, sagittal STIR, and T2 fast spin echo through the lumbar spine. In cases with scoliosis, additional coronal T2 fast spin echo may be performed. COMPARISON: [facility], MR, MR LUMBAR SPINE WO CON, 03/01/2021, 17:52. FINDINGS: Image quality: Excellent Moderate levoscoliosis of the lumbar spine, centered at L2. Grade 1 anterolisthesis of L4 on L5. Vertebral body height of the lumbar spine are well maintained. Multiple small Schmorl's node in the lumbar spine. Pain no significant fibrovascular end plate change. Marrow signal is normal for age. Multilevel disc bulge and disc desiccation. Conus terminates at the level of T12-L1, and is unremarkable. Right neural foraminal stenosis: Mild at L2-3, L3-4, L4-5. Left neural foraminal stenosis: Mild to moderate at L3-4, mild at L4-5, moderate at L5-S1. Axial images: T11-T12: Mild disc bulge. No central canal stenosis. T12-L1: No central canal stenosis. Mild disc bulge. Disc bulge. Mild bilateral facet arthropathy. Mild central canal stenosis. L2-3: Disc bulge. Moderate bilateral facet arthropathy. Mild central canal stenosis. L3-4: Severe bilateral facet arthropathy. Disc bulge. Mild central canal stenosis. L4-5: Severe bilateral facet arthropathy. Posterior disc uncovering. Moderate to severe central canal stenosis. L5-S1: Severe bilateral facet arthropathy. Disc bulge, superimposed on left foraminal disc protrusion, resulting complete effacement of the left lateral recess. No central canal stenosis. Visualized sacrum is intact. Small bilateral renal cysts. IMPRESSION: 1. Multilevel degenerative changes, most pronounced at L4-5, where there is moderate to severe central canal stenosis, grossly unchanged. 2. Moderate left neural foraminal stenosis at L5-S1, unchanged. Dictated by: Cathie Donaldson M.D. on 08/30/2025 at 10:35 Approved by: Cathie Donaldson M.D. on 08/30/2025 at 10:45
== END ==
LOC: MRI 19:39
PROVIDERS: Family Provider Specialist; PCP Family Medicine; Referring Provider Family Medicine; Visit Provider Family Medicine
DX: M47.816 Spondylosis without myelopathy or radiculopathy, lumbar region (principal); M47.817 Spondylosis without myelopathy or radiculopathy, lumbosacral region; M48.061 Spinal stenosis, lumbar region without neurogenic claudication; M48.07 Spinal stenosis, lumbosacral region; M79.605 Pain in left leg; M79.604 Pain in right leg; R20.8 Other disturbances of skin sensation; R29.898 Other symptoms and signs involving the musculoskeletal system; R68.89 Other general symptoms and signs
CPT/HCPCS: 72148

== ENCOUNTER → 2025-09-02 13:57 | Outpatient (CLI) | payer MEDICARE, MEDICAID, SELFPAY ==
[2021-12-29 01:30] VITALS: BMI 40.4
[2025-09-02 14:48] LABS: Add Manual Diff / Slide Review NO; Hematocrit 39.4 % (36-46); Hemoglobin 13.2 g/dL (12.0-16.0); Lymphocytes Absolute Auto 1300 /uL (1100-4500); Mean Corpuscular HGB Conc 33.6 % (30-36); Mean Corpuscular Hemoglobin 29.7 PG (26-34); Mean Corpuscular Volume 88.4 fL (80-100); Platelet Count 212 X10^3/uL (150-400)
[2025-09-02 15:08] LABS: Creatine Kinase 53 U/L (30-135)
[2025-09-04 08:38] LABS: CRP, High Sensitivity 1.21 mg/L (0.00-3.00)
[2025-09-06 14:08] LABS: ANA Screen, IFA Negative (.)
== END ==
PROVIDERS: PCP Family Medicine; Referring Provider Family Medicine; Visit Provider Family Medicine
DX: M79.604 Pain in right leg (principal); M79.605 Pain in left leg; R29.898 Other symptoms and signs involving the musculoskeletal system
CPT/HCPCS: 36415; 82550; 85025; 85651; 86038; 86140; 86430

== ENCOUNTER 2025-09-06 09:45 | Outpatient (RCR) | payer MEDICARE, MEDICAID, SELFPAY ==
[2021-12-29 01:30] VITALS: BMI 40.4
--- NOTE | 2025-07-01 17:14 | OT.OPPOC ---
Physical, Occupational & Speech Therapy At [facility] Terese Trejo [id number] Visit Care Team Role Provider Type Ba Rankin MD Family Provider Non-Staff Address: [address] [place] [address], [address], [place], [address] Mary Perez DO Attending Provider Physician Primary Care Provider Referring Provider Address: [address] [place] [address], [address], [place], [address] Occupational Therapy Plan of Care OT Outpatient Adult Evaluation Start: 06/30/25 11:46 Freq: Status: Active Protocol: Document 07/01/25 13:45 (Rec: 06/30/25 11:52 [id number]) General Information - Adult Visit Information Visit Number 1 of 12 Plan of Care Dates 07/01/25-09/23/25 Insurance no preauth;no copay;no visit limit Information Session Time Visit Start Date 07/01/25 Visit Start Time 13:45 Visit Stop Time 14:30 Setting Treatment Setting Outpatient Care Visit Type Note Type Initial Evaluation Referral Referring Physician Dr. Mary Perez Reason for Referral R DeQuervain's tenosynovitis Identification Identification Yes Confirmed Identification EMR Confirmed By Patient Patient Goals Dressing/fasteners, art, opening packages/containers, dog walking Social Information Social History It started about 2 months ago and it just started out of nowhere, it wasn't progressive at all Patient Questionnaires Quick Dash- Upper Extremity Quick Dash UE Score 59.1 Quick Dash UE 40 to 59% Impaired (Score 40-59) Impairment Goals Objective Measurements Objective ~Cristóbal?s test: Positive on L wrist Measurements ~AROM (bilateral wrists/hands): Within functional limits ~Manager Home Healthcare strength Right: 50 lbs, 55 lbs, 55 lbs ? Avg 53.3 lbs Left: 32 lbs, 45 lbs, 45 lbs ? Avg 40.7 lbs ~3-jaw ran pinch (R vs L, 3 trials each) Right: 11 lbs, 10 lbs, 11.5 lbs ? Avg 10.8 lbs Left: 10 lbs, 11 lbs, 11 lbs ? Avg 10.7 lbs ~Lateral pinch Right: 12 lbs, 13 lbs, 11 lbs ? Avg 12.0 lbs Left: 10 lbs (1 trial only, due to pain) Treatment Treatment Patient was educated on joint protection strategies, activity modification, and the use of adaptive equipment including consideration of a waist-belt leash to reduce strain on the left thumb. Ice massage was reviewed for symptom management. A brief trial of tendon glide exercises was introduced with plans to review in full next session. Patient verbalized good understanding and demonstrated fair tolerance of all education and exercise introduced. Short Term Goals Short Term Goals (Within 6 weeks) 1. Patient will demonstrate independence with tendon glide HEP with correct form and minimal symptom provocation. 2. Patient will reduce QuickDASH score by at least 15 points, indicating improved functional use of L UE. 3. Patient will improve left spanish moss picker strength by at least 10 lbs (avg) to support improved task performance. 4. Patient will identify and consistently implement at least 3 joint protection/task modification strategies for daily activities (e.g., using adaptive leash, package opening modifications). Occupational Health And Safety Manager Goals Occupational Health And Safety Manager Goals (Within 12 weeks) 1. Patient will demonstrate equalized spanish moss picker strength within 10 lbs of R hand average to support functional symmetry. 2. Patient will tolerate dog walking with minimal to no pain (=2/10) using joint-protection strategies. 3. Patient will report independence with dressing and container management without significant limitation from thumb/wrist pain in 4 out of 5 trials. 4. Patient will achieve a QuickDASH score =25, reflecting return to near-baseline functional independence. Assessment/Plan Assessment Patient Response Good Rehabilitation Good Potential Impairments ADLs,Functional Activities,Pain,Weakness,Recreational Identified Activities,Meaningful Activities,Stiffness,Work Capacity,Soft Tissue Mobility Treatment Assessment 75-year-old mrmlu-dibz-hydznvce female referred by Dr. Mary Perez for left De Quervain?s tenosynovitis with a two-month history of sudden onset thumb and wrist pain, likely exacerbated by occupational and leisure demands including dog walking and artistic tasks. Evaluation revealed positive Cristóbal?s test, pain with spanish moss picker and pinch, decreased left spanish moss picker strength (average 40.7 lbs vs 53.3 lbs on the right), and limited pinch tolerance, particularly with lateral pinch. Functional deficits are noted in dressing/ fasteners, opening packages and containers, and dog walking, as reflected in a QuickDASH score of 59.1. Patient presents with good brace compliance and motivation for rehabilitation. Skilled OT is indicated to address pain reduction, tendon mobility, spanish moss picker/pinch strength, and joint protection strategies to restore independence in daily activities and return to valued roles. Home Exercise radial/ulnar deviation tendon glides Program Reviewed with Goals,Progress Being Made,Home Exercise Program Patient Patient Good Understanding Plan Length of treatment 12 (weeks) Plan of Care Start 07/01/25 Date Plan of Care End 09/23/25 Date Comment 1-2x per week pending progress Treatment Frequency Twice a Week Treatment Duration 45 Minutes Treatment Emphasis ktape, HEP review, vibe Next Session Therapeutic Contents Active Range of Motion,Adaptive Equipment Education, Client Education,Functional Activities,Home Exercise Program,Joint Protection,Education,Neuromuscular Re- Education,Self-Care,Stretching/Flexibility Activities, Therapeutic Activities,Therapeutic Exercises,Modalities Modalities As Needed Types of Modalities Ice Massage,Other Additional Types of paraffin, MHP Modalities Patient Instruction Home Exercise Program,Plan of Care,Questions/Concerns Patient Continue with Current Program Recommendations Electronically Signed by: Nichol Delgado OT 07/01/25 [id number] If you are in agreement with this Plan of Care, please return a signed and dated copy. I have reviewed this Plan of Care and certify that the skilled therapy services above are required to meet the patient?s needs. Physician Signature Date Printed Name and Credentials Clinical Instructor Signature Printed Name and Credentials
--- NOTE | 2025-07-08 17:14 | OT.OP.TRT ---
Visit Care Team Role Provider Type Ba Rankin MD Family Provider Non-Staff Specialty: General Surgery Address: [address] [place] [address], [address], [place], [address] Email: [email or web address] Mary Perez DO Attending Provider Physician Primary Care Provider Referring Provider Specialty: Family Practice Address: [address] [place] [address], [address], [place], [address] Email: [email or web address] Occupational Therapy Treatment Note OT Outpatient Treatment Note - Adult Start: 06/30/25 11:46 Freq: Status: Active Protocol: Document 07/08/25 14:30 (Rec: 07/05/25 12:05 [id number]) OT Outpatient Adult Treatment Note Session Time Visit Start Date 07/08/25 Visit Start Time 14:30 Visit Stop Time 15:15 Visit Information Visit Number 2 of 12 Plan of Care Dates 07/01/25-09/23/25 Insurance no preauth;no copay;no visit limit Information Setting Treatment Setting Outpatient Care Visit Type Note Type Treatment Note - Subjective Identification Type Name Identification Medical Record Reconciled With Observations The exercises I was doing really seemed to make it angry Patient/Caregiver Excellent Compliance with Home Exercise Program - Objective Short Term Goals (Within 6 weeks) 1. Patient will demonstrate independence with tendon glide HEP with correct form and minimal symptom provocation. 2. Patient will reduce QuickDASH score by at least 15 points, indicating improved functional use of L UE. 3. Patient will improve left respiratory care program director strength by at least 10 lbs (avg) to support improved task performance. 4. Patient will identify and consistently implement at least 3 joint protection/task modification strategies for daily activities (e.g., using adaptive leash, package opening modifications). [facility] Goals (Within 12 weeks) 1. Patient will demonstrate equalized respiratory care program director strength within 10 lbs of R hand average to support functional symmetry. 2. Patient will tolerate dog walking with minimal to no pain (=2/10) using joint-protection strategies. 3. Patient will report independence with dressing and container management without significant limitation from thumb/wrist pain in 4 out of 5 trials. 4. Patient will achieve a QuickDASH score =25, reflecting return to near-baseline functional independence. - Treatment 1 Descriptor Patient was engaged in review of her current HEP. She reported that after the first set of exercises, particularly those involving resistance, she experienced significant soreness and pain in the left hand. Education was provided on activity pacing and the importance of avoiding resistance or weight-bearing at this time. HEP was modified to include only gentle tendon glides focusing on thumb opposition and ulnar deviation within pain-free range. Education emphasized progression as tolerated while avoiding significant pain. Kinesiotape was applied for support with instruction on purpose, wear schedule, and monitoring for skin integrity. Strategies for using ice massage as needed for pain management were reviewed. Patient demonstrated good understanding, return demonstration of modified exercises, and continues to show strong compliance with HEP. - Assessment Patient Response to Good Treatment Rehabilitation Good Potential Impairments ADLs,Flexibility,Functional Activities,Motor Function, Identified Pain,Weakness,Range of Motion,Recreational Activities, Meaningful Activities,Work Capacity Progress Towards Good Progress Goals Assessment of Improving Overall Progress Assessment of Patient with left De Quervain?s tenosynovitis continues Improvement to present with pain exacerbated by resisted exercises , indicating current tissue irritability and limited tolerance for strengthening progression. Sharp pain noted with gentle ulnar deviation this date suggests ongoing tendon sensitivity and need for conservative management. Patient demonstrates good insight, strong motivation, and excellent compliance with education and HEP adjustments, supporting good rehabilitation potential. Continued skilled OT is indicated to monitor response, safely progress tendon mobility and graded strengthening when appropriate, and to reinforce joint protection, pain management, and functional task modifications to restore independence in ADLs and valued activities. Home Exercise thumb opposition/ulnar deviation tendon glides, Program theraputty, weighted radial deviation, resisted thumb abduction Reviewed with Goals,Progress Being Made,Home Exercise Program Patient/Caregiver Patient/Caregiver Good Understanding - Plan Therapy Continue with Current Program Recommendations Amount of Therapy 2-3 Months Recommended Comment 1-2x/week PRN Frequency of Twice a Week Treatment Length of Session 45 Minutes Treatment Emphasis ktape, HEP review, vibe Next Session Therapeutic Contents Active Range of Motion,Adaptive Equipment Education, Client Education,Functional Activities,Home Exercise Program,Joint Protection,Manual Therapy,Education,Self- Care,Stretching/Flexibility Activities,Therapeutic Activities,Therapeutic Exercises,Modalities Modalities As Needed Types of Modalities Ice Massage,Other Additional Types of MHP, Paraffin Modalities
--- NOTE | 2025-07-27 18:46 | OT.OP.TRT ---
Visit Care Team Role Provider Type Ba Rankin MD Family Provider Non-Staff Specialty: General Surgery Address: [address] [place] [address], [address], [place], [address] Email: [email or web address] Mary Perez DO Attending Provider Physician Primary Care Provider Referring Provider Specialty: Family Practice Address: [address] [place] [address], [address], [place], [address] Email: [email or web address] Occupational Therapy Treatment Note OT Outpatient Treatment Note - Adult Start: 06/30/25 11:46 Freq: Status: Active Protocol: Document 07/27/25 13:45 (Rec: 07/27/25 09:47 [id number]) OT Outpatient Adult Treatment Note Session Time Visit Start Date 07/27/25 Visit Start Time 13:45 Visit Stop Time 14:30 Visit Information Visit Number 3 of 12 Plan of Care Dates 07/01/25-09/23/25 Insurance no preauth;no copay;no visit limit Information Setting Treatment Setting Outpatient Care Visit Type Note Type Treatment Note - Subjective Identification Type Name Identification Medical Record Reconciled With Observations The exercises are getting easier Patient/Caregiver Excellent Compliance with Home Exercise Program - Objective Short Term Goals (Within 6 weeks) 1. Patient will demonstrate independence with tendon glide HEP with correct form and minimal symptom provocation. 2. Patient will reduce QuickDASH score by at least 15 points, indicating improved functional use of L UE. 3. Patient will improve left business services director strength by at least 10 lbs (avg) to support improved task performance. 4. Patient will identify and consistently implement at least 3 joint protection/task modification strategies for daily activities (e.g., using adaptive leash, package opening modifications). Retail Merchandising Manager Goals (Within 12 weeks) 1. Patient will demonstrate equalized business services director strength within 10 lbs of R hand average to support functional symmetry. 2. Patient will tolerate dog walking with minimal to no pain (=2/10) using joint-protection strategies. 3. Patient will report independence with dressing and container management without significant limitation from thumb/wrist pain in 4 out of 5 trials. 4. Patient will achieve a QuickDASH score =25, reflecting return to near-baseline functional independence. - Treatment 1 Descriptor Patient was seen for review and progression of her HEP. She reports exercises are becoming easier overall, though pain continues with wrist flexion and radial deviation. Education was reinforced on completing all movements strictly within the pain-free range, with rationale provided. Functional carryover was reviewed, with patient noting improved ease when reaching for a plate but continued pain with dog walking despite good brace compliance. Modalities were reviewed, including the use of heat for symptom management. A tuning fork sequence was performed to address local tendon irritation and promote relaxation. Kinesiotaping was re -applied with detailed re-education on placement, purpose, and positioning after the patient reported prior benefit but difficulty re-applying independently between sessions. Patient verbalized good understanding , demonstrated appropriate return demonstration, and continues to show strong adherence to education and HEP . - Assessment Patient Response to Good Treatment Rehabilitation Good Potential Impairments ADLs,Flexibility,Functional Activities,Motor Function, Identified Pain,Weakness,Range of Motion,Recreational Activities, Meaningful Activities,Work Capacity Progress Towards Good Progress Goals Assessment of Improving Overall Progress Assessment of Patient with left De Quervain?s tenosynovitis Improvement demonstrates gradual improvement in tolerance for therapeutic exercise and reports reduced difficulty with select daily activities, though pain persists with provocative wrist motions and during dog walking. Her ability to report progress, compliance with the brace and HEP, and successful carryover of joint protection strategies reflect strong rehabilitation potential. Continued skilled OT remains necessary to support progression of tendon mobility, pain management, kinesiotape independence, and joint protection strategies to optimize function in daily activities and return to valued roles. Home Exercise thumb opposition/ulnar deviation tendon glides, Program theraputty, weighted radial deviation, resisted thumb abduction Reviewed with Goals,Progress Being Made,Home Exercise Program Patient/Caregiver Patient/Caregiver Good Understanding - Plan Therapy Continue with Current Program Recommendations Amount of Therapy 2-3 Months Recommended Comment 1-2x/week PRN Frequency of Twice a Week Treatment Length of Session 45 Minutes Treatment Emphasis ktape, HEP review, vibe Next Session Therapeutic Contents Active Range of Motion,Adaptive Equipment Education, Client Education,Functional Activities,Home Exercise Program,Joint Protection,Manual Therapy,Education,Self- Care,Stretching/Flexibility Activities,Therapeutic Activities,Therapeutic Exercises,Modalities Modalities As Needed Types of Modalities Ice Massage,Other Additional Types of MHP, Paraffin Modalities
--- NOTE | 2025-08-03 16:11 | OT.OPPN ---
Current Diagnoses Pain in left hand (08/03/25) OT Progress Note OT Outpatient Treatment Note - Adult Start: 06/30/25 11:46 Freq: Status: Active Protocol: Document 08/03/25 13:00 (Rec: 07/28/25 17:06 [id number]) OT Outpatient Adult Treatment Note Session Time Visit Start Date 08/03/25 Visit Start Time 13:45 Visit Stop Time 14:30 Visit Information Visit Number 4 of 12 Plan of Care Dates 07/01/25-09/23/25 Insurance no preauth;no copay;no visit limit Information Setting Treatment Setting Outpatient Care Visit Type Note Type Progress Note - Subjective Identification Type Name Identification Medical Record Reconciled With Observations I can't believe it but I noticed yesterday, my hand isn't hurting at all! Patient/Caregiver Excellent Compliance with Home Exercise Program - Objective Short Term Goals (Within 6 weeks) 1. Patient will demonstrate independence with tendon glide HEP with correct form and minimal symptom provocation. [PROGRESSING 08/03/25] 2. Patient will reduce QuickDASH score by at least 15 points, indicating improved functional use of L UE. [ PROGRESSING 08/03/25] 3. Patient will improve left stock broker strength by at least 10 lbs (avg) to support improved task performance. [ PROGRESSING 08/03/25] 4. Patient will identify and consistently implement at least 3 joint protection/task modification strategies for daily activities (e.g., using adaptive leash, package opening modifications). [PROGRESSING 08/03/25] Barrel Ribs Solderer Goals (Within 12 weeks) 1. Patient will demonstrate equalized stock broker strength within 10 lbs of R hand average to support functional symmetry. [PROGRESSING 08/03/25] 2. Patient will tolerate dog walking with minimal to no pain (=2/10) using joint-protection strategies. [ PROGRESSING 08/03/25] 3. Patient will report independence with dressing and container management without significant limitation from thumb/wrist pain in 4 out of 5 trials. [ PROGRESSING 08/03/25] 4. Patient will achieve a QuickDASH score =25, reflecting return to near-baseline functional independence. [PROGRESSING 08/03/25] - Treatment 1 Descriptor Patient was seen for continued management of left De Quervain?s tenosynovitis. Session included application of moist heat to the left wrist and thumb region followed by gentle retrograde massage and repetition of the previously established tuning fork sequence for neuromodulation and local pain relief. Patient reported a monteiro improvement in pain since the last visit, noting no tenderness or discomfort during soft tissue work this date. She demonstrated her HEP with minimal verbal cues for form and intensity, showing excellent retention and technique. Education was reinforced on maintaining current HEP parameters without adding resistive exercises to prevent symptom flare, given the variable nature of her recent pain patterns. Discussion included continued use of her brace, joint protection strategies, and thermal modalities for ongoing symptom management. Patient verbalized understanding and continues to show high compliance and motivation for rehabilitation. - Assessment Patient Response to Good Treatment Rehabilitation Good Potential Impairments ADLs,Flexibility,Functional Activities,Motor Function, Identified Pain,Weakness,Range of Motion,Recreational Activities, Meaningful Activities,Work Capacity Progress Towards Good Progress Goals Assessment of Improving Overall Progress Assessment of Patient demonstrates significant reduction in pain and Improvement increased tolerance for activity, indicating marked improvement toward established therapeutic goals. Absence of tenderness during massage and strong carryover of HEP techniques reflect improved tissue healing and neuromuscular control. Continued avoidance of resistive loading remains appropriate at this stage to maintain progress and prevent re-irritation. Patient reports consistent adherence to bracing, home program, and activity modification strategies, correlating with her current gains. Overall, she is making excellent progress toward short-term goals and remains an excellent candidate for continued skilled OT to monitor recovery, support graded progression when appropriate, and facilitate full return to pain-free daily function . Home Exercise thumb opposition/ulnar deviation tendon glides, Program theraputty, 08/03 updated, reducing HEP to discontinue weighted radial deviation and resisted thumb abduction until symptoms improve Reviewed with Goals,Progress Being Made,Home Exercise Program Patient/Caregiver Patient/Caregiver Good Understanding - Plan Therapy Continue with Current Program Recommendations Amount of Therapy 2-3 Months Recommended Comment 1-2x/week PRN Frequency of Twice a Week Treatment Length of Session 45 Minutes Treatment Emphasis ktape, HEP review, vibe Next Session Therapeutic Contents Active Range of Motion,Adaptive Equipment Education, Client Education,Functional Activities,Home Exercise Program,Joint Protection,Manual Therapy,Education,Self- Care,Stretching/Flexibility Activities,Therapeutic Activities,Therapeutic Exercises,Modalities Modalities As Needed Types of Modalities Ice Massage,Other Additional Types of MHP, Paraffin Modalities If you are in agreement with this Plan of Care, please return a signed and dated copy. I have reviewed this Plan of Care and certify that the skilled therapy services above are required to meet the patient?s needs. Physician Signature Date Printed Name and Credentials Clinical Instructor Signature Printed Name and Credentials
--- NOTE | 2025-08-11 11:30 | OT.OP.TRT ---
Visit Care Team Role Provider Type Ba Rankin MD Family Provider Non-Staff Specialty: General Surgery Address: [address] [place] [address], [address], [place], [address] Email: [email or web address] Perez DO Attending Provider Physician Primary Care Provider Referring Provider Specialty: Family Practice Address: [address] [place] [address], [address], [place], [address] Email: [email or web address] Occupational Therapy Treatment Note OT Outpatient Treatment Note - Adult Start: 06/30/25 11:46 Freq: Status: Active Protocol: Document 08/11/25 10:45 (Rec: 08/09/25 12:20 [id number]) OT Outpatient Adult Treatment Note Session Time Visit Start Date 08/11/25 Visit Start Time 10:45 Visit Stop Time 11:23 Visit Information Visit Number 5 of 12 Plan of Care Dates 07/01/25-09/23/25 Insurance no preauth;no copay;no visit limit Information Setting Treatment Setting Outpatient Care Visit Type Note Type Treatment Note - Subjective Identification Type Name Identification Medical Record Reconciled With Observations It hasn't been hurting at night anymore and its doing so much better! Patient/Caregiver Excellent Compliance with Home Exercise Program - Objective Short Term Goals (Within 6 weeks) 1. Patient will demonstrate independence with tendon glide HEP with correct form and minimal symptom provocation. [PROGRESSING 08/03/25] 2. Patient will reduce QuickDASH score by at least 15 points, indicating improved functional use of L UE. [ PROGRESSING 08/03/25] 3. Patient will improve left dry wall sprayer strength by at least 10 lbs (avg) to support improved task performance. [ PROGRESSING 08/03/25] 4. Patient will identify and consistently implement at least 3 joint protection/task modification strategies for daily activities (e.g., using adaptive leash, package opening modifications). [PROGRESSING 08/03/25] Group Home Goals (Within 12 weeks) 1. Patient will demonstrate equalized dry wall sprayer strength within 10 lbs of R hand average to support functional symmetry. [PROGRESSING 08/03/25] 2. Patient will tolerate dog walking with minimal to no pain (=2/10) using joint-protection strategies. [ PROGRESSING 08/03/25] 3. Patient will report independence with dressing and container management without significant limitation from thumb/wrist pain in 4 out of 5 trials. [ PROGRESSING 08/03/25] 4. Patient will achieve a QuickDASH score =25, reflecting return to near-baseline functional independence. [PROGRESSING 08/03/25] - Treatment 1 Descriptor Patient was seen for continued management of left De Quervain?s tenosynovitis. She reports excellent compliance with her gentle AROM HEP and significant improvement in night pain. Although she misplaced her brace, she noted her hand has remained less painful overall. Kinesiotape was applied to the left thumb for supportive stabilization and pain reduction in place of her brace, with patient education on purpose, wear schedule, and precautions. A tuning fork sequence was performed to promote local tissue relaxation and neuromodulation, which the patient continues to report as beneficial. Her HEP was advanced to include light strengthening and controlled loading exercises: rubber band extensor strengthening, isometric thumb abduction/ adduction, and ulnar deviation with light weight. She completed one set of ten repetitions of each with maximal verbal and visual cues for form and pacing, demonstrating good return demonstration and tolerance without symptom provocation. Patient educated throughout on maintaining gentle and slow progression to monitor for pain or symptom provocation reinforcing the anatomy and physiology as inflammation is reduced and strengthening is initiated and why. Patient verbalized understanding of progression parameters and continues to demonstrate excellent adherence to all home program and education recommendations. Exercises 1 Descriptor Progressing HEP to 3rd phase of protocol this date: 1 set of 10 for the following: Finger extension with rubber band Isometric Thumb abduction/adduction Ulnar deviation with 1lb weight Visual Cues Max Cues Verbal Cues Max Cues Tolerance Excellent - Assessment Patient Response to Good Treatment Rehabilitation Good Potential Impairments ADLs,Flexibility,Functional Activities,Motor Function, Identified Pain,Weakness,Range of Motion,Recreational Activities, Meaningful Activities,Work Capacity Progress Towards Good Progress Goals Assessment of Improving Overall Progress Assessment of Patient demonstrates significant improvement in pain, Improvement activity tolerance, and functional use of the left upper extremity. Observable improvements include increased tolerance for ulnar deviation and absence of pain with movements that were previously aggravating. The patient?s compliance with HEP, consistent engagement in activity modification, and positive response to both kinesiotaping and vibrational therapy reflect high rehabilitation potential and strong self- management capacity. Her clinical presentation indicates transition into the strengthening and conditioning phase of recovery. Continued skilled OT remains appropriate to safely progress strengthening, refine motor control, and ensure full functional reintegration for daily and occupational activities without recurrence of pain. Home Exercise thumb opposition/ulnar deviation tendon gliirvin, Program theraputty, 08/03 updated, reducing HEP to discontinue weighted radial deviation and resisted thumb abduction until symptoms improve Reviewed with Goals,Progress Being Made,Home Exercise Program Patient/Caregiver Patient/Caregiver Good Understanding - Plan Therapy Continue with Current Program Recommendations Amount of Therapy 2-3 Months Recommended Comment 1-2x/week PRN Frequency of Twice a Week Treatment Length of Session 45 Minutes Treatment Emphasis ktape, HEP review, vibe Next Session Therapeutic Contents Active Range of Motion,Adaptive Equipment Education, Client Education,Functional Activities,Home Exercise Program,Joint Protection,Manual Therapy,Education,Self- Care,Stretching/Flexibility Activities,Therapeutic Activities,Therapeutic Exercises,Modalities Modalities As Needed Types of Modalities Ice Massage,Other Additional Types of MHP, Paraffin Modalities
--- NOTE | 2025-08-17 14:30 | OT.OP.TRT ---
Visit Care Team Role Provider Type Ba Rankin MD Family Provider Non-Staff Specialty: General Surgery Address: [address] [place] [address], [address], [place], [address] Email: [email or web address] Mary Perez DO Attending Provider Physician Primary Care Provider Referring Provider Specialty: Family Practice Address: [address] [place] [address], [address], [place], [address] Email: [email or web address] Occupational Therapy Treatment Note OT Outpatient Treatment Note - Adult Start: 06/30/25 11:46 Freq: Status: Active Protocol: Document 08/17/25 13:00 (Rec: 08/17/25 12:53 [id number]) OT Outpatient Adult Treatment Note Session Time Visit Start Date 08/17/25 Visit Start Time 13:00 Visit Stop Time 13:45 Visit Information Visit Number 6 of 12 Plan of Care Dates 07/01/25-09/23/25 Insurance no preauth;no copay;no visit limit Information Setting Treatment Setting Outpatient Care Visit Type Note Type Treatment Note - Subjective Identification Type Name Identification Medical Record Reconciled With Observations pt tearful this date No one will help me with my lipedema and its getting worse. I feel this morning because my knees buckled and they burn all the time and I can't find anyone to help me Patient/Caregiver Excellent Compliance with Home Exercise Program - Objective Short Term Goals (Within 6 weeks) 1. Patient will demonstrate independence with tendon glide HEP with correct form and minimal symptom provocation. [PROGRESSING 08/03/25] 2. Patient will reduce QuickDASH score by at least 15 points, indicating improved functional use of L UE. [ PROGRESSING 08/03/25] 3. Patient will improve left mothers helper strength by at least 10 lbs (avg) to support improved task performance. [ PROGRESSING 08/03/25] 4. Patient will identify and consistently implement at least 3 joint protection/task modification strategies for daily activities (e.g., using adaptive leash, package opening modifications). [PROGRESSING 08/03/25] Snf Goals (Within 12 weeks) 1. Patient will demonstrate equalized mothers helper strength within 10 lbs of R hand average to support functional symmetry. [PROGRESSING 08/03/25] 2. Patient will tolerate dog walking with minimal to no pain (=2/10) using joint-protection strategies. [ PROGRESSING 08/03/25] 3. Patient will report independence with dressing and container management without significant limitation from thumb/wrist pain in 4 out of 5 trials. [ PROGRESSING 08/03/25] 4. Patient will achieve a QuickDASH score =25, reflecting return to near-baseline functional independence. [PROGRESSING 08/03/25] - Treatment 1 Descriptor Patient was seen for continued management of left De Quervain?s tenosynovitis. She reports sustained improvement in pain with only occasional brief spikes during sudden movements, noting a significant decrease in frequency and intensity overall. Gentle soft tissue massage was performed to the left forearm, targeting the brachioradialis, extensor carpi radialis brevis/ longus, and extensor digitorum with noted improvement in tissue tension following intervention. Her HEP was reviewed, and she demonstrates good carryover and compliance. The patient also resumed consistent brace use after locating her backup brace. She continues to demonstrate good understanding of her program and tolerance for current interventions. Patient was tearful this date over symptom progression and earlier fall this date related to known lipedema. Patient comforted and provided therapeutic listening during treatment interventions and advised throughout session to follow up with foundations and organizations for both lipedema and lymphedema and how to find certified specialists - Assessment Patient Response to Good Treatment Rehabilitation Good Potential Impairments ADLs,Flexibility,Functional Activities,Motor Function, Identified Pain,Weakness,Range of Motion,Recreational Activities, Meaningful Activities,Work Capacity Progress Towards Good Progress Goals Assessment of Improving Overall Progress Assessment of Patient continues to make excellent progress toward Improvement therapeutic goals for management of left De Quervain?s tenosynovitis, demonstrating notable reduction in pain and improved soft tissue mobility throughout the left forearm and wrist. She remains highly compliant with bracing, HEP, and task modification strategies and tolerates current interventions well. Continued skilled OT remains indicated to support gradual strengthening progression and promote safe, pain-free functional reintegration. During today?s session, the patient also reported a fall earlier this morning, describing a transient sensation of burning and weakness in her lower extremities preceding the episode. She reports that these sensations have been occurring intermittently for approximately two years, characterized by burning or radiating discomfort from the posterior thigh down to the heel, occasionally extending laterally. She noted concern regarding these symptoms and their potential relationship to her known or suspected lipedema, which she describes as having progressed from the upper thighs to below the knees over the past two and a half years. The patient was provided educational resources and referral information to assist with pursuing evaluation by a specialist familiar with lipedema and related neuromuscular or vascular presentations. These findings were discussed within scope to encourage appropriate medical follow-up for further diagnostic clarification. Home Exercise thumb opposition/ulnar deviation tendon nicole, Program theraputty, 08/03 updated, reducing HEP to discontinue weighted radial deviation and resisted thumb abduction until symptoms improve Reviewed with Goals,Progress Being Made,Home Exercise Program Patient/Caregiver Patient/Caregiver Good Understanding - Plan Therapy Continue with Current Program Recommendations Amount of Therapy 2-3 Months Recommended Comment 1-2x/week PRN Frequency of Twice a Week Treatment Length of Session 45 Minutes Treatment Emphasis ktape, HEP review, vibe Next Session Therapeutic Contents Active Range of Motion,Adaptive Equipment Education, Client Education,Functional Activities,Home Exercise Program,Joint Protection,Manual Therapy,Education,Self- Care,Stretching/Flexibility Activities,Therapeutic Activities,Therapeutic Exercises,Modalities Modalities As Needed Types of Modalities Ice Massage,Other Additional Types of MHP, Paraffin Modalities
--- NOTE | 2025-08-19 15:02 | OT.OP.TRT ---
Visit Care Team Role Provider Type Ba Rankin MD Family Provider Non-Staff Specialty: General Surgery Address: [address] [place] [address], [address], [place], [address] Email: [email or web address] Mary [email or web address] DO Attending Provider Physician Primary Care Provider Referring Provider Specialty: Family Practice Address: [address] [place] [address], [address], [place], [address] Email: [email or web address] Occupational Therapy Treatment Note OT Outpatient Treatment Note - Adult Start: 06/30/25 11:46 Freq: Status: Active Protocol: Document 08/19/25 13:00 (Rec: 08/18/25 12:12 [id number]) OT Outpatient Adult Treatment Note Session Time Visit Start Date 08/19/25 Visit Start Time 13:00 Visit Stop Time 13:45 Visit Information Visit Number 7 of 12 Plan of Care Dates 07/01/25-09/23/25 Insurance no preauth;no copay;no visit limit Information Setting Treatment Setting Outpatient Care Visit Type Note Type Treatment Note - Subjective Identification Type Name Identification Medical Record Reconciled With Observations My thumb is just doing so much better Patient/Caregiver Excellent Compliance with Home Exercise Program - Objective Short Term Goals (Within 6 weeks) 1. Patient will demonstrate independence with tendon glide HEP with correct form and minimal symptom provocation. [PROGRESSING 08/03/25] 2. Patient will reduce QuickDASH score by at least 15 points, indicating improved functional use of L UE. [ PROGRESSING 08/03/25] 3. Patient will improve left dairy tester strength by at least 10 lbs (avg) to support improved task performance. [ PROGRESSING 08/03/25] 4. Patient will identify and consistently implement at least 3 joint protection/task modification strategies for daily activities (e.g., using adaptive leash, package opening modifications). [PROGRESSING 08/03/25] Fpc Goals (Within 12 weeks) 1. Patient will demonstrate equalized dairy tester strength within 10 lbs of R hand average to support functional symmetry. [PROGRESSING 08/03/25] 2. Patient will tolerate dog walking with minimal to no pain (=2/10) using joint-protection strategies. [ PROGRESSING 08/03/25] 3. Patient will report independence with dressing and container management without significant limitation from thumb/wrist pain in 4 out of 5 trials. [ PROGRESSING 08/03/25] 4. Patient will achieve a QuickDASH score =25, reflecting return to near-baseline functional independence. [PROGRESSING 08/03/25] - Exercises 1 Descriptor 2x10 using yellow flex bar: 1. Wrist extension 2. Radial deviation max verbal/visual cues required for good return demo of resistive exercises progressing to standby by end of session Visual Cues Max Cues Verbal Cues Max Cues Tolerance Good Manual Therapy Manual Therapy Patient was seen for manual intervention to the left forearm including gentle soft tissue massage performed while the extremity was supported within a moist heat pack to promote tissue relaxation and circulation. Light vibratory input was incorporated throughout the session to enhance neuromuscular release and promote proprioceptive feedback. Notable improvement was observed in tissue pliability and tone of the brachioradialis, extensor carpi radialis longus, flexor carpi ulnaris, and palmaris longus musculature, with the patient reporting subjective relief and reduced tension following intervention. - Assessment Patient Response to Good Treatment Rehabilitation Good Potential Impairments ADLs,Flexibility,Functional Activities,Motor Function, Identified Pain,Weakness,Range of Motion,Recreational Activities, Meaningful Activities,Work Capacity Progress Towards Good Progress Goals Assessment of Improving Overall Progress Assessment of Patient continues to demonstrate steady and meaningful Improvement progress toward goals with improved soft tissue mobility, decreased pain, and increased tolerance for therapeutic exercise. She performed current strengthening activities without discomfort and maintains excellent compliance with her HEP, bracing, and overall therapy recommendations. The patient?s report of sustained pain reduction and improved functional performance supports effective tissue healing and strengthening progression. She continues to benefit from skilled OT services to facilitate ongoing sikhism of strength, endurance, and pain-free participation in daily and occupational activities while minimizing risk of recurrence. Home Exercise thumb opposition/ulnar deviation tendon glides, Program theraputty, 08/03 updated, reducing HEP to discontinue weighted radial deviation and resisted thumb abduction until symptoms improve Reviewed with Goals,Progress Being Made,Home Exercise Program Patient/Caregiver Patient/Caregiver Good Understanding - Plan Therapy Continue with Current Program Recommendations Amount of Therapy 2-3 Months Recommended Comment 1-2x/week PRN Frequency of Twice a Week Treatment Length of Session 45 Minutes Treatment Emphasis ktape, HEP review, vibe Next Session Therapeutic Contents Active Range of Motion,Adaptive Equipment Education, Client Education,Functional Activities,Home Exercise Program,Joint Protection,Manual Therapy,Education,Self- Care,Stretching/Flexibility Activities,Therapeutic Activities,Therapeutic Exercises,Modalities Modalities As Needed Types of Modalities Ice Massage,Other Additional Types of MHP, Paraffin Modalities
--- NOTE | 2025-08-24 14:06 | OT.OPPN ---
Current Diagnoses Pain in left hand (08/24/25) OT Progress Note OT Outpatient Treatment Note - Adult Start: 06/30/25 11:46 Freq: Status: Active Protocol: Document 08/24/25 13:45 (Rec: 08/24/25 13:50 [id number]) OT Outpatient Adult Treatment Note Session Time Visit Start Date 08/24/25 Visit Start Time 13:00 Visit Stop Time 13:45 Visit Information Visit Number 8 of 12 Plan of Care Dates 07/01/25-09/23/25 Insurance no preauth;no copay;no visit limit Information Setting Treatment Setting Outpatient Care Visit Type Note Type Progress Note - Subjective Identification Type Name Identification Medical Record Reconciled With Observations My thumb is doing great today! Patient/Caregiver Excellent Compliance with Home Exercise Program - Objective Short Term Goals (Within 6 weeks) 1. Patient will demonstrate independence with tendon glide HEP with correct form and minimal symptom provocation. [MET 08/24/25] 2. Patient will reduce QuickDASH score by at least 15 points, indicating improved functional use of L UE. [ PROGRESSING 08/24/25] 3. Patient will improve left shank pinner strength by at least 10 lbs (avg) to support improved task performance. [ PROGRESSING 08/24/25] 4. Patient will identify and consistently implement at least 3 joint protection/task modification strategies for daily activities (e.g., using adaptive leash, package opening modifications). [MET 08/24/25] [employer] Goals (Within 12 weeks) 1. Patient will demonstrate equalized shank pinner strength within 10 lbs of R hand average to support functional symmetry. [PROGRESSING 08/24/25] 2. Patient will tolerate dog walking with minimal to no pain (=2/10) using joint-protection strategies. [ PROGRESSING 08/24/25] 3. Patient will report independence with dressing and container management without significant limitation from thumb/wrist pain in 4 out of 5 trials. [ PROGRESSING 08/24/25] 4. Patient will achieve a QuickDASH score =25, reflecting return to near-baseline functional independence. [PROGRESSING 08/24/25] - Exercises 1 Descriptor 2x10 using yellow flex bar: 1. Wrist extension/flexion 2. Radial deviation 2x10 eccentric wrist extension min verbal/visual cues required for good return demo of resistive exercises progressing to standby by end of session Visual Cues Min Cues Verbal Cues Min Cues Manual Therapy Manual Therapy Patient was seen for manual intervention to the left forearm including gentle soft tissue massage performed while the extremity was supported within a moist heat pack to promote tissue relaxation and circulation. Light vibratory input was incorporated throughout the session to enhance neuromuscular release and promote proprioceptive feedback. Notable improvement was observed in tissue pliability and tone of the brachioradialis, extensor carpi radialis longus, flexor carpi ulnaris, and palmaris longus musculature, with the patient reporting subjective relief and reduced tension following intervention. - Assessment Patient Response to Good Treatment Rehabilitation Good Potential Impairments ADLs,Flexibility,Functional Activities,Motor Function, Identified Pain,Weakness,Range of Motion,Recreational Activities, Meaningful Activities,Work Capacity Progress Towards Good Progress Goals Assessment of Improving Overall Progress Assessment of Patient continues to demonstrate significant Improvement improvement in pain, soft tissue mobility, and overall functional tolerance of the left upper extremity. She performed all resistive and eccentric exercises without symptom provocation, requiring minimal cues for form and pacing, and was able to progress to standby assistance by the end of the session. The patient reports ongoing reduction in pain intensity and frequency, improved ease with daily tasks, and decreased dependence on her brace without aggravation of symptoms. These findings indicate excellent progress toward established therapy goals, with continued gains in strength, endurance, and neuromuscular control. Ongoing skilled OT remains appropriate to support full tenriism of strength and functional performance while preventing recurrence of symptoms. Home Exercise thumb opposition/ulnar deviation tendon gliirvin, Program theraputty, 08/03 updated, reducing HEP to discontinue weighted radial deviation and resisted thumb abduction until symptoms improve Reviewed with Goals,Progress Being Made,Home Exercise Program Patient/Caregiver Patient/Caregiver Good Understanding - Plan Therapy Continue with Current Program Recommendations Amount of Therapy 2-3 Months Recommended Comment 1-2x/week PRN Frequency of Twice a Week Treatment Length of Session 45 Minutes Treatment Emphasis ktape, HEP review, vibe Next Session Therapeutic Contents Active Range of Motion,Adaptive Equipment Education, Client Education,Functional Activities,Home Exercise Program,Joint Protection,Manual Therapy,Education,Self- Care,Stretching/Flexibility Activities,Therapeutic Activities,Therapeutic Exercises,Modalities Modalities As Needed Types of Modalities Ice Massage,Other Additional Types of MHP, Paraffin Modalities If you are in agreement with this Plan of Care, please return a signed and dated copy. I have reviewed this Plan of Care and certify that the skilled therapy services above are required to meet the patient?s needs. Physician Signature Date Printed Name and Credentials Clinical Instructor Signature Printed Name and Credentials
--- NOTE | 2025-09-01 12:34 | OT.OP.TRT ---
Visit Care Team Role Provider Type Ba Rankin MD Family Provider Non-Staff Specialty: General Surgery Address: [address] [place] [address], [address], [place], [address] Email: [email or web address] Mary Perez DO Attending Provider Physician Primary Care Provider Referring Provider Specialty: Family Practice Address: [address] [place] [address], [address], [place], [address] Email: [email or web address] Occupational Therapy Treatment Note OT Outpatient Treatment Note - Adult Start: 06/30/25 11:46 Freq: Status: Active Protocol: Document 09/01/25 10:45 (Rec: 08/30/25 10:21 [id number]) OT Outpatient Adult Treatment Note Session Time Visit Start Date 09/01/25 Visit Start Time 10:45 Visit Stop Time 11:40 Visit Information Visit Number 9 of 12 Plan of Care Dates 07/01/25-09/23/25 Insurance no preauth;no copay;no visit limit Information Setting Treatment Setting Outpatient Care Visit Type Note Type Treatment Note - Subjective Identification Type Name Identification Medical Record Reconciled With Observations It (re: her L thumb) has been a lot better, it only hurts once in awhile, but my legs and back are really concerning me Patient/Caregiver Excellent Compliance with Home Exercise Program - Objective Short Term Goals (Within 6 weeks) 1. Patient will demonstrate independence with tendon glide HEP with correct form and minimal symptom provocation. [MET 08/24/25] 2. Patient will reduce QuickDASH score by at least 15 points, indicating improved functional use of L UE. [ PROGRESSING 08/24/25] 3. Patient will improve left hearing care practitioner strength by at least 10 lbs (avg) to support improved task performance. [ PROGRESSING 08/24/25] 4. Patient will identify and consistently implement at least 3 joint protection/task modification strategies for daily activities (e.g., using adaptive leash, package opening modifications). [MET 08/24/25] Shelter Goals (Within 12 weeks) 1. Patient will demonstrate equalized hearing care practitioner strength within 10 lbs of R hand average to support functional symmetry. [PROGRESSING 08/24/25] 2. Patient will tolerate dog walking with minimal to no pain (=2/10) using joint-protection strategies. [ PROGRESSING 08/24/25] 3. Patient will report independence with dressing and container management without significant limitation from thumb/wrist pain in 4 out of 5 trials. [ PROGRESSING 08/24/25] 4. Patient will achieve a QuickDASH score =25, reflecting return to near-baseline functional independence. [PROGRESSING 08/24/25] - Exercises 1 Descriptor 2x10 using yellow flex bar: 1. Wrist extension/flexion 2. Radial/ulnar deviation 2x10 eccentric wrist extension 1-2 verbal/visual cues required for good return demo of resistive exercises progressing to standby by end of session Visual Cues 1-2 Verbal Cues 1-2 Manual Therapy Manual Therapy Patient was seen for continued management of left De Quervain?s tenosynovitis. Manual intervention included gentle soft tissue massage to the left forearm while the extremity was supported within a moist heat pack to promote relaxation and circulation. Light vibratory input was incorporated throughout to facilitate neuromuscular release and improve proprioceptive awareness. Notable improvement was observed in tissue pliability and tone of the brachioradialis, extensor carpi radialis longus, flexor carpi ulnaris, and palmaris longus musculature, with the patient reporting subjective relief and reduced tension following intervention. - Assessment Patient Response to Good Treatment Rehabilitation Good Potential Impairments ADLs,Flexibility,Functional Activities,Motor Function, Identified Pain,Weakness,Range of Motion,Recreational Activities, Meaningful Activities,Work Capacity Progress Towards Good Progress Goals Assessment of Improving Overall Progress Assessment of Patient demonstrates continued progress toward her Improvement therapeutic goals for left De Quervain?s tenosynovitis, with improved strength, reduced pain, and increased activity tolerance. She remains engaged and compliant with her plan of care and demonstrates good carryover of education and exercises. 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 She reports feeling that these factors are increasingly impacting her gait, posture, and balance and contributing to the neurological symptoms she has been experiencing. Within my professional scope, I advised the patient to follow up with her care team to discuss potential referrals to physical therapy and neurology for further evaluation of these symptoms and to support her concerns regarding safety, fall prevention, and overall functional independence. While these issues fall outside the current plan of care focused on upper extremity rehabilitation, they present valid clinical considerations for her overall safety and prognosis. Patient verbalized understanding and expressed intention to discuss these concerns with her primary provider. She continues to demonstrate excellent motivation, participation, and progress toward her established OT goals for her thumb and wrist and remains appropriate for ongoing skilled occupational therapy intervention. Home Exercise thumb opposition/ulnar deviation tendon glides, Program theraputty, 08/03 updated, reducing HEP to discontinue weighted radial deviation and resisted thumb abduction until symptoms improve Reviewed with Goals,Progress Being Made,Home Exercise Program Patient/Caregiver Patient/Caregiver Good Understanding - Plan Therapy Continue with Current Program Recommendations Amount of Therapy 2-3 Months Recommended Comment 1-2x/week PRN Frequency of Twice a Week Treatment Length of Session 45 Minutes Therapeutic Contents Active Range of Motion,Adaptive Equipment Education, Client Education,Functional Activities,Home Exercise Program,Joint Protection,Manual Therapy,Education,Self- Care,Stretching/Flexibility Activities,Therapeutic Activities,Therapeutic Exercises,Modalities Modalities As Needed Types of Modalities Ice Massage,Other Additional Types of MHP, Paraffin Modalities
--- NOTE | 2025-09-06 12:58 | OT.OP.TRT ---
Visit Care Team Role Provider Type Ba Rankni MD Family Provider Non-Staff Specialty: General Surgery Address: [address] [place] [address], [address], [place], [address] Email: [email or web address] Mary Perez DO Attending Provider Physician Primary Care Provider Referring Provider Specialty: Family Practice Address: [address] [place] [address], [address], [place], [address] Email: [email or web address] Occupational Therapy Treatment Note OT Outpatient Treatment Note - Adult Start: 06/30/25 11:46 Freq: Status: Active Protocol: Document 09/06/25 09:45 (Rec: 09/02/25 14:15 [id number]) OT Outpatient Adult Treatment Note Session Time Visit Start Date 09/06/25 Visit Start Time 09:45 Visit Stop Time 10:30 Visit Information Visit Number 10 of 12 Plan of Care Dates 07/01/25-09/23/25 Insurance no preauth;no copay;no visit limit Information Setting Treatment Setting Outpatient Care Visit Type Note Type Treatment Note - Subjective Identification Type Name Identification Medical Record Reconciled With Observations It's been a bit more sore the last couple of days but I lost a brace and have been doing the new exercises Patient/Caregiver Excellent Compliance with Home Exercise Program - Objective Short Term Goals (Within 6 weeks) 1. Patient will demonstrate independence with tendon glide HEP with correct form and minimal symptom provocation. [MET 08/24/25] 2. Patient will reduce QuickDASH score by at least 15 points, indicating improved functional use of L UE. [ PROGRESSING 08/24/25] 3. Patient will improve left resource specialist strength by at least 10 lbs (avg) to support improved task performance. [ PROGRESSING 08/24/25] 4. Patient will identify and consistently implement at least 3 joint protection/task modification strategies for daily activities (e.g., using adaptive leash, package opening modifications). [MET 08/24/25] Fdc Goals (Within 12 weeks) 1. Patient will demonstrate equalized resource specialist strength within 10 lbs of R hand average to support functional symmetry. [PROGRESSING 08/24/25] 2. Patient will tolerate dog walking with minimal to no pain (=2/10) using joint-protection strategies. [ PROGRESSING 08/24/25] 3. Patient will report independence with dressing and container management without significant limitation from thumb/wrist pain in 4 out of 5 trials. [ PROGRESSING 08/24/25] 4. Patient will achieve a QuickDASH score =25, reflecting return to near-baseline functional independence. [PROGRESSING 08/24/25] - Manual Therapy Manual Therapy Patient was seen for continued management of left De Quervain?s tenosynovitis. She reported mild aggravation of wrist symptoms this date, correlating with recent progression of her strengthening HEP and decreased brace use after one brace was lost and another broke. Education was provided on the importance of maintaining consistent bracing support when advancing strengthening exercises to prevent overuse and irritation. Strategies for symptom management were reviewed, including temporarily reducing resistance or repetitions until a new brace is obtained. Patient required maximal education and cueing to fully understand the relationship between load progression and tendon protection, verbalizing fair understanding by the end of session. Manual therapy was performed to the left forearm, including gentle soft tissue massage to both anterior and posterior compartments to address generalized tension and palpable trigger points at the extensor digitorum, flexor carpi ulnaris, and flexor carpi radialis. Self-massage techniques were reviewed and practiced with good return demonstration. Notable reduction in tissue tightness was observed following intervention. Patient verbalized intention to obtain a new brace within the next one to two days and remains motivated to continue with her home program returning to [facility] only until new brace arrives. - Assessment Patient Response to Good Treatment Rehabilitation Good Potential Impairments ADLs,Flexibility,Functional Activities,Motor Function, Identified Pain,Weakness,Range of Motion,Recreational Activities, Meaningful Activities,Work Capacity Progress Towards Good Progress Goals Assessment of Improving Overall Progress Assessment of Patient presents with mild flare in wrist discomfort Improvement likely secondary to increased strengthening activity without adequate external support from bracing. Education and symptom management strategies were provided with fair understanding demonstrated. Soft tissue mobility improved following manual intervention, and the patient was receptive to self-management training. She continues to demonstrate good motivation, compliance, and insight into her recovery process. With samaritan of consistent bracing and adherence to modified strengthening parameters, symptoms are expected to stabilize. Patient remains appropriate for skilled OT to reinforce tendon protection strategies, advance strengthening as tolerated, and support continued functional recovery. Home Exercise thumb opposition/ulnar deviation tendon gliirvin, Program theraputty, 08/03 updated, reducing HEP to discontinue weighted radial deviation and resisted thumb abduction until symptoms improve Reviewed with Goals,Progress Being Made,Home Exercise Program Patient/Caregiver Patient/Caregiver Good Understanding - Plan Therapy Continue with Current Program Recommendations Amount of Therapy 2-3 Months Recommended Comment 1-2x/week PRN Frequency of Twice a Week Treatment Length of Session 45 Minutes Therapeutic Contents Active Range of Motion,Adaptive Equipment Education, Client Education,Functional Activities,Home Exercise Program,Joint Protection,Manual Therapy,Education,Self- Care,Stretching/Flexibility Activities,Therapeutic Activities,Therapeutic Exercises,Modalities Modalities As Needed Types of Modalities Ice Massage,Other Additional Types of MHP, Paraffin Modalities
--- NOTE | 2025-09-08 10:54 | OT.OP.DC ---
Visit Care Team Role Provider Type Ba Rankin MD Family Provider Non-Staff Address: [address] [place] [address], [address], [place], [address] Email: [email or web address] Mary Perez DO Attending Provider Physician Primary Care Provider Referring Provider Address: [address] [place] [address], [address], [place], [address] Email: [email or web address] Outpatient OT Outpatient Adult Evaluation Start: 06/30/25 11:46 Freq: Status: Active Protocol: Document 07/01/25 13:45 (Rec: 06/30/25 11:52 [id number]) General Information - Adult Visit Information Visit Number 1 of 12 Plan of Care Dates 07/01/25-09/23/25 Insurance no preauth;no copay;no visit limit Information Session Time Visit Start Date 07/01/25 Visit Start Time 13:45 Visit Stop Time 14:30 Setting Treatment Setting Outpatient Care Visit Type Note Type Initial Evaluation Referral Referring Physician Dr. Mary Perez Reason for Referral R DeQuervain's tenosynovitis Identification Identification Yes Confirmed Identification EMR Confirmed By Patient Patient Goals Dressing/fasteners, art, opening packages/containers, dog walking Social Information Social History It started about 2 months ago and it just started out of nowhere, it wasn't progressive at all Patient Questionnaires Quick Dash- Upper Extremity Quick Dash UE Score 59.1 Quick Dash UE 40 to 59% Impaired (Score 40-59) Impairment Goals Objective Measurements Objective ~Cristóbal?s test: Positive on L wrist Measurements ~AROM (bilateral wrists/hands): Within functional limits ~Culinary Manager strength Right: 50 lbs, 55 lbs, 55 lbs ? Avg 53.3 lbs Left: 32 lbs, 45 lbs, 45 lbs ? Avg 40.7 lbs ~3-jaw ran pinch (R vs L, 3 trials each) Right: 11 lbs, 10 lbs, 11.5 lbs ? Avg 10.8 lbs Left: 10 lbs, 11 lbs, 11 lbs ? Avg 10.7 lbs ~Lateral pinch Right: 12 lbs, 13 lbs, 11 lbs ? Avg 12.0 lbs Left: 10 lbs (1 trial only, due to pain) Treatment Treatment Patient was educated on joint protection strategies, activity modification, and the use of adaptive equipment including consideration of a waist-belt leash to reduce strain on the left thumb. Ice massage was reviewed for symptom management. A brief trial of tendon glide exercises was introduced with plans to review in full next session. Patient verbalized good understanding and demonstrated fair tolerance of all education and exercise introduced. Short Term Goals Short Term Goals (Within 6 weeks) 1. Patient will demonstrate independence with tendon glide HEP with correct form and minimal symptom provocation. 2. Patient will reduce QuickDASH score by at least 15 points, indicating improved functional use of L UE. 3. Patient will improve left recreation assistant strength by at least 10 lbs (avg) to support improved task performance. 4. Patient will identify and consistently implement at least 3 joint protection/task modification strategies for daily activities (e.g., using adaptive leash, package opening modifications). Penitentiary Goals Penitentiary Goals (Within 12 weeks) 1. Patient will demonstrate equalized recreation assistant strength within 10 lbs of R hand average to support functional symmetry. 2. Patient will tolerate dog walking with minimal to no pain (=2/10) using joint-protection strategies. 3. Patient will report independence with dressing and container management without significant limitation from thumb/wrist pain in 4 out of 5 trials. 4. Patient will achieve a QuickDASH score =25, reflecting return to near-baseline functional independence. Assessment/Plan Assessment Patient Response Good Rehabilitation Good Potential Impairments ADLs,Functional Activities,Pain,Weakness,Recreational Identified Activities,Meaningful Activities,Stiffness,Work Capacity,Soft Tissue Mobility Treatment Assessment 75-year-old [id number] female referred by Dr. Mary Perez for left De Quervain?s tenosynovitis with a two-month history of sudden onset thumb and wrist pain, likely exacerbated by occupational and leisure demands including dog walking and artistic tasks. Evaluation revealed positive Cristóbal?s test, pain with recreation assistant and pinch, decreased left recreation assistant strength (average 40.7 lbs vs 53.3 lbs on the right), and limited pinch tolerance, particularly with lateral pinch. Functional deficits are noted in dressing/ fasteners, opening packages and containers, and dog walking, as reflected in a QuickDASH score of 59.1. Patient presents with good brace compliance and motivation for rehabilitation. Skilled OT is indicated to address pain reduction, tendon mobility, recreation assistant/pinch strength, and joint protection strategies to restore independence in daily activities and return to valued roles. Home Exercise radial/ulnar deviation tendon glides Program Reviewed with Goals,Progress Being Made,Home Exercise Program Patient Patient Good Understanding Plan Length of treatment 12 (weeks) Plan of Care Start 07/01/25 Date Plan of Care End 09/23/25 Date Comment 1-2x per week pending progress Treatment Frequency Twice a Week Treatment Duration 45 Minutes Treatment Emphasis ktape, HEP review, vibe Next Session Therapeutic Contents Active Range of Motion,Adaptive Equipment Education, Client Education,Functional Activities,Home Exercise Program,Joint Protection,Education,Neuromuscular Re- Education,Self-Care,Stretching/Flexibility Activities, Therapeutic Activities,Therapeutic Exercises,Modalities Modalities As Needed Types of Modalities Ice Massage,Other Additional Types of paraffin, MHP Modalities Patient Instruction Home Exercise Program,Plan of Care,Questions/Concerns Patient Continue with Current Program Recommendations Functional Wrist/Hand Scan Hand Side Sensory Assessment Sensory Profile2 OT Outpatient Treatment Note - Adult Start: 06/30/25 11:46 Freq: Status: Active Protocol: Document 09/08/25 09:45 (Rec: 09/07/25 12:10 [id number]) OT Outpatient Adult Treatment Note Visit Information Plan of Care Dates 07/01/25-09/23/25 Insurance no preauth;no copay;no visit limit Information Setting Treatment Setting Outpatient Care Visit Type Note Type Discharge Summary General Information General Information Pt no present at scheduled appt time, therapist spoke with pt on the phone who reported she thought she was scheduled for 1:30 rather than 9:45, therapist offered alternate availability this date however patient stating 1:30 was the only time she was available today and therapist did not have open availability at that time. Therapist inquired on patient's progress and desire to continue therapy however, pt reporting significant progress with pain and function and requesting discharge at this time due to therapist availability and scheduling as she feels she is well equipped to self manage care at this time. Will discharge as requested. - Subjective Patient/Caregiver Excellent Compliance with Home Exercise Program - Objective Short Term Goals (Within 6 weeks) 1. Patient will demonstrate independence with tendon glide HEP with correct form and minimal symptom provocation. [MET 08/24/25] 2. Patient will reduce QuickDASH score by at least 15 points, indicating improved functional use of L UE. [ NOT MET as patient d/c'd prior to retesting 09/08/25] 3. Patient will improve left recreation assistant strength by at least 10 lbs (avg) to support improved task performance. [NOT MET as patient d/c'd prior to retesting 09/08/25] 4. Patient will identify and consistently implement at least 3 joint protection/task modification strategies for daily activities (e.g., using adaptive leash, package opening modifications). [MET 08/24/25] Penitentiary Goals (Within 12 weeks) 1. Patient will demonstrate equalized recreation assistant strength within 10 lbs of R hand average to support functional symmetry. [NOT MET as patient d/c'd prior to retesting 09/08/25] 2. Patient will tolerate dog walking with minimal to no pain (=2/10) using joint-protection strategies. [MET 09/08/25] 3. Patient will report independence with dressing and container management without significant limitation from thumb/wrist pain in 4 out of 5 trials. [MET ] 4. Patient will achieve a QuickDASH score =25, reflecting return to near-baseline functional independence. [NOT MET as patient d/c'd prior to retesting 09/08/25] - - Assessment Patient Response to Good Treatment Rehabilitation Good Potential Impairments ADLs,Flexibility,Functional Activities,Motor Function, Identified Pain,Weakness,Range of Motion,Recreational Activities, Meaningful Activities,Work Capacity Progress Towards Goals Met,Appropriate for Discharge Goals Assessment of Improving Overall Progress Assessment of The patient is a 75-year-old female referred to Improvement occupational therapy for management of left De Quervain ?s tenosynovitis, presenting at evaluation with sudden- onset radial wrist and thumb pain of approximately two months? duration, aggravated by daily tasks such as dog walking, opening containers, and dressing-related fasteners. Initial findings included a positive Cristóbal?s test, pain-limited recreation assistant and pinch strength, localized tenderness along the first dorsal compartment, and functional limitations reflected by a QuickDASH score of 59.1. Over the course of treatment, the patient was educated extensively on tendon protection strategies, adaptive task modification, joint protection principles, bracing techniques, thermal modalities, kinesiotaping, and gradual strengthening progression. Interventions included tendon glides, graded ROM, vibratory neuromodulation, soft tissue mobilization, and progressive wrist and thumb strengthening. Throughout her plan of care, the patient demonstrated consistent engagement, high compliance with her home program, and strong self-management skills. She reported substantial reductions in pain, improved activity tolerance, and meaningful functional gains across daily tasks, stating she feels ?95% better for sure.? While the patient has made excellent overall progress, quantitative reassessment of recreation assistant strength and QuickDASH outcomes had been planned for today?s session and could not be completed due to her absence. The patient contacted the therapist and reported a scheduling misunderstanding; despite an offer of alternate same-day availability, the patient was unable to attend. During the phone conversation, she expressed satisfaction with her current level of recovery, confidence in independently managing her ongoing care, and requested discharge at this time due to therapist availability and scheduling constraints. Given her significant subjective improvement, demonstrated independence with education and home strategies, and her preference to transition to self- management, the patient is being discharged from occupational therapy at her request. She verbalized understanding that she may return to therapy with a new referral should symptoms worsen or functional limitations recur. Home Exercise thumb opposition/ulnar deviation tendon glides, Program theraputty, 08/03 updated, reducing HEP to discontinue weighted radial deviation and resisted thumb abduction until symptoms improve Patient/Caregiver Good Understanding - Plan Therapy Discharge to Home Exercise Program Recommendations Amount of Therapy No Further Therapy Recommended Frequency of No Further Therapy Treatment
== END 2025-09-09 13:15 | disposition home or self-care (01) ==
LOC: OT 09:45
PROVIDERS: Family Provider Specialist; PCP Family Medicine; Referring Provider Family Medicine; Visit Provider Family Medicine
DX: M79.642 Pain in left hand (principal)
CPT/HCPCS: 97110; 97140; 97165; 97530